=== PATIENT | female | born 1945 | race Caucasian/White ===

== ENCOUNTER 2017-01-04 11:50 | Emergency (ER) | payer MEDICARE, BC ==
[~2017-01-04 11:50] MED LIST: AMLO2.5T PO; ASPI-482 PO; ATOR20TA58 PO; BISA-42 PO; CARV12.5 PO; CARV12.52 PO; CARV6.252 PO; CEFT1FRO2 IV; CHOL2000 PO; CIPR500T PO; CLON1TAB23 PO; ESCI20TA PO; ESOM40CA PO; FERR-26 PO; FLUT16SP NS; GABA-586 PO; GLIM1TAB2 PO; GLIM4TAB2 PO; INSU100V8 SQ; ISOS30TA17 PO; ISOS30TA4 PO; LACTOBACILLUS ACIDOPHILUS PO; LEVO150T5 PO; LORA10TA68 PO; LOSA1TAB17 PO; LOSA1TAB18 PO; LUBI8CAP3 PO; MAGN400T22 PO; METO10TA PO; METO50TA4 PO; MIRT15TA3 PO; MULT1TAB52 PO; MUPI22OI2 TP; NITR0.4T6 SL; OMEG1CAP6 PO; OMEP20CA9 PO; ONDA4TAB12 PO; OXYC-323 PO; POLY17PO5 PO; POTA10TA5 PO; RANO10002 PO; SUCR1TAB PO; TOPI25TA32 PO; TRAM50TA PO; TRAZ100T12 PO; VANC1.5P12 IV; domperidone PO
[2017-01-04] MEDS ORDERED: IPRATRPIUM/ALBUTEROL 0.5/2.5MG 3 ML NEBU. ONE (12:06)
[2017-01-04] MEDS ORDERED: IV NORMAL SALINE 1,000ML 1,000 ML IV SCH (12:15)
[2017-01-04 12:19] LABS: BACTERIA,URINE 0 /HPF (0-FEW); BILIRUBIN,URINE NEG (NEG); CLARITY,URINE CLEAR; COLOR,URINE YELLOW; GLUCOSE,URINE NEG (NEG); NITRITE,URINE NEG (NEG); RBC,URINE 0 /HPF (0-2); UROBILINOGEN,URINE 0.2 mg/dL (0.2 mg/dL); WBC,URINE RARE /HPF (0-4)
--- NOTE | 2017-01-04 12:30 | PHYS DOC ---
General Chief Complaint: ABDOMINAL PAIN Stated Complaint: ABDOMEN AND LOWER BACK PAIN,DIFFICULTY BREATHING Time Seen by MD: 11:51 Source: patient, old records Exam Limitations: no limitations Problems: History of Present Illness Initial Comments Pt is 70/F to ED c/o low abd/back pain and dyspnea. Pt states sx began , states on saw her PCP for these symptoms and was advised she was constipated. She took miralax at home, now having had multiple large BMs she's experiencing abdominal cramping. No emesis, no bad food exposure, no blood in stools. She's complaining of whole body aching chills and sweats. She denies focal abdominal pain complaints. Pt history changes, initially she advised she'd had no n/v. Later, with staff present pt states she had n/v and myalgias last night and fell at home no injury. Timing/Duration: other (2 days) Severity: moderate Modifying Factors: worse with eating, improves with medication Associated Symptoms: malaise, nausea/vomiting, other Allergies: Coded Allergies: Sulfa (Sulfonamide Antibiotics) (Verified Allergy, Intermediate, RASH, ) aripiprazole (Verified Allergy, Intermediate, RASH, 09/23/16) doxycycline (Verified Allergy, Intermediate, N/V RASH, 09/23/16) pseudoephedrine (Verified Allergy, Intermediate, hyperactive, 12/31/14) triprolidine (Verified Allergy, Intermediate, hyperactive, 12/31/14) Past Medical History Medical History: diabetes, GERD, heart disease, high cholesterol, hypertension , other (hiatal hernia, osteoarthritis, Grave's disease, gastroparesis, anemia, constipation, CAD, depression, diverticulosis, GERD, HTN, migraines, HLP) Surgical History: cholecystectomy, tonsillectomy (orbits, catheterization, L ankle) Social History Smoker: non-smoker Alcohol: none Drugs: none Review of Systems Constitutional: chills diaphoresis fever malaise Respiratory: denies cough, denies shortness of breath Cardiovascular: denies chest pain, denies palpitations Gastrointestinal: see HPI Genitourinary: denies dysuria, denies frequency, denies hematuria Musculoskeletal: back paindenies joint pain, denies joint swelling, muscle paindenies neck pain Psychiatric/Neurological: denies headache, denies numbness, denies paresthesia , denies seizure, denies weakness Hematologic/Lymphatic: denies blood clots, denies easy bleeding, denies easy bruising Physical Exam General Appearance: no apparent distress Eyes: bilateral eye EOMI, bilateral eye PERRL, bilateral eye normal inspection Ear, Nose, Throat: hearing grossly normal, normal ENT inspection, normal pharynx Neck: non-tender, supple Respiratory: normal breath sounds, no respiratory distress Cardiovascular: normal peripheral pulses, regular rate, rhythm Gastrointestinal: soft (ND, BS nl, mild generalized low abd TTP no r/g/mass, RLQ TTP noted) Rectal: deferred Back: no CVA tenderness, no vertebral tenderness Extremities: non-tender, normal inspection 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 Automated exposure control 2. Adjustment of the mA and/or kV according to patient size 3. Use of iterative reconstruction technique DICTATED AND SIGNED BY: BELTRAN GLASS MD DATE: 01/05/17 1408 CC: DORINA BUSH MD; JANUARY ZIMMERMAN DO ~ CT of the abdomen and pelvis without contrast, 01/04/2017: History: Abdominal pain and vomiting Multidetector CT imaging was performed following oral ingestion of contrast. No IV contrast was administered for this exam. The gallbladder is surgically absent. The unopacified liver shows no abnormality. No pancreatic abnormality is seen. The spleen is of normal size. There is mild bilateral renal cortical scarring. The unopacified kidneys show no evidence of obstruction or mass. There is mild aortic calcific plaquing without evidence of aneurysm. No abdominal or pelvic adenopathy is seen. There are calcified uterine fibroids. There appear to be surgical sutures related to the rectosigmoid colon. Scattered colonic diverticula are present. No paracolonic inflammatory process is seen. The appendix is visualized and shows no abnormality. The bowel loops are not dilated. No free fluid or free air is evident in the abdomen or pelvis. Moderate scattered degenerative changes are present in the spine IMPRESSION: 1. Colonic diverticulosis. 2. Calcified uterine fibroids. 3. No acute abdominal or pelvic abnormality is detected. DICTATED AND SIGNED BY: BELTRAN GLASS MD DATE: 01/04/17 5161 CC: DORINA BUSH MD; JANUARY ZIMMERMAN DO ~ K+ noted, oral replacement given in ED. Reassurring w/u in ED, no n/v/d. Pt comfortable, ready for d/c, expresses agreement/understanding with treatment plan. Departure Time of Disposition: 14:37 Disposition: 01 HOME, SELF-CARE Diagnosis: hypokalemia, abdominal pain NOS, Condition: STABLE Patient Instructions: Abdominal Pain, Hypokalemia-Brief Additional Instructions: As discussed, your symptoms may be due to a viral process or miralax. Rest, no strenuous activity. Aggressive hydration with gatorade, water. Eat one banana twice daily until doctor follow up. Continue current medications. OTC probiotics or cultured yogurt (lorrie barraza) daily. Follow up with Dr Bush in 2-3 days for recheck. Return to ED with new or changing symptoms. JANUARY ZIMMERMAN DO Jan 04, 2017 12:30
[2017-01-04 12:36] LABS: AMPHETAMINE/METHAMPHETAMINE NEG (NEG); BARBITURATES NEG (NEG); BENZODIAZEPINES NEG (NEG); CANNABINOIDS NEG (NEG); COCAINE NEG (NEG); METHADONE NEG (NEG); OPIATES POS (NEG); PHENCYCLIDINE NEG (NEG)
[2017-01-04] MEDS ORDERED: KETOROLAC 30 MG/ML VIAL. IV ONE (12:45)
[2017-01-04] MEDS ORDERED: ONDANSETRON PF 4 MG/2 ML VIAL. IV ONE (12:45)
[2017-01-04] MEDS ORDERED: ASPIRIN 81 MG TAB.CHEW PO ONE (12:45)
[2017-01-04] MEDS ORDERED: IOHEXOL 240 MG/ML 50ML VIAL. PO ONE (12:45)
[2017-01-04 12:52] LABS: BASO # 0.1 x10^3/uL (0.0-0.2); BASO % 1 % (0-3); EOS # 0.1 x10^3/uL (0.0-0.7); EOS % 2 % (0-3); HEMOGLOBIN 10.4 g/dL (12.0-15.5); LYMPH # 1.5 x10^3/uL (1.0-4.8); LYMPH % 25 % (24-48); MEAN CORPUSCULAR HEMOGLOBIN 28 pg (25-35); MEAN CORPUSCULAR HGB CONC 34 g/dL (31-37); MEAN CORPUSCULAR VOLUME 84 fL (79-100); MONO % 16 % (0-9); NEUT # 3.5 x10^3uL (1.8-7.7); NEUT % 56 % (31-73); PLATELET COUNT 309 x10^3/uL (140-400); RED BLOOD COUNT 3.68 x10^6/uL (3.50-5.40); RED CELL DISTRIBUTION WIDTH 17.3 % (11.5-14.5); WHITE BLOOD COUNT 6.2 x10^3/uL (4.0-11.0)
[2017-01-04] MEDS: FENTANYL PF 100 MCG/2 ML VIAL. IV PRN ×2 (13:03→14:17)
[2017-01-04 13:13] LABS: ALBUMIN 3.5 g/dL (3.4-5.0); ALBUMIN/GLOBULIN RATIO 1.1 (1.0-1.7); CALCIUM 8.8 mg/dL (8.5-10.1); CREATININE 1.2 mg/dL (0.6-1.0); GFR 44.5; POTASSIUM 3.3 mmol/L (3.5-5.1); TOTAL BILIRUBIN 0.4 mg/dL (0.2-1.0); TOTAL PROTEIN 6.6 g/dL (6.4-8.2)
--- NOTE | 2017-01-04 13:22 | RAD ---
Acute abdomen series with chest, 3 views, 01/04/2017: History: Right-sided abdominal pain and chest pain Gas is present in large and small bowel without significant bowel distention. A couple of small nonspecific air-fluid levels are noted on the right. No free air is seen in the abdomen. Surgical clips are present in the right upper quadrant. There is no evidence of organomegaly. Calcifications projected over the pelvis near the midline are compatible with a uterine fibroid. There are surgical sutures in the mid pelvis. Moderate degenerative changes are evident in the spine. The heart is within normal limits in size. There is calcific plaquing of the thoracic aorta. There is minimal parenchymal scarring. No pulmonary consolidation is seen. There is no evidence of pleural fluid. IMPRESSION: No acute abdominal abnormality is detected.
[2017-01-04 14:00] VITALS: BP 104/66
--- NOTE | 2017-01-04 14:15 | RAD ---
CT of the abdomen and pelvis without contrast, 01/04/2017: History: Abdominal pain and vomiting Multidetector CT imaging was performed following oral ingestion of contrast. No IV contrast was administered for this exam. The gallbladder is surgically absent. The unopacified liver shows no abnormality. No pancreatic abnormality is seen. The spleen is of normal size. There is mild bilateral renal cortical scarring. The unopacified kidneys show no evidence of obstruction or mass. There is mild aortic calcific plaquing without evidence of aneurysm. No abdominal or pelvic adenopathy is seen. There are calcified uterine fibroids. There appear to be surgical sutures related to the rectosigmoid colon. Scattered colonic diverticula are present. No paracolonic inflammatory process is seen. The appendix is visualized and shows no abnormality. The bowel loops are not dilated. No free fluid or free air is evident in the abdomen or pelvis. Moderate scattered degenerative changes are present in the spine IMPRESSION: 1. Colonic diverticulosis. 2. Calcified uterine fibroids. 3. No acute abdominal or pelvic abnormality is detected.
--- NOTE | 2017-01-04 14:23 | EKG ---
[address] [address] Test Date: 2017-01-04 Test Time: 12:25:43 Pat Name: NESS CHAVES Department: Room: Gender: F Contact Representative: NORA : 1945 Requested By: JANUARY ZIMMERMAN Order Number: [id number] Reading MD: Measurements Intervals [place] Rate: 76 P: IN: QRS: -26 QRSD: 98 T: 2 QT: 442 QTc: 497 Interpretive Statements IRREGULAR RHYTHM, NO P-WAVE FOUND LEFTWARD AXIS QRS(T) CONTOUR ABNORMALITY CONSISTENT WITH ANTEROSEPTAL INFARCT AGE UNDETERMINED ABNORMAL ECG RI6.01 Unconfirmed report No previous ECG available for comparison
[2017-01-04] MEDS ORDERED: POTASSIUM CHLORIDE 20 MEQ TABLET.ER. PO ONE (14:30)
== END 2017-01-04 14:48 | disposition home or self-care (01) ==
LOC: ER 11:50
DX: R10.31 Right lower quadrant pain (principal); M54.5 Low back pain; R06.00 Dyspnea, unspecified; E87.6 Hypokalemia; E11.9 Type 2 diabetes mellitus without complications; K21.9 Gastro-esophageal reflux disease without esophagitis; F32.9 Major depressive disorder, single episode, unspecified; I25.10 Atherosclerotic heart disease of native coronary artery without angina pectoris; I11.9 Hypertensive heart disease without heart failure; M19.90 Unspecified osteoarthritis, unspecified site; G43.909 Migraine, unspecified, not intractable, without status migrainosus; E05.00 Thyrotoxicosis with diffuse goiter without thyrotoxic crisis or storm; K31.84 Gastroparesis; E78.00 Pure hypercholesterolemia, unspecified; Z88.2 Allergy status to sulfonamides; Z88.1 Allergy status to other antibiotic agents; Z88.8 Allergy status to other drugs, medicaments and biological substances
CPT/HCPCS: 36415; 74022; 74176; 80053; 80305; 80320; 81001; 82550; 83690; 83880; 84484; 85027; 85610; 85730; 93005; 96361; 96374; 96375; 96376; 99285; J2405; J3010; G0480; G0481; J7030

== ENCOUNTER 2017-06-07 23:16 | Emergency (ER) | payer MEDICARE, BC ==
[~2017-06-07] VITALS: Ht 160 cm; Wt 105.0 kg
[~2017-06-07 23:16] MED LIST changes: -ESCI20TA PO; +ESCITALOPRAM OX20 MG PO; -FLUT16SP NS; +FLUT16SP21 NS; -ISOS30TA17 PO; +ISOS30TA19 PO; -LUBI8CAP3 PO; +LUBI8CAP4 PO; +NITR0.4T22 SL; -NITR0.4T6 SL; -TOPI25TA32 PO; +TOPI25TA52 PO; +TRAZ-90 PO; -TRAZ100T12 PO
[2017-06-08] MEDS ORDERED: IV NORMAL SALINE 1,000ML 1,000 ML IV SCH (00:45)
[2017-06-08 01:46] LABS: BACTERIA,URINE FEW /HPF (0-FEW); BILIRUBIN,URINE NEG (NEG); CLARITY,URINE CLEAR; COLOR,URINE YELLOW; GLUCOSE,URINE NEG (NEG); NITRITE,URINE NEG (NEG); RBC,URINE 0 /HPF (0-2); SQUAMOUS EPITHELIAL CELL,UR FEW /LPF; UROBILINOGEN,URINE 0.2 mg/dL (0.2 mg/dL); WBC,URINE OCC /HPF (0-4)
--- NOTE | 2017-06-08 02:01 | PHYS DOC ---
Past History Past Medical History: Anxiety, Depression, Diabetes, Heart Disease, Hypertension, Hyperthyroid, Hypothyroid, Immunosuppression Past Surgical History: Cholecystectomy Smoking: Non-smoker Alcohol Use: None Drug Use: None Adult General Chief Complaint Chief Complaint: DIZZY/LIGHT HEADED HPI HPI Patient is a 71 year old female who presents with complaint of dizziness and lightheadedness. Patient states that her symptoms have been present throughout the day. Patient states that she has been getting very lightheaded and feeling like she is about to pass out, especially when standing. Patient states that she tried taking a nap earlier today, however upon awakening she still found herself to be lightheaded. Patient states that she has been drinking normal amounts of fluid and has not had over exposure to heat. Patient denies any associated shortness of breath, chest pain, unilateral weakness, nausea, vomiting, or abdominal pain. Due to generalized fatigue and persistent symptoms the patient came to the emergency department for further evaluation. Review of Systems Review of Systems Constitutional: Dizziness, lightheadedness, denies fever or chills [] Eyes: Denies change in visual acuity, redness, or eye pain [] HENT: Denies nasal congestion or sore throat [] Respiratory: Denies cough or shortness of breath [] Cardiovascular: Denies chest pain or edema [] GI: Denies abdominal pain, nausea, vomiting, bloody stools or diarrhea [] : Denies dysuria or hematuria [] Musculoskeletal: Denies back pain or joint pain [] Integument: Denies rash or skin lesions [] Neurologic: Denies headache, focal weakness or sensory changes [] Current Medications Current Medications Current Medications Medications (Trade) Dose Ordered Sig/Maggie Start Time Stop Time Status Last Admin Dose Admin Sodium Chloride 1,000 ml @ 1,000 mls/hr Q1H 06/08/17 00:45 06/08/17 01:44 DC 06/08/17 00:45 1,000 MLS/HR Allergies Allergies Allergies Coded Allergies Type Severity Reaction Last Updated Verified Sulfa (Sulfonamide Antibiotics) Allergy Intermediate RASH 09/23/16 Yes aripiprazole Allergy Intermediate RASH 09/23/16 Yes doxycycline Allergy Intermediate N/V RASH 09/23/16 Yes pseudoephedrine Allergy Intermediate hyperactive 12/31/14 Yes triprolidine Allergy Intermediate hyperactive 12/31/14 Yes Physical Exam Physical Exam Constitutional: Alert, obese, afebrile, no acute distress. [] HENT: Normocephalic, atraumatic, bilateral external ears normal, oropharynx moist, no oral exudates, nose normal. [] Eyes: PERRLA, EOMI, conjunctiva normal, no discharge. [] Neck: Normal range of motion, no tenderness, supple, no stridor. [] Cardiovascular:Heart rate regular rhythm, no murmur [] Lungs & Thorax: Bilateral breath sounds clear to auscultation [] Abdomen: Bowel sounds normal, soft, no tenderness, no masses, no pulsatile masses. [] Skin: Warm, dry, no erythema, no rash. [] Back: No tenderness, no CVA tenderness. [] Extremities: No tenderness, no cyanosis, no clubbing, ROM intact, no edema. [] Neurologic: Alert and oriented X 3, normal motor function, normal sensory function, no focal deficits noted. [] Current Patient Data Vital Signs Vital Signs Date Time Temp Pulse Resp B/P (MAP) Pulse Ox O2 Delivery O2 Flow Rate FiO2 06/07/17 23:33 98.0 68 20 97 Room Air Lab Results Laboratory Tests Test 06/07/17 23:59 06/08/17 00:38 Glucose (Fingerstick) 158 mg/dL (70-99) H Urine Collection Type Unknown Urine Color Yellow Urine Clarity Clear Urine pH 5.0 Urine Specific [place] 1.010 Urine Protein Neg (NEG-TRACE) Urine Glucose (UA) Neg mg/dL (NEG) Urine Ketones (Stick) Neg mg/dL (NEG) Urine Blood Neg (NEG) Urine Nitrite Neg (NEG) Urine Bilirubin Neg (NEG) Urine Urobilinogen Dipstick 0.2 mg/dL (0.2 mg/dL) Urine Leukocyte Esterase Small (NEG) Urine RBC 0 /HPF (0-2) Urine WBC Occ /HPF (0-4) Urine Squamous Epithelial Cells Few /LPF Urine Bacteria Few /HPF (0-FEW) EKG EKG Interpreted by me: Heart rate 68, sinus rhythm, leftward axis, normal intervals , no acute ST/T-wave abnormalities present [] Radiology/Procedures Radiology/Procedures Not performed [] Course & Med Decision Making Course & Med Decision Making Pertinent Labs and Imaging studies reviewed. (See chart for details) Patient was given IV fluids in the emergency department. The patient's metabolic panel shows evidence consistent with dehydration. On reevaluation, patient states her symptoms have improved at this time. Recommended continued oral hydration. Patient states that she has a follow-up appointment later today with Dr. Godfrey. Advised to keep this appointment as scheduled. Recommended return to the emergency department for any worsening symptoms. Patient voiced understanding and in agreement with treatment plan. Dragon Disclaimer Dragon Disclaimer This chart was dictated in whole or in part using Voice Recognition software in a busy, high-work load, and often noisy Emergency Department environment. It may contain unintended and wholly unrecognized errors or omissions. Departure Departure: Impression: Primary Impression: Dehydration Disposition: 01 HOME, SELF-CARE Condition: IMPROVED Referrals: DORINA GODFREY MD (PCP) Patient Instructions: Dehydration, Adult Additional Instructions: Follow-up with Dr. Godfrey today as scheduled for reevaluation. Return to the emergency department for any worsening symptoms. ARMINDA POSEY MD Jun 08, 2017 02:01
[2017-06-08 02:02] LABS: BASO # 0.1 x10^3/uL (0.0-0.2); BASO % 0 % (0-3); EOS # 0.2 x10^3/uL (0.0-0.7); EOS % 1 % (0-3); HEMOGLOBIN 11.6 g/dL (12.0-15.5); LYMPH # 4.1 x10^3/uL (1.0-4.8); LYMPH % 27 % (24-48); MEAN CORPUSCULAR HEMOGLOBIN 26 pg (25-35); MEAN CORPUSCULAR HGB CONC 32 g/dL (31-37); MEAN CORPUSCULAR VOLUME 81 fL (79-100); MONO # 1.2 x10^3/uL (0.0-1.1); MONO % 8 % (0-9); NEUT # 9.8 x10^3uL (1.8-7.7); NEUT % 64 % (31-73); PLATELET COUNT 399 x10^3/uL (140-400); RED BLOOD COUNT 4.47 x10^6/uL (3.50-5.40); RED CELL DISTRIBUTION WIDTH 16.4 % (11.5-14.5); WHITE BLOOD COUNT 15.4 x10^3/uL (4.0-11.0)
[2017-06-08 02:17] LABS: % BANDS 1 % (0-9); % EOS 2 % (0-5); % LYMPHS 28 % (24-48); % MONOS 11 % (0-10); % SEGS 58 % (35-66); ALBUMIN 3.5 g/dL (3.4-5.0); CALCIUM 8.8 mg/dL (8.5-10.1); CREATININE 1.6 mg/dL (0.6-1.0); MAGNESIUM 1.8 mg/dL (1.8-2.4); POTASSIUM 3.4 mmol/L (3.5-5.1); TOTAL BILIRUBIN 0.3 mg/dL (0.2-1.0); TOTAL PROTEIN 6.9 g/dL (6.4-8.2)
[2017-06-08 02:18] LABS: PLT ESTIMATE ADEQUATE (ADEQUATE)
[2017-06-08 03:30] VITALS: BP 123/64
--- NOTE | 2017-06-08 05:32 | EKG ---
[address] [address] Test Date: 2017-06-08 Test Time: 01:35:42 Pat Name: NESS CHAVES Department: Room: Gender: F Media Manager: : 1945 Requested By: ARMINDA POSEY Order Number: [id number] Reading MD: Ashwin Patel Measurements Intervals [place] Rate: 68 P: 13 VT: 168 QRS: -28 QRSD: 100 T: 4 QT: 444 QTc: 472 Interpretive Statements SINUS RHYTHM LEFTWARD AXIS INCOMPLETE RIGHT BUNDLE BRANCH BLOCK CONSISTENT WITH SEPTAL INFARCT Electronically Signed On 06-08-2017 8:13:02 CDT by Ashwin Patel
== END 2017-06-08 03:30 | disposition home or self-care (01) ==
LOC: ER 23:16
DX: E86.0 Dehydration (principal); E03.9 Hypothyroidism, unspecified; E05.90 Thyrotoxicosis, unspecified without thyrotoxic crisis or storm; E11.9 Type 2 diabetes mellitus without complications; I11.9 Hypertensive heart disease without heart failure; Z88.2 Allergy status to sulfonamides; Z88.8 Allergy status to other drugs, medicaments and biological substances; Z88.1 Allergy status to other antibiotic agents
CPT/HCPCS: 36415; 80053; 81001; 82947; 83735; 85007; 85027; 87086; 93005; 96360; 96361; 99285-25; J7030

== ENCOUNTER 2017-06-22 08:49 | Inpatient (IN) | payer MEDICARE, BC ==
[~2017-06-22] VITALS: Ht 160 cm; Wt 106.3 kg
--- NOTE | 2017-06-22 09:17 | EKG ---
[address] [address] Test Date: 2017-06-22 Test Time: 08:55:40 Pat Name: NESS CHAVES Department: Room: Gender: F Sampler First: : 1945 Requested By: JANUARY ZIMMERMAN Order Number: [id number] Reading MD: Ashwin Patel Measurements Intervals [place] Rate: 75 P: 22 GA: 136 QRS: -28 QRSD: 98 T: -2 QT: 412 QTc: 463 Interpretive Statements SINUS RHYTHM LAD RBBB Electronically Signed On 07-06-2017 10:48:04 CDT by Ashwin Patel
[2017-06-22] MEDS: NITROGLYCERIN SUBLINGUAL 0.4 MG BOTTLE OF 25. SL PRN ×2 (09:20→10:04)
--- NOTE | 2017-06-22 09:34 | PHYS DOC ---
General Chief Complaint: CHEST WALL PAIN Stated Complaint: CHEST DISCOMFORT/COUGH Time Seen by MD: 08:55 Source: patient, old records Exam Limitations: no limitations Problems: History of Present Illness Initial Comments Patient is a 71-year-old female brought to the ED by EMS with cough and chest wall discomfort. Patient states that for the past 3 days she's had a worsening cough initially nonproductive today with whitish sputum. She's had worsening body aches and myalgias past three days, no fevers diaphoresis emesis arm or neck discomfort. Her primary complaint today is chest pain with coughing and certain postural movements. She has extensive cardiac history, current symptoms not consistent with prior IN. ED VS: 98.8, 78, 27, 162/98, 96% RA Follows with [facility] Timing/Duration: getting worse (3 days), changing over time Severity: severe Modifying Factors: improves with other Associated Symptoms: chest pain, cough, malaise Allergies: Coded Allergies: Sulfa (Sulfonamide Antibiotics) (Verified Allergy, Intermediate, RASH, ) aripiprazole (Verified Allergy, Intermediate, RASH, 09/23/16) doxycycline (Verified Allergy, Intermediate, N/V RASH, 09/23/16) pseudoephedrine (Verified Allergy, Intermediate, hyperactive, 12/31/14) triprolidine (Verified Allergy, Intermediate, hyperactive, 12/31/14) Past Medical History Medical History: diabetes, GERD, heart disease, high cholesterol, hypertension , other (osteoarthritis, Graves' disease, gastroparesis, migraine headaches, anemia, diverticulosis, anxiety, depression, immunosuppression) Surgical History: cholecystectomy, tonsillectomy Social History Smoker: non-smoker Alcohol: none Drugs: none Review of Systems Constitutional: denies chills, denies diaphoresis, denies fever, malaise Respiratory: see HPI, cough, denies orthopnea, denies shortness of breath, denies stridor, denies wheezing Cardiovascular: see HPI, chest pain, edema, denies palpitations, denies syncope Gastrointestinal: denies constipation, denies diarrhea, nausea, denies vomiting Genitourinary: denies dysuria, denies frequency, denies hematuria Musculoskeletal: see HPI Psychiatric/Neurological: denies headache, denies numbness, denies paresthesia , denies weakness Physical Exam General Appearance: no apparent distress, obese Ear, Nose, Throat: hearing grossly normal, normal ENT inspection, normal pharynx Neck: non-tender, supple Respiratory: normal breath sounds, no respiratory distress (tachypneic), other (exquisite anterior chest wall TTP reproduces chief complaint) Cardiovascular: normal peripheral pulses, regular rate, rhythm Gastrointestinal: non tender, soft, no pulsatile mass Back: no CVA tenderness, no vertebral tenderness Extremities: non-tender (2+ pitting LE edema involving lower legs, no erythema or assymetry) Neurologic/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 Interpreted by me. PATIENT: NESS CHAVES ACCOUNT: [id number] : 1945 LOCATION: ER AGE: 71 SEX: F EXAM STATUS: REG ER ORD. PHYSICIAN: JANUARY ZIMMERMAN DO REASON: cough PROCEDURE: CHEST PA & LATERAL Chest radiograph 06/22/2017 at 0935 hours Indication: Cough, shortness of air. Dizziness. Comparison: Chest radiograph 01/04/2017 Technique: PA and lateral views of the chest are provided. Findings: Cardiomediastinal silhouette is within normal limits. Thoracic aorta is tortuous with minor calcified atherosclerotic plaque. No pleural effusions, pulmonary vascular congestion or pneumothorax. The lungs are clear. Osseous structures are normal. Impression: No acute cardiopulmonary process. DICTATED AND SIGNED BY: MAGDALENE RICKS MD DATE: 06/22/17938 CC: DORINA GODFREY MD; JANUARY ZIMMERMAN DO ~ 1019: Pt rechecked, she has had NTG SL x 2 with slight improvement in her CP symptoms (10 initially currently 8). Her VS remain stable, due to chemistry machine service labs had to be sent to [facility]. I discussed her coags/d-dimer/ cbc results with her as well as CXR report. No new or progressive symptoms, she has persistent exquisite anterior chest wall tenderness to palpation and with movement. 1116: Chemistry machine analyzer is being serviced so i-STAT studies available were ordered. Initial labs unremarkable patient complains of persistent chest discomfort. Lactic acid was however elevated although no definitive focus of infection. 1209: I discussed the patient with genetic oral surgeon with whom patient follows for cardiology. She requests that the patient be admitted to [facility] for further evaluation, will see for consultation tomorrow. No new orders requested. I discussed the patient with Dr. Brennan. Will admit for chest pain evaluation and presumed atypical pneumonia requests continued hydration and initiation of Levaquin. Departure Disposition: ADMITTED INPATIENT Diagnosis: chest pain Condition: STABLE Additional Instructions: Inpatient telemetry admission for serial cardiac enzymes, IV hydration and antibiotics. Dr. Brennan is accepting. JANUARY ZIMMERMAN DO Jun 22, 2017 09:34
[2017-06-22 09:40] LABS: HEMATOCRIT 35.3 % (36.0-47.0); HEMOGLOBIN 11.4 g/dL (12.0-15.5); MEAN CORPUSCULAR HEMOGLOBIN 26 pg (25-35); MEAN CORPUSCULAR VOLUME 81 fL (79-100); RED BLOOD COUNT 4.37 x10^6/uL (3.50-5.40); WHITE BLOOD COUNT 7.2 x10^3/uL (4.0-11.0)
[2017-06-22] MEDS ORDERED: ASPIRIN 81 MG TAB.CHEW PO ONE (09:40)
[2017-06-22 09:41] LABS: MEAN CORPUSCULAR HGB CONC 32 g/dL (31-37); PLATELET COUNT 381 x10^3/uL (140-400); RED CELL DISTRIBUTION WIDTH 16.9 % (11.5-14.5)
--- NOTE | 2017-06-22 09:43 | RAD ---
Chest radiograph 06/22/2017 at 0935 hours Indication: Cough, shortness of air. Dizziness. Comparison: Chest radiograph 01/04/2017 Technique: PA and lateral views of the chest are provided. Findings: Cardiomediastinal silhouette is within normal limits. Thoracic aorta is tortuous with minor calcified atherosclerotic plaque. No pleural effusions, pulmonary vascular congestion or pneumothorax. The lungs are clear. Osseous structures are normal. Impression: No acute cardiopulmonary process.
[2017-06-22 09:58] LABS: % EOS 1 % (0-5); % LYMPHS 34 % (24-48); % MONOS 5 % (0-10); % SEGS 60 % (35-66); PLT ESTIMATE ADEQUATE (ADEQUATE)
[2017-06-22 10:21] LABS: BACTERIA,URINE FEW /HPF (0-FEW); BILIRUBIN,URINE NEG (NEG); CLARITY,URINE HAZY; COLOR,URINE YELLOW; GLUCOSE,URINE NEG (NEG); HYALINE CASTS, URINE OCC /HPF; NITRITE,URINE NEG (NEG); RBC,URINE 0 /HPF (0-2); SQUAMOUS EPITHELIAL CELL,UR FEW /LPF; UROBILINOGEN,URINE 0.2 mg/dL (0.2 mg/dL)
[2017-06-22 10:24] LABS: HEMOGLOBIN ISTAT 6.8 gm/dL; POTASSIUM ISTAT 3.8 mmol/L (3.5-5.0)
[2017-06-22] MEDS ORDERED: MORPHINE SULFATE 4 MG/ML DISP.SYRIN. IV/SQ PRN (10:45)
[2017-06-22 11:26] LABS: ALBUMIN 3.9 g/dL (3.4-5.0); ALK PHOS 81 U/L (46-116); ALT (SGPT) 24 U/L (14-59); AST (SGOT) 31 U/L (15-37); TOTAL BILIRUBIN 0.7 mg/dL (0.2-1.0); TOTAL PROTEIN 6.7 g/dL (6.4-8.2)
[2017-06-22 11:27] LABS: CREATINE KINASE 33 U/L (26-192); DIRECT BILIRUBIN < 0.1 mg/dL (0.0-0.2)
[2017-06-22 11:30] LABS: MAGNESIUM 1.6 mg/dL (1.8-2.4)
[2017-06-22] MEDS ORDERED: ACETAMINOPHEN 325 MG TABLET PO PRN (12:30)
[2017-06-22] MEDS ORDERED: ONDANSETRON PF 4 MG/2 ML VIAL. IV PRN (12:30)
[2017-06-22 14:13] VITALS: BP 108/65
[2017-06-22] MEDS ORDERED: DEXTROSE 50% 25 GM / 50ML DISP.SYRIN. IV PRN (14:15)
[2017-06-22] MEDS: IV NORMAL SALINE 1,000ML 1,000 ML IV SCH (14:55)
[2017-06-22] MEDS ORDERED: IMMU50VI3 IV (16:06)
[2017-06-22] MEDS ORDERED: POLY17PO5 PO (16:06)
[2017-06-22] MEDS: INSULIN ASPART 300 UNITS/3 ML INSULN.PEN SQ SCH (16:30)
[2017-06-22] MEDS: DOMPERIDONE 10 MG PO SCH ×2 (17:24→20:55)
[2017-06-22] MEDS: GLIMEPIRIDE 1 MG TABLET PO SCH (17:25)
[2017-06-22] MEDS: CARVEDILOL 12.5 MG TABLET PO SCH (17:25)
--- NOTE | 2017-06-22 20:20 | HP ---
ADMIT DATE: 06/22/2017 HISTORY OF PRESENT ILLNESS: This is a 71-year-old female patient who came to the Emergency Room complaining of chest pain that started yesterday. She also stated that she has worsening cough, initially dry and now with whitish sputum. She has some worsening body aches and myalgias for the last 3 days. No fever or diaphoresis and she did complain of nausea and vomiting yesterday and she continued to come to have nausea. She denied any arm or neck discomfort. Her primary complaint was chest pain with coughing in certain postural movement. She apparently had extensive cardiac history; however, she apparently had a recent stress test and echocardiogram. She follows with Dr. Coy Mcgill, Cardiology. She has had extensive investigation in the Emergency Room, which showed that she has lactic acidosis with lactic acid when she came this morning was 2.8. Her troponin was less than 0.00 and her EKG was unremarkable. Chest x-ray also showed that the cardiomediastinal silhouette is within normal limits and the impression is that the patient has no acute cardiopulmonary process. Her white cell count was normal. The patient was basically admitted with possible atypical pneumonia given the cough and shortness of breath, normal chest x-ray and was basically started on IV antibiotic in the form of levofloxacin and to continue with all other medications. PAST MEDICAL HISTORY: Significant for coronary artery disease, hypertension, hyperlipidemia, migraine, chronic constipation, diverticulosis, gastroesophageal reflux disease, hiatal hernia, gastroparesis, anemia, depression, status post ECT for which she sees a psychiatrist. She has also osteoarthritis and uses a cane and orthotic for walking. She has chronic sinusitis, Graves disease and Graves ophthalmopathy. PAST SURGICAL HISTORY: Significant for cholecystectomy, tonsillectomy, bilateral orbital decompression for Graves ophthalmopathy. She has blepharoplasty in the right, heart catheterization in 2008. She also has left ankle fracture, status post open reduction and internal fixation, incontinence surgery, and multiple GI endoscopies. FAMILY HISTORY: Positive for cancer in her mother. SOCIAL HISTORY: She lives with her daughter and granddaughter. She does not smoke, drink alcohol or use recreational drugs. REVIEW OF SYSTEMS: As per history of present illness. ALLERGIES: She is allergic to SULFA, ARIPIPRAZOLE, DOXYCYCLINE, PSEUDOEPHEDRINE and TRIPROLIDINE. MEDICATIONS: She is currently on the following medications: She is on aspirin 81 mg once a day, atorvastatin calcium 20 mg at bedtime, carvedilol 12.5 mg twice a day, cholecalciferol for vitamin D 5000 international units once a day, clonazepam 0.5 mg at bedtime, escitalopram oxalate 20 mg daily. She is on Flonase 1 spray to each nostril twice a day, gabapentin 300 mg p.o. b.i.d., glimepiride 4 mg at noon, glimepiride 1 mg daily with supper and breakfast. She is on 50 mL IV q. 4 weeks. She is on Lantus insulin 29 units subcutaneously at bedtime, losartan/hydrochlorothiazide 100/25 half a tablet p.o. daily. She is on mirtazapine 45 mg at bedtime, multivitamin 1 tablet once a day, omeprazole 20 mg once a day, polyethylene glycol 17 grams daily as needed for constipation, potassium chloride for Klor-Con 10 mEq once a day, topiramate for Topamax 25 mg at bedtime and domperidone 10 mg q.i.d. before meals and bedtime, Lactobacillus acidophilus 1 tablet daily. PHYSICAL EXAMINATION: GENERAL: On examining her, she looked well and was clearly in no apparent respiratory distress. She was slightly pale, but not jaundiced, cyanosis, or thyromegaly. No jugular venous distention. No limb edema. VITAL SIGNS: Her heart rate was 78, blood pressure 162/98, temperature was 98.8, respiratory rate 27 and oxygen saturation was 96% on room air. HEAD, EYES, EARS, NOSE AND THROAT: Showed normocephalic, atraumatic. NECK: Supple. HEART: Showed normal first and second heart sounds with no gallop, rub or murmur. CHEST: Clear to auscultation. No crepitation or rhonchi. ABDOMEN: Distended, soft, nontender. NEUROLOGIC: She is awake, alert, responding appropriately. All cranial nerves are intact. EXTREMITIES: She moves extremities without difficulty. She ambulates with a cane. LABORATORY DATA: On arrival showed a white cell count 7200, hemoglobin 11.4, hematocrit 35, MCV 81 and platelet count 381,000. Her chemistry showed a serum sodium 133, potassium 3.8, chloride 98, bicarbonate 24, anion gap of 17, BUN 14, creatinine 0.9, glucose was 193. Her lactic acid was 2.8, magnesium was 1.6. Total bilirubin 0.7. AST, ALT, and alkaline phosphatase were normal. Her CK was 33 and total beta natriuretic peptide was 73. Total protein was 6.7, albumin was 3.9. Her first set of cardiac enzymes was normal. Her prothrombin time was 9.8, INR of 1, aPTT was 27 and D-dimer was 0.37 mg/dL. Her urinalysis showed the urine was yellow, hazy, with a pH of 7, specific gravity of 1.015. The urine was negative for protein, glucose, ketones, blood, nitrite and leukocyte esterase. There were 0 RBCs, 1-4 WBCs, very few bacteria. IMAGING: She did have a chest x-ray, which was basically normal, which cardiomediastinal silhouette is within normal limits. Thoracic aorta is tortuous with minor calcified atherosclerotic plaque, no pleural effusion, pulmonary vascular congestion or pneumothorax. The lungs are clear. Osseous structures are normal. ASSESSMENT AND PLAN: The patient was admitted with questionable atypical pneumonia and lactic acidosis. We will do 2 more sets of cardiac enzyme, consult the Cardiology team, although she apparently has had recent Cardiology workup, which was normal. We will treat her for now with possible atypical pneumonia with IV antibiotic, IV rehydration and repeat all her lab work tomorrow and decide on further management accordingly. YOLANDA MILLER MD DR: LIGIA/jcarlos JOB#: [id number] / [id number]
[2017-06-22 20:35] VITALS: BP 118/58
[2017-06-22] MEDS: GABAPENTIN 300 MG CAPSULE. PO SCH (20:51)
[2017-06-22] MEDS: clonazePAM 0.5 MG TABLET PO SCH (20:51)
[2017-06-22] MEDS: TOPIRAMATE 25 MG TABLET. PO SCH (20:51)
[2017-06-22] MEDS: ASPIRIN ENTERIC COATED 81 MG TABLET.DR. PO SCH (20:51)
[2017-06-22] MEDS: ATORVASTATIN CALCIUM 20 MG TABLET PO SCH (20:51)
[2017-06-22] MEDS: MIRTAZAPINE 15 MG TABLET PO SCH (20:51)
[2017-06-22] MEDS ORDERED: INSULIN DETEMIR 300 UNITS/3 ML INSULN.PEN. SQ SCH (21:00)
[2017-06-22] MEDS: POLYETHYLENE GLYCOL 3350 17 GM PACKET. PO SCH (21:50)
[2017-06-22 23:20] VITALS: BP 103/68
[2017-06-23] MEDS: IV NORMAL SALINE 1,000ML 1,000 ML IV SCH ×2 (03:35→08:44)
--- NOTE | 2017-06-23 03:50 | ACF ---
Admission Criteria Forms PNEUMONIA, COMMUNITY ACQUIRED Clinical Indications for Admission to Inpatient Care (Place 'X' for any and all applicable criteria): Admission to inpatient status for two midnights or more is indicated for ANY ONE of the following (1)(2)(3): [ ]I. Hypoxia [ ]II. Hemodynamic instability [ ]III. Altered mental status that is severe or persistent [ ]IV. Dehydration that is severe or persistent. [ ]V. Bacteremia [ ]. Moderate-risk or high-risk category patients (Pneumonia Severity Index ( PSI) class IV or V, or CURB-65 score of 3 or greater). [ ]VII. Intermediate-risk category patients (e.g., PSI class III or CURB-65 score 2) who do not improve with outpatient and observation care treatment [ ]VIII. Outpatient treatment failure as indicated by 1 or more of the following(9): [ ]a) Failure to respond to antibiotic (eg, resistant organism) [ ]b) Clinically significant adverse effects from medication (eg, vomiting) [ ]c) Complications of pneumonia (eg, empyema, bacteremia) [ ]d) Significant worsening of comorbid cond necessitating inpatient care (eg, chronic heart failure) [ ]IX. Appropriate diagnostic testing and treatment unavailable in outpatient or recovery facility (eg, testing or infection control measures unavailable) [X]X. Respiratory finding (eg. tachypnea) that do not respond to outpatient observation care treatment [ ]XI. Complicated pleural effusions (eg, emphysema, exudative, loculated) [ ]XII. Immunocompromised patients (e.g., AIDS, chronic steroid use) at moderate or high risk based on clinical evaluation. Extended stay beyond goal length of stay may be needed for (20) [ ]a) Unclear diagnosis [ ]b) Pleural disease [ ]c) Severe pneumonia or treatment failure [ ]d) Respiratory failure [ ]e) New onset hyponatremia (serum Na concentration less than 135 mEq/L(mmol/ L) [ ]f) Clinically significant comorbid illness (eg, heart failure, atrial fibrillation with rapid heart rate, alcohol withdrawal, renal insufficiency)(34)(35) [ ]g) Comorbid acute exacerbation of COPD(36) [ ]h) Concomitant diagnosis of malignancy [ ]i) Concomitant altered mental status [ ]j) Culture-identified Gram-negative or antibiotic-resistant organism (eg, Pseudomonas, methicillin-resistant Staphylococcus aureus MRSA)(30) [ ]k) Healthcare-associated pneumonia (36) The original [facility] content created by [facility] has been revised. The portions of the content which have been revised are identified through the use of italic text, and [facility] has neither reviewed nor approved the modified material. All other unmodified content is copyright [facility]. Please see references footnoted in the original [facility] edition 2015 Admission Criteria Met?: Yes CARLTON PARRISH Jun 23, 2017 03:50
[2017-06-23 05:35] VITALS: BP 145/81
[2017-06-23 06:56] LABS: BASO # 0.1 x10^3/uL (0.0-0.2); BASO % 1 % (0-3); EOS # 0.3 x10^3/uL (0.0-0.7); EOS % 3 % (0-3); HEMOGLOBIN 10.6 g/dL (12.0-15.5); LYMPH # 2.7 x10^3/uL (1.0-4.8); LYMPH % 30 % (24-48); MEAN CORPUSCULAR HEMOGLOBIN 27 pg (25-35); MEAN CORPUSCULAR HGB CONC 33 g/dL (31-37); MEAN CORPUSCULAR VOLUME 81 fL (79-100); MONO # 0.6 x10^3/uL (0.0-1.1); MONO % 7 % (0-9); NEUT # 5.3 x10^3uL (1.8-7.7); NEUT % 59 % (31-73); PLATELET COUNT 316 x10^3/uL (140-400); RED BLOOD COUNT 3.95 x10^6/uL (3.50-5.40); RED CELL DISTRIBUTION WIDTH 16.8 % (11.5-14.5); WHITE BLOOD COUNT 8.9 x10^3/uL (4.0-11.0)
[2017-06-23 07:01] LABS: ALBUMIN/GLOBULIN RATIO 0.9 (1.0-1.7); CALCIUM 8.6 mg/dL (8.5-10.1); CREATININE 1.1 mg/dL (0.6-1.0); GFR 49.2; TOTAL BILIRUBIN 0.3 mg/dL (0.2-1.0); TOTAL PROTEIN 6.2 g/dL (6.4-8.2)
[2017-06-23] MEDS: INSULIN ASPART 300 UNITS/3 ML INSULN.PEN SQ SCH ×3 (07:30→16:30)
[2017-06-23] MEDS: CHOLECALCIFEROL (VITAMIN D3) 1,000 UNIT TABLET PO SCH (08:39)
[2017-06-23] MEDS: MULTIVITAMIN with MINERAL TABLET. PO SCH (08:40)
[2017-06-23] MEDS: LACTOBACILLUS ACIDOPH & BULGAR 1 TABLET. PO SCH (08:40)
[2017-06-23] MEDS: LOSARTAN 50 MG TABLET. PO SCH (08:41)
[2017-06-23] MEDS: PANTOPRAZOLE 40 MG TABLET. PO SCH (08:41)
[2017-06-23] MEDS: CITALOPRAM 20 MG TABLET. PO SCH (08:41)
[2017-06-23] MEDS: GABAPENTIN 300 MG CAPSULE. PO SCH ×2 (08:41→20:17)
[2017-06-23] MEDS: DOMPERIDONE 10 MG PO SCH ×4 (08:42→20:16)
[2017-06-23] MEDS: POTASSIUM CHLORIDE 10 MEQ TABLET.ER. PO SCH (08:42)
[2017-06-23] MEDS: CARVEDILOL 12.5 MG TABLET PO SCH ×2 (08:42→16:39)
[2017-06-23] MEDS: hydroCHLOROthiazide 12.5 MG CAPSULE PO SCH (08:43)
[2017-06-23] MEDS ORDERED: POLYETHYLENE GLYCOL 3350 17 GM PACKET. PO SCH (09:00)
--- NOTE | 2017-06-23 09:23 | PDOC2 ---
KOKI MADERA [employer] 06/23/17 0923: CONSULT Date of Admission DATE: 06/23/17 TIME: 09:20 Reason for Consult: Chest pain History of Present Illness HISTORY OF PRESENT ILLNESS: This is a 71-year-old white female, well-known to our service, admitted with chest pain. She has a history of coronary artery disease with stenting to the right coronary artery in 2008, hypertension, diabetes mellitus type 2, mild carotid disease, graves disease, hyperlipidemia, and major depression. about 3 days ago she developed a cough and body aches. At 1st cough was nonproductive then yesterday she started bringing up white sputum. The chest pain began about 2 days ago and has been consistent since that time. It seems worse in the mornings it slightly better in the afternoons and worse again in the evenings. It is not ever completely gone away for 72 hours now. It increases with deep breathing and it increases with cough. It is very tender to the touch. It is not associated with any shortness of breath , nausea, vomiting or diaphoresis. She has not had any fever, chills or diarrhea. She has noticed that she has had an increase in lower extremity edema of her right leg and has had a hard time getting her braces on the last few weeks. This morning there is no swelling in her legs. She denies any palpitations but has had some shortness of breath when she has been active around her home the last several days. REVIEW OF SYSTEMS: Review of 10 organ systems is negative except as above. PAST MEDICAL HISTORY: She does have a history of coronary artery disease, having undergone stents (she reports 4 stents) to the right coronary artery in 2008. She has a history of diabetes for around 20 years with diabetic gastroparesis, mild carotid stenosis, hyperlipidemia, depression, hypertension, and morbid obesity. She also has a chronic sinusitis, foot drop, for which she uses braces. She has history of sleep apnea, but did not tolerate CPAP. SOCIAL HISTORY: She does not smoke or take alcohol. She ambulates with a cane and a brace. She lives at home with her daughter and granddaughter FAMILY HISTORY: There is no family history of premature coronary artery disease. PHYSICAL EXAMINATION: Patient is a 71-year-old female. GENERAL: This is a well developed, well nourished female. No apparent distress. SKIN: Warm and dry with normal skin turgor. Negative for pallor. No lesions or rashes noted. EYES: Conjunctiva are clear. Extraocular movements are intact. No xanthelasma. HEAD AND NECK: Oral mucosa is moist. There is no cyanosis. Neck is supple. Jugular venous pressure is flat. Carotid pulses are 2/2 bilaterally. No carotid bruits. There is no obvious thyromegaly. HEART: Regular rate and rhythm. Normal S1 and S2. No S3. No S4. No significant murmur. No rub. PMI is not displaced. LUNGS: Effort is good. There is symmetric expansion bilaterally. Clear to auscultation bilaterally. No wheezes. No crackles. No rhonchi. ABDOMEN: Normal active bowel sounds. Soft. Nontender. EXTREMITIES: No clubbing. No cyanosis. Trace edema of lower extremities. Palpable pedal pulses. MUSCULOSKELETAL: No kyphosis. No scoliosis. No localized tenderness or stiffness. Gait appears normal. NEUROLOGIC: Alert and oriented times three. Cranial nerves III-XII are grossly intact. Good motor tone and strength in the upper and lower extremities bilaterally. PSYCHOLOGIC: This is a pleasant patient with a normal affect ECHOCARDIOGRAM IMPRESSION (12/29/2016):. There is mild concentric left ventricular hypertrophy. The left ventricular systolic function is normal with a visually estimated ejection fraction of 55-60 %. There is evidence of impaired left ventricular relaxation suggestive of stage I diastolic dysfunction. The left atrium appears mildly dilated. The proximal ascending aorta appears mildly dilated at 3.5 cm. There is mild tricuspid regurgitation. The estimated pulmonary artery systolic pressure is 37 mmHg, consistent with mild pulmonary hypertension. Compared to the report (images were not available for review) of the study dated 05/10/2014, the dilataion of the left atrium and ascending aorta and the pulmonary hypertension are new findings. LEXISCAN NUCLEAR STRESS TEST IMPRESSION (02/13/2016): Hemodynamic response: There was a normal heart rate and a normal blood pressure response to stress. Clinical response: There was chest pressure during stress, which resolved during recovery. This is considered a nonspecific finding with Lexiscan infusion. Arrhythmias: Premature ventricular complexes. Stress ECG: There were no significant stress induced ECG changes. Myocardial perfusion: Normal perfusion without evidence of infarction or ischemia. Wall motion: Normal. Ejection fraction: 73%. Compared to the report (images were not available for review) from the previous study performed on 05/04/2014, there was no significant change. HOLTER MONITOR IMPRESSION (02/28/15):. 1. Normal Holter recording without any arrhythmias. 2. The patient had 2 episodes of chest pain, which did not correlate with any arrhythmias. Ischemia cannot be excluded based on the study. ECHOCARDIOGRAM IMPRESSION (05/10/2014):. Normal EF of 55-60%, Borderline LVH Mild diastolic dysfunction with impaired relaxation Functionally normal valves Compared to previous ECHO, no significant change LEXISCAN NUCLEAR STRESS TEST IMPRESSION (05/04/2014):. Hemodynamic response: There was a normal heart rate and a normal blood pressure response to stress. Clinical response: There was chest pressure during stress, which resolved during recovery. This is considered a nonspecific finding with Lexiscan infusion. Arrhythmias: None. Stress ECG: There were no significant stress induced ECG changes. Myocardial perfusion: Normal perfusion without evidence of infarction or ischemia. Wall motion: Normal. Ejection fraction: 78%.Compared to the previous study performed on09/24/2011, there was no significant change. IMPRESSION/Plan: Chest pain -TX has been ruled out. This is very consistent with costochondritis. We will give her a dose of IV Toradol and started on a Lidoderm patch. Her EKG does not show any acute changes. Planned follow up in 1-2 weeks and if she continues to have problems will repeat her stress test that time. Coronary artery disease s/p PCI/Stent to RCA in 2008. The patient is doing well without any angina. We will continue optimal medical therapy. Essential Hypertension, controlled. Continue present anti-hypertensive medication. Hypercholesterolemia. Her goal LDL is < 70 mg/dL . Continue statin therapy Chronic kidney disease, Stage 2 - stable Abnormal EKG - Sinus rhythm with left anterior fascicular block - unchanged from previous Diabetes Mellitus, type II. Continue treatment per PCP. Obesity- good job with weight loss . Obstructive sleep apnea. She is wearing her Bipap 7nights a week. Current Medications Current Medications Aspirin (Children'S Aspirin) 324 mg 1X ONCE PO Last administered on 06/22/17 09:20; Start 06/22/17 at 09:40; Stop 06/22/17 at 09:41; Status DC Nitroglycerin (Nitrostat) 0.4 mg PRN Q5MIN PRN SL CP RATING > 1/10 Last administered on 06/22/17 10:04; Start 06/22/17 at 09:40; Stop 06/23/17 at 09:39 Morphine Sulfate (Morphine 4mg Syringe) 4 mg PRN Q15MIN PRN IV/SQ PAIN GREATER THAN 3/10 Last administered on 06/22/17 10:56; Start 06/22/17 at 10:45; Stop at 10:44 Ondansetron HCl (Zofran) 4 mg PRN Q4HRS PRN IV NAUSEA/VOMITING Last administered on 06/22/17 17:26; Start 06/22/17 at 12:30; Stop 06/23/17 at 12:29 Acetaminophen (Tylenol) 650 mg PRN Q4HRS PRN PO FEVER Last administered on 06/23 05:49; Start 06/22/17 at 12:30; Stop 06/23/17 at 12:29 Sodium Chloride 1,000 ml @ 75 mls/hr [id number] IV Last administered on 08:44; Start 06/22/17 at 14:20; Stop 06/23/17 at 09:20; Status DC Levofloxacin/ Dextrose 100 ml @ 100 mls/hr Q24H IV Last administered on 14:54; Start 06/22/17 at 14:30 Insulin Aspart (NovoLOG) 0-7 UNITS TIDAC SQ ; Start 06/22/17 at 16:30 Dextrose 12.5 gm PRN Q15MIN PRN IV SEE COMMENTS; Start 06/22/17 at 14:15 Non-Formulary Medication 1 ea QIDACHS PO Last administered on 06/23/17 08:42; Start 06/22/17 at 16:30 Aspirin (Aspirin Enteric Coated) 81 mg QHS PO Last administered on 06/22/17 20 :51; Start 06/22/17 at 21:00 Atorvastatin Calcium (Lipitor) 20 mg QHS PO Last administered on 06/22/17 20: 51; Start 06/22/17 at 21:00 Carvedilol (Coreg) 12.5 mg BIDWMEALS PO Last administered on 06/23/17 08:42; Start 06/22/17 at 17:00 Gabapentin (Neurontin) 300 mg BID PO Last administered on 06/23/17 08:41; Start 06/22/17 at 21:00 Glimepiride (Amaryl) 1 mg DAILYBFRSUP PO Last administered on 06/22/17 17:25; Start 06/22/17 at 17:00 Glimepiride (Amaryl) 4 mg NOON PO ; Start 06/23/17 at 12:00 Mirtazapine (Remeron) 15 mg QHS PO Last administered on 06/22/17 20:51; Start 06/22/17 at 21:00 Polyethylene Glycol (miraLAX) 17 gm DAILY PO ; Start 06/23/17 at 09:00; Stop at 09:00; Status DC Topiramate (Topamax) 25 mg HS PO Last administered on 06/22/17 20:51; Start at 21:00 Vitamin D (Vitamin D3) 5,000 unit DAILY PO Last administered on 06/23/17 08:39 ; Start 06/23/17 at 09:00 Clonazepam (KlonoPIN) 0.5 mg QHS PO Last administered on 06/22/17 20:51; Start 06/22/17 at 21:00 Citalopram Hydrobromide (CeleXA) 40 mg DAILY PO Last administered on 06/23/17 08:41; Start 06/23/17 at 09:00 Insulin Detemir (Levemir) 29 units QHS SQ Last administered on 06/22/17 20:55 ; Start 06/22/17 at 21:00 Losartan Potassium (Cozaar) 50 mg DAILY PO Last administered on 06/23/17 08:41 ; Start 06/23/17 at 09:00 Multivitamins/ Calcium (Thera-M Plus) 1 tab DAILY PO Last administered on 08:40; Start 06/23/17 at 09:00 Pantoprazole Sodium (Protonix) 40 mg DAILYAC PO Last administered on 06/23/17 08:41; Start 06/23/17 at 07:30 Potassium Chloride (Klor-Con) 10 meq DAILYWBKFT PO Last administered on 08:42; Start 06/23/17 at 08:00 Non-Formulary Medication 10 mg QIDACHS PO ; Start 06/22/17 at 16:30; Status UNV Lactobacillus Acidophilus (Bacid, Kaia-Bid) 1 tab DAILY PO Last administered on 06/23/17 08:40; Start 06/23/17 at 09:00 Hydrochlorothiazide (Microzide) 12.5 mg DAILY PO Last administered on 08:43; Start 06/23/17 at 09:00 Polyethylene Glycol (miraLAX) 17 gm QHS PO Last administered on 06/22/17 21:50 ; Start 06/22/17 at 21:50 Ketorolac Tromethamine (Toradol) 30 mg 1X ONCE IV ; Start 06/23/17 at 09:15; Stop 06/23/17 at 09:16; Status UNV Lidocaine (Lidoderm) 1 patch DAILY TD ; Start 06/24/17 at 09:00; Status UNV Active Scripts Active Reported Privigen (Immune Globulin,Gamma(Igg)) 50 Ml Vial 50 Ml IV Q4WK Miralax (Polyethylene Glycol 3350) 17 Gm Powd.pack 1 Packet PO DAILY Gabapentin 300 Mg Capsule 300 Mg PO BID LAST DOSE GIVEN: DATE: TODAY TIME: AM NEXT DOSE DUE: DATE: TODAY TIME: PM Multivitamins (Multivitamin) 1 Each Tablet 1 Tab PO DAILY LAST DOSE GIVEN: DATE: TODAY TIME: AM NEXT DOSE DUE: DATE: TOMORROW TIME: AM Glimepiride 1 Mg Tablet 1 Tab PO DAILYBFRSUP LAST DOSE GIVEN: DATE: TODAY TIME: WITH DINNER NEXT DOSE DUE: DATE: TOMORROW TIME: WITH DINNER Topamax (Topiramate) 25 Mg Tablet 1 Tab PO HS LAST DOSE GIVEN: DATE: YESTERDAY TIME: AT BEDTIME NEXT DOSE DUE: DATE: TODAY TIME: AT BEDTIME [Lactobacillus/Acidof] 1 Tab PO DAILY LAST DOSE GIVEN: DATE: TODAY TIME: AM NEXT DOSE DUE: DATE: TOMORROW TIME: AM Carvedilol 12.5 Mg Tablet 1 Tab PO BID LAST DOSE GIVEN: DATE: TODAY TIME: WITH DINNER NEXT DOSE DUE: DATE: TOMORROW TIME: WITH BREAKFAST Omeprazole 20 Mg Capsule.dr 1 Cap PO DAILY LAST DOSE GIVEN: DATE: TODAY TIME: BEFORE BREAKFAST NEXT DOSE DUE: DATE: TOMORROW TIME: BEFORE BREAKFAST [domperidone] 10 Mg PO QIDACHS LAST DOSE GIVEN: DATE: TODAY TIME: BEFORE DINNER NEXT DOSE DUE: DATE: TOMORROW TIME: BEFORE BREAKFAST Fluticasone Propionate Nasal [place] (Fluticasone Propionate) 16 Gm [place].susp 16 Gm NS BID for allergies LAST DOSE GIVEN: DATE: TIME: AM NEXT DOSE DUE: DATE: TIME: PM Vitamin D (Cholecalciferol (Vitamin D3)) 2,000 Unit Capsule 5,000 Unit PO DAILY supplement LAST DOSE GIVEN: DATE: TIME: AM NEXT DOSE DUE: DATE: TIME: AM Escitalopram Oxalate 20 Mg Tablet 20 Mg PO DAILY for anxiety/depression LAST DOSE GIVEN: DATE: TODAY TIME: AM NEXT DOSE DUE: DATE: ORR TIME: AM Losartan-Hctz 100-25 Mg Tab (Losartan/Hydrochlorothiazide) 1 Each Tablet 0.5 Tab PO DAILY took separately here LAST DOSE GIVEN: DATE: TIME: AM NEXT DOSE DUE: DATE: TIME: AM Aspir 81 (Aspirin) 81 Mg Tablet.dr 81 Mg PO QHS LAST DOSE GIVEN: DATE: TIME: AT BEDTIME NEXT DOSE DUE: DATE: TIME: AT BEDTIME DATE: TODAY TIME: AT BEDTIME Lantus (Insulin Glargine,Hum.rec.anlog) 100 Unit/1 Ml Vial 29 Unit SQ QHS for diabetes LAST DOSE GIVEN: DATE: TIME: AT BEDTIME NEXT DOSE DUE: DATE: TIME: AT BEDTIME Klor-Con 10 (Potassium Chloride) 10 Meq Tablet.er 10 Meq PO DAILY supplement LAST DOSE GIVEN: DATE: TIME: AM NEXT DOSE DUE: DATE: TIME: AM Clonazepam Odt (Clonazepam) 1 Mg Tab.rapdis 0.5 Mg PO QHS LAST DOSE GIVEN: DATE: YESTER TIME:AT BEDTIME NEXT DOSE DUE: DATE: TODAY TIME: AT BEDTIME Atorvastatin Calcium 20 Mg Tablet 20 Mg PO QHS LAST DOSE GIVEN: DATE: TIME: AT BEDTIME NEXT DOSE DUE: DATE: TIME: AT BEDTIME DATE: TODAY TIME: AT BEDTIME Glimepiride 4 Mg Tablet 4 Mg PO NOON for diabetes LAST DOSE GIVEN: DATE: TIME: AT 12 NOON NEXT DOSE DUE: DATE: TIME: AT 12 NOON Mirtazapine 15 Mg Tablet 45 Mg PO HS LAST DOSE GIVEN: DATE: YESTER TIME: AT BEDTIME NEXT DOSE DUE: DATE: TODAY TIME: AT BEDTIME Allergies: Coded Allergies: Sulfa (Sulfonamide Antibiotics) (Verified Allergy, Intermediate, RASH, ) aripiprazole (Verified Allergy, Intermediate, RASH, 09/23/16) doxycycline (Verified Allergy, Intermediate, N/V RASH, 09/23/16) pseudoephedrine (Verified Allergy, Intermediate, hyperactive, 12/31/14) triprolidine (Verified Allergy, Intermediate, hyperactive, 12/31/14) VITALS Vital Signs Date Time Temp Pulse Resp B/P (MAP) Pulse Ox O2 Delivery O2 Flow Rate FiO2 06/23/17 09:01 Nasal Cannula 2.0 06/23/17 08:42 71 145/81 06/23/17 05:35 97.8 16 95 Labs Laboratory Tests Test 06/22/17 09:11 06/22/17 09:35 06/22/17 09:50 06/22/17 09:56 White Blood Count 7.2 x10^3/uL (4.0-11.0) Red Blood Count 4.37 x10^6/uL (3.50-5.40) Hemoglobin 11.4 g/dL (12.0-15.5) Hematocrit 35.3 % (36.0-47.0) Mean Corpuscular Volume 81 fL (79-100) Mean Corpuscular Hemoglobin 26 pg (25-35) Mean Corpuscular Hemoglobin Concent 32 g/dL (31-37) Red Cell Distribution Width 16.9 % (11.5-14.5) Platelet Count 381 x10^3/uL (140-400) Segmented Neutrophils % 60 % (35-66) Lymphocytes % 34 % (24-48) Monocytes % 5 % (0-10) Eosinophils % 1 % (0-5) Platelet Estimate Adequate (ADEQUATE) Prothrombin Time 9.8 SEC (9.4-11.4) Prothromb Time International Ratio 1.0 (0.9-1.1) Activated Partial Thromboplast Time 27 SEC (23-33) D-Dimer (Gris) 0.37 mg/L (0.00-0.50) Lactic Acid Level 2.8 mmol/L (0.4-2.0) Magnesium Level 1.6 mg/dL (1.8-2.4) Total Bilirubin 0.7 mg/dL (0.2-1.0) Direct Bilirubin < 0.1 mg/dL (0.0-0.2) Aspartate Amino Transf (AST/SGOT) 31 U/L (15-37) Alanine Aminotransferase (ALT/SGPT) 24 U/L (14-59) Alkaline Phosphatase 81 U/L (46-116) Creatine Kinase 33 U/L (26-192) CH-Rlv-A-Type Natriuretic Peptide 73 pg/mL (0-124) Total Protein 6.7 g/dL (6.4-8.2) Albumin 3.9 g/dL (3.4-5.0) Lipase 153 U/L (73-393) Urine Collection Type Unknown Urine Color Yellow Urine Clarity Hazy Urine pH 7.0 Urine Specific [place] 1.015 Urine Protein Neg (NEG-TRACE) Urine Glucose (UA) Neg mg/dL (NEG) Urine Ketones (Stick) Neg mg/dL (NEG) Urine Blood Neg (NEG) Urine Nitrite Neg (NEG) Urine Bilirubin Neg (NEG) Urine Urobilinogen Dipstick 0.2 mg/dL (0.2 mg/dL) Urine Leukocyte Esterase Small (NEG) Urine RBC 0 /HPF (0-2) Urine WBC 1-4 /HPF (0-4) Urine Squamous Epithelial Cells Few /LPF Urine Transitional Epithelial Cells Occ /LPF Urine Bacteria Few /HPF (0-FEW) Urine Hyaline Casts Occ /HPF Urine Mucus Slight /LPF Bedside Hemoglobin 6.8 gm/dL Bedside Hematocrit 20 % Bedside Sodium 133 mmol/L (135-145) Bedside Potassium 3.8 mmol/L (3.5-5.0) Bedside Chloride 98 mmol/L (98-110) Bedside Total CO2 24 mmol/L (23-32) Anion Gap 17 mmol/L (6-14) Bedside Blood Urea Nitrogen 14 mg/dL (8-26) Bedside Creatinine 0.9 mg/dL (0.5-1.4) Glucose Level 193 mg/dL (60-99) Bedside Ionized Calcium (Melquiades) 1.22 mmol/L (1.13-1.32) Bedside Troponin I 0.00 ng/ml (<0.08) Test 06/22/17 11:00 06/22/17 14:38 06/22/17 16:14 06/22/17 18:15 Hemoglobin 11.3 g/dL (12.0-15.5) Lactic Acid Level 1.2 mmol/L (0.4-2.0) Glucose (Fingerstick) 189 mg/dL (70-99) Troponin I Quantitative < 0.017 ng/mL (0-0.055) Test 06/22/17 20:50 06/22/17 23:20 06/23/17 06:30 06/23/17 07:16 Glucose (Fingerstick) 163 mg/dL (70-99) 99 mg/dL (70-99) Troponin I Quantitative < 0.017 ng/mL (0-0.055) White Blood Count 8.9 x10^3/uL (4.0-11.0) Red Blood Count 3.95 x10^6/uL (3.50-5.40) Hemoglobin 10.6 g/dL (12.0-15.5) Hematocrit 32.0 % (36.0-47.0) Mean Corpuscular Volume 81 fL (79-100) Mean Corpuscular Hemoglobin 27 pg (25-35) Mean Corpuscular Hemoglobin Concent 33 g/dL (31-37) Red Cell Distribution Width 16.8 % (11.5-14.5) Platelet Count 316 x10^3/uL (140-400) Neutrophils (%) (Auto) 59 % (31-73) Lymphocytes (%) (Auto) 30 % (24-48) Monocytes (%) (Auto) 7 % (0-9) Eosinophils (%) (Auto) 3 % (0-3) Basophils (%) (Auto) 1 % (0-3) Neutrophils # (Auto) 5.3 x10^3uL (1.8-7.7) Lymphocytes # (Auto) 2.7 x10^3/uL (1.0-4.8) Monocytes # (Auto) 0.6 x10^3/uL (0.0-1.1) Eosinophils # (Auto) 0.3 x10^3/uL (0.0-0.7) Basophils # (Auto) 0.1 x10^3/uL (0.0-0.2) Sodium Level 139 mmol/L (136-145) Potassium Level 4.0 mmol/L (3.5-5.1) Chloride Level 104 mmol/L (98-107) Carbon Dioxide Level 27 mmol/L (21-32) Anion Gap 8 (6-14) Blood Urea Nitrogen 13 mg/dL (7-20) Creatinine 1.1 mg/dL (0.6-1.0) Estimated GFR (Cockcroft-Gault) 49.2 BUN/Creatinine Ratio 12 (6-20) Glucose Level 98 mg/dL (70-99) Lactic Acid Level 1.3 mmol/L (0.4-2.0) Calcium Level 8.6 mg/dL (8.5-10.1) Total Bilirubin 0.3 mg/dL (0.2-1.0) Aspartate Amino Transf (AST/SGOT) 16 U/L (15-37) Alanine Aminotransferase (ALT/SGPT) 13 U/L (14-59) Alkaline Phosphatase 71 U/L (46-116) Lactate Dehydrogenase 140 U/L (81-234) Total Protein 6.2 g/dL (6.4-8.2) Albumin 3.0 g/dL (3.4-5.0) Albumin/Globulin Ratio 0.9 (1.0-1.7) SHELLY CUMMINS Jr, MD 06/24/17 0614: CONSULT Allergies: Coded Allergies: Sulfa (Sulfonamide Antibiotics) (Verified Allergy, Intermediate, RASH, ) aripiprazole (Verified Allergy, Intermediate, RASH, 09/23/16) doxycycline (Verified Allergy, Intermediate, N/V RASH, 09/23/16) pseudoephedrine (Verified Allergy, Intermediate, hyperactive, 12/31/14) triprolidine (Verified Allergy, Intermediate, hyperactive, 12/31/14) Assessment/Plan The patient was seen by Koki Madera APRN and I have reviewed her findings and plan and agree with above. Due to staffing constraints, we did not have an attending available on this day to see the patient. Problems: KOKI MADERA APRN Jun 23, 2017 09:23 SHELLY CUMMINS Jr, MD Jun 24, 2017 06:14
[2017-06-23] MEDS ORDERED: KETOROLAC 30 MG/ML VIAL. IV ONE (09:40)
[2017-06-23] MEDS: LIDOCAINE (700MG/PATCH) PATCH. TD SCH (10:31)
[2017-06-23 10:58] VITALS: BP 138/71
[2017-06-23] MEDS: GLIMEPIRIDE 4 MG TABLET PO SCH (12:06)
[2017-06-23] MEDS ORDERED: INSULIN DETEMIR 300 UNITS/3 ML INSULN.PEN. SQ SCH (14:20)
[2017-06-23 14:46] VITALS: BP 106/63
[2017-06-23 15:59] LABS: THYROID STIM HORMONE (TSH) 1.307 uIU/mL (0.358-3.740)
[2017-06-23] MEDS: GLIMEPIRIDE 1 MG TABLET PO SCH (16:38)
[2017-06-23 18:37] VITALS: BP 116/67
[2017-06-23] MEDS: MIRTAZAPINE 15 MG TABLET PO SCH (20:17)
[2017-06-23] MEDS: TOPIRAMATE 25 MG TABLET. PO SCH (20:17)
[2017-06-23] MEDS: POLYETHYLENE GLYCOL 3350 17 GM PACKET. PO SCH (20:17)
[2017-06-23] MEDS: ASPIRIN ENTERIC COATED 81 MG TABLET.DR. PO SCH (20:17)
[2017-06-23] MEDS: ATORVASTATIN CALCIUM 20 MG TABLET PO SCH (20:17)
[2017-06-23] MEDS: clonazePAM 0.5 MG TABLET PO SCH (20:17)
[2017-06-23 22:43] VITALS: BP 128/82
--- NOTE | 2017-06-24 04:59 | PN ---
DATE: 06/23/2017 SUBJECTIVE: The patient is resting slightly propped up in bed, in no apparent distress. She is awake, alert, continues to complain of generalized weakness and aches and pains. The cough is much better. She did complain of tingling and numbness in her left thumb, index and middle finger consistent with carpal tunnel syndrome. She has had carpal tunnel before and had surgery on the same hand. She was evaluated by the Cardiology team and basically myocardial infarction has been ruled out and her presentation is very consistent with costochondritis for which she received a dose of IV Toradol as well as Lidoderm patch. Her EKG did not show any new acute changes and a plan to follow her up in 1-2 weeks and if she continues to have problems, we will repeat her stress test at that time. However, the patient continued to have aches and pains and did not feel that she is ready to go home today. We will consult Physical and Occupational Therapy to work with her and hopefully discharge her tomorrow. PHYSICAL EXAMINATION: GENERAL: When I saw her this afternoon she was slightly pale, but no jaundice, cyanosis, or thyromegaly. No jugular venous distention. No limb edema. VITAL SIGNS: Her heart rate was 73, blood pressure 138/71, temperature was 98.3, respiratory rate 20, and oxygen saturation was 96% on 2 liters of oxygen by nasal cannula. HEAD, EYES, EARS, NOSE, AND THROAT: Shows normocephalic, atraumatic. NECK: Supple. HEART: Showed normal first and second heart sounds with no gallop, rub, or murmur. CHEST: Clear to auscultation. No crepitation or rhonchi. ABDOMEN: Distended, soft, nontender. NEUROLOGIC: She was awake, alert, responding appropriately. Cranial nerves intact. She moves extremities without difficulty. Her intake over the last 24 hours was 1650, no output recorded. LABORATORY DATA: Her white cell count this morning was 8900, hemoglobin 10.6, hematocrit 32, MCV 81, and platelet count 316,000. Chemistry showed a serum sodium 139, potassium 4, chloride 104, bicarbonate 27, anion gap of 8, BUN 13, creatinine 1.1, estimated GFR was 49 mL per minute. Her glucose 98, lactic acid is down to 1.3, calcium was 8.6, magnesium was 1.6. Total bilirubin, AST, ALT, alkaline phosphatase were normal. Lactate dehydrogenase was 140, total protein 6.2, albumin was 3. ASSESSMENT AND PLAN: 1. Chest pain, myocardial infarction was ruled out. Her presentation is consistent with costochondritis, for which she received a dose of Lidoderm, Toradol, and she is now on Lidoderm patch. 2. Generalized aches and pains. 3. Coronary artery disease, status post percutaneous coronary intervention with stent deployment to the right coronary artery. The patient has no angina. 4. Essential hypertension, well controlled. 5. Hypercholesterolemia. Continue with statin. 6. Chronic kidney disease stage 2, stable. 7. Type 2 diabetes mellitus, reasonably controlled. My plan is to consult Physical and Occupational Therapy and will discharge her tomorrow. YOLANDA MILLER MD DR: [email or web address] JOB#: [id number] / [id number]
[2017-06-24 05:09] LABS: HEMOGLOBIN A1C 7.1 % (4.8-5.6)
[2017-06-24 05:40] VITALS: BP 137/84
[2017-06-24 06:41] LABS: BASO % 1 % (0-3); EOS # 0.3 x10^3/uL (0.0-0.7); EOS % 5 % (0-3); HEMATOCRIT 30.3 % (36.0-47.0); LYMPH # 2.8 x10^3/uL (1.0-4.8); LYMPH % 37 % (24-48); MEAN CORPUSCULAR HEMOGLOBIN 27 pg (25-35); MEAN CORPUSCULAR HGB CONC 33 g/dL (31-37); MEAN CORPUSCULAR VOLUME 81 fL (79-100); MONO # 0.6 x10^3/uL (0.0-1.1); MONO % 8 % (0-9); NEUT # 3.7 x10^3uL (1.8-7.7); NEUT % 50 % (31-73); PLATELET COUNT 296 x10^3/uL (140-400); RED BLOOD COUNT 3.74 x10^6/uL (3.50-5.40); RED CELL DISTRIBUTION WIDTH 16.9 % (11.5-14.5); WHITE BLOOD COUNT 7.4 x10^3/uL (4.0-11.0)
[2017-06-24 06:45] LABS: CALCIUM 8.5 mg/dL (8.5-10.1); CREATININE 1.1 mg/dL (0.6-1.0); GFR 49.2
[2017-06-24] MEDS ORDERED: LEVO112T4 PO (07:46)
[2017-06-24] MEDS: POTASSIUM CHLORIDE 10 MEQ TABLET.ER. PO SCH (07:49)
[2017-06-24] MEDS: DOMPERIDONE 10 MG PO SCH ×2 (07:49→11:27)
[2017-06-24] MEDS: CARVEDILOL 12.5 MG TABLET PO SCH (07:49)
[2017-06-24] MEDS: PANTOPRAZOLE 40 MG TABLET. PO SCH (07:49)
[2017-06-24] MEDS: hydroCHLOROthiazide 12.5 MG CAPSULE PO SCH (08:37)
[2017-06-24] MEDS: CITALOPRAM 20 MG TABLET. PO SCH (08:37)
[2017-06-24] MEDS: GABAPENTIN 300 MG CAPSULE. PO SCH (08:37)
[2017-06-24] MEDS: CHOLECALCIFEROL (VITAMIN D3) 1,000 UNIT TABLET PO SCH (08:37)
[2017-06-24] MEDS: MULTIVITAMIN with MINERAL TABLET. PO SCH (08:37)
[2017-06-24] MEDS: LACTOBACILLUS ACIDOPH & BULGAR 1 TABLET. PO SCH (08:38)
[2017-06-24] MEDS: LOSARTAN 50 MG TABLET. PO SCH (08:38)
[2017-06-24] MEDS: LIDOCAINE (700MG/PATCH) PATCH. TD SCH (08:39)
[2017-06-24] MEDS ORDERED: LEVOTHYROXINE 112 MCG TABLET PO SCH (09:00)
[2017-06-24 10:32] VITALS: BP 134/73
[2017-06-24] MEDS: GLIMEPIRIDE 4 MG TABLET PO SCH (11:27)
[2017-06-24] MEDS ORDERED: levoFLOXacin 500 MG TABLET PO SCH (12:00)
--- NOTE | 2017-06-24 12:11 | PDOC ---
SUBJECTIVE Subjective: Her chest pains have improved. She is feeling much better. She denies any shortness of breath Exam Constitutional: Denies fever or chills Eyes: Denies change in visual acuity HENT: Denies nasal congestion or sore throat Respiratory: Denies cough or shortness of breath Cardiovascular: Denies chest pain or edema GI: Denies abdominal pain, nausea, vomiting, bloody stools or diarrhea : Denies dysuria Musculoskeletal: Denies back pain or joint pain. She does use a splint. Integument: Denies rash Neurologic: Denies headache, focal weakness or sensory changes Endocrine: Denies polyuria or polydipsia Lymphatic: Denies swollen glands Psychiatric: Denies depression or anxiety OBJECTIVE Vital Signs Vital Signs Date Time Temp Pulse Resp B/P (MAP) Pulse Ox O2 Delivery O2 Flow Rate FiO2 06/24/17 10:32 98.5 72 20 134/73 (93) 96 Room Air 06/24/17 05:40 2.0 Physical Exam Constitutional: Well developed, well nourished, no acute distress, non-toxic appearance. HENT: Normocephalic, atraumatic, bilateral external ears normal, oropharynx moist, no oral exudates, nose normal. Eyes: GUIDO, EOMI, conjunctiva normal, no discharge. Neck: Normal range of motion, no tenderness, supple, no stridor. Cardiovascular: JVP not elevated. No carotid bruit. Nor precordial pulsations or heaves. S1 N,S2N. 2/6 ejection systolic murmurs. No rubs or clicks. Thorax and Lungs: NOrmal respiration. Normal chest expansion. Normal to percuss. Equal breath sounds. No crackles. No wheeze. Abdomen: Bowel sounds normal, soft, no tenderness, no masses, no pulsatile masses. Skin: Warm, dry, no erythema, no rash. Back: No tenderness, no CVA tenderness. Extremities: Intact distal pulses, no tenderness, no cyanosis, no clubbing, ROM intact, no edema. Neurologic: Alert and oriented X 3, normal motor function, normal sensory function, no focal deficits noted. Psychologic: Affect normal, judgement normal, mood normal. Lab Laboratory Tests Test 06/23/17 16:26 06/23/17 19:35 06/24/17 06:15 06/24/17 07:29 Glucose (Fingerstick) 135 mg/dL (70-99) H 119 mg/dL (70-99) H 97 mg/dL (70-99) White Blood Count 7.4 x10^3/uL (4.0-11.0) Red Blood Count 3.74 x10^6/uL (3.50-5.40) Hemoglobin 10.0 g/dL (12.0-15.5) L Hematocrit 30.3 % (36.0-47.0) L Mean Corpuscular Volume 81 fL (79-100) Mean Corpuscular Hemoglobin 27 pg (25-35) Mean Corpuscular Hemoglobin Concent 33 g/dL (31-37) Red Cell Distribution Width 16.9 % (11.5-14.5) H Platelet Count 296 x10^3/uL (140-400) Neutrophils (%) (Auto) 50 % (31-73) Lymphocytes (%) (Auto) 37 % (24-48) Monocytes (%) (Auto) 8 % (0-9) Eosinophils (%) (Auto) 5 % (0-3) H Basophils (%) (Auto) 1 % (0-3) Neutrophils # (Auto) 3.7 x10^3uL (1.8-7.7) Lymphocytes # (Auto) 2.8 x10^3/uL (1.0-4.8) Monocytes # (Auto) 0.6 x10^3/uL (0.0-1.1) Eosinophils # (Auto) 0.3 x10^3/uL (0.0-0.7) Basophils # (Auto) 0.0 x10^3/uL (0.0-0.2) Sodium Level 136 mmol/L (136-145) Potassium Level 4.0 mmol/L (3.5-5.1) Chloride Level 101 mmol/L (98-107) Carbon Dioxide Level 29 mmol/L (21-32) Anion Gap 6 (6-14) Blood Urea Nitrogen 14 mg/dL (7-20) Creatinine 1.1 mg/dL (0.6-1.0) H Estimated GFR (Cockcroft-Gault) 49.2 Glucose Level 104 mg/dL (70-99) H Calcium Level 8.5 mg/dL (8.5-10.1) Magnesium Level 1.5 mg/dL (1.8-2.4) L Test 06/24/17 11:17 Glucose (Fingerstick) 204 mg/dL (70-99) H MEDICATIONS Medications Current Medications Medications (Trade) Dose Ordered Sig/Maggie Start Time Stop Time Status Last Admin Dose Admin Acetaminophen (Tylenol) 650 mg PRN Q4HRS PRN 06/22/17 12:30 06/23/17 12:29 DC 06/23/17 05:49 650 MG Aspirin (Aspirin Enteric Coated) 81 mg QHS 06/22/17 21:00 06/23/17 20:17 81 MG Aspirin (Children'S Aspirin) 324 mg 1X ONCE 06/22/17 09:40 06/22/17 09:41 DC 06/22/17 09:20 324 MG Atorvastatin Calcium (Lipitor) 20 mg QHS 06/22/17 21:00 06/23/17 20:17 20 MG Carvedilol (Coreg) 12.5 mg BIDWMEALS 06/22/17 17:00 06/24/17 07:49 12.5 MG Citalopram Hydrobromide (CeleXA) 40 mg DAILY 06/23/17 09:00 06/24/17 08:37 40 MG Clonazepam (KlonoPIN) 0.5 mg QHS 06/22/17 21:00 06/23/17 20:17 0.5 MG Dextrose 12.5 gm PRN Q15MIN PRN 06/22/17 14:15 Gabapentin (Neurontin) 300 mg BID 06/22/17 21:00 06/24/17 08:37 300 MG Glimepiride (Amaryl) 4 mg NOON 06/23/17 12:00 06/24/17 11:27 4 MG Hydrochlorothiazide (Microzide) 12.5 mg DAILY 06/23/17 09:00 06/24/17 08:37 12.5 MG Insulin Aspart (NovoLOG) 0-7 UNITS TIDAC 06/22/17 16:30 06/23/17 16:41 DC Insulin Detemir (Levemir) 29 units QHS 06/23/17 14:20 06/23/17 20:13 29 UNITS Ketorolac Tromethamine (Toradol) 30 mg 1X ONCE 06/23/17 09:40 06/23/17 09:41 DC 06/23/17 10:31 30 MG Lactobacillus Acidophilus (Bacid, Kaia-Bid) 1 tab DAILY 06/23/17 09:00 06/24/17 08:38 1 TAB Levofloxacin (Levaquin) 500 mg NOON 06/24/17 12:00 06/24/17 11:27 500 MG Levofloxacin/ Dextrose 100 ml @ 100 mls/hr Q24H 06/22/17 14:30 06/24/17 09:03 DC 06/23/17 14:30 100 MLS/HR Levothyroxine Sodium (Synthroid) 112 mcg DAILY06 06/24/17 09:00 06/24/17 08:38 112 MCG Lidocaine (Lidoderm) 1 patch DAILY 06/23/17 10:00 06/24/17 08:39 1 PATCH Losartan Potassium (Cozaar) 50 mg DAILY 06/23/17 09:00 06/24/17 08:38 50 MG Mirtazapine (Remeron) 15 mg QHS 06/22/17 21:00 06/23/17 20:17 15 MG Morphine Sulfate (Morphine 4mg Syringe) 4 mg PRN Q15MIN PRN 06/22/17 10:45 06/23/17 10:44 DC 06/22/17 10:56 4 MG Multivitamins/ Calcium (Thera-M Plus) 1 tab DAILY 06/23/17 09:00 06/24/17 08:37 1 TAB Nitroglycerin (Nitrostat) 0.4 mg PRN Q5MIN PRN 06/22/17 09:40 06/23/17 09:39 DC 06/22/17 10:04 0.4 MG Non-Formulary Medication 10 mg QIDACHS 06/22/17 16:30 UNV Ondansetron HCl (Zofran) 4 mg PRN Q4HRS PRN 06/22/17 12:30 06/23/17 12:29 DC 06/22/17 17:26 4 MG Pantoprazole Sodium (Protonix) 40 mg DAILYAC 06/23/17 07:30 06/24/17 07:49 40 MG Polyethylene Glycol (miraLAX) 17 gm QHS 06/22/17 21:50 06/23/17 20:17 17 GM Potassium Chloride (Klor-Con) 10 meq [id number] 06/23/17 08:00 06/24/17 07:49 10 MEQ Sodium Chloride 1,000 ml @ 75 mls/hr [id number] 06/22/17 14:20 06/23/17 09:20 DC 06/23/17 08:44 75 MLS/HR Topiramate (Topamax) 25 mg HS 06/22/17 21:00 06/23/17 20:17 25 MG Vitamin D (Vitamin D3) 5,000 unit DAILY 06/23/17 09:00 06/24/17 08:37 5,000 UNIT PLAN Plan Chest pain: The pain is atypical. It started on Thursday, got worse on Thursday, and has improved since yesterday. The pain is continuous while it lasted it is associated with tenderness. THis is suggestive of musculoskeletal pain. Her EKG did not show any acute changes. Troponins were negative. I have reassured her. Coronary disease: She is status post stent to the right coronary artery in 2008. She denies any exertional chest pain. HEr last stress myocardial perfusion scan from 2015 was negative for ischemia. Essential hypertension: HEr initial blood pressures were high but is much better now. Hypercholesterolemia: SHe is on atorvastatin 20 mg which will continue. Anemia: THis appears to be chronic. She has had problems with GERD. Gastroparesis and esophageal stricture: SHe is status post esophageal dilatation in the past. THis could explain her anemia. Type 2 diabetes: Per primary care. Obesity: I have encouraged her to lose weight. She is stable from a cardiovascular perspective and can be discharged. JIA RIVERA MD Jun 24, 2017 12:11
[2017-06-24 14:24] VITALS: BP 129/65
[2017-06-24] MEDS ORDERED: LEVO500T59 PO (14:56)
--- NOTE | 2017-06-25 01:19 | DS ---
DATE OF DISCHARGE: 06/24/2017 HISTORY OF PRESENT ILLNESS: The patient is a 71-year-old female patient who was admitted with chest pain. She has a history of coronary artery disease stenting to the right coronary artery in 2008, hypertension, diabetes mellitus type 2, mild carotid disease, Graves disease, hyperlipidemia, and major depression. About 3 days ago before admission, she has developed cough with body aches. Initially, cough was nonproductive and on admission she started having white sputum. Chest pain began about 2 days ago and has been consistent since that time. It is not ever completely gone away for 72 hours. It increases with deep breathing and increases with cough. It is very tender to touch. It is not associated with any shortness of breath, nausea, or vomiting. No chills, rigors, or fever. The patient was evaluated in the Emergency Room. Her troponin was negative. Her EKG was unremarkable with no evidence of ST segment elevation or depression. The patient was admitted to do two more sets of cardiac enzyme and consult the nuclear instructor. We did start her empirically on antibiotic for possible atypical infection versus acute bronchitis and did well since then. She has been up and about. On questioning her today, she said that the chest pain has completely resolved. She has been up and about walking with her cane and would like to go home. PHYSICAL EXAMINATION: GENERAL: When I examined her, she looked pale, but no jaundice, cyanosis, or thyromegaly. No jugular venous distention. No limb edema. VITAL SIGNS: Her heart rate was 73, blood pressure 129/65, temperature was 98.7, respiratory rate 20, and oxygen saturation was 95%. HEAD, EYES, EARS, NOSE AND THROAT: Showed normocephalic and atraumatic. NECK: Supple. HEART: Showed normal first and second heart sounds with no gallop, rub, or murmur. CHEST: Clear to auscultation. No crepitation or rhonchi. ABDOMEN: Distended, soft, and nontender. No guarding or rigidity. No organomegaly. Hernial orifices are intact. Bowel sounds normal. NEUROLOGIC: She was awake, alert, and responding appropriately. Cranial nerves are intact. EXTREMITIES: She moves extremities without difficulty. She ambulates with a cane without difficulty. LABORATORY DATA: Her lab work this morning showed that her serum sodium was 136, potassium 4, chloride 101, bicarbonate 29, anion gap of 6, BUN 14, creatinine 1.1, and estimated GFR was 49 mL per minute. Her glucose 104, calcium was 8.5, and magnesium was 1.5. Her white cell count was 7400, hemoglobin 10, hematocrit 30, MCV 81, and platelet count 296,000. Her fasting lipid profile showed that her serum triglycerides were 189, total cholesterol 129, LDL was 46, VLDL was 37, and HDL was 46, the ratio was 2. Her TSH was 1.307. DISCHARGE MEDICATIONS: The patient will be discharged home to continue on her home medications including aspirin 81 mg once a day, atorvastatin calcium 20 mg at bedtime, carvedilol 12.5 mg twice a day, ergocalciferol vitamin D 5000 units p.o. daily, clonazepam 0.5 mg at bedtime, escitalopram oxalate 20 mg daily, fluticasone propionate for Flonase one spray to each nostril twice a day, gabapentin 300 mg p.o. b.i.d., glimepiride 4 mg p.o. at noon, glimepiride 1 mg p.o. daily with breakfast and supper, immunoglobulin gamma ____ mL every 4 weeks, she is on Lantus 20 units at bedtime, levothyroxine 112 mcg tablet once a day, losartan/hydrochlorothiazide 100/25 half a tablet daily, mirtazapine 45 mg p.o. at bedtime, multivitamin 1 tablet once a day, omeprazole 20 mg once a day, polyethylene glycol for MiraLax once a day, potassium chloride 10 mEq daily, topiramate for Topamax 25 mg at bedtime, ____ mg before meals and bedtime, and Lactobacillus acidophilus 1 tablet once a day. FINAL DISCHARGE DIAGNOSES: 1. Chest pain, myocardial infarction has been ruled out. Her presentation is consistent with costochondritis and coronary artery disease status post PCI with stent deployment to the right coronary artery in 2008. The patient has no complaints of angina. 2. Hypertension, well controlled. 3. Hypercholesterolemia, well controlled. 4. Chronic kidney disease, stable. 5. Type 2 diabetes mellitus reasonably controlled. Abnormal EKG. The patient is known to have sinus rhythm with left anterior fascicular block unchanged from previous admissions. 6. Obesity doing very good job with weight loss and obstructive sleep apnea for which she is on BiPAP machine. She should follow with her primary care physician and her nuclear instructor as an outpatient. YOLANDA MILLER MD DR: LIGIA/jcarlos JOB#: [id number] / [id number]
== END 2017-06-24 15:28 | disposition home or self-care (01) | DRG 206 ==
LOC: ER 08:49 → 1 SOUTH 12:32
PROVIDERS: ADMIT Internal Medicine; ATTEND Internal Medicine
DX: M94.0 Chondrocostal junction syndrome [Tietze] (principal); E87.2 Acidosis; E11.22 Type 2 diabetes mellitus with diabetic chronic kidney disease; K31.84 Gastroparesis; Z68.41 Body mass index [BMI] 40.0-44.9, adult; E11.43 Type 2 diabetes mellitus with diabetic autonomic (poly)neuropathy; E66.01 Morbid (severe) obesity due to excess calories; I25.10 Atherosclerotic heart disease of native coronary artery without angina pectoris; D64.9 Anemia, unspecified; E78.00 Pure hypercholesterolemia, unspecified; E78.5 Hyperlipidemia, unspecified; G47.33 Obstructive sleep apnea (adult) (pediatric); I12.9 Hypertensive chronic kidney disease with stage 1 through stage 4 chronic kidney disease, or unspecified chronic kidney disease; J32.9 Chronic sinusitis, unspecified; K21.9 Gastro-esophageal reflux disease without esophagitis; N18.2 Chronic kidney disease, stage 2 (mild); F41.9 Anxiety disorder, unspecified; G43.909 Migraine, unspecified, not intractable, without status migrainosus; F32.9 Major depressive disorder, single episode, unspecified; K57.90 Diverticulosis of intestine, part unspecified, without perforation or abscess without bleeding; M19.90 Unspecified osteoarthritis, unspecified site; Z80.9 Family history of malignant neoplasm, unspecified; Z95.5 Presence of coronary angioplasty implant and graft; Z90.49 Acquired absence of other specified parts of digestive tract; Z90.89 Acquired absence of other organs; Z88.2 Allergy status to sulfonamides; Z88.8 Allergy status to other drugs, medicaments and biological substances
CPT/HCPCS: 36415; 71020; 80047; 80048; 80053; 80061; 80076; 81001; 82550; 82947; 83036; 83605; 83615; 83690; 83735; 83880; 84443; 84484; 85007; 85018; 85025; 85379; 85610; 85730; 87040; 87086; 93005; 96374; J1815; J1885; J1956; J2270; J2405; 97530; 99285-25; J7030

== ENCOUNTER 2017-07-26 09:48 | Emergency (ER) | payer MEDICARE, BC ==
[~2017-07-26] VITALS: Ht 160 cm; Wt 105.0 kg
[~2017-07-26 09:48] MED LIST changes: +IMMU50VI3 IV; +LEVO112T4 PO; +LEVO500T59 PO
[2017-07-26 10:00] VITALS: BP 137/87
[2017-07-26 11:07] LABS: BASO # 0.1 x10^3/uL (0.0-0.2); BASO % 1 % (0-3); EOS # 0.2 x10^3/uL (0.0-0.7); EOS % 2 % (0-3); HEMATOCRIT 33.5 % (36.0-47.0); HEMOGLOBIN 11.3 g/dL (12.0-15.5); LYMPH # 1.9 x10^3/uL (1.0-4.8); LYMPH % 20 % (24-48); MEAN CORPUSCULAR HEMOGLOBIN 27 pg (25-35); MEAN CORPUSCULAR HGB CONC 34 g/dL (31-37); MEAN CORPUSCULAR VOLUME 81 fL (79-100); MONO # 0.5 x10^3/uL (0.0-1.1); MONO % 5 % (0-9); NEUT # 6.9 x10^3uL (1.8-7.7); NEUT % 72 % (31-73); PLATELET COUNT 409 x10^3/uL (140-400); RED BLOOD COUNT 4.12 x10^6/uL (3.50-5.40); RED CELL DISTRIBUTION WIDTH 17.1 % (11.5-14.5); WHITE BLOOD COUNT 9.5 x10^3/uL (4.0-11.0)
[2017-07-26] MEDS ORDERED: PROMETHAZINE 25 MG TABLET. PO ONE (11:10)
[2017-07-26] MEDS ORDERED: HYDROcodone/APAP 10/325 1 TAB TABLET PO ONE (11:10)
[2017-07-26 11:24] LABS: ALBUMIN 3.5 g/dL (3.4-5.0); ALBUMIN/GLOBULIN RATIO 0.9 (1.0-1.7); CALCIUM 9.4 mg/dL (8.5-10.1); CREATININE 1.4 mg/dL (0.6-1.0); GFR 37.3; MAGNESIUM 1.8 mg/dL (1.8-2.4); POTASSIUM 4.1 mmol/L (3.5-5.1); TOTAL BILIRUBIN 0.2 mg/dL (0.2-1.0); TOTAL PROTEIN 7.2 g/dL (6.4-8.2)
[2017-07-26] MEDS ORDERED: IV NORMAL SALINE 1,000ML 1,000 ML IV SCH (11:44)
[2017-07-26 13:42] LABS: BACTERIA,URINE 0 /HPF (0-FEW); BILIRUBIN,URINE NEG (NEG); CLARITY,URINE CLEAR; COLOR,URINE YELLOW; GLUCOSE,URINE NEG (NEG); HYALINE CASTS, URINE OCC /HPF; NITRITE,URINE NEG (NEG); RBC,URINE 0 /HPF (0-2); SQUAMOUS EPITHELIAL CELL,UR OCC /LPF; UROBILINOGEN,URINE 0.2 mg/dL (0.2 mg/dL); WBC,URINE 0 /HPF (0-4)
[2017-07-26] MEDS ORDERED: HYDR-971 PO (14:10)
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
== END 2017-07-26 14:34 | disposition home or self-care (01) ==
LOC: ER 09:48
DX: M79.1 Myalgia (principal); E86.1 Hypovolemia; E11.9 Type 2 diabetes mellitus without complications; K21.9 Gastro-esophageal reflux disease without esophagitis; I11.9 Hypertensive heart disease without heart failure; E66.9 Obesity, unspecified; E78.00 Pure hypercholesterolemia, unspecified; Z88.2 Allergy status to sulfonamides; Z88.1 Allergy status to other antibiotic agents; Z88.8 Allergy status to other drugs, medicaments and biological substances; Z68.41 Body mass index [BMI] 40.0-44.9, adult
CPT/HCPCS: 36415; 80053; 81001; 82550; 83735; 84484; 85025; 96360; 99284; Q0169; J7030

== ENCOUNTER 2017-08-16 20:53 | Emergency (ER) | payer MEDICARE, BC ==
[~2017-08-16 20:53] MED LIST changes: +HYDR-971 PO; -LOSA1TAB17 PO; -LOSA1TAB18 PO; +LOSA1TAB22 PO; +LOSA1TAB25 PO
[2017-08-16] MEDS ORDERED: ONDANSETRON PF 4 MG/2 ML VIAL. IV ONE (21:30)
[2017-08-16] MEDS ORDERED: FAMOTIDINE 20 MG/2 ML VIAL IVP ONE (21:30)
[2017-08-16] MEDS ORDERED: IV NORMAL SALINE 1,000ML 1,000 ML IV SCH (21:30)
[2017-08-16 22:25] LABS: BASO # 0.1 x10^3/uL (0.0-0.2); BASO % 1 % (0-3); EOS # 0.3 x10^3/uL (0.0-0.7); EOS % 2 % (0-3); HEMATOCRIT 31.3 % (36.0-47.0); HEMOGLOBIN 10.5 g/dL (12.0-15.5); LYMPH # 1.9 x10^3/uL (1.0-4.8); LYMPH % 17 % (24-48); MEAN CORPUSCULAR HEMOGLOBIN 28 pg (25-35); MEAN CORPUSCULAR HGB CONC 34 g/dL (31-37); MEAN CORPUSCULAR VOLUME 82 fL (79-100); MONO # 0.9 x10^3/uL (0.0-1.1); MONO % 8 % (0-9); NEUT # 7.9 x10^3uL (1.8-7.7); NEUT % 72 % (31-73); PLATELET COUNT 324 x10^3/uL (140-400); RED CELL DISTRIBUTION WIDTH 17.1 % (11.5-14.5)
[2017-08-16 22:33] LABS: BGAS PH 7.25 (7.35-7.45)
[2017-08-16 22:49] LABS: ALBUMIN 3.3 g/dL (3.4-5.0); CREATININE 1.2 mg/dL (0.6-1.0); GFR 44.5; TOTAL BILIRUBIN 0.2 mg/dL (0.2-1.0); TOTAL PROTEIN 6.5 g/dL (6.4-8.2)
--- NOTE | 2017-08-16 22:56 | PHYS DOC ---
Past History Past Medical History: Anxiety, Depression, Diabetes, Heart Disease, Hypertension, Hyperthyroid, Hypothyroid, Immunosuppression Past Surgical History: Cholecystectomy Smoking: Non-smoker Alcohol Use: None Drug Use: None Adult General Chief Complaint Chief Complaint: MULTIPLE COMPLAINTS HPI HPI Patient is a 71 year old female who presents with complaint of generalized weakness and shortness of breath. Patient symptoms have been worsening over the past 2 days. The patient had shoulder surgery done at [facility]. The patient has been taking Tylenol 3 for her symptoms. The patient throughout the day has had worsening lethargy and weakness. Patient was brought to the emergency department by her daughter due to worsening symptoms. The patient denies any severe pain at this time. The patient appears lethargic but is answering questions appropriately. Patient has also had worsening swelling in her lower extremities per family and has had dyspnea on exertion. Denies fevers. Review of Systems Review of Systems Constitutional: Denies fever or chills [] Eyes: Denies change in visual acuity, redness, or eye pain [] HENT: Denies nasal congestion or sore throat [] Respiratory: Shortness of breath[] Cardiovascular: Edema, denies chest pain[] GI: Denies abdominal pain, nausea, vomiting, bloody stools or diarrhea [] : Denies dysuria or hematuria [] Musculoskeletal: Denies back pain or joint pain [] Integument: Denies rash or skin lesions [] Neurologic: Lethargy, denies headache, focal weakness or sensory changes [] Current Medications Current Medications Current Medications Medications (Trade) Dose Ordered Sig/Maggie Start Time Stop Time Status Last Admin Dose Admin Famotidine (Pepcid) 20 mg 1X ONCE 08/16/17 21:30 08/16/17 21:31 DC 08/16/17 22:25 20 MG Ondansetron HCl (Zofran) 4 mg 1X ONCE 08/16/17 21:30 08/16/17 21:31 DC 08/16/17 22:25 4 MG Sodium Chloride 1,000 ml @ 100 mls/hr Q10H 08/16/17 21:30 08/17/17 07:29 08/16/17 22:25 100 MLS/HR Allergies Allergies Allergies Coded Allergies Type Severity Reaction Last Updated Verified Sulfa (Sulfonamide Antibiotics) Allergy Intermediate RASH 09/23/16 Yes aripiprazole Allergy Intermediate RASH 09/23/16 Yes doxycycline Allergy Intermediate N/V RASH 09/23/16 Yes pseudoephedrine Allergy Intermediate hyperactive 12/31/14 Yes triprolidine Allergy Intermediate hyperactive 12/31/14 Yes Physical Exam Physical Exam Constitutional: Lethargic, obese, hypoxic, no acute distress. [] HENT: Normocephalic, atraumatic, bilateral external ears normal, oropharynx moist, no oral exudates, nose normal. [] Eyes: PERRLA, EOMI, conjunctiva normal, no discharge. [] Neck: Normal range of motion, no tenderness, supple, no stridor. [] Cardiovascular:Heart rate regular rhythm, no murmur [] Lungs & Thorax: Mildly her shoulder movement bilaterally, no wheezes, rales present[] Abdomen: Bowel sounds normal, soft, no tenderness, no masses, no pulsatile masses. [] Skin: Warm, dry, no erythema, no rash. [] Back: No tenderness, no CVA tenderness. [] Extremities: Left shoulder in static brace, capillary refill less than 2 seconds in bilateral upper extremities, 2+ pitting edema in the bilateral lower extremities. [] Neurologic: Lethargic, oriented 3, normal motor function, normal sensory function, no focal deficits noted. [] Current Patient Data Vital Signs Vital Signs Date Time Temp Pulse Resp B/P (MAP) Pulse Ox O2 Delivery O2 Flow Rate FiO2 08/16/17 21:05 93 20 125/74 (91) 90 Nasal Cannula 3.0 08/16/17 21:00 99.7 Lab Results Laboratory Tests Test 08/16/17 22:08 08/16/17 22:15 White Blood Count 11.0 x10^3/uL (4.0-11.0) Red Blood Count 3.80 x10^6/uL (3.50-5.40) Hemoglobin 10.5 g/dL (12.0-15.5) L Hematocrit 31.3 % (36.0-47.0) L Mean Corpuscular Volume 82 fL (79-100) Mean Corpuscular Hemoglobin 28 pg (25-35) Mean Corpuscular Hemoglobin Concent 34 g/dL (31-37) Red Cell Distribution Width 17.1 % (11.5-14.5) H Platelet Count 324 x10^3/uL (140-400) Neutrophils (%) (Auto) 72 % (31-73) Lymphocytes (%) (Auto) 17 % (24-48) L Monocytes (%) (Auto) 8 % (0-9) Eosinophils (%) (Auto) 2 % (0-3) Basophils (%) (Auto) 1 % (0-3) Neutrophils # (Auto) 7.9 x10^3uL (1.8-7.7) H Lymphocytes # (Auto) 1.9 x10^3/uL (1.0-4.8) Monocytes # (Auto) 0.9 x10^3/uL (0.0-1.1) Eosinophils # (Auto) 0.3 x10^3/uL (0.0-0.7) Basophils # (Auto) 0.1 x10^3/uL (0.0-0.2) Blood pH 7.25 (7.35-7.45) L Blood Gas PCO2 56 mmHg (35-45) H Blood Gas PO2 75 mmHg (80-100) L Blood Gas HCO3 25 mmol/L (22-26) Arterial Bld O2 Saturation (Calc) 91 % (92-99) L FiO2 32 % EKG EKG Interpreted by me: Heart rate 83, sinus rhythm, left axis deviation, no acute ST /T-wave abnormalities present[] Radiology/Procedures Radiology/Procedures 3 view acute abdominal series interpreted by me: Right pleural effusion, pulmonary vascular congestion, nonobstructive bowel gas pattern, no free air under the diaphragm[] Course & Med Decision Making Course & Med Decision Making Pertinent Labs and Imaging studies reviewed. (See chart for details) Patient's ABG shows evidence of hypoxic and hypercapnic respiratory failure. Patient also shows signs of myocardial ischemia based off of her elevated troponin levels. I'm concerned that the patient may be having symptoms in part due to dehydration and possible narcotic toxicity. The patient is a complex medical case and will likely need a pulmonology and cardiology consult. Patient may also need cardiac catheterization if her troponins continue to trend upward. For this reason, I feel that the patient would benefit best from admission to [facility]. I spoke with Dr. Godfrey, the patient' s primary doctor. After discussion, he agreed that the patient would benefit from being transferred to [facility] as opposed to admission at [facility]. Patient will be transferred by ground ambulance for further care. I spoke with Dr. Francis who accepted care patient for transfer. Family informed of plan of care and they were in agreement at time of disposition. Dragon Disclaimer Dragon Disclaimer This chart was dictated in whole or in part using Voice Recognition software in a busy, high-work load, and often noisy Emergency Department environment. It may contain unintended and wholly unrecognized errors or omissions. Departure Departure: Impression: Primary Impression: Acute respiratory failure with hypoxia and hypercapnia Additional Impressions: Myocardial ischemia Metabolic encephalopathy Dehydration Congestive heart failure Pleural effusion Disposition: XFER SHT-TRM HOSP Condition: GUARDED Referrals: DORINA GODFREY MD (PCP) Problem Qualifiers Additional Impressions: Congestive heart failure Congestive heart failure type: unspecified congestive heart failure type Congestive heart failure chronicity: acute on chronic Qualified Codes: I50.9 - Heart failure, unspecified ARMINDA POSEY MD Aug 16, 2017 22:56
--- NOTE | 2017-08-16 23:25 | EKG ---
[address] [address] Test Date: 2017-08-16 Test Time: 21:44:51 Pat Name: NESS CHAVES Department: Room: Gender: F [employer] Supervisor: JACQUELIN : 1945 Requested By: ARMINDA POSEY Order Number: [id number] Reading MD: Measurements Intervals [place] Rate: 83 P: 55 TN: 162 QRS: -34 QRSD: 102 T: 19 QT: 374 QTc: 445 Interpretive Statements SINUS RHYTHM ABNORMAL LEFT AXIS DEVIATION R-S TRANSITION ZONE IN V LEADS DISPLACED TO THE LEFT LEFT ANTERIOR FASCICULAR BLOCK QRS(T) CONTOUR ABNORMALITY CONSIDER ANTEROSEPTAL MYOCARDIAL DAMAGE ABNORMAL ECG RI6.01 No previous ECG available for comparison
[2017-08-17 00:15] VITALS: BP 157/62
--- NOTE | 2017-08-17 09:27 | RAD ---
Exam performed: Acute abdominal series. Clinical indication: Shortness of breath, weakness and vomiting Date of Service: 08/16/17. Comparison: None available Findings: One view chest radiograph reveal a normal cardiomediastinal contour. The lungs are clear. Small right pleural effusion. The bowel pattern is unremarkable. No pathologic calcification or organomegaly is seen. Cholecystectomy. Calcification the pelvis probably calcified fibroid Impression:: Small right pleural effusion.
== END 2017-08-17 00:30 | disposition short-term general hospital (02) ==
LOC: ER 20:53
DX: J96.01 Acute respiratory failure with hypoxia (principal); J96.02 Acute respiratory failure with hypercapnia; I11.0 Hypertensive heart disease with heart failure; I50.9 Heart failure, unspecified; I25.9 Chronic ischemic heart disease, unspecified; E86.0 Dehydration; J90 Pleural effusion, not elsewhere classified; E03.9 Hypothyroidism, unspecified; E05.90 Thyrotoxicosis, unspecified without thyrotoxic crisis or storm; E11.9 Type 2 diabetes mellitus without complications; F41.9 Anxiety disorder, unspecified; Z88.2 Allergy status to sulfonamides; Z88.1 Allergy status to other antibiotic agents; Z88.8 Allergy status to other drugs, medicaments and biological substances
CPT/HCPCS: 36415; 36600; 74022; 80053; 82553; 82803; 83880; 84484; 85025; 93005; 96361; 96374; 96375; 99285; J2405; S0028; J7030

== ENCOUNTER 2017-08-26 09:10 | Emergency (ER) | payer MEDICARE, BC ==
[2017-08-26] MEDS ORDERED: FLUT12AE IH (09:50)
--- NOTE | 2017-08-26 09:50 | PHYS DOC ---
Past History Past Medical History: Depression, Diabetes, GERD, High Cholesterol, Hypertension, Hypothyroid, TIA Past Surgical History: Cholecystectomy Smoking: Non-smoker Alcohol Use: None Drug Use: None Adult General Chief Complaint Chief Complaint: CHEST PAIN HPI HPI Patient is a 71 year old F who presents with cough and "chest irritation". Arleen was asked for clarification of her "chest pain". She denies chest pain and instead prefers to use the phrase irritation. She clarified her initial 10 out of 10 pain and stated that her irritation was 3-4 out of 10 and associated with her cough. She was recently diagnosed with pneumonia on August 16. Her last day of antibiotics is today. She denies fevers sweats or chills. She denies shortness of breath or difficulty breathing. She does not feel that her symptoms are associated with activity or improved with rest. She has no other associated signs or symptoms. Review of Systems Review of Systems Constitutional: Denies fever or chills [] Eyes: Denies change in visual acuity, redness, or eye pain [] HENT: Denies nasal congestion or sore throat [] Respiratory: Negative except history of present illness Cardiovascular: No additional information not addressed in HPI [] GI: Denies abdominal pain, nausea, vomiting, bloody stools or diarrhea [] : Denies dysuria or hematuria [] Musculoskeletal: Denies back pain or joint pain [] Integument: Denies rash or skin lesions [] Neurologic: Denies headache, focal weakness or sensory changes [] Endocrine: Denies polyuria or polydipsia [] Family History Family History Noncontributory Current Medications Current Medications Medications reviewed Allergies Allergies Allergies Coded Allergies Type Severity Reaction Last Updated Verified Sulfa (Sulfonamide Antibiotics) Allergy Intermediate RASH 09/23/16 Yes aripiprazole Allergy Intermediate RASH 09/23/16 Yes doxycycline Allergy Intermediate N/V RASH 09/23/16 Yes pseudoephedrine Allergy Intermediate hyperactive 12/31/14 Yes triprolidine Allergy Intermediate hyperactive 12/31/14 Yes Physical Exam Physical Exam Constitutional: Well developed, well nourished, no acute distress, non-toxic appearance. [] HENT: Normocephalic, atraumatic, bilateral external ears normal, oropharynx moist, no oral exudates, nose normal. [] Eyes: EOMI, conjunctiva normal, no discharge. [] Neck: Normal range of motion, no tenderness, supple, no stridor. [] Cardiovascular:Heart rate regular rhythm, Lungs & Thorax: Bilateral breath sounds clear to auscultation [] mild cough noted Abdomen: Bowel sounds normal, soft, no tenderness, no masses, no pulsatile masses. [] Skin: Warm, dry, no erythema, no rash. [] Back: No tenderness, no CVA tenderness. [] Extremities: No tenderness, no cyanosis, no clubbing, ROM intact, no edema. [] Neurologic: Alert and oriented X 3, normal motor function, normal sensory function, no focal deficits noted. [] Psychologic: Affect normal, judgement normal, mood normal. [] Current Patient Data Vital Signs Vital Signs Date Time Temp Pulse Resp B/P (MAP) Pulse Ox O2 Delivery O2 Flow Rate FiO2 08/26/17 10:27 67 20 112/60 (77) 95 Room Air 08/26/17 09:43 98.8 70 20 94 Room Air EKG EKG [] Radiology/Procedures Radiology/Procedures [] Course & Med Decision Making Course & Med Decision Making Pertinent Labs and Imaging studies reviewed. (See chart for details) Labs and imaging were declined Dragon Disclaimer Dragon Disclaimer This chart was dictated in whole or in part using Voice Recognition software in a busy, high-work load, and often noisy Emergency Department environment. It may contain unintended and wholly unrecognized errors or omissions. Departure Departure: Impression: Primary Impression: Bronchitis Disposition: 01 HOME, SELF-CARE Condition: STABLE Referrals: DORINA GODFREY MD (PCP) Patient Instructions: Acute Bronchitis Additional Instructions: Arleen was seen in the emergency department for cough and chest "irritation." No emergency medical condition was found on history or physical exam. Her symptoms are most consistent with a post-pneumonia bronchitis. She was started on a steroid inhaler. She is advised to return the emergency room if she develops new or worsening symptoms. She is advised follow-up with her primary care doctor in the next 3-5 days for further management. Scripts Fluticasone Propionate (FLOVENT 110MCG HFA) 12 Gm Aer.w.adap 2 PUFF IH BID for 7 Days, #1 INHALER 2 Refills Prov: TOBIAS MONTOYA MD 08/26/17 TOBIAS MONTOYA MD Aug 26, 2017 09:50
[2017-08-26 10:27] VITALS: BP 112/60
== END 2017-08-26 10:15 | disposition home or self-care (01) ==
LOC: ER 09:10
DX: J40 Bronchitis, not specified as acute or chronic (principal); E03.9 Hypothyroidism, unspecified; E11.9 Type 2 diabetes mellitus without complications; E78.00 Pure hypercholesterolemia, unspecified; F32.9 Major depressive disorder, single episode, unspecified; I10 Essential (primary) hypertension; K21.9 Gastro-esophageal reflux disease without esophagitis; Z86.73 Personal history of transient ischemic attack (TIA), and cerebral infarction without residual deficits; Z88.2 Allergy status to sulfonamides; Z88.1 Allergy status to other antibiotic agents; Z88.8 Allergy status to other drugs, medicaments and biological substances
CPT/HCPCS: 99283

== ENCOUNTER 2017-09-20 09:11 | Emergency (ER) | payer MEDICARE, BC ==
[~2017-09-20 09:11] MED LIST changes: +FLUT12AE IH
[2017-09-20] MEDS ORDERED: ONDANSETRON PF 4 MG/2 ML VIAL. ONE (09:31)
[2017-09-20] MEDS ORDERED: ONDANSETRON PF 4 MG/2 ML VIAL. IV ONE (10:00)
[2017-09-20] MEDS ORDERED: PROMETHAZINE 25 MG in IV NORMAL SALINE 50ML 50 ML IV PRN (10:00)
[2017-09-20] MEDS ORDERED: KETOROLAC 30 MG/ML VIAL. IV ONE (10:00)
[2017-09-20] MEDS ORDERED: PROMETHAZINE 25 MG/ML VIAL IV ONE (10:07)
[2017-09-20] MEDS ORDERED: IV NORMAL SALINE 50ML 50 ML ONE (10:07)
[2017-09-20] MEDS ORDERED: IV NORMAL SALINE 1,000ML 1,000 ML IV SCH (10:15)
--- NOTE | 2017-09-20 10:15 | EKG ---
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
[2017-09-20 10:17] LABS: BASO # 0.1 x10^3/uL (0.0-0.2); BASO % 1 % (0-3); CALCIUM 9.2 mg/dL (8.5-10.1); CREATININE 1.1 mg/dL (0.6-1.0); EOS # 0.1 x10^3/uL (0.0-0.7); EOS % 1 % (0-3); GFR 49.2; HEMATOCRIT 32.2 % (36.0-47.0); HEMOGLOBIN 10.8 g/dL (12.0-15.5); LYMPH # 1.7 x10^3/uL (1.0-4.8); LYMPH % 18 % (24-48); MEAN CORPUSCULAR HEMOGLOBIN 28 pg (25-35); MEAN CORPUSCULAR HGB CONC 34 g/dL (31-37); MEAN CORPUSCULAR VOLUME 83 fL (79-100); MONO # 0.4 x10^3/uL (0.0-1.1); MONO % 4 % (0-9); NEUT # 7.3 x10^3uL (1.8-7.7); NEUT % 76 % (31-73); PLATELET COUNT 381 x10^3/uL (140-400); RED BLOOD COUNT 3.87 x10^6/uL (3.50-5.40); WHITE BLOOD COUNT 9.6 x10^3/uL (4.0-11.0)
--- NOTE | 2017-09-20 10:20 | RAD ---
EXAM: Chest, single view. HISTORY: Weakness. COMPARISON: 08/16/2017. FINDINGS: A frontal view of the chest is obtained. There is no infiltrate, effusion or pneumothorax. The heart is normal in size for portable technique. IMPRESSION: No acute pulmonary finding.
--- NOTE | 2017-09-20 10:42 | PHYS DOC ---
General Chief Complaint: HEADACHE Stated Complaint: H/A Time Seen by MD: 09:14 Source: patient Exam Limitations: no limitations Problems: History of Present Illness Initial Comments Patient is a 71-year-old female brought to the ED with several days nausea vomiting diarrhea and headache. Patient states that for the past few days she's had lower abdominal discomfort, frequency and hesitancy of urine, nausea and vomiting with loose stools. No blood in stools or emesis past 2 days she's had a headache described as global and throbbing moderate in intensity worse with upright posture and activity. She denies focal neurologic deficit, no blood in stools or emesis, no fever or neck stiffness no rash. No travel or bad food exposure no close contacts with similar symptoms. Ddge-oqz-xhyynhc medications are not helping. She feels as if she is dehydrated her mouth is very dry and she fears trying to eat or drink as she states she'll vomit. Blood pressure 192/52 the patient is retching otherwise her vitals are stable. Timing/Duration: changing over time Severity: moderate Modifying Factors: worse with eating, worse with movement, improves with rest Associated Symptoms: headaches, nausea/vomiting, other Allergies: Coded Allergies: Sulfa (Sulfonamide Antibiotics) (Verified Allergy, Intermediate, RASH, ) aripiprazole (Verified Allergy, Intermediate, RASH, 09/23/16) doxycycline (Verified Allergy, Intermediate, N/V RASH, 09/23/16) pseudoephedrine (Verified Allergy, Intermediate, hyperactive, 12/31/14) triprolidine (Verified Allergy, Intermediate, hyperactive, 12/31/14) Past Medical History Medical History: diabetes, GERD, heart disease, high cholesterol, hypertension , other (gastroparesis, carotid stenosis, depression, obesity, chronic sinusitis , foot drop, obstructive sleep apnea, GERD) Surgical History: cholecystectomy, tonsillectomy Social History Smoker: non-smoker Alcohol: none Drugs: none Review of Systems Constitutional: denies chills, denies diaphoresis, denies fever, malaise, weakness EENTM: denies ear pain, denies nose pain, denies throat pain, denies mouth pain Respiratory: denies cough, denies shortness of breath, denies wheezing Cardiovascular: denies chest pain, denies palpitations, denies syncope Gastrointestinal: see HPI Genitourinary: see HPI Musculoskeletal: denies back pain, denies joint swelling, denies muscle stiffness, denies neck pain Psychiatric/Neurological: see HPI, headache, denies numbness, denies paresthesia, denies weakness Physical Exam General Appearance: mild distress, obese Eyes: bilateral eye normal inspection, bilateral eye PERRL, bilateral eye EOMI Ear, Nose, Throat: hearing grossly normal, normal ENT inspection (dry membranes ), normal pharynx Neck: non-tender, supple Respiratory: normal breath sounds, no respiratory distress Cardiovascular: normal peripheral pulses, regular rate, rhythm Gastrointestinal: normal bowel sounds, soft (nondistended, generalized muscle tenderness negative Biggs negative McBurney, suprapubic tenderness no rebound or guard no palpable mass) Rectal: deferred Back: no CVA tenderness, no vertebral tenderness Extremities: normal range of motion, non-tender Neurologic/Psychiatric: 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 PHYSICIAN: JANUARY ZIMMERMAN DO REASON: n/v/d PROCEDURE: PORTABLE CHEST 1V EXAM: Chest, single view. HISTORY: Weakness. COMPARISON: 08/16/2017. FINDINGS: A frontal view of the chest is obtained. There is no infiltrate, effusion or pneumothorax. The heart is normal in size for portable technique. IMPRESSION: No acute pulmonary finding. DICTATED AND SIGNED BY: LAUREN STEWART MD DATE: 09/20/17 1016 CC: DORINA GODFREY MD; JANUARY ZIMMERMAN DO ~ Hemoglobin 10.8 normocytic, BUNs 15, creatinine 1.1, glucose 184, urinalysis grossly positive for products of infection Patient received intravenous Zofran, fentanyl, Toradol, promethazine and Levaquin through her ED course. A 1 L normal saline IV bolus was also given, patient's nausea and pain symptoms were controlled. I discussed findings with the patient at length, no emergent cause for further evaluation or inpatient treatment is apparent. I discussed signs and symptoms to monitor as well as urgent indication to return to the department. I discussed prescription and over -the-counter medications as well as oral hydration. Discussed close follow-up with PCP patient's questions were answered to her satisfaction and she expressed agreement and understanding with the treatment plan. Departure Time of Disposition: 13:03 Disposition: 01 HOME, SELF-CARE Diagnosis: UTI, Dehydration, DM uncontrolled, nausea/vomittin Condition: GOOD Patient Instructions: Dehydration, Adult, Jyrv-pg-[id number], Urinary Tract Infection Additional Instructions: Rest, no strenuous activity. Aggressive hydration to prevent dehydration and restore fluid losses. Flzk-uxn-kvaseir ibuprofen for baseline discomfort. Monitor urine glucose closely. Prescription: Levaquin 250 mg, Zofran ODT 4 mg, Tylenol #3 quantity 15 Take medications with food to avoid nausea and vomiting. Follow-up with a doctor in 5-7 days for recheck and urine culture results. Return to the ED with new or changing symptoms. JANUARY ZIMMERMAN DO Sep 20, 2017 10:42
[2017-09-20] MEDS ORDERED: PROMETH/CODEINE 6.25/10MG 5 ML SYRUP. PO ONE (11:15)
[2017-09-20 12:35] LABS: BACTERIA,URINE MANY /HPF (0-FEW); BILIRUBIN,URINE NEG (NEG); CLARITY,URINE CLOUDY; COLOR,URINE YELLOW; GLUCOSE,URINE NEG (NEG); NITRITE,URINE POS (NEG); SQUAMOUS EPITHELIAL CELL,UR FEW /LPF; UROBILINOGEN,URINE 0.2 mg/dL (0.2 mg/dL); WBC,URINE 20-40 /HPF (0-4)
[2017-09-20] MEDS ORDERED: ONDANSETRON ODT 4 MG TAB.RAPDIS PO ONE (13:00)
[2017-09-20] MEDS ORDERED: levoFLOXacin 500 MG TABLET PO ONE (13:00)
[2017-09-20] MEDS ORDERED: ACET-704 PO (13:02)
[2017-09-20] MEDS ORDERED: LEVO250T7 PO (13:02)
[2017-09-20] MEDS ORDERED: ONDA4TAB10 PO (13:02)
[2017-09-20] MEDS ORDERED: levoFLOXacin 250 MG TABLET ONE (13:18)
[2017-09-20 13:25] VITALS: BP 179/80
[2017-09-20] MEDS ORDERED: levoFLOXacin 250 MG TABLET PO ONE (13:30)
== END 2017-09-20 13:35 | disposition home or self-care (01) ==
LOC: ER 09:11
DX: N39.0 Urinary tract infection, site not specified (principal); E86.0 Dehydration; E11.9 Type 2 diabetes mellitus without complications; E78.00 Pure hypercholesterolemia, unspecified; I10 Essential (primary) hypertension; K21.9 Gastro-esophageal reflux disease without esophagitis; I11.9 Hypertensive heart disease without heart failure; E66.9 Obesity, unspecified; G47.33 Obstructive sleep apnea (adult) (pediatric); Z88.2 Allergy status to sulfonamides; Z88.1 Allergy status to other antibiotic agents; Z88.8 Allergy status to other drugs, medicaments and biological substances; Z90.49 Acquired absence of other specified parts of digestive tract
CPT/HCPCS: 36415; 71010; 80048; 81001; 83690; 84484; 85025; 87086; 87186; 93005; 96365; 96366; 96375; 99285; J1885; J2405; J2550; J3010; Q0162; J7030

== ENCOUNTER → 2017-10-12 | Outpatient (CLI) | payer MEDICARE, BC ==
[2017-09-20 13:25] VITALS: BP 179/80
[~2017-10-12] MED LIST changes: +ACET-704 PO; +LEVO250T7 PO; +ONDA4TAB10 PO
--- NOTE | 2017-10-12 12:49 | RAD ---
Examination: CT maxillary facial bones History: History of acute sinusitis Comparison: 09/13/2016 Technique: Axial CT images of the maxillary facial bones were performed without contrast. Coronal and sagittal reformats are performed PQRS Compliance Statement: One or more of the following individualized dose reduction techniques were utilized for this examination: 1. Automated exposure control 2. Adjustment of the mA and/or kV according to patient size 3. Use of iterative reconstruction technique Findings: The bilateral orbital globes appear intact. The bilateral retro-orbital fat is maintained. The mastoid air cells are clear Mild mucosal thickening identified in the sphenoid sinuses. Prior changes of ethmoidectomies with minimal thickening of the remaining ethmoid sinuses are similar to prior exam. Mild mucosal thickening identified in the bilateral maxillary sinuses right greater than left. Impression: 1. Prior surgical changes of sinus surgery. 2. Mild mucosal thickening right and left maxillary sinuses, right greater than left.
== END | disposition home or self-care (01) ==
LOC: CT 11:40
PROVIDERS: ATTEND Family Medicine
DX: J01.91 Acute recurrent sinusitis, unspecified (principal)
CPT/HCPCS: 70486

== ENCOUNTER 2017-11-30 10:37 | Emergency (ER) | payer MEDICARE, BC ==
[~2017-11-30] VITALS: Ht 160 cm; Wt 99.3 kg
[2017-11-30 11:28] LABS: BASO # 0.1 x10^3/uL (0.0-0.2); BASO % 1 % (0-3); EOS # 0.2 x10^3/uL (0.0-0.7); EOS % 2 % (0-3); HEMATOCRIT 33.7 % (36.0-47.0); HEMOGLOBIN 11.1 g/dL (12.0-15.5); LYMPH # 2.3 x10^3/uL (1.0-4.8); LYMPH % 24 % (24-48); MEAN CORPUSCULAR HEMOGLOBIN 27 pg (25-35); MEAN CORPUSCULAR HGB CONC 33 g/dL (31-37); MEAN CORPUSCULAR VOLUME 81 fL (79-100); MONO # 0.6 x10^3/uL (0.0-1.1); MONO % 7 % (0-9); NEUT # 6.3 x10^3uL (1.8-7.7); NEUT % 66 % (31-73); PLATELET COUNT 294 x10^3/uL (140-400); RED BLOOD COUNT 4.18 x10^6/uL (3.50-5.40); RED CELL DISTRIBUTION WIDTH 16.2 % (11.5-14.5); WHITE BLOOD COUNT 9.5 x10^3/uL (4.0-11.0)
[2017-11-30 11:44] LABS: ALBUMIN 3.3 g/dL (3.4-5.0); CALCIUM 9.4 mg/dL (8.5-10.1); CREATININE 1.1 mg/dL (0.6-1.0); DIRECT BILIRUBIN 0.1 mg/dL (0.0-0.2); GFR 49.2; POTASSIUM 3.9 mmol/L (3.5-5.1); TOTAL BILIRUBIN 0.4 mg/dL (0.2-1.0); TOTAL PROTEIN 6.4 g/dL (6.4-8.2)
--- NOTE | 2017-11-30 11:52 | RAD ---
CT of the head without contrast, 11/30/2017: History: Fall, injuries Comparison is made to a study from 12/11/2016. The patient's head is rotated. The ventricles are within normal limits in size. There is no shift of the midline structures. There is no evidence of acute intracranial hemorrhage or mass effect. There is evidence of previous paranasal sinus surgery. IMPRESSION: No acute intracranial abnormality is detected. CT of the cervical spine without contrast, 11/30/2017: Noncontrast scans were obtained with multiplanar reconstructions produced. There is moderate disc space narrowing and marginal spurring at multiple levels in the lower cervical spine. There are moderate hypertrophic degenerative changes involving multiple facet joints bilaterally. A slight anterolisthesis at C2-3 appears to be due to facet joint arthropathy. The combination of findings is causing mild central spinal stenosis at several levels, as well as considerable foraminal stenosis at C4-5 and C5-6. No acute fracture or dislocation is identified. IMPRESSION: 1. Moderately severe multilevel degenerative change. 2. No acute bony abnormality is detected. PQRS Compliance Statement: One or more of the following individualized dose reduction techniques were utilized for this examination: 1. Automated exposure control 2. Adjustment of the mA and/or kV according to patient size 3. Use of iterative reconstruction technique
--- NOTE | 2017-11-30 12:00 | RAD ---
CT of the chest without contrast, 11/30/2017: History: Fell downstairs, injuries Noncontrast scans were obtained as requested. There is moderate calcific plaquing of the thoracic aorta without evidence of aneurysm. There is an aberrant origin of the right subclavian artery from the distal aortic arch which is a normal variant. A right PICC extends into the superior vena cava. Coronary artery calcifications are present. The heart is at the upper limits of normal in size. No mediastinal hemorrhage or adenopathy is seen. Evaluation of the lung parenchyma is partially compromised by patient respiratory motion artifact. There is mild streaky atelectasis and/or infiltrate in both lungs. No pleural fluid or pneumothorax is evident. There are mild scattered degenerative changes in the spine. IMPRESSION: 1. Calcific plaquing of the aorta and coronary arteries. 2. Mild streaky bilateral pulmonary opacities, probably largely representing atelectasis PQRS Compliance Statement: One or more of the following individualized dose reduction techniques were utilized for this examination: 1. Automated exposure control 2. Adjustment of the mA and/or kV according to patient size 3. Use of iterative reconstruction technique
[2017-11-30] MEDS ORDERED: IV NORMAL SALINE 500ML 500 ML IV ONE (12:15)
[2017-11-30 12:28] LABS: BILIRUBIN,URINE NEG (NEG); CLARITY,URINE HAZY; COLOR,URINE YELLOW; GLUCOSE,URINE NEG (NEG)
[2017-11-30 12:29] LABS: BACTERIA,URINE MOD /HPF (0-FEW); GRANULAR CASTS,URINE OCC /HPF; NITRITE,URINE NEG (NEG); SQUAMOUS EPITHELIAL CELL,UR MOD /LPF; UROBILINOGEN,URINE 0.2 mg/dL (0.2 mg/dL)
[2017-11-30] MEDS ORDERED: CIPR250T30 PO (12:48)
[2017-11-30] MEDS ORDERED: NYST15OI TP (12:48)
[2017-11-30] MEDS ORDERED: ONDA4TAB10 SL (12:48)
--- NOTE | 2017-11-30 12:49 | PHYS DOC ---
Past History Past Medical History: Diabetes, GERD, High Cholesterol, Hypertension, Hypothyroid, TIA Past Surgical History: Cholecystectomy, Tonsillectomy, Other Smoking: Non-smoker Alcohol Use: None Drug Use: None Adult General Chief Complaint Chief Complaint: MECHANICAL FALL HPI HPI 71-year-old female patient with history of diabetes mellitus, dyslipidemia, chronic sinusitis on second course of IV vancomycin through PICC line and tetracycline complaining of 4 episodes of nonbloody vomiting and 6 episodes of diarrhea since this morning patient states she felt dizzy and then she was going down stairs she felt dizziness and had a fall from 5 stairs without loss of consciousness. Patient complaining of pain in her left shoulder and sternal area and head and rated her pain 6/10. Patient denies chest pain, focal neuro deficit, fever and chills, sick contact. Review of Systems Review of Systems Constitutional: Denies fever or chills [] Eyes: Denies change in visual acuity, redness, or eye pain [] HENT: Denies nasal congestion or sore throat [] Respiratory: Denies cough or shortness of breath [] Cardiovascular: No additional information not addressed in HPI [] GI: Denies abdominal pain, nausea, vomiting, bloody stools or diarrhea [] : Denies dysuria or hematuria [] Musculoskeletal: Denies back pain, reports chest wall pain and shoulder joint pain [] Integument: Denies rash or skin lesions [] Neurologic: Denies focal weakness or sensory changes [, reports headache and dizziness] Endocrine: Denies polyuria or polydipsia [] All other systems were reviewed and found to be within normal limits, except as documented in this note. Current Medications Current Medications Current Medications Medications (Trade) Dose Ordered Sig/Maggie Start Time Stop Time Status Last Admin Dose Admin Sodium Chloride 500 ml @ 0 mls/hr 1X ONCE 11/30/17 12:15 11/30/17 12:16 DC 11/30/17 12:19 500 MLS/HR Allergies Allergies Allergies Coded Allergies Type Severity Reaction Last Updated Verified Sulfa (Sulfonamide Antibiotics) Allergy Intermediate RASH 09/23/16 Yes aripiprazole Allergy Intermediate RASH 09/23/16 Yes doxycycline Allergy Intermediate N/V RASH 09/23/16 Yes pseudoephedrine Allergy Intermediate hyperactive 12/31/14 Yes triprolidine Allergy Intermediate hyperactive 12/31/14 Yes Physical Exam Physical Exam Constitutional: Well developed, well nourished, mild distress, non-toxic appearance. [] HENT: Normocephalic, atraumatic, bilateral external ears normal, oropharynx moist, no oral exudates, nose normal. [] Eyes: PERRLA, EOMI, conjunctiva normal, no discharge. [] Neck: Immobilized by c-collar Cardiovascular:Heart rate regular rhythm, no murmur [] Lungs & Thorax: Bilateral breath sounds clear to auscultation , left wrist contusion, anterior chest wall tenderness, no subcutaneous emphysema or crepitation Abdomen: Bowel sounds normal, soft, no tenderness, no masses, no pulsatile masses. [] Skin: Warm, dry, mild erythema in genital area[] Back: No tenderness, no CVA tenderness. [] Extremities: No tenderness, no cyanosis, no clubbing, ROM intact, no edema. [] Neurologic: Alert and oriented X 3, normal motor function, normal sensory function, no focal deficits noted. [] Psychologic: Affect normal, judgement normal, mood normal. [] Current Patient Data Vital Signs Vital Signs Date Time Temp Pulse Resp B/P (MAP) Pulse Ox O2 Delivery O2 Flow Rate FiO2 11/30/17 12:10 73 16 148/73 (98) 96 Room Air 11/30/17 10:45 98.6 Lab Results Laboratory Tests Test 11/30/17 11:09 11/30/17 12:00 White Blood Count 9.5 x10^3/uL (4.0-11.0) Red Blood Count 4.18 x10^6/uL (3.50-5.40) Hemoglobin 11.1 g/dL (12.0-15.5) L Hematocrit 33.7 % (36.0-47.0) L Mean Corpuscular Volume 81 fL (79-100) Mean Corpuscular Hemoglobin 27 pg (25-35) Mean Corpuscular Hemoglobin Concent 33 g/dL (31-37) Red Cell Distribution Width 16.2 % (11.5-14.5) H Platelet Count 294 x10^3/uL (140-400) Neutrophils (%) (Auto) 66 % (31-73) Lymphocytes (%) (Auto) 24 % (24-48) Monocytes (%) (Auto) 7 % (0-9) Eosinophils (%) (Auto) 2 % (0-3) Basophils (%) (Auto) 1 % (0-3) Neutrophils # (Auto) 6.3 x10^3uL (1.8-7.7) Lymphocytes # (Auto) 2.3 x10^3/uL (1.0-4.8) Monocytes # (Auto) 0.6 x10^3/uL (0.0-1.1) Eosinophils # (Auto) 0.2 x10^3/uL (0.0-0.7) Basophils # (Auto) 0.1 x10^3/uL (0.0-0.2) Prothrombin Time 11.3 SEC (9.4-11.4) Prothrombin Time INR 1.1 (0.9-1.1) Sodium Level 140 mmol/L (136-145) Potassium Level 3.9 mmol/L (3.5-5.1) Chloride Level 108 mmol/L (98-107) H Carbon Dioxide Level 23 mmol/L (21-32) Anion Gap 9 (6-14) Blood Urea Nitrogen 25 mg/dL (7-20) H Creatinine 1.1 mg/dL (0.6-1.0) H Estimated GFR (Cockcroft-Gault) 49.2 Glucose Level 160 mg/dL (70-99) H Calcium Level 9.4 mg/dL (8.5-10.1) Total Bilirubin 0.4 mg/dL (0.2-1.0) Direct Bilirubin 0.1 mg/dL (0.0-0.2) Aspartate Amino Transferase (AST) 18 U/L (15-37) Alanine Aminotransferase (ALT) 20 U/L (14-59) Alkaline Phosphatase 85 U/L (46-116) Creatine Kinase 41 U/L (26-192) Creatine Kinase MB (Mass) 0.8 ng/mL (0.0-3.6) Creatine Kinase MB Relative Index 2.0 % (0-4) Troponin I Quantitative < 0.017 ng/mL (0-0.055) Total Protein 6.4 g/dL (6.4-8.2) Albumin 3.3 g/dL (3.4-5.0) L Lipase 171 U/L (73-393) Urine Collection Type Unknown Urine Color Yellow Urine Clarity Hazy Urine pH 7.0 Urine Specific Neely 1.015 Urine Protein Neg (NEG-TRACE) Urine Glucose (UA) Neg mg/dL (NEG) Urine Ketones (Stick) Neg mg/dL (NEG) Urine Blood Neg (NEG) Urine Nitrite Neg (NEG) Urine Bilirubin Neg (NEG) Urine Urobilinogen Dipstick 0.2 mg/dL (0.2 mg/dL) Urine Leukocyte Esterase Trace (NEG) Urine RBC 1-2 /HPF (0-2) Urine WBC 5-10 /HPF (0-4) Urine Squamous Epithelial Cells Mod /LPF Urine Bacteria Mod /HPF (0-FEW) Urine Granular Casts Occ /HPF Urine Mucus Slight /LPF EKG EKG [] Radiology/Procedures Radiology/Procedures [] Course & Med Decision Making Course & Med Decision Making Pertinent Labs and Imaging studies reviewed. (See chart for details) Evaluation of patient in ER showed 71-year-old female patient with a fall at home and pain in her head and chest wall. Patient also had nausea and vomiting and diarrhea since this morning and oriented to taking IV antibiotic at home. Patient had unremarkable physical exam except for chest wall contusion and genital erythema secondary to skin candidiasis. Patient had unremarkable CT head and C-spine and chest and didn't want to have pain medication while she was in ER. Patient did not have any vomiting or diarrhea while she was in ER. Patient treated with IV fluid and felt better. Patient ambulated without problem. Plan discharge patient home with diagnose of chest wall contusion and gastroenteritis and UTI and tender DOCs and instructed to follow with her primary care physician. Dragon Disclaimer Dragon Disclaimer This electronic medical record was generated, in whole or in part, using a voice recognition dictation system. Departure Departure: Impression: Primary Impression: Chest wall contusion Additional Impressions: Fall at home Urinary tract infection Acute gastroenteritis History of chronic sinusitis Disposition: HOME, SELF-CARE (At 1242) Condition: IMPROVED Referrals: DORINA GODFREY MD (PCP) Patient Instructions: Chest Contusion, Fall Prevention and Home Safety, Tinea Versicolor (Yeast Infection of the Skin), Urinary Tract Infection, Viral Gastroenteritis Additional Instructions: Continue current home medication Follow-up with your primary care physician in 3-5 days Take only liquid diet today Apply ice on the affected area Scripts Ondansetron (ZOFRAN ODT) 4 Mg Tab.rapdis 1 TAB SL Q8HRS, #15 TAB Prov: DEANDRE GARCIA MD 11/30/17 Nystatin (NYSTATIN) 15 Gm Oint...g. 1 LUL TP TID, #15 GM 1 Refill Prov: DEANDRE GARCIA MD 11/30/17 Ciprofloxacin Hcl (CIPRO) 250 Mg Tablet 1 TAB PO BID, #6 TAB Prov: DEANDRE GARCIA MD 11/30/17 Problem Qualifiers DEANDRE GARCIA MD Nov 30, 2017 12:49
[2017-11-30 13:15] VITALS: BP 143/73
== END 2017-11-30 13:15 | disposition home or self-care (01) ==
LOC: ER 10:37
DX: S20.212A Contusion of left front wall of thorax, initial encounter (principal); M25.512 Pain in left shoulder; K52.89 Other specified noninfective gastroenteritis and colitis; R51 Headache; N39.0 Urinary tract infection, site not specified; E11.9 Type 2 diabetes mellitus without complications; E78.00 Pure hypercholesterolemia, unspecified; K21.9 Gastro-esophageal reflux disease without esophagitis; E03.9 Hypothyroidism, unspecified; I10 Essential (primary) hypertension; Z86.73 Personal history of transient ischemic attack (TIA), and cerebral infarction without residual deficits; Z88.2 Allergy status to sulfonamides; Z88.1 Allergy status to other antibiotic agents; Z88.8 Allergy status to other drugs, medicaments and biological substances; W10.8XXA Fall (on) (from) other stairs and steps, initial encounter; Y93.89 Activity, other specified; Y99.8 Other external cause status; Y92.008 Other place in unspecified non-institutional (private) residence as the place of occurrence of the external cause
CPT/HCPCS: 36415; 70450; 71250; 72125; 80048; 80076; 81001; 82553; 83690; 84484; 85025; 85610; 87086; 87186; 99285; J7040

== ENCOUNTER → 2017-12-11 | Outpatient (CLI) | payer MEDICARE, BC ==
[2017-12-08 18:51] VITALS: BP 130/75
[~2017-12-11] MED LIST changes: +CIPR250T30 PO; -FERR-26 PO; +FERR325T14 PO; +NYST15OI TP; +ONDA4TAB10 SL
--- NOTE | 2017-12-11 15:34 | RAD ---
CT of the chest without contrast, 12/11/2017: History: Fall, continued pain Noncontrast scans were obtained and compared to a study from 11/30/2017. Mild patchy pulmonary opacity seen on the previous study have partially cleared. There are mild residual hazy opacities posteromedially in the lower lobes and anterolateral in the right upper lobe. There is a thicker linear opacity in the right upper lobe which is unchanged and is compatible with scarring or ongoing discoid atelectasis. No pleural fluid or pneumothorax is evident. There is calcific plaquing of the thoracic aorta and its branches. 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 Several coronary artery stents are present. No mediastinal adenopathy or hemorrhage is seen. The heart is of normal size. There are scattered degenerative changes in the spine. There are subtle deformities of the anterior aspects of the right sixth and seventh ribs near the costochondral articulations as best seen on sagittal images 96 and 102 of series #4. A subtle right anterior fifth rib deformity is noted on image 55 of series #2. The appearance suggests small nondisplaced rib fractures of indeterminate age. Clinical correlation with the site of patient's current pain is suggested. No displaced rib fractures are identified. IMPRESSION: 1. Improving mild pulmonary opacities. Residual opacities may represent atelectasis or scarring. 2. No new intrathoracic abnormality is detected. 3. Subtle, nondisplaced fractures of the anterior ends of the right fifth through seventh ribs of indeterminate ages. Clinical correlation suggested. PQRS Compliance Statement: One or more of the following individualized dose reduction techniques were utilized for this examination: 1. Automated exposure control 2. Adjustment of the mA and/or kV according to patient size 3. Use of iterative reconstruction technique
== END | disposition home or self-care (01) ==
LOC: CT 14:52
PROVIDERS: ATTEND Family Medicine
DX: R07.1 Chest pain on breathing (principal); R91.8 Other nonspecific abnormal finding of lung field; Z95.5 Presence of coronary angioplasty implant and graft
CPT/HCPCS: 71250

== ENCOUNTER 2018-01-04 11:55 | Observation (INO) | payer MEDICARE, BC ==
[~2018-01-04] VITALS: Ht 160 cm; Wt 96.6 kg
[2018-01-04 13:09] LABS: BASO # 0.1 x10^3/uL (0.0-0.2); BASO % 1 % (0-3); EOS # 0.2 x10^3/uL (0.0-0.7); EOS % 2 % (0-3); HEMATOCRIT 34.9 % (36.0-47.0); HEMOGLOBIN 11.5 g/dL (12.0-15.5); LYMPH # 2.7 x10^3/uL (1.0-4.8); LYMPH % 25 % (24-48); MEAN CORPUSCULAR HEMOGLOBIN 27 pg (25-35); MEAN CORPUSCULAR HGB CONC 33 g/dL (31-37); MEAN CORPUSCULAR VOLUME 83 fL (79-100); MONO # 0.6 x10^3/uL (0.0-1.1); MONO % 6 % (0-9); NEUT % 67 % (31-73); PLATELET COUNT 343 x10^3/uL (140-400); RED BLOOD COUNT 4.22 x10^6/uL (3.50-5.40); RED CELL DISTRIBUTION WIDTH 18.2 % (11.5-14.5); WHITE BLOOD COUNT 10.5 x10^3/uL (4.0-11.0)
--- NOTE | 2018-01-04 13:15 | RAD ---
CT head without contrast History: Dizziness. Comparison: 11/30/2017. Procedure: Axial images are obtained of the head from the skull base through the vertex without IV contrast. Findings: The ventricles and sulci are normal for the patient's age. No mass-effect, intracranial mass, midline shift, hemorrhage or obvious acute infarction is identified. Basilar cisterns are patent. Bone windows demonstrate no significant calvarial abnormality. The visualized paranasal sinuses appear clear. Impression: 1. No acute intracranial process. PQRS Compliance Statement: One or more of the following individualized dose reduction techniques were utilized for this examination: 1. Automated exposure control 2. Adjustment of the mA and/or kV according to patient size 3. Use of iterative reconstruction technique
--- NOTE | 2018-01-04 13:17 | RAD ---
EXAM: CHEST 1 VIEW History: Chest pain COMPARISON: 11/08/2017 TECHNIQUE: Single portable radiograph of the chest FINDINGS: The cardiac silhouette is unremarkable. The lungs are clear bilaterally. The costophrenic sulci are clear and well demarcated. IMPRESSION: No radiographic evidence of an acute cardiopulmonary process.
--- NOTE | 2018-01-04 13:20 | PHYS DOC ---
Past History Past Medical History: Diabetes, GERD, High Cholesterol, Hypertension, Hypothyroid, TIA Past Surgical History: Cholecystectomy, Tonsillectomy, Other Smoking: Non-smoker Alcohol Use: None Drug Use: None Adult General Chief Complaint Chief Complaint: CHEST PAIN, facial numbness, headache [facility] HPI 72-year-old female patient with history of diabetes, hypertension, dyslipidemia , TIA and frequent emergency room visits brought in by EMS from her doctor office because of chest pain and facial numbness and headache. Patient states she woke up at 7 AM because of bilateral chest pain as a constant and sharp pain and rated her pain 10 over 10 patient said the pain radiated to her back and left shoulder and associated with palpitation, nausea, shortness of breath. Patient states the pain did not change since it woke her up at 7 AM. Patient complaining of right facial numbness that she woke up at 7 AM without weakness of face or other neuro deficit patient states the numbness did not change since she woke up. Patient complaining of frontal headache since 9 AM like her previous episodes of migraine headache as a constant throbbing pain and rated her pain 10 over 10. Patient drove to her primary care physician office and had EKG and 324 mg of aspirin and sent by EMS to ER. Patient denies history of CVA and CAD but states she had TIA. Patient states she had blurred vision yesterday at [employer] and her posture had to help her to walk around. Review of Systems Review of Systems Constitutional: Denies fever or chills [] Eyes: Denies change in visual acuity, redness, or eye pain [] HENT: Denies nasal congestion or sore throat [] Respiratory: Reports shortness of breath [] Cardiovascular: No additional information not addressed in HPI [] GI: Denies abdominal pain, nausea, vomiting, bloody stools or diarrhea [] : Denies dysuria or hematuria [] Musculoskeletal: Denies back pain or joint pain [] Integument: Denies rash or skin lesions [] Neurologic: Poor headache headache, sensory changes [, denies weakness] Endocrine: Denies polyuria or polydipsia [] All other systems were reviewed and found to be within normal limits, except as documented in this note. Allergies Allergies Allergies Coded Allergies Type Severity Reaction Last Updated Verified Sulfa (Sulfonamide Antibiotics) Allergy Intermediate RASH 09/23/16 Yes aripiprazole Allergy Intermediate RASH 09/23/16 Yes doxycycline Allergy Intermediate N/V RASH 09/23/16 Yes pseudoephedrine Allergy Intermediate hyperactive 12/31/14 Yes triprolidine Allergy Intermediate hyperactive 12/31/14 Yes Physical Exam Physical Exam Constitutional: Well nourished, no acute distress, non-toxic appearance. [] HENT: Normocephalic, atraumatic, bilateral external ears normal, oropharynx moist, no oral exudates, nose normal, right facial droop and subjective paresthesia [] Eyes: PERRLA, EOMI, conjunctiva normal, no discharge. [] Neck: Normal range of motion, no tenderness, supple, no stridor. [] Cardiovascular:Heart rate regular rhythm, no murmur [] Lungs & Thorax: Bilateral breath sounds clear to auscultation [] Abdomen: Bowel sounds normal, soft, no tenderness, no masses, no pulsatile masses. [] Skin: Warm, dry, no erythema, no rash. [] Back: No tenderness, no CVA tenderness. [] Extremities: No tenderness, no cyanosis, no clubbing, ROM intact, no edema. [] Neurologic: Alert and oriented X 3, normal motor function, normal sensory function, no focal deficits noted. [] Psychologic: Anxious NIH scale of 2 for right facial subjective paresthesia and mild facial droop Current Patient Data Lab Results Laboratory Tests Test 01/04/18 12:53 White Blood Count 10.5 x10^3/uL (4.0-11.0) Red Blood Count 4.22 x10^6/uL (3.50-5.40) Hemoglobin 11.5 g/dL (12.0-15.5) L Hematocrit 34.9 % (36.0-47.0) L Mean Corpuscular Volume 83 fL (79-100) Mean Corpuscular Hemoglobin 27 pg (25-35) Mean Corpuscular Hemoglobin Concent 33 g/dL (31-37) Red Cell Distribution Width 18.2 % (11.5-14.5) H Platelet Count 343 x10^3/uL (140-400) Neutrophils (%) (Auto) 67 % (31-73) Lymphocytes (%) (Auto) 25 % (24-48) Monocytes (%) (Auto) 6 % (0-9) Eosinophils (%) (Auto) 2 % (0-3) Basophils (%) (Auto) 1 % (0-3) Neutrophils # (Auto) 7.0 x10^3uL (1.8-7.7) Lymphocytes # (Auto) 2.7 x10^3/uL (1.0-4.8) Monocytes # (Auto) 0.6 x10^3/uL (0.0-1.1) Eosinophils # (Auto) 0.2 x10^3/uL (0.0-0.7) Basophils # (Auto) 0.1 x10^3/uL (0.0-0.2) EKG EKG EKG interpreted by me. EKG at 1159 showed normal sinus rhythm at rate of 65, abnormal left axis deviation, left anterior fascicular block, incomplete right bundle branch block, no acute ST and T wave abnormality[] Radiology/Procedures Radiology/Procedures [] [address] [address] IMAGING REPORT Signed PATIENT: NESS CHAVES ACCOUNT: [id number] : 1945 LOCATION: ER AGE: 72 SEX: F EXAM STATUS: REG ER ORD. PHYSICIAN: DEANDRE GARCIA MD REASON: chest pain PROCEDURE: PORTABLE CHEST 1V EXAM: CHEST 1 VIEW History: Chest pain COMPARISON: 11/08/2017 TECHNIQUE: Single portable radiograph of the chest FINDINGS: The cardiac silhouette is unremarkable. The lungs are clear bilaterally. The costophrenic sulci are clear and well demarcated. IMPRESSION: No radiographic evidence of an acute cardiopulmonary process. DICTATED AND SIGNED BY: MARTHA HATHAWAY MD DATE: 01/04/18 1313 CC: DORINA GODFREY MD; DEANDRE GARCIA MD ~ [address] [address] IMAGING REPORT Signed PATIENT: NESS CHAVES ACCOUNT: [id number] : 1945 LOCATION: ER AGE: 72 SEX: F EXAM STATUS: REG ER ORD. PHYSICIAN: DEANDRE GARCIA MD REASON: chest pain PROCEDURE: CT HEAD WO CONTRAST CT head without contrast History: Dizziness. Comparison: 11/30/2017. Procedure: Axial images are obtained of the head from the skull base through the vertex without IV contrast. Findings: The ventricles and sulci are normal for the patient's age. No mass-effect, intracranial mass, midline shift, hemorrhage or obvious acute infarction is identified. Basilar cisterns are patent. Bone windows demonstrate no significant calvarial abnormality. The visualized paranasal sinuses appear clear. Impression: 1. No acute intracranial process. PQRS Compliance Statement: One or more of the following individualized dose reduction techniques were utilized for this examination: 1. Automated exposure control 2. Adjustment of the mA and/or kV according to patient size 3. Use of iterative reconstruction technique DICTATED AND SIGNED BY: MARTHA HATHAWAY MD DATE: 01/04/18 1311 CC: DORINA GODFREY MD; DEANDRE GARCIA MD ~ Course & Med Decision Making Course & Med Decision Making Pertinent Labs and Imaging studies reviewed. (See chart for details) Evaluation of patient in ER showed 72-year-old female patient with facial numbness and chest pain that woke her up at 7 AM patient had NIH scale of 2 but was not a candidate for TPA because the symptom started when she woke up. Patient complaining of chest pain 10 over 10 but was not very comfortable without any distress. Patient had marked elevation of BUN/creatinine without abnormal cardiac enzymes. CT head was unremarkable. Dr. Brennan was informed at 1352 and agreed with plan of care. Plan to consult on-call neurology Dr. May during admission. Dragon Disclaimer Dragon Disclaimer This electronic medical record was generated, in whole or in part, using a voice recognition dictation system. Critical Care Time Critical care time was [70] minutes exclusive of procedures. Departure Departure: Impression: Primary Impression: Acute focal neurological deficit Additional Impressions: Acute chest pain Headache Renal insufficiency Disposition: 09 ADMITTED INPATIENT (at 1352) Admitting Physician: Savanna Brennan Condition: IMPROVED Referrals: DORINA GODFREY MD (PCP) Problem Qualifiers DEANDRE GARCIA MD Jan 04, 2018 13:20
[2018-01-04] MEDS ORDERED: ONDANSETRON PF 4 MG/2 ML VIAL. IV ONE (13:30)
[2018-01-04 13:34] LABS: ALBUMIN 3.6 g/dL (3.4-5.0); ALK PHOS 88 U/L (46-116); ALT (SGPT) 20 U/L (14-59); ANION GAP 11 (6-14); AST (SGOT) 21 U/L (15-37); BLOOD UREA NITROGEN 25 mg/dL (7-20); BUN/CREATININE RATIO 18 (6-20); CALCIUM 10.1 mg/dL (8.5-10.1); CARBON DIOXIDE 25 mmol/L (21-32); CHLORIDE 101 mmol/L (98-107); CREATININE 1.4 mg/dL (0.6-1.0); GFR 37.2; GLUCOSE 153 mg/dL (70-99); MAGNESIUM 1.9 mg/dL (1.8-2.4); POTASSIUM 3.5 mmol/L (3.5-5.1); SODIUM 137 mmol/L (136-145); TOTAL BILIRUBIN 0.3 mg/dL (0.2-1.0); TOTAL PROTEIN 7.2 g/dL (6.4-8.2)
--- NOTE | 2018-01-04 13:52 | EKG ---
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
[2018-01-04 15:58] VITALS: BP 120/72
[2018-01-04] MEDS ORDERED: ONDANSETRON PF 4 MG/2 ML VIAL. IV PRN (16:00)
[2018-01-04] MEDS ORDERED: ACETAMINOPHEN 325 MG TABLET PO PRN (16:00)
--- NOTE | 2018-01-04 16:17 | NUR ---
PT is able to verbalize understanding of orientation to unit and poc. Dr May and Dr ochoa consulted [facility] Rn
--- NOTE | 2018-01-04 16:18 | PDOC2 ---
CONSULT CARDIOLOGY CONSULT CONSULT REQUESTED BY Dr. Bush REASON FOR CONSULT: Chest pain and facial numbness HISTORY OF PRESENT ILLNESS: This is a 72-year-old female, followed in our office with a history of coronary artery disease, hypertension, who woke up this morning with numbness of the right side of her face. At the same time she also noticed she had a 9 on 10 chest pressure across her left precordium. Today she had some blood work to do and decided to go to Dr. Bush's office to get the lab work done. While at the doctor's office she mentioned to the director of maintenance, the facial numbness and chest pain. She had severe chest pain, she was admitted to the ER from whence she has been admitted to the ICU. She reports that her chest pain is better from previous 9/10 to a 6/10. She does however appear to be extremely comfortable. She says the right-sided numbness persists. She has not noticed any weakness of any extremities. She denies any radiation of the pain associated shortness of breath does have pedal edema REVIEW OF SYSTEM: Facial numbness, pedal edema, chest pain. Rest of the 12 organ review of system is negative SOCIAL HISTORY: Smoke or take alcohol. She ambulates with a cane. She says she is quite active although she does not do any formal exercises. FAMILY HISTORY: Father had arteriosclerosis. He as a complication of aortic aneurysm surgery at the age of 58. Mother at age of 71. The patient has one sister, about whom she has not sure PHYSICAL EXAM Gen. appearance: Well-nourished, obese, well developed, in no apparent distress HEENT: Pupils are equal and reactive. Extraocular movements are normal. The sclera is noninjected, anicteric. No obvious pallor. No evidence of arcus senilis. The right eye appears to be more prominent than the left, with the left eye having a mild divergent squint Oral mucosa is moist. Neck: Supple. There is no lymphadenopathy. There is no thyromegaly. The carotids have normal upstroke without bruits he did jugular venous pressure is not elevated. Hepatojugular reflux is absent. Kussmaul sign is absent. Cardiovascular system exam: The apex is and not palpable. There are no precordial pulsations or heaves. There are no thrills. First heart sound is normal. Second heart sounds normal.6 ejection systolic murmurs rubs or gallops. Respiratory exam: Chest expansion is normal. Chest expansion is symmetrical. Breath sounds are equal bilaterally. There are no crackles. There are no wheezes. There are no rubs. Abdomen: Obese. No palpable masses or pulsations. There are no bruits. Bowel sounds are normal. Extremities: There is no cyanosis. There is no clubbing. There is a edema. There is no tenderness or swelling. No tremors. Skin: There are no obvious skin rashes. Skin is warm and dry. Neuro: There is mild facial asymmetry. Speech is normal. There are no motor deficits. There are no sensory deficits. Gait is normal. EKG: Incomplete right bundle branch block, sinus rhythm with left anterior fascicular block. There is no ST and T-wave abnormalities Chest x-ray: No acute abnormalities. CT of the head: No evidence of stroke Impression Chest pain: The pain is atypical, and in spite of severe 9/10 pain in her not show any acute changes. Her initial troponin is negative. We will run a couple more troponins. She had a recent stress myocardial perfusion scan which I reviewed on 10/21/17 which was normal with a normal ejection fraction. Right facial numbness: She has a facial asymmetry however she has had prior orbital decompression for Graves' disease. I could not detect any facial weakness. She gives a prior history of TIA, although her symptoms today are restricted to her face. My benefit from a neurology consult. Coronary disease and she's had prior interventions and stents to the right coronary artery in 2008 at [facility]. Her symptoms currently and not consistent with angina. She had a recent negative stress Mackle perfusion scan. Essential hypertension: Her blood pressure is under good control. She was on carvedilol hydrochlorothiazide losartan. Pulmonary hypertension: Mild to moderate with a PA systolic pressure of echocardiogram on 08/17/17 at [place]. This is likely secondary to obesity and obstructive sleep apnea. Morbid obesity: She is not very active. I have recommended that she do formal exercises while cutting back on her diet, perhaps counting the steps with a smart phone. Hypercholesterolemia: She is on a statin and had lab work done recently. Diabetes: She is on medications. Gastroparesis: This could be playing a role in her chest pain syndrome History of Graves' disease: She is currently on medications for hypothyroidism This was dictated using a moist recognition software and despite best attempts there may be director of physician practices errors Problems: JIA RIVERA MD Jan 04, 2018 16:18
[2018-01-04] MEDS ORDERED: INSU100V13 SQ (16:20)
[2018-01-04] MEDS ORDERED: GABA-585 PO (16:23)
[2018-01-04] MEDS ORDERED: GLIMEPIRIDE 2 MG TABLET PO SCH (17:00)
[2018-01-04 18:24] VITALS: BP 91/66
[2018-01-04 21:00] VITALS: BP 102/70
[2018-01-04] MEDS ORDERED: NON FORMULARY ITEM (Fluticasone Propionate (Flovent 110MCG Hfa) 2 PUFF) IH SCH (21:00)
[2018-01-04] MEDS ORDERED: ASPIRIN 325 MG TABLET PO SCH (21:00)
[2018-01-04] MEDS ORDERED: GABAPENTIN 100 MG CAPSULE. PO SCH (21:00)
[2018-01-04] MEDS ORDERED: INSULIN DETEMIR 300 UNITS/3 ML INSULN.PEN. SQ SCH (21:00)
[2018-01-04] MEDS ORDERED: MIRTAZAPINE 15 MG TABLET PO SCH (21:00)
[2018-01-04] MEDS ORDERED: ASPIRIN ENTERIC COATED 81 MG TABLET.DR. PO SCH (21:00)
[2018-01-04] MEDS ORDERED: ATORVASTATIN CALCIUM 20 MG TABLET PO SCH (21:00)
[2018-01-04] MEDS ORDERED: clonazePAM 0.5 MG TABLET PO SCH (21:00)
[2018-01-04] MEDS: TOPIRAMATE 25 MG TABLET. PO SCH (21:08)
[2018-01-04] MEDS: FLUTICASONE 50MCG/NASAL SPRAY 16GM BOTTLE. NS SCH (21:12)
[2018-01-05 04:00] VITALS: BP 156/70
[2018-01-05] MEDS ORDERED: LEVOTHYROXINE 112 MCG TABLET PO SCH (06:00)
[2018-01-05 06:42] LABS: BASO # 0.1 x10^3/uL (0.0-0.2); BASO % 1 % (0-3); EOS # 0.3 x10^3/uL (0.0-0.7); EOS % 4 % (0-3); HEMATOCRIT 34.3 % (36.0-47.0); HEMOGLOBIN 11.3 g/dL (12.0-15.5); LYMPH % 42 % (24-48); MEAN CORPUSCULAR HEMOGLOBIN 27 pg (25-35); MEAN CORPUSCULAR HGB CONC 33 g/dL (31-37); MEAN CORPUSCULAR VOLUME 82 fL (79-100); MONO # 0.7 x10^3/uL (0.0-1.1); MONO % 9 % (0-9); NEUT # 3.1 x10^3uL (1.8-7.7); NEUT % 43 % (31-73); PLATELET COUNT 311 x10^3/uL (140-400); RED CELL DISTRIBUTION WIDTH 17.9 % (11.5-14.5); WHITE BLOOD COUNT 7.1 x10^3/uL (4.0-11.0)
[2018-01-05 06:49] LABS: ALBUMIN 3.2 g/dL (3.4-5.0); ALBUMIN/GLOBULIN RATIO 0.9 (1.0-1.7); CALCIUM 9.2 mg/dL (8.5-10.1); CREATININE 1.1 mg/dL (0.6-1.0); GFR 49.1; MAGNESIUM 1.9 mg/dL (1.8-2.4); POTASSIUM 3.2 mmol/L (3.5-5.1); TOTAL BILIRUBIN 0.2 mg/dL (0.2-1.0); TOTAL PROTEIN 6.8 g/dL (6.4-8.2)
[2018-01-05] MEDS ORDERED: PANTOPRAZOLE 40 MG TABLET. PO SCH (07:30)
[2018-01-05] MEDS ORDERED: POTASSIUM CHLORIDE 20 MEQ TABLET.ER. PO ONE (07:45)
--- NOTE | 2018-01-05 07:45 | NUR ---
PT resting this am. PT is able to verbalize understanding of poc. Pt was up alot last night. PT having some pain this am. Radha JUAN
[2018-01-05] MEDS ORDERED: POTASSIUM CHLORIDE 10 MEQ TABLET.ER. PO SCH (08:00)
[2018-01-05] MEDS: TOPIRAMATE 25 MG TABLET. PO SCH (08:09)
[2018-01-05] MEDS: FLUTICASONE 50MCG/NASAL SPRAY 16GM BOTTLE. NS SCH (08:11)
[2018-01-05] MEDS: HYDROcodone/APAP 5/325MG 1 TAB TABLET PO PRN ×2 (08:11→13:28)
[2018-01-05 08:22] VITALS: BP 146/85
[2018-01-05] MEDS ORDERED: POLYETHYLENE GLYCOL 3350 17 GM PACKET. PO SCH (09:00)
[2018-01-05] MEDS ORDERED: CARVEDILOL 12.5 MG TABLET PO SCH (09:00)
[2018-01-05] MEDS ORDERED: MULTIVITAMIN with MINERAL TABLET. PO SCH (09:00)
[2018-01-05] MEDS ORDERED: CHOLECALCIFEROL (VITAMIN D3) 1,000 UNIT TABLET PO SCH (09:00)
[2018-01-05] MEDS ORDERED: CITALOPRAM 20 MG TABLET. PO SCH (09:00)
[2018-01-05] MEDS ORDERED: LOSARTAN 50 MG TABLET. PO SCH (09:00)
[2018-01-05] MEDS ORDERED: hydroCHLOROthiazide 12.5 MG CAPSULE PO SCH (09:00)
--- NOTE | 2018-01-05 09:56 | PDOC ---
KOKI MADERA S[employer] BLASTING 01/05/18 0956: PROGRESS NOTES Diagnosis Problem Problems Medical Problems: (1) Acute chest pain Status: Acute (2) Acute focal neurological deficit Status: Acute (3) Headache Status: Acute (4) Renal insufficiency Status: Acute Assessment We are seeing the patient for chest pain Chest pain - Atypical. WA ruled out. No ischemic changes on EKG. Nuclear stress test 10/2017 shows normal perfusion. Cardiac archer stable for discharge. Coronary artery disease s/p PCI/Stent to RCA in 2008. We will continue optimal medical therapy. Essential Hypertension, controlled. Continue present anti-hypertensive medication. Hypercholesterolemia. Her goal LDL is < 70 mg/dL.Continue statin therapy Chronic kidney disease, Stage 2 - Avoid dehydration - drink plenty of water. Avoid Motrin, ibuprofen, Advil, Naprosyn or aleve and take Tylenol for pain. Aggressive blood pressure control with goal of less than 130/85 mmHg. 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 Continue treatment per PCP. Obstructive sleep apnea. She is wearing her Bipap 7 nights a week. Problems: Subjective Her shoulder is better but she continues to have right facial numbness. She denies any palpitations or shortness of breath. Objective Vital Signs Date Time Temp Pulse Resp B/P (MAP) Pulse Ox O2 Delivery O2 Flow Rate FiO2 01/05/18 09:11 Room Air 01/05/18 08:22 98.5 70 20 146/85 (105) 98 Intake and Output 01/05/18 07:00 Intake Total 650 ml Output Total 1 ml Balance 649 ml Intake Oral 650 ml Output Stool Total 1 ml # Voids 5 # Bowel Movements 2 Abdomen: Normal bowel sounds, Soft, No tenderness Heart: Regular rate, Normal S1, Normal S2, No murmurs, Gallops Extremities: No edema, Normal pulses General: Alert, Oriented X3, Cooperative HEENT: EOMI, Mucous membr. moist/pink Lungs: Clear to auscultation Psych/Mental Status: Mental status NL, Mood NL Review of Relevant I have reviewed the following items karin (where applicable) has been applied. Labs Laboratory Tests Test 01/04/18 12:53 01/04/18 15:37 01/04/18 15:40 01/04/18 15:45 White Blood Count 10.5 x10^3/uL (4.0-11.0) Red Blood Count 4.22 x10^6/uL (3.50-5.40) Hemoglobin 11.5 g/dL (12.0-15.5) Hematocrit 34.9 % (36.0-47.0) Mean Corpuscular Volume 83 fL (79-100) Mean Corpuscular Hemoglobin 27 pg (25-35) Mean Corpuscular Hemoglobin Concent 33 g/dL (31-37) Red Cell Distribution Width 18.2 % (11.5-14.5) Platelet Count 343 x10^3/uL (140-400) Neutrophils (%) (Auto) 67 % (31-73) Lymphocytes (%) (Auto) 25 % (24-48) Monocytes (%) (Auto) 6 % (0-9) Eosinophils (%) (Auto) 2 % (0-3) Basophils (%) (Auto) 1 % (0-3) Neutrophils # (Auto) 7.0 x10^3uL (1.8-7.7) Lymphocytes # (Auto) 2.7 x10^3/uL (1.0-4.8) Monocytes # (Auto) 0.6 x10^3/uL (0.0-1.1) Eosinophils # (Auto) 0.2 x10^3/uL (0.0-0.7) Basophils # (Auto) 0.1 x10^3/uL (0.0-0.2) Prothrombin Time 10.2 SEC (9.4-11.4) Prothromb Time International Ratio 1.0 (0.9-1.1) Sodium Level 137 mmol/L (136-145) Potassium Level 3.5 mmol/L (3.5-5.1) Chloride Level 101 mmol/L (98-107) Carbon Dioxide Level 25 mmol/L (21-32) Anion Gap 11 (6-14) Blood Urea Nitrogen 25 mg/dL (7-20) Creatinine 1.4 mg/dL (0.6-1.0) Estimated GFR (Cockcroft-Gault) 37.2 BUN/Creatinine Ratio 18 (6-20) Glucose Level 153 mg/dL (70-99) Calcium Level 10.1 mg/dL (8.5-10.1) Magnesium Level 1.9 mg/dL (1.8-2.4) Total Bilirubin 0.3 mg/dL (0.2-1.0) Aspartate Amino Transf (AST/SGOT) 21 U/L (15-37) Alanine Aminotransferase (ALT/SGPT) 20 U/L (14-59) Alkaline Phosphatase 88 U/L (46-116) Creatine Kinase 45 U/L (26-192) Creatine Kinase MB (Mass) < 0.5 ng/mL (0.0-3.6) Creatine Kinase MB Relative Index 1.1 % (0-4) Troponin I Quantitative < 0.017 ng/mL (0-0.055) < 0.017 ng/mL (0-0.055) MA-Yrn-O-Type Natriuretic Peptide 59 pg/mL (0-124) Total Protein 7.2 g/dL (6.4-8.2) Albumin 3.6 g/dL (3.4-5.0) Albumin/Globulin Ratio 1.0 (1.0-1.7) Glucose (Fingerstick) 83 mg/dL (70-99) Nasal Screen MRSA (PCR) Negative (Negative) Test 01/04/18 20:20 01/04/18 21:11 01/05/18 05:59 Troponin I Quantitative < 0.017 ng/mL (0-0.055) Glucose (Fingerstick) 162 mg/dL (70-99) White Blood Count 7.1 x10^3/uL (4.0-11.0) Red Blood Count 4.20 x10^6/uL (3.50-5.40) Hemoglobin 11.3 g/dL (12.0-15.5) Hematocrit 34.3 % (36.0-47.0) Mean Corpuscular Volume 82 fL (79-100) Mean Corpuscular Hemoglobin 27 pg (25-35) Mean Corpuscular Hemoglobin Concent 33 g/dL (31-37) Red Cell Distribution Width 17.9 % (11.5-14.5) Platelet Count 311 x10^3/uL (140-400) Neutrophils (%) (Auto) 43 % (31-73) Lymphocytes (%) (Auto) 42 % (24-48) Monocytes (%) (Auto) 9 % (0-9) Eosinophils (%) (Auto) 4 % (0-3) Basophils (%) (Auto) 1 % (0-3) Neutrophils # (Auto) 3.1 x10^3uL (1.8-7.7) Lymphocytes # (Auto) 3.0 x10^3/uL (1.0-4.8) Monocytes # (Auto) 0.7 x10^3/uL (0.0-1.1) Eosinophils # (Auto) 0.3 x10^3/uL (0.0-0.7) Basophils # (Auto) 0.1 x10^3/uL (0.0-0.2) Sodium Level 140 mmol/L (136-145) Potassium Level 3.2 mmol/L (3.5-5.1) Chloride Level 104 mmol/L (98-107) Carbon Dioxide Level 27 mmol/L (21-32) Anion Gap 9 (6-14) Blood Urea Nitrogen 22 mg/dL (7-20) Creatinine 1.1 mg/dL (0.6-1.0) Estimated GFR (Cockcroft-Gault) 49.1 BUN/Creatinine Ratio 20 (6-20) Glucose Level 72 mg/dL (70-99) Calcium Level 9.2 mg/dL (8.5-10.1) Magnesium Level 1.9 mg/dL (1.8-2.4) Total Bilirubin 0.2 mg/dL (0.2-1.0) Aspartate Amino Transf (AST/SGOT) 20 U/L (15-37) Alanine Aminotransferase (ALT/SGPT) 18 U/L (14-59) Alkaline Phosphatase 77 U/L (46-116) Total Protein 6.8 g/dL (6.4-8.2) Albumin 3.2 g/dL (3.4-5.0) Albumin/Globulin Ratio 0.9 (1.0-1.7) Medications Current Medications Fentanyl Citrate (Fentanyl 2ml Vial) 50 mcg 1X ONCE IM ; Start 01/04/18 at 13: 30; Stop 01/04/18 at 13:31; Status DC Ondansetron HCl (Zofran) 4 mg 1X ONCE IV Last administered on 01/04/18at 13:30 ; Start 01/04/18 at 13:30; Stop 01/04/18 at 13:31; Status DC Fentanyl Citrate (Fentanyl 2ml Vial) 50 mcg 1X ONCE IV Last administered on 15:15; Start 01/04/18 at 15:15; Stop 01/04/18 at 15:16; Status DC Acetaminophen (Tylenol) 650 mg PRN Q6HRS PRN PO Headaches, Temp > 101.5F; Start 01/04/18 at 16:00 Ondansetron HCl (Zofran) 4 mg PRN Q8HRS PRN IV NAUSEA/VOMITING; Start 01/04/18 at 16:00 Aspirin (Aspirin Enteric Coated) 81 mg QHS PO ; Start 01/04/18 at 21:00; Stop at 21:00; Status DC Atorvastatin Calcium (Lipitor) 20 mg QHS PO Last administered on 01/04/18at 21: 07; Start 01/04/18 at 21:00 Carvedilol (Coreg) 12.5 mg DAILY PO Last administered on 01/05/18 08:09; Start 01/05/18 at 09:00 Fluticasone Propionate (Flonase) 1 spray BID NS Last administered on 01/05/18at 08:11; Start 01/04/18 at 21:00 Gabapentin (Neurontin) 400 mg HS PO Last administered on 01/04/18 21:07; Start 01/04/18 at 21:00 Levothyroxine Sodium (Synthroid) 112 mcg DAILY06 PO Last administered on 06:08; Start 01/05/18 at 06:00 Mirtazapine (Remeron) 45 mg HS PO Last administered on 01/04/18at 21:08; Start 01/04/18 at 21:00 Polyethylene Glycol (miraLAX) 17 gm DAILY PO Last administered on 01/05/18at 08: 11; Start 01/05/18 at 09:00 Topiramate (Topamax) 75 mg BID PO Last administered on 01/05/18at 08:09; Start 01/04/18 at 21:00 Vitamin D (Vitamin D3) 5,000 unit DAILY PO Last administered on 01/05/18at 08:10 ; Start 01/05/18 at 09:00 Clonazepam (KlonoPIN) 0.5 mg QHS PO Last administered on 01/04/18at 21:08; Start 01/04/18 at 21:00 Citalopram Hydrobromide (CeleXA) 40 mg DAILY PO Last administered on 01/05/18at 08:10; Start 01/05/18 at 09:00 Non-Formulary Medication 2 puff BID IH ; Start 01/04/18 at 21:00; Stop 01/04/18 at 21:00; Status DC Glimepiride (Amaryl) 1 mg DAILYBFRSUP PO ; Start 01/04/18 at 17:00 Glimepiride (Amaryl) 4 mg NOON PO ; Start 01/05/18 at 12:00 Insulin Detemir (Levemir) 14 units QHS SQ Last administered on 01/04/18at 21:13 ; Start 01/04/18 at 21:00 Losartan Potassium (Cozaar) 50 mg DAILY PO Last administered on 01/05/18at 08:10 ; Start 01/05/18 at 09:00 Multivitamins/ Calcium (Thera-M Plus) 1 tab DAILY PO Last administered on at 08:10; Start 01/05/18 at 09:00 Pantoprazole Sodium (Protonix) 40 mg DAILYAC PO Last administered on 01/05/18at 08:10; Start 01/05/18 at 07:30 Potassium Chloride (Klor-Con) 10 meq DAILYWBKFT PO Last administered on at 08:09; Start 01/05/18 at 08:00 Hydrochlorothiazide (Microzide) 12.5 mg DAILY PO Last administered on at 08:08; Start 01/05/18 at 09:00 Aspirin (Rafia Aspirin) 325 mg QHS PO Last administered on 01/04/18at 21:08; Start 01/04/18 at 21:00 Potassium Chloride (Klor-Con) 40 meq 1X ONCE PO Last administered on at 08:10; Start 01/05/18 at 07:45; Stop 01/05/18 at 07:46; Status DC Acetaminophen/ Hydrocodone Bitart (Lortab 5/325) 1 tab PRN Q6HRS PRN PO PAIN Last administered on 01/05/18at 08:11; Start 01/05/18 at 08:00 Active Scripts Active Nystatin 15 Gm Oint...g. 1 Kwame TP TID Tylenol With Codeine #3 Tablet (Acetaminophen With Codeine) 1 Each Tablet 1 Tab PO Q6HRS Levofloxacin 250 Mg Tablet 250 Mg PO DAILY 10 Days Flovent 110MCG Hfa (Fluticasone Propionate) 12 Gm Aer.w.adap 2 Puff IH BID 7 Days Reported Gabapentin 100 Mg Capsule 400 Mg PO HS Levemir (Insulin Detemir) 100 Unit/1 Ml Vial 14 Unit SQ HS Levothyroxine Sodium 112 Mcg Tablet 1 Tab PO DAILY06 LAST DOSE GIVEN: DATE: TODAY TIME: AM NEXT DOSE DUE: DATE: TOMORROW TIME: AM Privigen (Immune Globulin,Gamma(Igg)) 50 Ml Vial 50 Ml IV Q4WK NOT GIVEN THIS ADMISSION. CONTINUE PER HOME SCHEDULE. Miralax (Polyethylene Glycol 3350) 17 Gm Powd.pack 1 Packet PO DAILY LAST DOSE GIVEN: NOT GIVEN THIS ADMISSION NEXT DOSE DUE: DATE: TIME: AM Multivitamins (Multivitamin) 1 Each Tablet 1 Tab PO DAILY LAST DOSE GIVEN: DATE: TODAY TIME: AM NEXT DOSE DUE: DATE: TIME: AM Glimepiride 1 Mg Tablet 1 Tab PO DAILYBFRSUP LAST DOSE GIVEN: DATE: YESTER TIME: WITH DINNER NEXT DOSE DUE: DATE: TODAY TIME: WITH DINNER Topamax (Topiramate) 25 Mg Tablet 75 Mg PO BID LAST DOSE GIVEN: DATE: YESTER TIME: AT BEDTIME NEXT DOSE DUE: DATE: TODAY TIME: AT BEDTIME Carvedilol 12.5 Mg Tablet 1 Tab PO DAILY LAST DOSE GIVEN: DATE: TIME: WITH BREAKFAST NEXT DOSE DUE: DATE: TODAY TIME: WITH DINNER Omeprazole 20 Mg Capsule.dr 1 Cap PO DAILY LAST DOSE GIVEN: DATE: TODAY TIME: BEFORE BREAKFAST NEXT DOSE DUE: DATE: TOMORROW TIME: BEFORE BREAKFAST Fluticasone Propionate Nasal [place] (Fluticasone Propionate) 16 Gm [place].susp 16 Gm NS BID LAST DOSE GIVEN: DATE: TODAY TIME: AM NEXT DOSE DUE: DATE: TODAY TIME: PM DATE: TODAY TIME: PM Vitamin D (Cholecalciferol (Vitamin D3)) 2,000 Unit Capsule 5,000 Unit PO DAILY LAST DOSE GIVEN: DATE: TODAY TIME: AM NEXT DOSE DUE: DATE: TOMORROW TIME: AM DATE: TOMORROW TIME: AM Escitalopram Oxalate 20 Mg Tablet 20 Mg PO DAILY LAST DOSE GIVEN: DATE: TODAY TIME: AM NEXT DOSE DUE: DATE: TOMORROW TIME: AM DATE: TOMORROW TIME: AM Losartan-Hctz 100-25 Mg Tab (Losartan/Hydrochlorothiazide) 1 Each Tablet 0.5 Tab PO DAILY took separately here LAST DOSE GIVEN: DATE: TIME: AM NEXT DOSE DUE: DATE: TOMORR TIME: AM Aspir 81 (Aspirin) 81 Mg Tablet.dr 81 Mg PO QHS LAST DOSE GIVEN: DATE: YESTER TIME: AT BEDTIME NEXT DOSE DUE: DATE: TODAY TIME: AT BEDTIME DATE: TODAY TIME: AT BEDTIME Klor-Con 10 (Potassium Chloride) 10 Meq Tablet.er 10 Meq PO DAILY LAST DOSE GIVEN: DATE: TODAY TIME: AM NEXT DOSE DUE: DATE: ORR TIME: AM DATE: ORR TIME: AM Clonazepam Odt (Clonazepam) 1 Mg Tab.rapdis 0.5 Mg PO QHS LAST DOSE GIVEN: DATE: YES TIME:AT BEDTIME NEXT DOSE DUE: DATE: TIME: AT BEDTIME Atorvastatin Calcium 20 Mg Tablet 20 Mg PO QHS LAST DOSE GIVEN: DATE: YES TIME: AT BEDTIME NEXT DOSE DUE: DATE: TODAY TIME: AT BEDTIME DATE: TODAY TIME: AT BEDTIME Glimepiride 4 Mg Tablet 4 Mg PO NOON LAST DOSE GIVEN: DATE: TIME: AT 12 NOON NEXT DOSE DUE: DATE: ORR TIME: AT 12 NOON DATE: ORROW TIME: AT 12 NOON Mirtazapine 15 Mg Tablet 45 Mg PO HS LAST DOSE GIVEN: DATE: YESTER TIME: AT BEDTIME NEXT DOSE DUE: DATE: TODAY TIME: AT BEDTIME Vitals/I & O Vital Sign - Last 24 Hours 01/04/18 01/04/18 01/04/18 01/04/18 11:55 12:30 13:00 13:30 Temp 98.0 Pulse 66 66 69 Resp 20 20 18 20 B/P (MAP) 128/77 (94) 110/69 (83) Pulse Ox 94 95 95 94 O2 Delivery Room Air Room Air Room Air 01/04/18 01/04/18 01/04/18 01/04/18 13:40 14:42 15:15 15:45 Pulse 68 66 Resp 18 20 20 B/P (MAP) 144/68 (93) 130/63 (85) Pulse Ox 95 95 94 O2 Delivery Room Air Room Air Room Air 01/04/18 01/04/18 01/04/18 01/04/18 15:58 18:24 20:00 21:00 Temp 98.0 Pulse 67 66 66 Resp B/P (MAP) 120/72 (88) 91/66 (74) 102/70 (81) Pulse Ox 95 97 O2 Delivery Room Air Room Air BiPAP/CPAP 01/05/18 01/05/18 01/05/18 01/05/18 04:00 08:00 08:09 08:10 Pulse 62 88 88 Resp 20 B/P (MAP) 156/70 (98) Pulse Ox 98 O2 Delivery BiPAP/CPAP Room Air 01/05/18 01/05/18 01/05/18 08:11 08:22 09:11 Temp 98.5 Pulse 70 Resp 20 B/P (MAP) 146/85 (105) Pulse Ox 98 O2 Delivery Room Air Room Air Room Air Intake and Output 01/04/18 01/04/18 01/05/18 15:00 23:00 07:00 Intake Total 490 ml 160 ml Output Total 1 ml Balance 490 ml 159 ml SHELLY CUMMINS Jr, MD 01/06/18 0614: PROGRESS NOTES Assessment The patient was seen by Koki Madera APRN and I have reviewed her findings and plan and agree with above. Due to staffing constraints, we did not have an attending available on this day to see the patient. Problems: KOKI MADERA APRN Jan 05, 2018 09:56 SHELLY CUMMINS Jr, MD Jan 06, 2018 06:14
[2018-01-05 10:46] VITALS: BP 111/62
[2018-01-05] MEDS ORDERED: GLIMEPIRIDE 2 MG TABLET PO SCH (12:00)
[2018-01-05] MEDS ORDERED: ASPI325T8 PO (15:27)
--- NOTE | 2018-01-05 16:22 | NUR ---
PT dc to home. PT is able to verbalize discharge instructions and medications. Radha JUAN
--- NOTE | 2018-01-05 18:47 | HP ---
ADMIT DATE: 01/04/2018 HISTORY OF PRESENT ILLNESS: The patient is a 72-year-old female patient who came to the Emergency Room complaining of facial numbness, headache and also chest pain. She apparently is known to have TIAs before. She apparently woke up on the morning of admission bilateral chest pain, was constant, sharp, rated her pain about 10/10 in severity. The pain radiated to her back and left shoulder associated with palpitation, nausea, shortness of breath. She has also had right-sided facial numbness. She was extensively investigated in the Emergency Room and has had a CT scan of the head as well as chest x-ray, EKG and first set of cardiac enzymes. She was admitted to the ICU to rule out myocardial infarction and consult Cardiology and Neurology team. PAST MEDICAL HISTORY: Significant for coronary artery disease, hypertension, hyperlipidemia, migraine headache, chronic constipation, diverticulosis, gastroesophageal reflux disease, hiatal hernia, diabetic gastroparesis, anemia, depression, status post ECT for which she sees a psychiatrist. She also has osteoarthritis and uses a cane and orthotic for walking, has chronic sinusitis, Graves' disease and Graves' ophthalmopathy. PAST SURGICAL HISTORY: Significant for cholecystectomy, tonsillectomy, bilateral orbital decompression for Graves' ophthalmopathy. She has blepharoplasty in the right, heart catheterization in 2008. She also has left ankle fracture, status post open reduction and internal fixation, incontinence surgery and multiple GI endoscopies. FAMILY HISTORY: ____ for cancer in her mother. SOCIAL HISTORY: She lives with her daughter and granddaughter. She does not smoke, drink alcohol or use any recreational drugs. REVIEW OF SYSTEMS: As per history of present illness. ALLERGIES: She is allergic to SULFA, ARIPIPRAZOLE, DOXYCYCLINE, PSEUDOEPHEDRINE AND TRIPROLIDINE. MEDICATIONS: She is currently on the following medications: She is on Tylenol No. 3 one tablet every 6 hours, aspirin 81 mg once a day, atorvastatin 20 mg at bedtime, carvedilol 12.5 mg twice a day, cholecalciferol vitamin D 5000 units daily, clonazepam 0.5 mg at bedtime, citalopram 20 mg daily, Flonase 1 spray to each nostril twice a day, gabapentin 400 mg at bedtime, glimepiride 4 mg at noon, glimepiride 1 mg daily, detemir insulin 14 units at bedtime, levothyroxine sodium 112 mcg daily, losartan/hydrochlorothiazide 1 tablet once a day, mirtazapine 45 mg at bedtime, multivitamin 1 tablet once a day, nystatin 15 grams ointment topically 3 times a day, omeprazole 20 mg once a day, polyethylene glycol 17 grams daily, potassium chloride 10 mEq daily, topiramate 75 mg twice a day. PHYSICAL EXAMINATION: GENERAL: On arrival to the Emergency Room, she looked well and was clearly in no apparent respiratory distress, slightly pale, but no jaundice, cyanosis, or thyromegaly. No jugular venous distension. No limb edema. VITAL SIGNS: Her heart rate was 66, blood pressure was 128/77, temperature was 98, respiratory rate 20, and oxygen saturation was 94%. HEAD, EYES, EARS, NOSE AND THROAT: Showed normocephalic, atraumatic. NECK: Supple. HEART: Showed normal first and second heart sounds with no gallop, rub or murmur. CHEST: Clear to auscultation. No crepitation or rhonchi. ABDOMEN: Distended, soft, nontender. NEUROLOGIC: She is awake, alert, responding appropriately. All her cranial nerves are intact. She has obviously surgery before for Graves' ophthalmopathy, and has some facial asymmetry, but she moves all her extremities without difficulty. She ambulates without assistance or assistive devices. LABORATORY DATA: On admission showed a white cell count of 10,500, hemoglobin 11.5, hematocrit 35, MCV 83 and platelet count of 343,000. Her serum sodium was 137, potassium 3.5, chloride 101, bicarbonate 25, anion gap of 11, BUN 25, creatinine 1.4, estimated GFR was 37, glucose 153, calcium was 10.1, magnesium was 1.9. Total bilirubin, AST, ALT, alkaline phosphatase were normal. Total protein was 7.2, albumin was 3.6. Her first troponin was less than 0.017. Her prothrombin time was 10.2, INR of 1. Her nasal screen for MRSA by PCR was negative. IMAGING DATA: She did have a CT scan of the head that showed that the ventricles and sulci are normal for the patient's age. No mass effect, intracranial mass, midline shift, hemorrhage or obvious acute infarction identified. Basilar cisterns are patent. Bone windows demonstrate no significant calvarial abnormality, visualized paranasal sinuses appear clear. Her chest x-ray showed the cardiac silhouette is unremarkable. The lungs are clear bilaterally. The costophrenic angles are clear and well demarcated. ASSESSMENT AND PLAN: The patient was admitted to the ICU to do 2 more sets of cardiac enzymes, to consult Cardiology team as well as the neurologist to rule out myocardial infarction and also possible transient ischemic attack versus stroke, although the CT scan did not show any abnormality. She apparently had an MRI done in August of last year. She has also bilateral carotid Doppler done at [facility] that were unremarkable according to the Cardiology team. YOLANDA MILLER MD DR: LIGIA/jcarlos JOB#: [id number] / [id number]
--- NOTE | 2018-01-06 01:17 | DS ---
DATE OF DISCHARGE: 01/05/2018 HOSPITAL COURSE: The patient was admitted with right-sided facial numbness, also chest pain. She has 3 sets of cardiac enzymes, showed troponin to be less than 0.017. She was seen by the Cardiology team and apparently myocardial infarction was ruled out. She was seen by Dr. May, who increased her aspirin to 325 mg and both recommended that she can be safely discharged to follow as an outpatient. PHYSICAL EXAMINATION: GENERAL: When I saw her this afternoon, she was resting slightly propped up in bed, in no apparent respiratory distress, slightly pale, but no jaundice, cyanosis, or thyromegaly. No jugular venous distension. No limb edema. VITAL SIGNS: Her heart rate was 68, blood pressure 111/62, temperature was 98.4, respiratory rate was 18 and oxygen saturation was 99%. HEAD, EYES, EARS, NOSE AND THROAT: Showed normocephalic, atraumatic. NECK: Supple. HEART: Showed normal first and second heart sounds. No gallop, rub or murmur. CHEST: Clear to auscultation. No crepitation or rhonchi. ABDOMEN: Distended, soft, nontender. NEUROLOGIC: She is awake, alert, responding appropriately. Cranial nerves are intact. She moves extremities without difficulty. She ambulates without assistance or assistive devices. LABORATORY DATA: As of this morning showed that her white cell count is down to 7100, hemoglobin 11, hematocrit 34, MCV 82 and platelet count 111,000. Her serum sodium was 140, potassium 3.2; however, she received an extra 40 mEq this morning. Her chloride was 104, bicarbonate 27, anion gap of 9. Her BUN of 22, creatinine 1.1, estimated GFR was 49 mL per minute. Her glucose was 72, calcium 9.2, magnesium 1.9. Total bilirubin, AST, ALT, alkaline phosphatase were normal. Total protein was 6.8, albumin 3.2. FINAL DISCHARGE DIAGNOSES: Chest pain, myocardial infarction ruled out. Right-sided facial numbness, no evidence of upper motor or lower motor neuron facial palsy. Coronary artery disease status post PCI and stent deployment to the right coronary artery in 2008. Hypertension, well controlled. Hypercholesterolemia, on statins. Chronic kidney disease stage 2, stable. Type 2 diabetes mellitus. Obstructive sleep apnea, for which she is on BiPAP machine at nighttime. YOLANDA MILLER MD DR: Freddy JOB#: [id number] / [id number]
--- NOTE | 2018-01-06 03:42 | PN ---
DATE: REFERRING PHYSICIAN: Dr. Brennan. SUBJECTIVE: The patient denies any new medical neurological complaints as she stated her numbness of the right face has significantly improved. She denies chest pain, shortness of breath or palpitation, dysarthria, dysphagia or weakness. OBJECTIVE: GENERAL: Well-developed, well-nourished white female, not in acute distress. VITAL SIGNS: Stable, blood pressure 146/85, respiratory 20, pulse is 70, temperature 98.5, oxygen saturation 98% on room air. HEENT: Normocephalic, atraumatic, otherwise unremarkable. NECK: Supple. Negative for carotid bruit, lymphadenopathy, JVD or thyromegaly. LUNGS: Clear to A and P. CARDIOVASCULAR: Regular rate and rhythm, normal S1, S2. There is no S3, S4 or murmur. ABDOMEN: Soft. Bowel sounds positive. EXTREMITIES: Negative for cyanosis, clubbing. Mild pitting edema. NEUROLOGICAL: Normal mental status and intact cranial nerves. There is no focal motor or sensory deficit. Deep tendon reflexes were symmetric and hypoactive with absent Achilles responses. Gait and coordination are normal. Brain MRI performed in late 2016 revealed no acute intracranial process, but the small vessel ischemic changes. LABORATORY DATA: CBC reveals white blood cells of 7.1, hemoglobin 11.3, hematocrit 34.3, platelet count 311,000. Chemistry revealed sodium of 140, potassium 3.2, chloride 104, CO2 27, BUN 22, creatinine 1.1, glucose is 72. Liver enzymes are normal. Troponin level is less than 0.017. IMPRESSION: 1. Questionable transient ischemic attack, presented with right facial numbness and paresthesia -- improved. 2. Multiple medical problems include coronary artery disease, hypertension, hyperlipidemia, obstructive sleep apnea, gastroesophageal reflux disease. RECOMMENDATIONS: 1. Continue with current management initiated by Dr. Brennan. 2. Continue with aspirin 325 mg daily. 3. Follow up with Dr. Siddiqi after 2 weeks from discharge. M Joe SIDDIQI MD DR: HAYDER/jcarlos JOB#: [id number] / [id number]
--- NOTE | 2018-01-07 12:27 | CONS ---
DATE OF CONSULTATION: 01/04/2018 NEURO CONSULT REFERRING PHYSICIAN: Dr. Savanna Brennan. REASON FOR CONSULTATION: Rule out TIA versus stroke. HISTORY OF PRESENT ILLNESS: This is a 72-year-old right-handed female who was admitted through Emergency Room after she presented with chief complaints of right facial numbness and a constant chest pain. According to the patient, right facial numbness began late last night and has been constant since. She denies any weakness, numbness or paresthesia of the extremities, visual disturbances, but she complains of intermittent headaches, described as throbbing headaches. The patient stated her chest pain has been constant, substernal, radiating to the shoulders, more prominent on the left side and associated with nausea and shortness of breath. She denies diaphoresis. The patient was given 324 mg of aspirin and sent to ER for evaluation. The patient stated she has been taking Topamax for migraine headaches for several years. Currently, her headache is mild and in frontal regions. She denies vertigo, dysarthria or dysphagia. Initial nonenhanced head CT scan revealed no evidence of acute intracranial process otherwise unremarkable. PAST MEDICAL HISTORY: Significant for coronary artery disease status post stent placement in 2008, the patient had extensive cardiac workup including a stress test and echocardiograms, which revealed no significant abnormalities, obstructive sleep apnea, TIAs, fibromyalgia, hypothyroidism, hyperlipidemia, hypertension, GERD, diverticulosis, obesity, history of old left ankle fracture required surgery, anxiety and depression, history of suicidal attempt in the past. PAST SURGICAL HISTORY: Significant for left ankle, knee surgery, orbital constructions surgery for Graves' disease. SOCIAL HISTORY: The patient lives with her daughter at home, but she is independent. She denies smoking, alcohol drinking, or illicit drug use. FAMILY HISTORY: Father had an aortic aneurysm surgery and he at age of 58. Mother at the age of 71 of unknown cause. REVIEW OF SYSTEMS: A 10-point review of system was performed as mentioned above in history of present illness; otherwise, unremarkable. CURRENT HOME MEDICATIONS: Tylenol, aspirin 81 mg p.o. daily, carvedilol 12.5 mg daily, vitamin D3 5 units p.o. daily, clonazepam 0.5 mg at bedtime, citalopram 20 mg p.o. daily, gabapentin 400 mg at bedtime, glimepiride 1 mg daily and 4 mg at noon, insulin Levemir 100 units daily, levofloxacin 250 mg daily, levothyroxine 112 mcg daily, mirtazapine 50 mg daily, multivitamins, nystatin 50 mg ointment, omeprazole 20 mg p.o. daily, potassium and topiramate 75 mg b.i.d. ALLERGIES: SULFA DRUGS, ARIPIPRAZOLE, DOXYCYCLINE, PSEUDOEPHEDRINE, AND ____ . PHYSICAL EXAMINATION: GENERAL: Well-developed, obese white female, not in acute distress. She weighs 213 pounds. VITAL SIGNS: Blood pressure 120/72, respiratory rate 17, pulse is 67 and regular, temperature 98, oxygen saturation 95% on room air. HEENT: Normocephalic, atraumatic, otherwise unremarkable. NECK: Supple. Negative for carotid bruit, lymphadenopathy or thyromegaly. LUNGS: Clear to A and P. CARDIOVASCULAR: Regular rate and rhythm, normal S1, S2. There is no S3, S4. There is 1-2/6 systolic murmur. ABDOMEN: Soft. Bowel sounds positive. EXTREMITIES: Negative for cyanosis, clubbing or pitting edema. NEUROLOGIC: Mental Status: The patient is alert and oriented x 3. Speech is fluent. There is no language dysfunction. Memory, judgment, and abstract thinking are normal. The patient denies hallucination or delusion. CRANIAL NERVES: Visual briggs are full. The pupils are reactive to light and accommodation. The extraocular movements are intact. There is no nystagmus. There is no facial motor or sensory deficit. Hearing is intact bilaterally. The palate is elevated symmetrically. Sternocleidomastoid muscles are powerful bilaterally. The patient shrugs her shoulders symmetrically and protrudes her tongue in the midline without fasciculation or atrophy. MOTOR: No focal muscle bulk was seen. The tone is normal. The strength is 4/5 throughout. Sensory examination revealed diminished pinprick and light touch senses in patchy distributions in distal lower extremities. Deep tendon reflexes were symmetric with absent Achilles responses bilaterally. Gait: The patient uses a cane for ambulation. She is steady on her feet. LABORATORY DATA: CBC revealed white blood cells of 10.5 thousand, hemoglobin 11.5, hematocrit 34.9, platelet count 343,000. Chemistry revealed sodium of 137, potassium 3.5, chloride 101, CO2 of 25, BUN 25, creatinine 1.4, glucose is 153 ____ . Cardiac enzymes normal. Troponin level is less than 0.017. Coagulation, PT 10.2 and INR 1. DIAGNOSTIC DATA: Head CT scan as mentioned above in history of present illness and chest x-ray revealed no acute cardiopulmonary process. IMPRESSION: 1. Persistent right facial numbness and paresthesia with no focal neurological examination, etiology uncertain, rule out transient ischemic attack versus left hemispheric ischemic events. 2. Multiple medical problems includes hypertension, hyperlipidemia, diabetes mellitus, coronary artery disease status post coronary stent placement, hypothyroidism, obstructive sleep apnea and peripheral neuropathy in the lower extremities. RECOMMENDATIONS: 1. Continue with aspirin and home medications. 2. If facial numbness or paresthesia continues, we will obtain brain MRI. 3. To check if the patient had a recent carotid Doppler study, if it is not done we will request a new one. 4. We will continue with Cardiology recommendation. 5. PT, OT evaluation. M Joe SIDDIQI MD DR: HAYDER/jcarlos JOB#: [id number] / [id number]
== END 2018-01-05 16:22 | disposition home or self-care (01) ==
LOC: ER 11:55 → ICU 13:55
PROVIDERS: ADMIT Internal Medicine; ATTEND Internal Medicine
DX: R07.9 Chest pain, unspecified (principal); I12.9 Hypertensive chronic kidney disease with stage 1 through stage 4 chronic kidney disease, or unspecified chronic kidney disease; N18.2 Chronic kidney disease, stage 2 (mild); I25.10 Atherosclerotic heart disease of native coronary artery without angina pectoris; E78.5 Hyperlipidemia, unspecified; G43.909 Migraine, unspecified, not intractable, without status migrainosus; K21.9 Gastro-esophageal reflux disease without esophagitis; F32.9 Major depressive disorder, single episode, unspecified; D64.9 Anemia, unspecified; E11.22 Type 2 diabetes mellitus with diabetic chronic kidney disease; E11.42 Type 2 diabetes mellitus with diabetic polyneuropathy; E11.43 Type 2 diabetes mellitus with diabetic autonomic (poly)neuropathy; M19.90 Unspecified osteoarthritis, unspecified site; G47.33 Obstructive sleep apnea (adult) (pediatric); K31.84 Gastroparesis; Z80.9 Family history of malignant neoplasm, unspecified; Z95.5 Presence of coronary angioplasty implant and graft
CPT/HCPCS: 36415; 70450; 71045; 80053; 82553; 82947; 83735; 83880; 84484; 85025; 85610; 87641; 93005; 96372; 97161; 97166; 99285; G0378; G8978; G8979; G8987; G8988; G8989; J1815; J2405; J3010; G0379

== ENCOUNTER 2018-01-23 13:15 | Emergency (ER) | payer MEDICARE, BC ==
[~2018-01-23] VITALS: Ht 160 cm; Wt 107.4 kg
[~2018-01-23 13:15] MED LIST changes: +ASPI325T8 PO; +GABA-585 PO; +INSU100V13 SQ
--- NOTE | 2018-01-23 13:20 | PHYS DOC ---
Past History Past Medical History: Diabetes, GERD, High Cholesterol, Hypertension, Hypothyroid, TIA Past Surgical History: Cholecystectomy, Tonsillectomy, Other Smoking: Non-smoker Alcohol Use: None Drug Use: None Adult General Chief Complaint Chief Complaint: headache HPI HPI Patient is a 72 year old female who presents with a sharp stabbing headache, blurry vision, nausea, loose stools. She woke up this morning at 10: 30 which is not normal for her to sleep and so late. She states she has a headache that goes from the back of her neck up into the front of her head. She states is throbbing sensation. She states this is different than her normal migraine headache. She also complains of numbness on the right side of her face which is slightly worse than her chronic numbness that she's had since she's had her TIA. She also complains of some blurry vision. She denies any weakness in her arms or legs, fevers chills nausea vomiting. She also does have muscle spasm in the posterior aspect of her neck. She denies any nuchal rigidity. Review of Systems Review of Systems Constitutional: Denies fever or chills [] Eyes: Denies change in visual acuity, redness, or eye pain [] HENT: Denies nasal congestion or sore throat [] Respiratory: Denies cough or shortness of breath [] Cardiovascular: No additional information not addressed in HPI [] GI: Denies abdominal pain, nausea, vomiting, bloody stools or diarrhea [] : Denies dysuria or hematuria [] Musculoskeletal: Denies back pain or joint pain [] Integument: Denies rash or skin lesions [] Neurologic: Positive for headache, and sensory changes in her face, Denies focal weakness Endocrine: Denies polyuria or polydipsia [] All other systems were reviewed and found to be within normal limits, except as documented in this note. Allergies Allergies Allergies Coded Allergies Type Severity Reaction Last Updated Verified Sulfa (Sulfonamide Antibiotics) Allergy Intermediate RASH 09/23/16 Yes aripiprazole Allergy Intermediate RASH 09/23/16 Yes doxycycline Allergy Intermediate N/V RASH 09/23/16 Yes pseudoephedrine Allergy Intermediate hyperactive 12/31/14 Yes triprolidine Allergy Intermediate hyperactive 12/31/14 Yes Physical Exam Physical Exam Constitutional: Well developed, well nourished, no acute distress, non-toxic appearance. [] HENT: Normocephalic, atraumatic, bilateral external ears normal, oropharynx moist, no oral exudates, nose normal. [] Eyes: PERRLA, EOMI, conjunctiva normal, no discharge. [] Neck: Normal range of motion, no tenderness, supple, no stridor. [] Cardiovascular:Heart rate regular rhythm, no murmur [] Lungs & Thorax: Bilateral breath sounds clear to auscultation [] Abdomen: Bowel sounds normal, soft, no tenderness, no masses, no pulsatile masses. [] Skin: Warm, dry, no erythema, no rash. [] Back: Tender palpation with muscle spasm right paraspinal neck: No midline tenderness, no CVA tenderness. [] Extremities: No tenderness, no cyanosis, no clubbing, ROM intact, no edema. [] Neurologic: Alert and oriented X 3, normal motor function, normal sensory function, no focal deficits noted. Cranial nerves 12 intact, strength 5 out of 5 bilateral upper and lower extremities, extraocular muscles intact, vision intact to confrontation Psychologic: Affect normal, judgement normal, mood normal. [] EKG EKG [] Radiology/Procedures Radiology/Procedures [address] [id number] IMAGING REPORT Signed PATIENT: NESS CHAVES ACCOUNT: [id number] : 1945 LOCATION: ER AGE: 72 SEX: F EXAM STATUS: REG ER ORD. PHYSICIAN: LILLY SHAH MD REASON: headache PROCEDURE: CT HEAD WO CONTRAST Indication: Severe headache with facial numbness and nausea. Technique: CT head without IV contrast Comparison: Previous study from 01/04/2018 Findings: No pathologic extra-axial or intra-axial fluid collection. The ventricles and basal cisterns are within normal limits. No acute intracranial bleed. No focal loss of fisher-white differentiation. Visualized orbits are within normal limits. No calvarial lesions. Visualized paranasal sinuses and mastoid air cells are clear. Impression: No acute intracranial process on this noncontrast CT. PQRS Compliance Statement: One or more of the following individualized dose reduction techniques were utilized for this examination: 1. Automated exposure control 2. Adjustment of the mA and/or kV according to patient size 3. Use of iterative reconstruction technique DICTATED AND SIGNED BY: JAZMYNYEN DO DATE: 01/23/18 [id number] CC: DORINA GODFREY MD; LILLY SHAH MD ~ Impressions: Headache Hypoglycemia Course & Med Decision Making Course & Med Decision Making Pertinent Labs and Imaging studies reviewed. (See chart for details) Headache improved with Phenergan, Tylenol and fentanyl IM. Her visual briggs are intact. Her facial numbness is consistent with her previous numbness she's had in her face on other visits. She's being discharged at this time. Return precautions given. Dragon Disclaimer Dragon Disclaimer This electronic medical record was generated, in whole or in part, using a voice recognition dictation system. Departure Departure: Impression: Primary Impression: Migraine headache Referrals: DORINA GODFREY MD (PCP) Patient Instructions: General Headache Without Cause, [id number] Additional Instructions: You were seen today for your headache he received Phenergan which is for antinausea, Tylenol and fentanyl for pain. Your sugars are slightly elevated at 200. Please continue taking her medicines for diabetes and watching her diet. Your being discharged home. If you develop high fevers, uncontrolled nausea vomiting, severe neck pain, confusion or other concerns please return back to ER. You should follow-up with your primary care physician within the next few days. Please continue taking your medicines as previously directed by your other doctors. Problem Qualifiers Primary Impression: Migraine headache Migraine type: unspecified Status migrainosus presence: without status migrainosus Intractability: not intractable Qualified Codes: G43.909 - Migraine, unspecified, not intractable, without status migrainosus LILLY SHAH MD Jan 23, 2018 13:20
[2018-01-23 13:26] VITALS: BP 134/64
[2018-01-23] MEDS ORDERED: PROMETHAZINE IM 25 MG/ML VIAL IM ONE (13:45)
--- NOTE | 2018-01-23 13:58 | RAD ---
Indication: Severe headache with facial numbness and nausea. Technique: CT head without IV contrast Comparison: Previous study from 01/04/2018 Findings: No pathologic extra-axial or intra-axial fluid collection. The ventricles and basal cisterns are within normal limits. No acute intracranial bleed. No focal loss of fisher-white differentiation. Visualized orbits are within normal limits. No calvarial lesions. Visualized paranasal sinuses and mastoid air cells are clear. Impression: No acute intracranial process on this noncontrast CT. PQRS Compliance Statement: One or more of the following individualized dose reduction techniques were utilized for this examination: 1. Automated exposure control 2. Adjustment of the mA and/or kV according to patient size 3. Use of iterative reconstruction technique
[2018-01-23] MEDS ORDERED: ACETAMINOPHEN 500 MG TABLET PO ONE (14:00)
[2018-01-23] MEDS ORDERED: diphenhydrAMINE HCL 25 MG CAPSULE PO ONE (14:15)
== END 2018-01-23 15:41 | disposition home or self-care (01) ==
LOC: ER 13:15
DX: G43.909 Migraine, unspecified, not intractable, without status migrainosus (principal); E11.649 Type 2 diabetes mellitus with hypoglycemia without coma; K21.9 Gastro-esophageal reflux disease without esophagitis; I10 Essential (primary) hypertension; E03.9 Hypothyroidism, unspecified; E78.00 Pure hypercholesterolemia, unspecified; Z86.73 Personal history of transient ischemic attack (TIA), and cerebral infarction without residual deficits; Z88.2 Allergy status to sulfonamides; Z88.1 Allergy status to other antibiotic agents; Z88.8 Allergy status to other drugs, medicaments and biological substances
CPT/HCPCS: 70450; 82947; 96372; 99285; J2550; J3010

== ENCOUNTER → 2018-02-02 | Outpatient (CLI) | payer MEDICARE, BC ==
[2018-01-23 13:26] VITALS: BP 134/64
--- NOTE | 2018-02-02 14:24 | RAD ---
Indication: Chronic sinusitis Technique: CT maxillofacial bones without IV contrast with multiplanar reformats. Comparison: Previous study from 10/12/2017. Findings: Bilateral inferomedial orbital wall deformity likely from prior sinus surgery. There is bilateral mucoperiosteal thickening in the maxillary sinus. Postsurgical changes seen in the nasal cavity. The frontal sinuses, sphenoid sinuses and bilateral mastoid and cells are clear. The lenses, globes, extraocular muscles and intraorbital fat are within normal limits. The noncontrast appearance of the nasopharynx and oropharynx is within normal limits. Bilateral temporal mandibular joints are within normal limits. Visualized cervical spine within normal limits. No nasal septal deviation. No acute fractures. Streak artifact from the dental amalgam limits evaluation of the oral cavity. Impression: 1. Stable extensive postsurgical changes in the ethmoid, sphenoid, maxillary sinuses and nasal cavity. 2. Bilateral mucoperiosteal thickening in the maxillary sinuses suggesting chronic sinus disease. PQRS Compliance Statement: One or more of the following individualized dose reduction techniques were utilized for this examination: 1. Automated exposure control 2. Adjustment of the mA and/or kV according to patient size 3. Use of iterative reconstruction technique
== END | disposition home or self-care (01) ==
LOC: CT 12:56
PROVIDERS: ATTEND Psychiatry & Neurology Neurology
DX: J32.9 Chronic sinusitis, unspecified (principal); Z98.890 Other specified postprocedural states
CPT/HCPCS: 70486

== ENCOUNTER 2018-02-21 10:02 | Inpatient (IN) | payer MEDICARE, BC ==
[~2018-02-21] VITALS: Ht 160 cm; Wt 96.6 kg
[2018-02-21 10:54] LABS: BASO # 0.1 x10^3/uL (0.0-0.2); BASO % 1 % (0-3); EOS # 0.6 x10^3/uL (0.0-0.7); EOS % 6 % (0-3); HEMATOCRIT 36.2 % (36.0-47.0); HEMOGLOBIN 12.2 g/dL (12.0-15.5); LYMPH # 1.9 x10^3/uL (1.0-4.8); LYMPH % 19 % (24-48); MEAN CORPUSCULAR HEMOGLOBIN 28 pg (25-35); MEAN CORPUSCULAR HGB CONC 34 g/dL (31-37); MEAN CORPUSCULAR VOLUME 82 fL (79-100); MONO # 0.6 x10^3/uL (0.0-1.1); MONO % 6 % (0-9); NEUT # 6.9 x10^3uL (1.8-7.7); NEUT % 68 % (31-73); PLATELET COUNT 337 x10^3/uL (140-400); RED BLOOD COUNT 4.43 x10^6/uL (3.50-5.40); RED CELL DISTRIBUTION WIDTH 15.5 % (11.5-14.5); WHITE BLOOD COUNT 10.1 x10^3/uL (4.0-11.0)
[2018-02-21] MEDS ORDERED: METOCLOPRAMIDE HCL 10 MG/2 ML VIAL. IV ONE (11:00)
[2018-02-21] MEDS ORDERED: diphenhydrAMINE 50 MG/ML VIAL IVP ONE (11:00)
[2018-02-21 11:12] LABS: ALBUMIN 3.6 g/dL (3.4-5.0); ALBUMIN/GLOBULIN RATIO 1.1 (1.0-1.7); CALCIUM 9.4 mg/dL (8.5-10.1); CREATININE 1.1 mg/dL (0.6-1.0); GFR 49.1; POTASSIUM 3.5 mmol/L (3.5-5.1); TOTAL BILIRUBIN 0.5 mg/dL (0.2-1.0); TOTAL PROTEIN 6.8 g/dL (6.4-8.2)
[2018-02-21] MEDS ORDERED: IV NORMAL SALINE 500ML 500 ML IV ONE (11:30)
--- NOTE | 2018-02-21 11:36 | RAD ---
EXAM: CT head without contrast. HISTORY: Headache, facial numbness, dizziness. TECHNIQUE: Computed tomography of the head was performed without intravenous contrast. COMPARISON: 02/02/2018. FINDINGS: There is no intracranial hemorrhage. Malik-white differentiation is preserved. The ventricles are normal in size and position. Bilateral proptosis is at least moderate. There is no orbital mass. There are changes of bilateral orbital decompression and resection of the turbinates. The temporal bones are unremarkable. The calvarium reveals no suspicious lesions. IMPRESSION: 1. No acute intracranial findings. 2. At least moderate bilateral proptosis status post bilateral orbital decompression. Correlate for thyroid ophthalmopathy. *One or more of the following individualized dose reduction techniques were utilized for this examination: 1. Automated exposure control. 2. Adjustment of the mA and/or kV according to patient size. 3. Use of iterative reconstruction technique.
[2018-02-21 11:41] LABS: BACTERIA,URINE 0 /HPF (0-FEW); BILIRUBIN,URINE NEG (NEG); CLARITY,URINE HAZY; COLOR,URINE YELLOW; GLUCOSE,URINE NEG (NEG); HYALINE CASTS, URINE FEW /HPF; NITRITE,URINE NEG (NEG); RBC,URINE RARE /HPF (0-2); SQUAMOUS EPITHELIAL CELL,UR FEW /LPF; UROBILINOGEN,URINE 0.2 mg/dL (0.2 mg/dL)
--- NOTE | 2018-02-21 11:52 | PHYS DOC ---
Past History Past Medical History: Diabetes, GERD, High Cholesterol, Hypertension, Hypothyroid, TIA Past Surgical History: Cholecystectomy, Tonsillectomy, Other Smoking: Non-smoker Alcohol Use: None Drug Use: None Adult General Chief Complaint Chief Complaint: HEADACHE HPI HPI 72-year-old female patient with history of migraine headache complaining of right hemiglobal headache for the last 3 days as a constant and sharp pain with photophobia and intermittent episodes of right facial numbness that is different from her usual global migraine headache. Patient stated the pain was 4 /10 when it was started and rated her pain 9/10 right now. Patient states she took at 8 and quadrant without improvement of her pain. Patient denies extremity weakness or numbness, vomiting, chest pain, shortness of breath. Patient states she had history of facial numbness intermittently in December with possible diagnosis of TIA that was not confirmed. Review of Systems Review of Systems Constitutional: Denies fever or chills [] Eyes: Denies change in visual acuity, redness, or eye pain, reports blurred vision and photophobia [] HENT: Denies nasal congestion or sore throat [] Respiratory: Denies cough or shortness of breath [] Cardiovascular: No additional information not addressed in HPI [] GI: Denies abdominal pain, nausea, vomiting, bloody stools or diarrhea [] : Denies dysuria or hematuria [] Musculoskeletal: Denies back pain or joint pain [] Integument: Denies rash or skin lesions [] Neurologic: Reports headache and sensory changes in face, denies focal weakness Endocrine: Denies polyuria or polydipsia [] All other systems were reviewed and found to be within normal limits, except as documented in this note. Current Medications Current Medications Current Medications Medications (Trade) Dose Ordered Sig/Maggie Start Time Stop Time Status Last Admin Dose Admin Diphenhydramine HCl (Benadryl) 25 mg 1X ONCE 02/21/18 11:00 02/21/18 11:01 DC 02/21/18 11:09 25 MG Fentanyl Citrate (Fentanyl 2ml Vial) 50 mcg 1X ONCE 02/21/18 11:00 02/21/18 11:01 DC 02/21/18 11:09 50 MCG Metoclopramide HCl (Reglan Vial) 10 mg 1X ONCE 02/21/18 11:00 02/21/18 11:01 DC 02/21/18 11:09 10 MG Sodium Chloride 500 ml @ 0 mls/hr 1X ONCE 02/21/18 11:30 02/21/18 11:32 DC Allergies Allergies Allergies Coded Allergies Type Severity Reaction Last Updated Verified Sulfa (Sulfonamide Antibiotics) Allergy Intermediate RASH 09/23/16 Yes aripiprazole Allergy Intermediate RASH 09/23/16 Yes doxycycline Allergy Intermediate N/V RASH 09/23/16 Yes pseudoephedrine Allergy Intermediate hyperactive 12/31/14 Yes triprolidine Allergy Intermediate hyperactive 12/31/14 Yes Physical Exam Physical Exam Constitutional: Well developed, well nourished, mild distress, non-toxic appearance. [] HENT: Normocephalic, atraumatic, bilateral external ears normal, oropharynx moist, no oral exudates, nose normal. [] Eyes: PERRLA, EOMI, conjunctiva normal, no discharge. [] Neck: Normal range of motion, no tenderness, supple, no stridor. [] Cardiovascular:Heart rate regular rhythm, no murmur [] Lungs & Thorax: Bilateral breath sounds clear to auscultation [] Abdomen: Bowel sounds normal, soft, no tenderness, no masses, no pulsatile masses. [] Skin: Warm, dry, no erythema, no rash. [] Back: No tenderness, no CVA tenderness. [] Extremities: No tenderness, no cyanosis, no clubbing, ROM intact, no edema. [] Neurologic: Alert and oriented X 3, normal motor function, no focal deficits noted, very mild right facial drooping with subjective decrease of sensation in right side of face. [] Psychologic: Affect normal, judgement normal, mood normal. [] Current Patient Data Vital Signs Vital Signs Date Time Temp Pulse Resp B/P (MAP) Pulse Ox O2 Delivery O2 Flow Rate FiO2 02/21/18 11:22 62 18 130/88 (102) 98 Room Air 02/21/18 10:22 98.1 Lab Results Laboratory Tests Test 02/21/18 10:42 White Blood Count 10.1 x10^3/uL (4.0-11.0) Red Blood Count 4.43 x10^6/uL (3.50-5.40) Hemoglobin 12.2 g/dL (12.0-15.5) Hematocrit 36.2 % (36.0-47.0) Mean Corpuscular Volume 82 fL (79-100) Mean Corpuscular Hemoglobin 28 pg (25-35) Mean Corpuscular Hemoglobin Concent 34 g/dL (31-37) Red Cell Distribution Width 15.5 % (11.5-14.5) H Platelet Count 337 x10^3/uL (140-400) Neutrophils (%) (Auto) 68 % (31-73) Lymphocytes (%) (Auto) 19 % (24-48) L Monocytes (%) (Auto) 6 % (0-9) Eosinophils (%) (Auto) 6 % (0-3) H Basophils (%) (Auto) 1 % (0-3) Neutrophils # (Auto) 6.9 x10^3uL (1.8-7.7) Lymphocytes # (Auto) 1.9 x10^3/uL (1.0-4.8) Monocytes # (Auto) 0.6 x10^3/uL (0.0-1.1) Eosinophils # (Auto) 0.6 x10^3/uL (0.0-0.7) Basophils # (Auto) 0.1 x10^3/uL (0.0-0.2) Prothrombin Time 11.2 SEC (9.4-11.4) Prothrombin Time INR 1.1 (0.9-1.1) Sodium Level 126 mmol/L (136-145) L Potassium Level 3.5 mmol/L (3.5-5.1) Chloride Level 91 mmol/L (98-107) L Carbon Dioxide Level 29 mmol/L (21-32) Anion Gap 6 (6-14) Blood Urea Nitrogen 15 mg/dL (7-20) Creatinine 1.1 mg/dL (0.6-1.0) H Estimated GFR (Cockcroft-Gault) 49.1 BUN/Creatinine Ratio 14 (6-20) Glucose Level 192 mg/dL (70-99) H Calcium Level 9.4 mg/dL (8.5-10.1) Total Bilirubin 0.5 mg/dL (0.2-1.0) Aspartate Amino Transferase (AST) 24 U/L (15-37) Alanine Aminotransferase (ALT) 24 U/L (14-59) Alkaline Phosphatase 93 U/L (46-116) Total Protein 6.8 g/dL (6.4-8.2) Albumin 3.6 g/dL (3.4-5.0) Albumin/Globulin Ratio 1.1 (1.0-1.7) EKG EKG [] Radiology/Procedures Radiology/Procedures [] [address] [id number] IMAGING REPORT Signed PATIENT: NESS CHAVES ACCOUNT: [id number] : 1945 LOCATION: ER AGE: 72 SEX: F EXAM STATUS: REG ER ORD. PHYSICIAN: DEANDRE GARCIA MD REASON: headache and facial numbness for 3 days PROCEDURE: CT HEAD WO CONTRAST EXAM: CT head without contrast. HISTORY: Headache, facial numbness, dizziness. TECHNIQUE: Computed tomography of the head was performed without intravenous contrast. COMPARISON: 02/02/2018. FINDINGS: There is no intracranial hemorrhage. Malik-white differentiation is preserved. The ventricles are normal in size and position. Bilateral proptosis is at least moderate. There is no orbital mass. There are changes of bilateral orbital decompression and resection of the turbinates. The temporal bones are unremarkable. The calvarium reveals no suspicious lesions. IMPRESSION: 1. No acute intracranial findings. 2. At least moderate bilateral proptosis status post bilateral orbital decompression. Correlate for thyroid ophthalmopathy. *One or more of the following individualized dose reduction techniques were utilized for this examination: 1. Automated exposure control. 2. Adjustment of the mA and/or kV according to patient size. 3. Use of iterative reconstruction technique. Course & Med Decision Making Course & Med Decision Making Pertinent Labs and Imaging studies reviewed. (See chart for details) Evaluation of patient in ER showed 9-year-old female patient with complaining of headache different from her usual migraine headache for the last 3 days and intermittent episodes of facial numbness. CT of head was unremarkable. Labs show sodium of 126. Patient felt better with treatment in ER for her headache and rated her pain 4. Plan to admit patient with diagnosis of hyponatremia. Dr. Brennan accepted admission at 1150. Dragon Disclaimer Dragon Disclaimer This electronic medical record was generated, in whole or in part, using a voice recognition dictation system. Departure Departure: Impression: Primary Impression: Hyponatremia Additional Impressions: Migraine headache Right facial numbness Uncontrolled diabetes mellitus Disposition: 09 ADMITTED INPATIENT (At 1150) Admitting Physician: Savanna Brennan Condition: IMPROVED Referrals: DORINA GODFREY MD (PCP) Problem Qualifiers DEANDRE GARCIA MD Feb 21, 2018 11:51
[2018-02-21 13:42] VITALS: BP 156/76
[2018-02-21] MEDS ORDERED: L.AC1CAP6 PO (13:52)
[2018-02-21] MEDS ORDERED: CARV3.122 PO (13:52)
[2018-02-21] MEDS ORDERED: ASPI-630 PO (13:52)
[2018-02-21] MEDS ORDERED: HYDR-2758 PO (14:00)
[2018-02-21] MEDS ORDERED: HYDROcodone/APAP 5/325MG 1 TAB TABLET PO PRN (14:45)
[2018-02-21] MEDS: IV NORMAL SALINE 1,000ML 1,000 ML IV SCH (16:52)
[2018-02-21] MEDS: GLIMEPIRIDE 2 MG TABLET PO SCH (16:54)
--- NOTE | 2018-02-21 18:36 | HP ---
ADMIT DATE: 02/21/2018 HISTORY OF PRESENT ILLNESS: The patient is a 72-year-old female patient who came with a complaint of right-sided hemicranial headache that has been going on for the last 3 days, constant, sharp with photophobia and intermittent episodes of right facial numbness. Denied any nausea or vomiting. Denied any tingling or numbness except around her right eye. Denied any aggravating or alleviating factor. She has similar complaint of facial numbness intermittently since December, diagnosis of possible TIA. While in the Emergency Room, she was also found to have hyponatremia with a serum sodium of 126 mEq per liter and was admitted for further evaluation and treatment. Her CT scan of the head was unremarkable, did not show any intracranial pathology. PAST MEDICAL HISTORY: Significant for coronary artery disease, hypertension, hyperlipidemia, migraine headache, chronic constipation, diverticulosis, gastroesophageal reflux disease, hiatal hernia, diabetic gastroparesis, anemia, depression, status post ECT for which she sees a psychiatrist. She also has osteoarthritis and uses a cane and orthotic for walking. She has chronic sinusitis, Graves disease and Graves ophthalmopathy. PAST SURGICAL HISTORY: Significant for cholecystectomy, tonsillectomy, bilateral orbital decompression for Graves ophthalmopathy. She has blepharoplasty in the right, heart catheterization in 2008. She also has left ankle fracture, status post open reduction and internal fixation incontinence surgery and multiple GI endoscopies. FAMILY HISTORY: Positive for cancer in her mother. SOCIAL HISTORY: She lives alone. She has a daughter and granddaughter who lives nearby. She does not smoke, drink alcohol or use any recreational drugs. REVIEW OF SYSTEMS: As per history of present illness. ALLERGIES: SHE IS ALLERGIC TO SULFA, ARIPIPRAZOLE, DOXYCYCLINE, PSEUDOEPHEDRINE AND TRIPROLIDINE. MEDICATIONS: She is currently on following medications: She is on atorvastatin calcium 20 mg at bedtime, carvedilol 3.125 mg twice a day, losartan/hydrochlorothiazide 100/25, she takes half a tablet twice a day, aspirin 81 mg once a day, hydrocodone/APAP 5/325 one tablet every 6 hours, clonazepam 0.5 mg at bedtime, gabapentin 300 mg at bedtime, escitalopram oxalate 20 mg daily, mirtazapine 45 mg at bedtime, potassium chloride 10 mEq daily. She is on Flonase 2 sprays to each nostril twice a day, polyethylene glycol 17 grams daily p.r.n. for constipation, omeprazole 20 mg once a day, lactobacillus acidophilus 1 twice a day. She is on Levemir insulin 14 units at bedtime, glimepiride 4 mg at noon, glimepiride 1 mg before breakfast, before supper, levothyroxine sodium 112 mcg once a day, cholecalciferol 2000 international units once a day, multivitamin 1 tablet once a day. REVIEW OF SYSTEMS: As per history of present illness. PHYSICAL EXAMINATION GENERAL: When I examined her, she was resting slightly propped up in bed, in no apparent respiratory distress. She was pale. No jaundice, cyanosis, or thyromegaly. No jugular venous distension. No limb edema. VITAL SIGNS: Her heart rate was 58, blood pressure 156/76, temperature was 97.9, respiratory rate was 20, and oxygen saturation was 95% on room air. HEAD, EYES, EARS, NOSE AND THROAT: Showed normocephalic, atraumatic. NECK: Supple. HEART: Showed normal first and second heart sounds. No gallop, rub or murmur. CHEST: Clear to auscultation. No crepitation or rhonchi. ABDOMEN: Distended, soft, nontender. No guarding or rigidity. No organomegaly. All hernial orifices intact. Bowel sounds normal. NEUROLOGIC: She is awake, alert, responding appropriately. All cranial nerves intact. EXTREMITIES: She moves extremities without difficulty. She ambulates with a cane without any difficulty. LABORATORY DATA: While in the Emergency Room, she had lab work done, which showed a white cell count of 10,000, hemoglobin 12, hematocrit 36, MCV 82 and platelet count 337,000 with normal manual differential. Her serum sodium was 126, potassium 3.5, chloride 91, bicarbonate 29, anion gap of 6, BUN 15, creatinine 1.1, estimated GFR was 49 mL per minute. Her glucose was 192. Prothrombin time was 11.2, INR 1.1. Urinalysis was unremarkable and essentially negative. Did have CT scan of the head, which showed that there is no intracranial hemorrhage. Malik-white differentiation is preserved. The ventricles are normal in size and position. Bilateral proptosis, at least moderate. There is no orbital mass. There are changes of bilateral orbital decompression and resection of the turbinates. The temporal lobes are unremarkable. Calvarium reveals no suspicious lesions. ASSESSMENT AND PLAN: In summary, this is a 72-year-old female patient, who came in with right hemicranial headache that has been going on for the last 3 days. She has also tingling and numbness around her right eye that comes and goes since December of this year. The patient has hyponatremia with a serum sodium of 126 with multiple possible culprits including hydrochlorothiazide, escitalopram, as well as mirtazapine. PLAN: My plan is to continue with all her medication except I will discontinue the hydrochlorothiazide, mirtazapine, and citalopram. I will consult Dr. May. Check also her morning cortisol and also TSH and decide on further management accordingly. YOLANDA MILLER MD DR: LIGIA/jcarlos JOB#: [id number] / [id number]
[2018-02-21 19:40] VITALS: BP 100/58
[2018-02-21] MEDS ORDERED: KETOROLAC 30 MG/ML VIAL. IV ONE (21:00)
[2018-02-21] MEDS ORDERED: MIRTAZAPINE 15 MG TABLET PO SCH (21:00)
[2018-02-21] MEDS: FLUTICASONE 50MCG/NASAL SPRAY 16GM BOTTLE. NS SCH (21:01)
[2018-02-21] MEDS: GABAPENTIN 100 MG CAPSULE. PO SCH (21:01)
[2018-02-21] MEDS: ATORVASTATIN CALCIUM 20 MG TABLET PO SCH (21:01)
[2018-02-21] MEDS: LACTOBACILLUS RHAMNOSUS GG 1 CAPSULE. PO SCH (21:01)
[2018-02-21] MEDS: clonazePAM 0.5 MG TABLET PO SCH (21:02)
[2018-02-21] MEDS: CARVEDILOL 3.125 MG TABLET PO SCH (21:02)
[2018-02-21] MEDS ORDERED: KETOROLAC 30 MG/ML VIAL. IV PRN (21:15)
[2018-02-21] MEDS: INSULIN GLARGINE 300 UNITS/3 ML INSULN.PEN. SQ SCH (21:16)
[2018-02-21] MEDS: POLYETHYLENE GLYCOL 3350 17 GM PACKET. PO SCH (21:25)
[2018-02-21] MEDS ORDERED: ACETAMINOPHEN 500 MG TABLET PO PRN (22:15)
[2018-02-22] VITALS (7 sets, daily range): BP systolic 92–158; BP diastolic 53–87
[2018-02-22] MEDS: IV NORMAL SALINE 1,000ML 1,000 ML IV SCH (05:50)
[2018-02-22] MEDS: LEVOTHYROXINE 112 MCG TABLET PO SCH (06:34)
[2018-02-22 06:41] LABS: HEMATOCRIT 33.6 % (36.0-47.0); HEMOGLOBIN 11.1 g/dL (12.0-15.5); RED BLOOD COUNT 4.04 x10^6/uL (3.50-5.40); RED CELL DISTRIBUTION WIDTH 15.3 % (11.5-14.5); WHITE BLOOD COUNT 7.4 x10^3/uL (4.0-11.0)
[2018-02-22 06:47] LABS: CREATININE 0.9 mg/dL (0.6-1.0); GFR 61.9; POTASSIUM 3.5 mmol/L (3.5-5.1)
[2018-02-22] MEDS: PANTOPRAZOLE 40 MG TABLET. PO SCH (08:23)
[2018-02-22] MEDS ORDERED: CITALOPRAM 20 MG TABLET. PO SCH (09:00)
[2018-02-22] MEDS: POTASSIUM CHLORIDE 10 MEQ TABLET.ER. PO SCH (09:19)
[2018-02-22] MEDS: CHOLECALCIFEROL (VITAMIN D3) 1,000 UNIT TABLET PO SCH (09:19)
[2018-02-22] MEDS: ASPIRIN 81 MG TAB.CHEW PO SCH (09:19)
[2018-02-22] MEDS: LACTOBACILLUS RHAMNOSUS GG 1 CAPSULE. PO SCH ×2 (09:19→21:14)
[2018-02-22] MEDS: CARVEDILOL 3.125 MG TABLET PO SCH ×2 (09:20→21:14)
[2018-02-22] MEDS: FLUTICASONE 50MCG/NASAL SPRAY 16GM BOTTLE. NS SCH ×2 (09:20→21:13)
[2018-02-22] MEDS: MULTIVITAMIN with MINERAL TABLET. PO SCH (09:20)
[2018-02-22] MEDS ORDERED: ONDANSETRON PF 4 MG/2 ML VIAL. IV PRN (09:30)
[2018-02-22] MEDS: GLIMEPIRIDE 2 MG TABLET PO SCH ×2 (12:03→17:11)
[2018-02-22] MEDS: KETOROLAC 30 MG/ML VIAL. IV PRN ×2 (12:05→21:18)
--- NOTE | 2018-02-22 18:17 | CONS ---
DATE OF CONSULTATION: 02/21/2018 NEUROLOGY CONSULTATION REFERRING PHYSICIAN: Dr. Brennan. REASON FOR CONSULTATION: Headaches and ____ facial numbness. HISTORY OF PRESENT ILLNESS: This is a 72-year-old right-handed white female, was admitted through Emergency Room with a chief complaint of 3-day history of severe right-sided headaches without nausea but associated with photophobia, phonophobia. The patient stated 3 days ago and prior to having headaches, she started arguing with her granddaughter. She was very upset and the headache started immediately. The headache has been steady for the last 3 days. In the Emergency Room, she was given a cocktail of fentanyl and Benadryl without significant relief of her symptoms. The patient tried to take Aleve and Tylenol, but the headache persisted. The patient has had a history of migraine headaches. She has been seen by Neurology at [facility] and placed on Topamax at 100 mg b.i.d., which she could not tolerate even 50 mg b.i.d. Therefore, she decided to stop taking Topamax. The patient told me she had a brain MRI done 2 weeks ago at [facility], but she was told by her neurologist that the study was unremarkable. She has had a constant numbness and paresthesia confined to the right face since December 2017 of unknown etiology. It was thought she might have a TIA, but no confirmation. Currently, the patient stated her headache has been improved and she rated it at a 4/10. She denies nausea or vomiting at this time, chest pain, shortness of breath or palpitation, dysarthria, dysphagia, weakness or paresthesia of the upper and lower extremities. Initial nonenhanced head CT scan revealed no evidence of acute intracranial process and moderate bilateral proptosis and status post bilateral orbital decompression. PAST MEDICAL HISTORY: Significant for coronary artery disease; depressions, for which she received numerous of ECT in the past; diabetes mellitus, diverticulosis, gastroesophageal reflux disease and diabetic gastroparesis, anemia, hiatal hernia and recently diagnosed with hyponatremia. PAST SURGICAL HISTORY: Status post bilateral orbital decompression for ____ ophthalmopathy, blepharoplasty on the right. She had coronary artery disease in 2008, and history of left ankle fracture, required ORIF. SOCIAL HISTORY: The patient lives with her granddaughter. She denies smoking, alcohol drinking, or illicit drug use. FAMILY HISTORY: Positive for colon cancer in her mother. ALLERGIES: Sulfonamide antibiotics, doxycycline, pseudoephedrine, triprolidine, and Abilify. MEDICATIONS: ____ or Amaryl 4 mg daily p.o., multivitamins, vitamin D 5000 units daily, aspirin 81 mg daily, KCl 10 mEq daily, Protonix 40 mg p.o. daily, levothyroxine 112 mcg p.o. daily, insulin Lantus 14 units at bedtime, clonazepam 0.5 mg at bedtime, gabapentin 300 mg at bedtime or nightly, carvedilol 3.125 mg b.i.d., Lipitor 20 mg at bedtime or a nightly, hydrocodone 5 mg q.6 hours p.r.n. and Tylenol p.r.n. REVIEW OF SYSTEMS: His 10-point review of system was performed and as mentioned above in the history of present illness. PHYSICAL EXAMINATION: GENERAL: Moderately obese white female, not in acute distress. She weighs 213 pounds. VITAL SIGNS: Blood pressure 156/76, respiratory rate 20, pulse is 58, temperature 97.9, and oxygen saturation is 95% on room air. HEENT: Normocephalic, atraumatic, otherwise unremarkable. NECK: Supple. Negative for carotid bruit, lymphadenopathy, JVD or thyromegaly. LUNGS: Clear to A and P. CARDIOVASCULAR: Regular rate and rhythm, normal S1, S2. There is no S3, S4, murmur. ABDOMEN: Soft. Bowel sounds positive. EXTREMITIES: Negative for cyanosis, clubbing or edema. NEUROLOGIC: Mental Status: The patient is alert and oriented x 3. Speech is fluent. There is no language dysfunction. Memory, judgment, abstract thinkings are normal. The patient denies hallucination or delusion. CRANIAL NERVES: Visual briggs are full. The pupils are reactive to light and accommodation. The extraocular movements are intact. There is no nystagmus. There is no nystagmus. There is right facial sensory deficit. The hearing is intact bilaterally. The palate is elevated symmetrically. Sternocleidomastoid muscles are powerful bilaterally. The patient shrugs her shoulders symmetrically and protrudes her tongue in the midline without fasciculation or atrophy. MOTOR examination: No focal muscle bulk was seen. The tone is normal. The strength is 5/5 throughout. SENSORY examination: Normal pinprick, light touch, vibratory and position senses. Deep tendon reflexes are symmetric and hypoactive with absent Achilles responses. Gait: The stance is steady. The patient uses a cane for ambulation. LABORATORY AND DIAGNOSTIC DATA: Initial nonenhanced CT scan revealed no evidence of acute intracranial process and as mentioned above in the history of present illness. CBC revealed white blood cells of 10,100, hemoglobin 12.2, hematocrit 36.2, and platelet count 337,000. Chemistry revealed a sodium of 126, potassium 3.5, chloride 91, CO2 of 29, BUN 15, creatinine 1.1, glucose 192, and calcium 9.4. Urinalysis is negative. PT is 11.2 and INR 1.1. IMPRESSION: 1. Right-sided headaches with photophobia, phonophobia that began 3 days ago after she had an argument with her granddaughter, may represent unilateral headaches, probably tension type and possible ____ migraine. 2. Hyponatremia, probably due to medication side effects. 3. Multiple medical problems include hypothyroidism, diabetes mellitus, hypertension, hyperlipidemia, anxiety and depression. RECOMMENDATIONS: 1. Continue with current management initiated by Dr. Brennan. 2. Continue with current home medication. 3. In case of intractable headaches, we will start the patient on Toradol. We will give the patient Toradol 30 mg IV. The patient is off Topamax because of side effects. M Joe SIDDIQI MD DR: HAYDER/jcarlos JOB#: [id number] / [id number]
[2018-02-22] MEDS: clonazePAM 0.5 MG TABLET PO SCH (21:00)
[2018-02-22] MEDS: ATORVASTATIN CALCIUM 20 MG TABLET PO SCH (21:15)
[2018-02-22] MEDS: POLYETHYLENE GLYCOL 3350 17 GM PACKET. PO SCH (21:16)
[2018-02-22] MEDS: GABAPENTIN 100 MG CAPSULE. PO SCH (21:16)
[2018-02-22] MEDS: INSULIN GLARGINE 300 UNITS/3 ML INSULN.PEN. SQ SCH (21:30)
--- NOTE | 2018-02-22 23:44 | PN ---
DATE: 02/22/2018 SUBJECTIVE: The patient continues to have constant right-sided headaches, described as a throbbing headache associated with nausea, but no vomiting and phonophobia. She denies photophobia. The patient stated her headache has improved after given Toradol 30 mg IV this morning. She rated the headache at 3/10. She denies any other medical or neurological complaints. She denies any new medical or neurological complaints. OBJECTIVE: GENERAL: Moderately obese white female, not in acute distress. VITAL SIGNS: Blood pressure 141/76, respiratory rate 20, pulse is 94 and regular, temperature 97.8, oxygen saturation 95%. HEENT: Normocephalic, atraumatic, otherwise, unremarkable. NECK: Supple. Negative for carotid bruit, lymphadenopathy or thyromegaly. LUNGS: Clear to A and P. CARDIOVASCULAR: Regular rate and rhythm, normal S1, S2. There is no S3, S4 or murmur. ABDOMEN: Soft. Bowel sounds positive. EXTREMITIES: Negative for cyanosis, clubbing or pitting edema. NEUROLOGIC: Normal mental status and intact cranial nerves. There is no evidence of motor or sensory deficit. Deep tendon reflexes were symmetric and hypoactive with absent Achilles responses. Stance is steady. The patient uses a cane for ambulation. IMPRESSION: 1. Right-sided headaches with history of migraine headaches. 2. Numbness and paresthesia of the left face since 12/2017. According to the patient, she had a recent normal brain MRI. 3. Multiple medical problems include diabetes mellitus, depressions, anxiety, coronary artery disease, hyperlipidemia, diabetic gastroparesis, osteoarthritis. RECOMMENDATIONS: 1. Continue with current management. 2. We will obtain a brain MRI result from [facility]. M Joe SIDDIQI MD DR: HAYDER/jcarlos JOB#: [id number] / [id number]
--- NOTE | 2018-02-23 00:58 | PN ---
DATE: 02/22/2018 SUBJECTIVE: The patient's is resting slightly propped up in bed, sleeping comfortably. On questioning her, she stated that she continued to have some headache, although much better than yesterday. We did held her mirtazapine, Lexapro, and hydrochlorothiazide and her sodium has dramatically risen from 126 up to 137 mEq per liter. PHYSICAL EXAMINATION: GENERAL: When I examined her today, she looked pale, but no jaundice, cyanosis, or thyromegaly. No jugular venous distension. No lower limb edema. VITAL SIGNS: Her heart rate was 94, blood pressure was 141/76, temperature was 97.8, respiratory rate was 20, and oxygen saturation was 95%. HEAD, EYES, EARS, NOSE AND THROAT: Normocephalic, atraumatic. NECK: Supple. HEART: Showed normal first and second heart sounds. No gallop, rub or murmur. CHEST: Clear to auscultation. No crepitation or rhonchi. ABDOMEN: Distended, soft, nontender. NEUROLOGIC: She is awake, alert, responding appropriately. Cranial nerves are intact. She moves extremities without difficulty. She ambulates without assistance or assistive devices. Her intake was 3040, output was 600. LABORATORY DATA: Her lab work showed serum sodium 137, potassium 3.5, chloride 101, bicarbonate 27, anion gap of 9, BUN 12, creatinine 0.9, estimated GFR was 62 mL per minute. Her glucose 85, calcium was 9. Her white cell count was 7400, hemoglobin 11, hematocrit 33, MCV 83, and platelet count ____. ASSESSMENT AND PLAN: 1. Severe intractable right hemicranial headache has been going on for the last 3 days, has much improved now. 2. Tingling and numbness around her right eye that comes and goes since 12/2017. 3. Hypernatremia with the serum sodium of 126, probably multifactorial including hydrochlorothiazide, citalopram as well as mirtazapine, improved. Her sodium this morning was 137. 4. Other medical problems include coronary artery disease, and hypertension, hyperlipidemia, chronic constipation, gastroesophageal reflux disease, diabetic gastroparesis, anemia, osteoarthritis. YOLANDA MILLER MD DR: LIGIA/jcarlos JOB#: [id number] / [id number]
[2018-02-23] MEDS: LEVOTHYROXINE 112 MCG TABLET PO SCH (05:55)
[2018-02-23] MEDS: KETOROLAC 30 MG/ML VIAL. IV PRN (05:57)
[2018-02-23 06:07] VITALS: BP 172/80
[2018-02-23 07:20] LABS: CREATININE 0.9 mg/dL (0.6-1.0); GFR 61.9; POTASSIUM 3.8 mmol/L (3.5-5.1)
[2018-02-23] MEDS: POTASSIUM CHLORIDE 10 MEQ TABLET.ER. PO SCH (08:15)
[2018-02-23] MEDS: ASPIRIN 81 MG TAB.CHEW PO SCH (08:15)
[2018-02-23] MEDS: CARVEDILOL 3.125 MG TABLET PO SCH ×2 (08:16→21:12)
[2018-02-23] MEDS: LACTOBACILLUS RHAMNOSUS GG 1 CAPSULE. PO SCH ×2 (08:16→21:12)
[2018-02-23] MEDS: FLUTICASONE 50MCG/NASAL SPRAY 16GM BOTTLE. NS SCH ×2 (08:17→21:11)
[2018-02-23] MEDS: PANTOPRAZOLE 40 MG TABLET. PO SCH (08:17)
[2018-02-23] MEDS: CHOLECALCIFEROL (VITAMIN D3) 1,000 UNIT TABLET PO SCH (08:17)
[2018-02-23] MEDS: MULTIVITAMIN with MINERAL TABLET. PO SCH (08:19)
[2018-02-23 11:20] VITALS: BP 176/81
[2018-02-23] MEDS: GLIMEPIRIDE 2 MG TABLET PO SCH ×2 (11:55→17:19)
[2018-02-23] MEDS: CITALOPRAM 20 MG TABLET. PO SCH (13:36)
[2018-02-23] MEDS: IV NORMAL SALINE 1,000ML 1,000 ML IV SCH (13:36)
[2018-02-23 15:59] VITALS: BP 153/79
[2018-02-23] MEDS: POLYETHYLENE GLYCOL 3350 17 GM PACKET. PO SCH (17:19)
[2018-02-23 19:15] VITALS: BP 161/72
[2018-02-23] MEDS ORDERED: MIRTAZAPINE 15 MG TABLET PO SCH ×2 (21:00)
[2018-02-23] MEDS: ATORVASTATIN CALCIUM 20 MG TABLET PO SCH (21:12)
[2018-02-23] MEDS: clonazePAM 0.5 MG TABLET PO SCH (21:13)
[2018-02-23] MEDS: GABAPENTIN 100 MG CAPSULE. PO SCH (21:13)
[2018-02-23] MEDS: INSULIN GLARGINE 300 UNITS/3 ML INSULN.PEN. SQ SCH (21:19)
--- NOTE | 2018-02-23 22:29 | PN ---
DATE: 02/23/2018 SUBJECTIVE: The patient is sitting slightly propped up in bed, complaining of recurrent bouts of nausea, vomiting as well as diarrhea, mild abdominal pain. No chills, rigors or fever. She apparently has finished antibiotic about 4 days ago for urinary tract infection. OBJECTIVE: GENERAL: On examining her today, she looked well and was clearly in no apparent respiratory distress, pale, but no jaundice, cyanosis or thyromegaly. No jugular venous distension. No lower limb edema. VITAL SIGNS: Her heart rate was 65, blood pressure was 176/81, temperature was 98.5, respiratory rate 20 and oxygen saturation was 91%. HEAD, EYES, EARS, NOSE AND THROAT: Normocephalic, atraumatic. NECK: Supple. HEART: Showed normal first and second heart sounds. No gallop, rub or murmur. CHEST: Clear to auscultation. No crepitation or rhonchi. ABDOMEN: Distended, soft, nontender. NEUROLOGIC: She is awake, alert, responding appropriately. Cranial nerves intact. She ambulates without assistance or assistive devices. Her intake over the last 24 hours was 3040, output was 600. LABORATORY DATA: As of this morning, her white cell count was 7400, hemoglobin 11, hematocrit 33, MCV 83 and platelet count of 315,000. Serum sodium was 134, potassium 3.8, chloride 101, bicarbonate 25, anion gap of 8, BUN 15, creatinine 0.9. Estimated GFR was 62 mL per minute. Her glucose was 88. Calcium was 9. ASSESSMENT: 1. Severe intractable right hemicranial headache, improving. 2. Tingling and numbness around her right eye that comes and goes since December of 2017. 3. Hyponatremia. Serum sodium 126, probably multifactorial. She is on hydrochlorothiazide, citalopram as well as mirtazapine, improved. As of this morning, her sodium is 134. 4. Recurrent episode of nausea, vomiting and diarrhea and the patient has just finished antibiotic recently raising the possibility of C. diff colitis for which we will start her on IV fluid and send stool for Clostridium difficile. 5. Other medical problems including coronary artery disease. 6. Hypertension. 7. Hyperlipidemia. 8. Chronic constipation. 9. Gastroesophageal reflux disease. 10. Diabetic gastroparesis. 11. Anemia and osteoarthritis. PLAN: To put her back on her losartan. Discontinue hydrochlorothiazide. Resume her citalopram and mirtazapine. She was started on IV fluid, send stool for C. diff. We will repeat her lab work tomorrow and decide on further management accordingly. YOLANDA MILLER MD DR: LIGIA/jcarlos JOB#: [id number] / [id number]
[2018-02-24 00:05] VITALS: BP 142/68
[2018-02-24] MEDS: IV NORMAL SALINE 1,000ML 1,000 ML IV SCH (03:02)
[2018-02-24 05:45] VITALS: BP 147/76
[2018-02-24] MEDS: LEVOTHYROXINE 112 MCG TABLET PO SCH (05:59)
[2018-02-24] MEDS: CARVEDILOL 3.125 MG TABLET PO SCH (08:31)
[2018-02-24] MEDS: POTASSIUM CHLORIDE 10 MEQ TABLET.ER. PO SCH (08:32)
[2018-02-24] MEDS: MULTIVITAMIN with MINERAL TABLET. PO SCH (08:32)
[2018-02-24] MEDS: PANTOPRAZOLE 40 MG TABLET. PO SCH (08:32)
[2018-02-24] MEDS: CITALOPRAM 20 MG TABLET. PO SCH (08:32)
[2018-02-24] MEDS: ASPIRIN 81 MG TAB.CHEW PO SCH (08:32)
[2018-02-24] MEDS: CHOLECALCIFEROL (VITAMIN D3) 1,000 UNIT TABLET PO SCH (08:34)
[2018-02-24] MEDS: LACTOBACILLUS RHAMNOSUS GG 1 CAPSULE. PO SCH (08:34)
[2018-02-24] MEDS: FLUTICASONE 50MCG/NASAL SPRAY 16GM BOTTLE. NS SCH (08:34)
[2018-02-24] MEDS ORDERED: CITALOPRAM 20 MG TABLET. PO SCH (09:00)
[2018-02-24] MEDS ORDERED: LOSARTAN 50 MG TABLET. PO SCH (09:00)
[2018-02-24 09:46] LABS: CALCIUM 9.3 mg/dL (8.5-10.1); CREATININE 0.9 mg/dL (0.6-1.0); GFR 61.9; MAGNESIUM 1.5 mg/dL (1.8-2.4); POTASSIUM 4.5 mmol/L (3.5-5.1)
[2018-02-24 11:00] VITALS: BP 151/79
[2018-02-24] MEDS: GLIMEPIRIDE 2 MG TABLET PO SCH (12:26)
[2018-02-24 15:35] VITALS: BP 116/73
[2018-02-24] MEDS ORDERED: LOSA100T6 PO (15:54)
--- NOTE | 2018-02-24 16:08 | DS ---
DATE OF DISCHARGE: 02/24/2018 HOSPITAL COURSE: The patient is a 72-year-old female patient, who came with a complaint of severe right-sided headache associated with tingling and numbness around her right eye that has been going on and off since December of this year. She was also found to have hyponatremia with serum sodium of 126. She has had a CT scan of the head that was unremarkable. She was seen in consultation by Dr. May and we did discontinue her hydrochlorothiazide as well as her Celexa and mirtazapine as all of these can cause syndrome of inappropriate antidiuretic hormone secretion and her sodium has improved from 126-135 mEq per liter. Her headache has subsided. Yesterday, she has had multiple episodes of nausea, vomiting as well as diarrhea that has completely subsided and the patient has been up and about, tolerating her food. Nursing staff did not voice any concern and therefore the patient was discharged home. We did discontinue her hydrochlorothiazide. When I examined her this afternoon, she looked well, pale, but no jaundice, cyanosis, or thyromegaly. No jugular venous distension. No lower limb edema. Her heart rate was 67, blood pressure 116/73, temperature was 98, respiratory rate 20, and oxygen saturation was 97% on room air. The rest of clinical examination is unremarkable. LABORATORY DATA: Today, this morning showed a serum sodium 135, potassium 4.5, chloride 103, bicarbonate 25, anion gap of 7, BUN 10, creatinine 0.9, estimated GFR was 62 mL per minute. Her glucose 177, calcium was 9.3, magnesium was 1.5. Her white cell count was 7400, hemoglobin 11, hematocrit 33, MCV 83, and platelet count . DISCHARGE MEDICATIONS: She was discharged home to continue on following medications: Aspirin 81 mg once a day, atorvastatin calcium 20 mg at bedtime, carvedilol 3.125 mg twice a day with food, cholecalciferol for vitamin D3 5000 international units once a day, clonazepam 0.5 mg at bedtime, escitalopram oxalate 20 mg once a day, Flonase 2 sprays twice a day, gabapentin 300 mg at bedtime, glimepiride 4 mg at noon, glimepiride 1 mg daily with supper, hydrocodone/APAP 5/325 one tablet every 6 hours, Levemir insulin 14 units at bedtime, lactobacillus acidophilus 1 capsule twice a day, levothyroxine sodium 112 mcg once a day, mirtazapine 45 mg at bedtime, multivitamin 1 tablet once a day, omeprazole 20 mg once a day, polyethylene glycol 17 grams daily, potassium chloride 10 mEq once a day. I did discontinue her hydrochlorothiazide. She will be discharged home on losartan 100 mg once a day. FINAL DISCHARGE DIAGNOSES: Right-sided migraine headache, resolved, hyponatremia resolved, recurrent bouts of nausea, vomiting and diarrhea has resolved. YOLANDA MILLER MD DR: LIGIA/jcarlos JOB#: [id number] / [id number]
--- NOTE | 2018-02-25 07:52 | PN ---
DATE: 02/24/2018 REFERRING PHYSICIAN: Dr. Savanna Brennan. SUBJECTIVE: The patient denies headache this morning. She continues to have mild abdominal pain and nausea along with intermittent numbness of the right face. OBJECTIVE: GENERAL: Well-developed, well-nourished white female, not in acute distress. VITAL SIGNS: Blood pressure 147/76, respiratory rate 20, pulse is 61 and regular, temperature is 98.2, oxygen saturation 95% on room air. HEENT: Normocephalic, atraumatic, otherwise unremarkable. NECK: Supple. Negative for carotid bruit, lymphadenopathy or thyromegaly. LUNGS: Clear to A and P. CARDIOVASCULAR: Regular rate and rhythm, normal S1, S2. There is no S3, S4 or murmur. ABDOMEN: Soft. Bowel sounds positive. EXTREMITIES: Negative for cyanosis, clubbing or pitting edema. NEUROLOGICAL EXAM: Mental Status: The patient is alert and oriented x 3. Speech is fluent. There is no language dysfunction, otherwise normal mental status. Cranial nerves are intact. There is no focal motor. Sensory examination revealed mild diminished pinprick and light touch senses over the right face compared to that on the left side. Deep tendon reflexes were symmetric and hypoactive with absent Achilles responses. Gait and coordination were normal. LABORATORY DATA: Chemistry revealed sodium 135, potassium of 4.5, chloride 103, CO2 of 25, BUN 10, creatinine 0.9 and glucose 177, calcium 9.3, magnesium 1.5. IMPRESSION: 1. Right-sided headaches -- resolved. 2. Intermittent numbness and paresthesia of the right face of unknown etiology. 3. Multiple medical problems that include coronary artery disease, hypertension, hyperlipidemia, diabetic gastroparesis, osteoarthritis, diabetes mellitus, anxiety and depression. RECOMMENDATIONS: Continue with current management and medications. M Joe SIDDIQI MD DR: HAYDER/jcarlos JOB#: [id number] / [id number]
--- NOTE | 2018-02-25 08:14 | PN ---
DATE: 02/23/2018 SUBJECTIVE: The patient continued to have mild right-sided headaches. She complains of recurrent bouts of nausea, vomiting, and diarrhea along with mild abdominal pain. She denies hematemesis or hematochezia. She also denies photophobia or phonophobia. OBJECTIVE: GENERAL: Well-developed, well-nourished white female, not in acute distress. VITAL SIGNS: Blood pressure 172/80, respiratory rate 18, pulse is 69, oxygen saturation 96% on room air. HEENT: Normocephalic, atraumatic, otherwise unremarkable. NECK: Supple, negative for carotid bruit, lymphadenopathy, or thyromegaly. LUNGS: Clear to A and P. CARDIOVASCULAR: Regular rate and rhythm, normal S1-S2. ABDOMEN: Soft. Bowel sounds positive. EXTREMITIES: Negative for cyanosis, clubbing, or pitting edema. NEUROLOGIC: Normal mental status and intact cranial nerves. There is no focal motor or sensory deficit. Deep tendon reflexes were symmetric and hypoactive with absent Achilles responses. Gait and coordination are normal. LABORATORY DATA: CBC revealed white blood cells of 7.4 thousand, hemoglobin 11, hematocrit 33, platelet count 315,000. Chemistry revealed sodium of 134, potassium of 3.8, chloride 101, CO2 25, BUN 15, creatinine 0.9, glucose 88, calcium is 9. IMPRESSION: 1. Right-sided headaches - improved. 2. Intermittent numbness and paresthesia confined to the right face, uncertain etiology, since December 2017. 3. Nausea, vomiting, diarrhea, and mild abdominal pain of unknown etiology. 4. Multiple medical problems including diabetes mellitus, depression, anxiety, coronary artery disease, hyperlipidemia, diabetic gastroparesis, and osteoarthritis. RECOMMENDATIONS: 1. Continue with current management for headaches. 2. Continue with current management initiated by Dr. Brennan. 3. Await for brain MRI results from [facility]. M Joe SIDDIQI MD DR: HAYDER/jcarlos JOB#: [id number] / [id number]
== END 2018-02-24 16:25 | disposition home or self-care (01) | DRG 103 ==
LOC: ER 10:02 → 1 SOUTH 12:25
PROVIDERS: ADMIT Internal Medicine; ATTEND Internal Medicine
DX: G43.909 Migraine, unspecified, not intractable, without status migrainosus (principal); E11.65 Type 2 diabetes mellitus with hyperglycemia; K31.84 Gastroparesis; E11.43 Type 2 diabetes mellitus with diabetic autonomic (poly)neuropathy; E87.1 Hypo-osmolality and hyponatremia; D64.9 Anemia, unspecified; R19.7 Diarrhea, unspecified; E03.9 Hypothyroidism, unspecified; E78.5 Hyperlipidemia, unspecified; F32.9 Major depressive disorder, single episode, unspecified; F41.9 Anxiety disorder, unspecified; I10 Essential (primary) hypertension; K57.90 Diverticulosis of intestine, part unspecified, without perforation or abscess without bleeding; I25.10 Atherosclerotic heart disease of native coronary artery without angina pectoris; H53.149 Visual discomfort, unspecified; J32.9 Chronic sinusitis, unspecified; K21.9 Gastro-esophageal reflux disease without esophagitis; K59.09 Other constipation; M19.90 Unspecified osteoarthritis, unspecified site; Z60.2 Problems related to living alone; Z80.0 Family history of malignant neoplasm of digestive organs; Z87.440 Personal history of urinary (tract) infections; Z90.49 Acquired absence of other specified parts of digestive tract; Z86.73 Personal history of transient ischemic attack (TIA), and cerebral infarction without residual deficits; Z79.4 Long term (current) use of insulin; Z88.2 Allergy status to sulfonamides; Z88.8 Allergy status to other drugs, medicaments and biological substances; Z98.61 Coronary angioplasty status; Z87.81 Personal history of (healed) traumatic fracture
CPT/HCPCS: 36415; 70450; 80048; 80053; 81001; 82533; 82947; 83735; 84443; 85025; 85027; 85610; 87086; 87324; 96361; 96374; 96375; J1200; J1815; J1885; J2405; J2765; J3010; J7040; 99285-25; J7030

== ENCOUNTER → 2018-03-01 | Outpatient (CLI) | payer MEDICARE, BC ==
[2018-02-24 15:35] VITALS: BP 116/73
[~2018-03-01] MED LIST changes: +ASPI-630 PO; +CARV3.122 PO; +HYDR-2758 PO; +L.AC1CAP6 PO; +LOSA100T6 PO; +[UNRECOGNIZED DRUG - OTHER] PO
--- NOTE | 2018-03-01 17:11 | RAD ---
EXAM: Left lower extremity venous Doppler sonogram. HISTORY: Pain. TECHNIQUE: Malik scale and color Doppler sonographic evaluation of the left lower extremity veins with spectral waveform analysis was performed. FINDINGS: There is normal color flow, normal compressibility and there are normal spectral waveforms in the common femoral, superficial femoral, popliteal, posterior tibial and greater saphenous veins. There is a 6.8 cm complex cyst within the left popliteal fossa. IMPRESSION: 1. No Doppler evidence of lower extremity deep venous thrombosis. 2. 6.8 cm left Cartwright's cyst. Electronically signed by: Tigist Umanzor MD (03/01/2018 5:07 PM) [facility]
== END | disposition home or self-care (01) ==
LOC: US 15:50
PROVIDERS: ATTEND Nurse Practitioner Family
DX: M71.22 Synovial cyst of popliteal space [Baker], left knee (principal)
CPT/HCPCS: 93971

== ENCOUNTER 2018-04-10 17:10 | Emergency (ER) | payer MEDICARE, BC ==
[~2018-04-10] VITALS: Ht 160 cm; Wt 99.3 kg
[~2018-04-10 17:10] MED LIST changes: -[UNRECOGNIZED DRUG - OTHER] PO
--- NOTE | 2018-04-10 18:10 | EKG ---
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
--- NOTE | 2018-04-10 18:13 | PHYS DOC ---
Past History Past Medical History: Diabetes, GERD, High Cholesterol, Hypertension, Hypothyroid, TIA Past Surgical History: Cholecystectomy, Tonsillectomy, Other Smoking: Non-smoker Alcohol Use: None Drug Use: None Adult General Chief Complaint Chief Complaint: GI PROBLEM HPI HPI 72-year-old female presents with epigastric abdominal pain and chest pain. The patient states that she woke up this morning with epigastric abdominal pain that radiates up into her chest and across her shoulders. She describes the pain as a sharp pain. It is worse with palpation of her abdomen and her chest. She recently had an EGD 5 days ago which showed some gastric erosions. She did not have significant pain after the until this morning. She is concerned that there is something wrong. She denies shortness of breath or diaphoresis. She denies fever or chills. Review of Systems Review of Systems Constitutional: Denies fever or chills [] Eyes: Denies change in visual acuity, redness, or eye pain [] HENT: Denies nasal congestion or sore throat [] Respiratory: Denies cough or shortness of breath [] Cardiovascular: No additional information not addressed in HPI [] GI: Upper abdominal pain [] : Denies dysuria or hematuria [] Musculoskeletal: Denies back pain or joint pain [] Integument: Denies rash or skin lesions [] Neurologic: Denies headache, focal weakness or sensory changes [] Endocrine: Denies polyuria or polydipsia [] All other systems were reviewed and found to be within normal limits, except as documented in this note. Current Medications Current Medications Current Medications Medications (Trade) Dose Ordered Sig/[facility] Start Time Stop Time Status Last Admin Dose Admin Info (Do NOT chart on this entry -- for MONITORING) 1 each PRN DAILY PRN 04/10/18 18:15 04/12/18 18:14 Iohexol (Omnipaque 300 Mg/ml) 75 ml 1X ONCE 04/10/18 18:30 04/10/18 18:31 Multi-Ingredient Mouthwash/Gargle (Gi Cocktail) 20 ml 1X ONCE 04/10/18 18:15 04/10/18 18:16 Allergies Allergies Allergies Coded Allergies Type Severity Reaction Last Updated Verified Sulfa (Sulfonamide Antibiotics) Allergy Intermediate RASH 09/23/16 Yes aripiprazole Allergy Intermediate RASH 09/23/16 Yes doxycycline Allergy Intermediate N/V RASH 09/23/16 Yes pseudoephedrine Allergy Intermediate hyperactive 12/31/14 Yes triprolidine Allergy Intermediate hyperactive 12/31/14 Yes Physical Exam Physical Exam Constitutional: Well developed, well nourished, no acute distress, non-toxic appearance. [] HENT: Normocephalic, atraumatic, bilateral external ears normal, oropharynx moist, no oral exudates, nose normal. [] Eyes: PERRLA, EOMI, conjunctiva normal, no discharge. [] Neck: Normal range of motion, no tenderness, supple, no stridor. [] Cardiovascular:Heart rate regular rhythm, no murmur [] Lungs & Thorax: Bilateral breath sounds clear to auscultation [] Abdomen: Epigastric tenderness, chest wall tenderness. [] Skin: Warm, dry, no erythema, no rash. [] Back: No tenderness, no CVA tenderness. [] Extremities: No tenderness, no cyanosis, no clubbing, ROM intact. [] Neurologic: Alert and oriented X 3, normal motor function, normal sensory function, no focal deficits noted. [] Psychologic: Affect normal, judgement normal, mood normal. [] Current Patient Data Vital Signs Vital Signs Date Time Temp Pulse Resp B/P (MAP) Pulse Ox O2 Delivery O2 Flow Rate FiO2 04/10/18 17:10 98.3 73 18 99 Room Air EKG EKG [] Radiology/Procedures Radiology/Procedures [] Impressions: PROCEDURE: CT ABD PELV W/ IV CONTRST ONLY CT study of the abdomen and pelvis with contrast Clinical indications: Upper abdominal pain. History of cholecystectomy. History of recent EGD. TECHNIQUE: After IV infusion of 60 cc of Omnipaque 300, helical CT scanning of the abdomen and pelvis was performed. GI contrast was not administered. This may decrease the sensitivity to detect GI tract pathology. PQRS compliance Statement One or more of the following individualized dose reduction techniques were utilized for this study: 1. Automated exposure control 2. Adjustment of the mA and/or kV according to patient size 3. Use of iterative reconstruction technique COMPARISON: 01/04/2017. FINDINGS: The liver and spleen and pancreas are unremarkable. The gallbladder is surgically absent. There is mild dilatation of the extrahepatic bile duct which is unchanged from the previous study and most likely secondary to the reservoir effect after cholecystectomy. No adrenal mass is evident. There is a small approximately 1 cm nodule of the lower pole of the left kidney. This cannot be seen previously but the previous study was a noncontrast exam. No hydronephrosis is seen on either side. No hydroureter is seen on either side. The urinary bladder wall is smooth. Calcified uterine fibroids are seen. No dominant ovarian cyst or mass is seen. No focal aneurysmal dilatation of the abdominal aorta is seen. No enlarged abdominal or pelvic lymphadenopathy is evident. Colonic diverticulosis is seen without diverticulitis. No bowel obstruction is evident. The appendix is normal. The terminal ileum is unremarkable. No free air or free fluid or mesenteric edema is seen. There is a small infiltrate within the inferior aspect of the inferior segment of the lingula. This was not seen previously and was not seen on December 29, [address] No osteolytic process is seen. IMPRESSION: Indeterminate 1 cm nodule of the lower pole of the left kidney. Recommend outpatient renal sonography for further evaluation. No acute abnormality of the abdomen or pelvis. New small infiltrate within the inferior segment of the lingula. Course & Med Decision Making Course & Med Decision Making Pertinent Labs and Imaging studies reviewed. (See chart for details) I will be signing out the patient to Dr. Yanes for final disposition. [ED course: Evaluation reveals a 72-year-old female is well-known to the emergency department who has issues with chronic pain. She had an EGD 5 days ago and has had some epigastric discomfort that radiates up into her throat. This is been ongoing for some time. Patient was given a GI cocktail which had minimal effect on her discomfort. Her EKG, laboratory studies and CT scan were unrevealing. Of note the patient continued to complain of 10 out of 10 pain while resting quietly in the bed with a normal blood pressure and heart rate of 60. The patient was also given Pepcid as I think that this is likely related to reflux. I flipped the patient noted it is very important that she follow-up with her primary care physician as an outpatient to help with her symptoms.] Dragon Disclaimer Dragon Disclaimer This electronic medical record was generated, in whole or in part, using a voice recognition dictation system. Departure Departure: Impression: Primary Impression: Atypical chest pain Additional Impression: Reflux esophagitis Disposition: HOME, SELF-CARE Condition: STABLE Referrals: DORINA BUSH MD (PCP) Patient Instructions: Chest Pain (Nonspecific) Additional Instructions: Follow-up with Dr. Bush this week for recheck. Return to emergency department with any new or concerning symptoms Problem Qualifiers JOSE LUIS BOOTH DO Apr 10, 2018 18:12 EBONI TAYLOR DO Apr 10, 2018 20:58
[2018-04-10] MEDS ORDERED: CONTRAST GIVEN MC PRN (18:15)
[2018-04-10] MEDS ORDERED: LIDO:MAALOX 1:1 20 ML SINGLE DOSE. PO ONE (18:15)
[2018-04-10] MEDS ORDERED: IOHEXOL 300 MG/ML 75 ML VIAL. IV ONE (18:30)
[2018-04-10 18:53] LABS: BASO # 0.1 x10^3/uL (0.0-0.2); BASO % 2 % (0-3); EOS # 0.2 x10^3/uL (0.0-0.7); EOS % 2 % (0-3); HEMATOCRIT 34.1 % (36.0-47.0); HEMOGLOBIN 11.5 g/dL (12.0-15.5); LYMPH # 3.2 x10^3/uL (1.0-4.8); LYMPH % 34 % (24-48); MEAN CORPUSCULAR HEMOGLOBIN 28 pg (25-35); MEAN CORPUSCULAR HGB CONC 34 g/dL (31-37); MEAN CORPUSCULAR VOLUME 82 fL (79-100); MONO # 0.7 x10^3/uL (0.0-1.1); MONO % 8 % (0-9); NEUT % 54 % (31-73); PLATELET COUNT 402 x10^3/uL (140-400); RED BLOOD COUNT 4.17 x10^6/uL (3.50-5.40); RED CELL DISTRIBUTION WIDTH 14.8 % (11.5-14.5); WHITE BLOOD COUNT 9.3 x10^3/uL (4.0-11.0)
[2018-04-10 19:00] LABS: ALBUMIN 3.9 g/dL (3.4-5.0); ALBUMIN/GLOBULIN RATIO 1.3 (1.0-1.7); CALCIUM 9.3 mg/dL (8.5-10.1); CREATININE 1.1 mg/dL (0.6-1.0); GFR 49.1; POTASSIUM 4.2 mmol/L (3.5-5.1); TOTAL BILIRUBIN 0.3 mg/dL (0.2-1.0); TOTAL PROTEIN 6.8 g/dL (6.4-8.2)
[2018-04-10 19:11] LABS: BILIRUBIN,URINE NEG (NEG); CLARITY,URINE CLEAR; COLOR,URINE STRAW; GLUCOSE,URINE NEG (NEG); NITRITE,URINE NEG (NEG); UROBILINOGEN,URINE 0.2 mg/dL (0.2 mg/dL)
[2018-04-10 19:12] LABS: BACTERIA,URINE 0 /HPF (0-FEW); RBC,URINE OCC /HPF (0-2); SQUAMOUS EPITHELIAL CELL,UR MANY /LPF
[2018-04-10] MEDS ORDERED: FAMOTIDINE 20 MG TABLET PO ONE (19:30)
--- NOTE | 2018-04-10 20:52 | RAD ---
CT study of the abdomen and pelvis with contrast Clinical indications: Upper abdominal pain. History of cholecystectomy. History of recent EGD. TECHNIQUE: After IV infusion of 60 cc of Omnipaque 300, helical CT scanning of the abdomen and pelvis was performed. GI contrast was not administered. This may decrease the sensitivity to detect GI tract pathology. PQRS compliance Statement One or more of the following individualized dose reduction techniques were utilized for this study: 1. Automated exposure control 2. Adjustment of the mA and/or kV according to patient size 3. Use of iterative reconstruction technique COMPARISON: 01/04/2017. FINDINGS: The liver and spleen and pancreas are unremarkable. The gallbladder is surgically absent. There is mild dilatation of the extrahepatic bile duct which is unchanged from the previous study and most likely secondary to the reservoir effect after cholecystectomy. No adrenal mass is evident. There is a small approximately 1 cm nodule of the lower pole of the left kidney. This cannot be seen previously but the previous study was a noncontrast exam. No hydronephrosis is seen on either side. No hydroureter is seen on either side. The urinary bladder wall is smooth. Calcified uterine fibroids are seen. No dominant ovarian cyst or mass is seen. No focal aneurysmal dilatation of the abdominal aorta is seen. No enlarged abdominal or pelvic lymphadenopathy is evident. Colonic diverticulosis is seen without diverticulitis. No bowel obstruction is evident. The appendix is normal. The terminal ileum is unremarkable. No free air or free fluid or mesenteric edema is seen. There is a small infiltrate within the inferior aspect of the inferior segment of the lingula. This was not seen previously and was not seen on December 29, [address] No osteolytic process is seen. IMPRESSION: Indeterminate 1 cm nodule of the lower pole of the left kidney. Recommend outpatient renal sonography for further evaluation. No acute abnormality of the abdomen or pelvis. New small infiltrate within the inferior segment of the lingula. Electronically signed by: Sharath Zuniga MD (04/10/2018 8:48 PM) [facility]
[2018-04-10 21:00] VITALS: BP 173/82
[2018-04-10] MEDS ORDERED: [UNRECOGNIZED DRUG - OTHER] PO (21:02)
== END 2018-04-10 21:00 | disposition home or self-care (01) ==
LOC: ER 17:10
DX: K21.0 Gastro-esophageal reflux disease with esophagitis (principal); R07.89 Other chest pain; E11.9 Type 2 diabetes mellitus without complications; E78.00 Pure hypercholesterolemia, unspecified; I10 Essential (primary) hypertension; E03.9 Hypothyroidism, unspecified; G89.29 Other chronic pain; Z86.73 Personal history of transient ischemic attack (TIA), and cerebral infarction without residual deficits; Z90.49 Acquired absence of other specified parts of digestive tract; Z88.2 Allergy status to sulfonamides; Z88.8 Allergy status to other drugs, medicaments and biological substances
CPT/HCPCS: 36415; 74177; 80053; 81001; 83690; 84484; 85025; 87086; 93005; 99285; Q9967

== ENCOUNTER 2018-05-29 11:33 | Inpatient (IN) | payer MEDICARE, BC ==
[~2018-05-29] VITALS: Ht 160 cm; Wt 99.3 kg
[~2018-05-29 11:33] MED LIST changes: +TRAZ-86 PO; -TRAZ-90 PO; +[UNRECOGNIZED DRUG - OTHER] PO
--- NOTE | 2018-05-29 11:53 | EKG ---
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
[2018-05-29] MEDS ORDERED: ONDANSETRON PF 4 MG/2 ML VIAL. ONE (11:59)
[2018-05-29] MEDS ORDERED: ONDANSETRON PF 4 MG/2 ML VIAL. IV ONE (12:00)
[2018-05-29] MEDS ORDERED: MORPHINE SULFATE 2 MG/ML DISP.SYRIN. IV ONE (12:00)
[2018-05-29] MEDS ORDERED: MORPHINE SULFATE 2 MG/ML DISP.SYRIN. ONE (12:00)
--- NOTE | 2018-05-29 12:12 | RAD ---
CT HEAD INDICATION: HYPERTENSION, HEADACHE COMPARISON: 02/21/2018 TECHNIQUE: 5 mm contiguous axial images were obtained from the skull base to the vertex in both bone and soft tissue algorithm. Exposure: One or more of the following individualized dose reduction techniques were utilized for this examination: 1. Automated exposure control 2. Adjustment of the mA and/or kV according to patient size 3. Use of iterative reconstruction technique FINDINGS: No abnormal attenuation within the brain parenchyma. No evidence of acute intracranial hemorrhage. No extra-axial fluid collections. No mass effect or midline shift. Ventricular size is appropriate. Basal cisterns are patent. No fractures identified.Malik-white differentiation is preserved.Globes and orbits are within normal limits. Paranasal sinuses and mastoid air cells are clear. IMPRESSION: No acute intracranial findings. Electronically signed by: Luis Wong MD (05/29/2018 12:08 PM) [facility]
--- NOTE | 2018-05-29 12:13 | RAD ---
EXAM: CHEST 1 VIEW History: Chest pain COMPARISON: None available. TECHNIQUE: Single portable radiograph of the chest FINDINGS: The cardiac silhouette is unremarkable. The lungs are clear bilaterally. The costophrenic sulci are clear and well demarcated. IMPRESSION: No radiographic evidence of an acute cardiopulmonary process. Electronically signed by: Luis Wong MD (05/29/2018 12:10 PM) [facility]
[2018-05-29 12:30] LABS: BASO # 0.1 x10^3/uL (0.0-0.2); BASO % 1 % (0-3); EOS % 0 % (0-3); HEMATOCRIT 38.4 % (36.0-47.0); HEMOGLOBIN 12.9 g/dL (12.0-15.5); LYMPH % 21 % (24-48); MEAN CORPUSCULAR HEMOGLOBIN 28 pg (25-35); MEAN CORPUSCULAR HGB CONC 34 g/dL (31-37); MEAN CORPUSCULAR VOLUME 84 fL (79-100); MONO # 0.6 x10^3/uL (0.0-1.1); MONO % 7 % (0-9); NEUT # 6.9 x10^3uL (1.8-7.7); NEUT % 72 % (31-73); PLATELET COUNT 407 x10^3/uL (140-400); RED CELL DISTRIBUTION WIDTH 17.7 % (11.5-14.5); WHITE BLOOD COUNT 9.6 x10^3/uL (4.0-11.0)
[2018-05-29] MEDS ORDERED: ASPIRIN 81 MG TAB.CHEW PO ONE (12:30)
[2018-05-29 13:21] LABS: ALBUMIN 3.7 g/dL (3.4-5.0); ALBUMIN/GLOBULIN RATIO 1.1 (1.0-1.7); ALK PHOS 93 U/L (46-116); ALT (SGPT) 23 U/L (14-59); ANION GAP 3 (6-14); AST (SGOT) 17 U/L (15-37); BLOOD UREA NITROGEN 22 mg/dL (7-20); BUN/CREATININE RATIO 24 (6-20); CALCIUM 9.5 mg/dL (8.5-10.1); CARBON DIOXIDE 30 mmol/L (21-32); CHLORIDE 98 mmol/L (98-107); CREATININE 0.9 mg/dL (0.6-1.0); GFR 61.9; GLUCOSE 112 mg/dL (70-99); LIPASE 233 U/L (73-393); MAGNESIUM 1.9 mg/dL (1.8-2.4); POTASSIUM 4.4 mmol/L (3.5-5.1); SODIUM 131 mmol/L (136-145); TOTAL BILIRUBIN 0.4 mg/dL (0.2-1.0)
[2018-05-29 13:27] LABS: BACTERIA,URINE 0 /HPF (0-FEW); BILIRUBIN,URINE NEG (NEG); CLARITY,URINE CLEAR; COLOR,URINE YELLOW; GLUCOSE,URINE NEG (NEG); NITRITE,URINE NEG (NEG); RBC,URINE OCC /HPF (0-2); SQUAMOUS EPITHELIAL CELL,UR FEW /LPF; UROBILINOGEN,URINE 0.2 mg/dL (0.2 mg/dL)
[2018-05-29] MEDS ORDERED: MORPHINE SULFATE 4 MG/ML DISP.SYRIN. IV ONE (13:45)
--- NOTE | 2018-05-29 13:46 | PHYS DOC ---
Past History Past Medical History: Anxiety, Depression, Diabetes, GERD, High Cholesterol, Hypertension, Hypothyroid, TIA Past Surgical History: Cholecystectomy, Tonsillectomy, Other Smoking: Non-smoker Alcohol Use: None Drug Use: None Adult General Chief Complaint Chief Complaint: headache and chest pain HPI HPI 72-year-old male patient with history of dyslipidemia, hypertension, diabetes mellitus states she woke up at her usual time at 8 AM today and felt discomfort feeling in the substernal area with palpitation. Patient states the pain was associated with nausea without radiation, shortness of breath, vomiting , fever and chills, cough, dizziness and lightheadedness. Patient takes she developed a frontal headache at 8:30 as a constant pain and rated her pain 8/10 without focal neuro deficit. Patient complaining of mild blurred vision and chills without fever. Patient states she had 4 episodes of diarrhea since this morning. Patient states she finished a course of antibiotic for acute sinusitis and currently taking prednisone. Patient did not take any medication but states her blood pressure was 163/103 and called her primary care physician recommended to come to emergency room. Review of Systems Review of Systems Constitutional: Denies fever, reports chills [] Eyes: Denies change in visual acuity, redness, or eye pain [] HENT: Denies nasal congestion or sore throat [] Respiratory: Denies cough or shortness of breath [] Cardiovascular: No additional information not addressed in HPI [] GI: Denies abdominal pain, vomiting, bloody stools, reports nausea and diarrhea [] : Denies dysuria or hematuria [] Musculoskeletal: Denies back pain or joint pain [] Integument: Denies rash or skin lesions [] Neurologic: Reports headache, reports focal weakness or sensory changes [] Endocrine: Denies polyuria or polydipsia [] All other systems were reviewed and found to be within normal limits, except as documented in this note. Current Medications Current Medications Current Medications Medications (Trade) Dose Ordered Sig/Maggie Start Time Stop Time Status Last Admin Dose Admin Aspirin (Children'S Aspirin) 324 mg 1X ONCE 05/29/18 12:30 05/29/18 12:31 DC 05/29/18 12:27 324 MG Morphine Sulfate (Morphine 2mg Syringe) 2 mg STK-MED ONCE 05/29/18 12:00 05/29/18 12:01 DC Morphine Sulfate (Morphine 4mg Syringe) 4 mg 1X ONCE 05/29/18 13:45 05/29/18 13:46 UNV Ondansetron HCl (Zofran) 4 mg STK-MED ONCE 05/29/18 11:59 05/29/18 12:00 DC Allergies Allergies Allergies Coded Allergies Type Severity Reaction Last Updated Verified Sulfa (Sulfonamide Antibiotics) Allergy Intermediate RASH 04/10/18 Yes aripiprazole Allergy Intermediate RASH 04/10/18 Yes doxycycline Allergy Intermediate N/V RASH 04/10/18 Yes pseudoephedrine Allergy Intermediate hyperactive 04/10/18 Yes triprolidine Allergy Intermediate hyperactive 04/10/18 Yes Physical Exam Physical Exam Constitutional: Well developed, well nourished, mild distress, non-toxic appearance. [] HENT: Normocephalic, atraumatic, oropharynx moist, no oral exudates, nose normal. [] Eyes: PERRLA, EOMI, conjunctiva normal, no discharge. [] Neck: Normal range of motion, no tenderness, supple, no stridor. [] Cardiovascular:Heart rate regular rhythm, no murmur [] Lungs & Thorax: Bilateral breath sounds clear to auscultation [] Abdomen: Bowel sounds normal, soft, no tenderness, no masses, no pulsatile masses. [] Skin: Warm, dry, no erythema, no rash. [] Back: No tenderness, no CVA tenderness. [] Extremities: No tenderness, no cyanosis, no clubbing, ROM intact, no edema. [] Neurologic: Alert and oriented X 3, normal motor function, normal sensory function, no focal deficits noted. [] Psychologic: Affect normal, judgement normal, mood normal. [] Current Patient Data Vital Signs Vital Signs Date Time Temp Pulse Resp B/P (MAP) Pulse Ox O2 Delivery O2 Flow Rate FiO2 05/29/18 11:33 20 Room Air 05/29/18 11:33 98.0 72 98 Lab Results Laboratory Tests Test 05/29/18 12:00 05/29/18 12:11 05/29/18 12:42 White Blood Count 9.6 x10^3/uL (4.0-11.0) Red Blood Count 4.60 x10^6/uL (3.50-5.40) Hemoglobin 12.9 g/dL (12.0-15.5) Hematocrit 38.4 % (36.0-47.0) Mean Corpuscular Volume 84 fL (79-100) Mean Corpuscular Hemoglobin 28 pg (25-35) Mean Corpuscular Hemoglobin Concent 34 g/dL (31-37) Red Cell Distribution Width 17.7 % (11.5-14.5) H Platelet Count 407 x10^3/uL (140-400) H Neutrophils (%) (Auto) 72 % (31-73) Lymphocytes (%) (Auto) 21 % (24-48) L Monocytes (%) (Auto) 7 % (0-9) Eosinophils (%) (Auto) 0 % (0-3) Basophils (%) (Auto) 1 % (0-3) Neutrophils # (Auto) 6.9 x10^3uL (1.8-7.7) Lymphocytes # (Auto) 2.0 x10^3/uL (1.0-4.8) Monocytes # (Auto) 0.6 x10^3/uL (0.0-1.1) Eosinophils # (Auto) 0.0 x10^3/uL (0.0-0.7) Basophils # (Auto) 0.1 x10^3/uL (0.0-0.2) Prothrombin Time 10.4 SEC (9.4-11.4) Prothrombin Time INR 1.0 (0.9-1.1) Urine Collection Type Unknown Urine Color Yellow Urine Clarity Clear Urine pH 7.0 Urine Specific Sellers 1.015 Urine Protein Neg (NEG-TRACE) Urine Glucose (UA) Neg mg/dL (NEG) Urine Ketones (Stick) Neg mg/dL (NEG) Urine Blood Neg (NEG) Urine Nitrite Neg (NEG) Urine Bilirubin Neg (NEG) Urine Urobilinogen Dipstick 0.2 mg/dL (0.2 mg/dL) Urine Leukocyte Esterase Trace (NEG) Urine RBC Occ /HPF (0-2) Urine WBC 1-4 /HPF (0-4) Urine Squamous Epithelial Cells Few /LPF Urine Bacteria 0 /HPF (0-FEW) Sodium Level 131 mmol/L (136-145) L Potassium Level 4.4 mmol/L (3.5-5.1) Chloride Level 98 mmol/L (98-107) Carbon Dioxide Level 30 mmol/L (21-32) Anion Gap 3 (6-14) L Blood Urea Nitrogen 22 mg/dL (7-20) H Creatinine 0.9 mg/dL (0.6-1.0) Estimated GFR (Cockcroft-Gault) 61.9 BUN/Creatinine Ratio 24 (6-20) H Glucose Level 112 mg/dL (70-99) H Calcium Level 9.5 mg/dL (8.5-10.1) Magnesium Level 1.9 mg/dL (1.8-2.4) Total Bilirubin 0.4 mg/dL (0.2-1.0) Aspartate Amino Transferase (AST) 17 U/L (15-37) Alanine Aminotransferase (ALT) 23 U/L (14-59) Alkaline Phosphatase 93 U/L (46-116) Creatine Kinase 36 U/L (26-192) Creatine Kinase MB (Mass) < 0.5 ng/mL (0.0-3.6) Creatine Kinase MB Relative Index 1.4 % (0-4) Troponin I Quantitative < 0.017 ng/mL (0-0.055) UM-Jjb-A-Type Natriuretic Peptide 53 pg/mL (0-124) Total Protein 7.0 g/dL (6.4-8.2) Albumin 3.7 g/dL (3.4-5.0) Albumin/Globulin Ratio 1.1 (1.0-1.7) Lipase 233 U/L (73-393) EKG EKG EKG interpreted by me. EKG at 1148 showed normal sinus rhythm at rate of 64, abnormal left axis deviation, left anterior fascicular block, left ventricular hypertrophy, poor R-wave progress in anterior leads[, no acute ST and T wave abnormality Radiology/Procedures Radiology/Procedures [][address] [address] IMAGING REPORT Signed PATIENT: NESS CHAVES ACCOUNT: [id number] : 1945 LOCATION: ER AGE: 72 SEX: F EXAM STATUS: PRE ER ORD. PHYSICIAN: DEANDRE GARCIA MD REASON: chest pain and headache PROCEDURE: PORTABLE CHEST 1V EXAM: CHEST 1 VIEW History: Chest pain COMPARISON: None available. TECHNIQUE: Single portable radiograph of the chest FINDINGS: The cardiac silhouette is unremarkable. The lungs are clear bilaterally. The costophrenic sulci are clear and well demarcated. IMPRESSION: No radiographic evidence of an acute cardiopulmonary process. Electronically signed by: Luis Wong MD (05/29/2018 12:10 PM) [facility] DICTATED AND SIGNED BY: LUIS WONG MD DATE: 05/29/18 1208 CC: DORINA GODFREY MD; DEANDRE GARCIA MD ~ [place] [address] IMAGING REPORT Signed PATIENT: NESS CHAVES ACCOUNT: [id number] : 1945 LOCATION: ER AGE: 72 SEX: F EXAM STATUS: PRE ER ORD. PHYSICIAN: DEANDRE GARCIA MD REASON: chest pain and headache PROCEDURE: CT HEAD WO CONTRAST CT HEAD INDICATION: HYPERTENSION, HEADACHE COMPARISON: 02/21/2018 TECHNIQUE: 5 mm contiguous axial images were obtained from the skull base to the vertex in both bone and soft tissue algorithm. Exposure: One or more of the following individualized dose reduction techniques were utilized for this examination: 1. Automated exposure control 2. Adjustment of the mA and/or kV according to patient size 3. Use of iterative reconstruction technique FINDINGS: No abnormal attenuation within the brain parenchyma. No evidence of acute intracranial hemorrhage. No extra-axial fluid collections. No mass effect or midline shift. Ventricular size is appropriate. Basal cisterns are patent. No fractures identified.Malik-white differentiation is preserved.Globes and orbits are within normal limits. Paranasal sinuses and mastoid air cells are clear. IMPRESSION: No acute intracranial findings. Electronically signed by: Luis Wong MD (05/29/2018 12:08 PM) [facility] DICTATED AND SIGNED BY: LUIS WONG MD DATE: 05/29/18 1206 CC: DORINA GODFREY MD; DEANDRE GARCIA MD ~ Course & Med Decision Making Course & Med Decision Making Pertinent Labs and Imaging studies reviewed. (See chart for details) Evaluation of patient in ER showed 72-year-old male patient with history of anxiety and depression with complaining of chest pain, headache, diarrhea and high blood pressure. Patient had blood pressure of 120/70 in ER without acute distress. EKG did not show acute finding and labs was unremarkable. Patient treated with 2 mg of morphine and states her pain did not change and treated with 4 mg of morphine and felt better. Because of multiple cardiac risk factor plan to admit patient for observation of actual chest pain. CT head was unremarkable. Dr. Brennan accepted admission at 1336. Dragon Disclaimer Dragon Disclaimer This electronic medical record was generated, in whole or in part, using a voice recognition dictation system. Departure Departure: Impression: Primary Impression: Acute chest pain Additional Impressions: Headache Diarrhea Diabetes Disposition: 09 ADMITTED INPATIENT (At 1337) Admitting Physician: Savanna Brennan (accepted admission at 1336) Condition: IMPROVED Referrals: DORINA GODFREY MD (PCP) Critical Care Time Critical care time was [70] minutes exclusive of procedures. Problem Qualifiers DEANDRE GARCIA MD May 29, 2018 13:46
[2018-05-29 14:15] VITALS: BP 118/76
[2018-05-29] MEDS ORDERED: IMMU10VI IV (15:45)
[2018-05-29] MEDS ORDERED: CARV12.52 PO (15:45)
[2018-05-29] MEDS ORDERED: ESCI10TA2 PO (15:45)
[2018-05-29] MEDS ORDERED: LOSA1TAB19 PO (17:03)
[2018-05-29] MEDS: CARVEDILOL 12.5 MG TABLET PO SCH (17:18)
[2018-05-29 20:23] VITALS: BP 94/61
[2018-05-29] MEDS ORDERED: clonazePAM 0.5 MG TABLET PO SCH (21:00)
[2018-05-29] MEDS ORDERED: ATORVASTATIN CALCIUM 20 MG TABLET PO SCH (21:00)
[2018-05-29] MEDS ORDERED: POLYETHYLENE GLYCOL 3350 17 GM PACKET. PO SCH (21:00)
[2018-05-29] MEDS ORDERED: GABAPENTIN 300 MG CAPSULE. PO SCH (21:00)
[2018-05-29] MEDS ORDERED: MIRTAZAPINE 15 MG TABLET PO SCH (21:00)
[2018-05-29] MEDS: LOSARTAN 50 MG TABLET. PO SCH (21:00)
[2018-05-29] MEDS: hydroCHLOROthiazide 12.5 MG CAPSULE PO SCH (21:00)
[2018-05-29] MEDS ORDERED: NON FORMULARY ITEM (Losartan/Hydrochlorothiazide (Losartan-Hctz 50-12.5 Mg Tab) 1 EACH) PO SCH (21:00)
[2018-05-29] MEDS ORDERED: INSULIN GLARGINE 300 UNITS/3 ML INSULN.PEN. SQ SCH (21:00)
[2018-05-29] MEDS: LACTOBACILLUS RHAMNOSUS GG 1 CAPSULE. PO SCH (21:17)
[2018-05-29] MEDS: FLUTICASONE 50MCG/NASAL SPRAY 16GM BOTTLE. NS SCH (21:17)
[2018-05-29 21:57] VITALS: BP 96/62
[2018-05-30] MEDS ORDERED: LEVOTHYROXINE 112 MCG TABLET PO SCH (06:00)
[2018-05-30 06:02] VITALS: BP 162/93
[2018-05-30] MEDS ORDERED: PANTOPRAZOLE 40 MG TABLET. PO SCH (07:30)
[2018-05-30] MEDS ORDERED: ASPIRIN 81 MG TAB.CHEW PO SCH (08:00)
[2018-05-30] MEDS ORDERED: POTASSIUM CHLORIDE 10 MEQ TABLET.ER. PO SCH (08:00)
[2018-05-30] MEDS: hydroCHLOROthiazide 12.5 MG CAPSULE PO SCH (08:27)
[2018-05-30] MEDS: LOSARTAN 50 MG TABLET. PO SCH (08:27)
[2018-05-30] MEDS: LACTOBACILLUS RHAMNOSUS GG 1 CAPSULE. PO SCH (08:28)
[2018-05-30] MEDS: FLUTICASONE 50MCG/NASAL SPRAY 16GM BOTTLE. NS SCH (08:30)
[2018-05-30] MEDS ORDERED: MULTIVITAMIN with MINERAL TABLET. PO SCH (09:00)
[2018-05-30] MEDS ORDERED: CITALOPRAM 20 MG TABLET. PO SCH (09:00)
[2018-05-30] MEDS ORDERED: CHOLECALCIFEROL (VITAMIN D3) 1,000 UNIT TABLET PO SCH (09:00)
[2018-05-30] MEDS ORDERED: CARV3.122 PO (09:13)
[2018-05-30] MEDS ORDERED: ACETAMINOPHEN 325 MG TABLET PO PRN (10:45)
[2018-05-30 11:11] VITALS: BP 162/93
[2018-05-30] MEDS: CARVEDILOL 12.5 MG TABLET PO SCH (11:11)
--- NOTE | 2018-05-30 11:26 | HP ---
ADMIT DATE: 05/29/2018 HISTORY OF PRESENT ILLNESS: The patient is a 72-year-old female patient who came yesterday to the Emergency Room complaining of headache and chest pain. She has multiple medical problems, multiple risk factors for coronary artery disease. She stated that she woke up at her usual time at around 8 a.m. in the morning and felt discomfort in the substernal area with palpitation. The pain was associated with nausea without radiation, shortness of breath, vomiting, fever, chills, cough, dizziness, lightheadedness. She did develop also frontal headache around 8:30, and it was a constant pain rated her pain as about 8/10, without focal or neurological deficit. She also complained of mild blurring of vision and chills without fever. She stated she has 4 episodes of diarrhea since this morning. She has just finished a course of antibiotic for acute sinusitis and last Thursday and currently taking a Medrol Dosepak. She was evaluated in the Emergency Room. Her first set of cardiac enzymes showed troponin to be less than 0.017. Her EKG showed normal sinus rhythm at a rate of 64, with abnormal left axis deviation, left anterior fascicular block, left ventricular hypertrophy, and poor R-wave progression in anterior leads, with no ST segment elevation or depression, and she was admitted to the hospital to do 2 more sets of cardiac enzyme and to consult the cardiology team. PAST MEDICAL HISTORY: Significant for coronary artery disease, hypertension, hyperlipidemia, migraine headache, chronic constipation, diverticulosis, gastroesophageal reflux disease, and has a hiatal hernia, diabetic gastroparesis, anemia, and depression. She is status post ACT for which she sees a psychiatrist. She also has osteoarthritis and uses a cane and also takes for walking. She has chronic sinusitis, Graves' disease, and Graves' ophthalmopathy. PAST SURGICAL HISTORY: Significant for cholecystectomy, tonsillectomy, and bilateral orbital decompression for Graves' ophthalmopathy. She has blepharoplasty on the right heart catheterization 12/2008, she also has left ankle fracture, status post open reduction and internal fixation, incontinence surgery, and multiple GI endoscopies. FAMILY HISTORY: Significant for cancer in her mother. SOCIAL HISTORY: She lives alone. She has a daughter and a granddaughter, who lives nearby. She does not smoke, drink alcohol or use any recreational drugs. REVIEW OF SYSTEMS: As per history of present illness. ALLERGIES: She is allergic to SULFA, ARIPIPRAZOLE, DOXYCYCLINE, PSEUDOEPHEDRINE and TRIPROLIDINE. MEDICATIONS: She is currently on the following medications: She is on atorvastatin 20 mg at bedtime, carvedilol 3.125 mg twice a day with meals, losartan/hydrochlorothiazide 50/12.5 mg twice a day, aspirin 81 mg once a day, clonazepam 0.5 mg at bedtime, gabapentin 300 mg at bedtime, escitalopram oxalate 30 mg daily, potassium chloride 10 mEq once a day, Flonase 2 sprays to each nostril twice a day, polyethylene glycol 17 g daily, omeprazole 20 mg daily, lactobacillus acidophilus 1 twice a day. He is on Levemir insulin 14 units at bedtime, glimepiride 4 mg tablet at noon. She is on levothyroxine 112 mcg once a day. She is on Gammagard liquid 10 mL IV every month, vitamin D3 5000 international unit p.o. daily, and she is on multivitamin 1 tablet once a day. REVIEW OF SYSTEMS: Did complain of blurring of vision, but denied any glaucoma or macular degeneration. Denied any earache, tinnitus or sensorineural deafness. Denied any nosebleeds, stuffy nose or postnasal drip. Denied any sore throat, sore tongue, toothache, hoarseness of voice or difficulty swallowing. Did complain of nausea, but no vomiting, diarrhea or constipation. She did have diarrhea on arrival. She denied any hematemesis, melena or hematochezia. Denied any dysuria, frequency or hematuria. He did complain of chest pressure, discomfort, and shortness of breath, but denied any cough, phlegm or hemoptysis. Denied any dizziness, lightheadedness, or vertigo. PHYSICAL EXAMINATION: GENERAL: On arrival, she looked well and was clearly in no apparent respiratory distress, slightly pale, but no jaundice or cyanosis. No lymphadenopathy, no thyromegaly. No jugular venous distension. No lower limb edema. VITAL SIGNS: Her heart rate was 72, blood pressure 118/76, temperature was 98, respiratory rate 20, and oxygen saturation was 98% on room air. HEAD, EYES, EARS, NOSE, AND THROAT: Showed normocephalic, atraumatic. NECK: Supple. HEART: Showed normal first and second sounds. No gallop, rub or murmur. CHEST: Shows central trachea. She does have tenderness on the sternum and also on the costochondral junction. She has equal bilateral expansion, air entry. No crepitation or rhonchi. ABDOMEN: Distended, soft, and nontender. No guarding or rigidity. No organomegaly. Hernial orifice intact. Bowel sounds normal. NEUROLOGIC: She is awake, alert, responding appropriately. Cranial nerves intact. EXTREMITIES: She moves extremities without difficulty. LABORATORY DATA: On arrival showed a white cell count of 9600, hemoglobin 13, hematocrit 38, MCV 84, and platelet count of 407,000, with normal manual differential. Her chemistry showed a serum sodium 131, potassium 4.4, chloride 98, bicarbonate 30, anion gap of 23, BUN 22, creatinine 0.9, estimated GFR was 62 mL per minute. Her glucose 112, calcium was 9.5. Total protein was 1.9. Total bilirubin, AST, ALT, alkaline phosphatase were normal. Her first set of cardiac enzymes showed troponin to be less than 0.017. Her total protein 7, albumin 3.7, and lipase was 233. Her prothrombin time was 10.4, INR of 1. Urinalysis was unremarkable. EKG showed that she was in sinus rhythm with a left anterior fascicular block. PLAN: My plan is to admit the patient to -[facility] and do 2 more sets of cardiac enzyme, consult the Cardiology team, and decide on further management accordingly. YOLANDA MILLER MD DR: LIGIA/jcarlos JOB#: [id number] / [id number]
[2018-05-30] MEDS ORDERED: clonazePAM 0.5 MG TABLET PO ONE (11:45)
[2018-05-30] MEDS ORDERED: GLIMEPIRIDE 2 MG TABLET PO SCH (12:00)
--- NOTE | 2018-05-30 12:41 | PN ---
DATE: 05/30/2018 SUBJECTIVE: The patient has continued to complain of discomfort in her chest that is by palpation of her sternum and the costochondral junction. She is also complaining of headache. She was admitted yesterday and had 3 sets of cardiac enzymes, so far all negative with a troponin of less than 0.017. We did consult the cardiology team to see her. Her EKG also showed that she was in sinus rhythm with no evidence of ST segment elevation. PHYSICAL EXAMINATION: GENERAL: When I examined her this morning, she was resting slightly propped up in bed, in no apparent respiratory distress, slightly pale, but no jaundice or cyanosis. No lymphadenopathy, no thyromegaly. No jugular venous distension. No limb edema. VITAL SIGNS: Her heart rate was 66, blood pressure was 162/93, temperature was 97.7, respiratory rate was 16, and oxygen saturation was 93%. HEAD, EYES, EARS, NOSE, AND THROAT: Showed normocephalic, atraumatic. NECK: Supple. HEART: Showed normal first and second heart sounds with no gallop, rub, or murmur. CHEST: Clear to auscultation. No crepitation or rhonchi. ABDOMEN: Distended, soft, nontender. No guarding or rigidity. No organomegaly. All hernial orifice intact. Bowel sounds normal. NEUROLOGIC: She was awake, alert, responding appropriately. All cranial nerves intact. She moves extremities without difficulty. She ambulates with a cane . She has left-sided footdrop. LABORATORY DATA: Her lab work showed that she has 2 more sets of cardiac enzymes that were less than 0.017. Blood sugar seems to be well controlled. PLAN: My plan is to await evaluation by the parachute officer to decide the further management accordingly. YOLANDA MILLER MD DR: LIGIA/jcarlos JOB#: [id number] / [id number]
[2018-05-30] MEDS ORDERED: CLON0.5T11 PO (15:44)
--- NOTE | 2018-05-30 16:47 | PDOC2 ---
CONSULT Date of Admission DATE: 05/30/18 TIME: 16:39 Reason for Consult: Chest pain Referring Physician: Dr. Brennan Chief Complaint Chest pain Source: Chart review, Patient Problem List Problems Medical Problems: (1) Acute chest pain Status: Acute (2) Diabetes Status: Acute (3) Diarrhea Status: Acute (4) Headache Status: Acute History of Present Illness 72-year-old female with history of coronary artery disease s/p PCI/stent to RCA in 2008, usually followed by [facility] cardiology presented complaining of retrosternal chest pain 6/10 severity not related to exertion or food intake. She denied any orthopnea/PND, palpitations or syncope. Past Medical History Coronary artery disease Hypertension Hyperlipidemia Migraine Diabetes mellitus type 2 with gastroparesis Gastric esophageal reflux disease Osteoarthritis Past Surgical History Cholecystectomy Tonsillectomy Bilateral orbital decompression surgery Ankle fracture repair Family History Negative for premature coronary artery disease Social History Patient denied any smoking, alcohol or drug use Current Medications Current Medications Morphine Sulfate (Morphine 2mg Syringe) 2 mg 1X ONCE IV Last administered on at 12:11; Start 05/29/18 at 12:00; Stop 05/29/18 at 12:01; Status DC Ondansetron HCl (Zofran) 4 mg 1X ONCE IV Last administered on 05/29/18at 12:11 ; Start 05/29/18 at 12:00; Stop 05/29/18 at 12:01; Status DC Ondansetron HCl (Zofran) 4 mg STK-MED ONCE .ROUTE ; Start 05/29/18 at 11:59; Stop 05/29/18 at 12:00; Status DC Morphine Sulfate (Morphine 2mg Syringe) 2 mg STK-MED ONCE .ROUTE ; Start at 12:00; Stop 05/29/18 at 12:01; Status DC Aspirin (Children'S Aspirin) 324 mg 1X ONCE PO Last administered on 05/29/18at 12:27; Start 05/29/18 at 12:30; Stop 05/29/18 at 12:31; Status DC Morphine Sulfate (Morphine 4mg Syringe) 4 mg 1X ONCE IV Last administered on at 13:50; Start 05/29/18 at 13:45; Stop 05/29/18 at 13:47; Status DC Atorvastatin Calcium (Lipitor) 20 mg QHS PO Last administered on 05/29/18 21: 52; Start 05/29/18 at 21:00 Gabapentin (Neurontin) 300 mg QHS PO Last administered on 05/29/18 21:17; Start 05/29/18 at 21:00 Levothyroxine Sodium (Synthroid) 112 mcg DAILY06 PO Last administered on 05:57; Start 05/30/18 at 06:00 Aspirin (Children'S Aspirin) 81 mg DAILYWBKFT PO Last administered on 08:28; Start 05/30/18 at 08:00 Carvedilol (Coreg) 12.5 mg BIDWMEALS PO Last administered on 05/30/18 11:11; Start 05/29/18 at 17:00 Vitamin D (Vitamin D3) 5,000 unit DAILY PO Last administered on 05/30/18 08:28 ; Start 05/30/18 at 09:00 Clonazepam (KlonoPIN) 0.5 mg QHS PO Last administered on 05/29/18 21:17; Start 05/29/18 at 21:00 Citalopram Hydrobromide (CeleXA) 60 mg DAILY PO Last administered on 05/30/18 08:27; Start 05/30/18 at 09:00 Fluticasone Propionate (Flonase) 2 spray BID NS Last administered on 05/30/18 08:30; Start 05/29/18 at 21:00 Glimepiride (Amaryl) 4 mg NOON PO Last administered on 05/30/18 11:11; Start 05/30/18 at 12:00 Non-Formulary Medication (Immune Globulin,Gamma(Igg) (Gammagard Liquid)) 10 ml QMONTH IV ; Start 06/28/18 at 09:00; Stop 06/28/18 at 09:00; Status DC Insulin Glargine (Lantus) 14 units QHS SQ Last administered on 05/29/18 21:00 ; Start 05/29/18 at 21:00 Lactobacillus Rhamnosus (Culturelle) 1 cap BID PO Last administered on 08:28; Start 05/29/18 at 21:00 Mirtazapine (Remeron) 45 mg QHS PO Last administered on 05/29/18 21:18; Start 05/29/18 at 21:00 Multivitamins/ Calcium (Thera-M Plus) 1 tab DAILY PO Last administered on 08:28; Start 05/30/18 at 09:00 Pantoprazole Sodium (Protonix) 40 mg DAILYAC PO Last administered on 05/30/18 08:28; Start 05/30/18 at 07:30 Polyethylene Glycol (miraLAX) 17 gm QHS PO Last administered on 05/29/18at 21:18 ; Start 05/29/18 at 21:00 Potassium Chloride (Klor-Con) 10 meq DAILYWBKFT PO Last administered on 08:28; Start 05/30/18 at 08:00 Non-Formulary Medication (Losartan/ Hydrochlorothiazide (Losartan-Hctz 50-12.5 Mg Tab)) 1 each BID PO ; Start 05/29/18 at 21:00; Stop 05/29/18 at 21:00; Status DC Losartan Potassium (Cozaar) 50 mg BID PO Last administered on 05/30/18 08:27; Start 05/29/18 at 21:00 Hydrochlorothiazide (Microzide) 12.5 mg BID PO Last administered on 05/30/18 08:27; Start 05/29/18 at 21:00 Acetaminophen (Tylenol) 650 mg PRN Q6HRS PRN PO PAIN / TEMP Last administered on 05/30/18 11:10; Start 05/30/18 at 10:45 Clonazepam (KlonoPIN) 0.5 mg 1X ONCE PO Last administered on 05/30/18at 13:06; Start 05/30/18 at 11:45; Stop 05/30/18 at 11:46; Status DC Active Scripts Active Reported Clonazepam 0.5 Mg Tablet 0.5 Mg PO PRN DAILY PRN Carvedilol 3.125 Mg Tablet 3.125 Mg PO BIDWMEALS Losartan-Hctz 50-12.5 Mg Tab (Losartan/Hydrochlorothiazide) 1 Each Tablet 1 Each PO BID Gammagard Liquid (Immune Globulin,Gamma(Igg)) 10 Ml Vial 10 Ml IV QMONTH Escitalopram Oxalate 10 Mg Tablet 30 Mg PO DAILY Probiotic (L.acidoph & Paracasei,B.lactis) 1 Each Capsule 1 Each PO BID LAST DOSE GIVEN: DATE: TIME: AM NEXT DOSE DUE: DATE: TODAY TIME: PM Aspirin 81 Mg Tab.chew 81 Mg PO DAILY LAST DOSE GIVEN: DATE: TIME: AM NEXT DOSE DUE: DATE: ORR TIME: AM Gabapentin 100 Mg Capsule 300 Mg PO HS LAST DOSE GIVEN: DATE: YESTER TIME: AT BEDTIME NEXT DOSE DUE: DATE: TIME: AT BEDTIME Levemir (Insulin Detemir) 100 Unit/1 Ml Vial 14 Unit SQ HS LAST DOSE GIVEN: DATE: YESTER TIME: AT BEDTIME NEXT DOSE DUE: DATE: TODAY TIME:AT BEDTIME Levothyroxine Sodium 112 Mcg Tablet 1 Tab PO DAILY06 LAST DOSE GIVEN: DATE: TODAY TIME: AM NEXT DOSE DUE: DATE: TIME: AM Miralax (Polyethylene Glycol 3350) 17 Gm Powd.pack 1 Packet PO QHS LAST DOSE GIVEN: NOT GIVEN THIS ADMISSION NEXT DOSE DUE: DATE: TIME: AM Multivitamins (Multivitamin) 1 Each Tablet 1 Tab PO DAILY LAST DOSE GIVEN: DATE: TIME: AM NEXT DOSE DUE: DATE: TIME: AM Omeprazole 20 Mg Capsule.dr 1 Cap PO DAILY LAST DOSE GIVEN: DATE: TIME: BEFORE BREAKFAST NEXT DOSE DUE: DATE: TIME: BEFORE BREAKFAST Fluticasone Propionate Nasal [place] (Fluticasone Propionate) 16 Gm [place].susp 2 Sprays NS BID LAST DOSE GIVEN: DATE: TIME: AM NEXT DOSE DUE: DATE: TIME: PM DATE: TODAY TIME: PM Vitamin D (Cholecalciferol (Vitamin D3)) 2,000 Unit Capsule 5,000 Unit PO DAILY LAST DOSE GIVEN: DATE: TIME: AM NEXT DOSE DUE: DATE: TIME: AM DATE: ORR TIME: AM Klor-Con 10 (Potassium Chloride) 10 Meq Tablet.er 10 Meq PO DAILY LAST DOSE GIVEN: DATE: TIME: AM NEXT DOSE DUE: DATE: TIME: AM DATE: ORR TIME: AM Clonazepam Odt (Clonazepam) 1 Mg Tab.rapdis 0.5 Mg PO QHS LAST DOSE GIVEN: DATE: YESTER TIME:AT BEDTIME NEXT DOSE DUE: DATE: TIME: AT BEDTIME Atorvastatin Calcium 20 Mg Tablet 20 Mg PO QHS LAST DOSE GIVEN: DATE: YESTER TIME: AT BEDTIME NEXT DOSE DUE: DATE: TODAY TIME: AT BEDTIME DATE: TODAY TIME: AT BEDTIME Glimepiride 4 Mg Tablet 4 Mg PO NOON LAST DOSE GIVEN: DATE: TODAY TIME: AT 12 NOON NEXT DOSE DUE: DATE: TOMORROW TIME: AT 12 NOON DATE: TOMORROW TIME: AT 12 NOON Mirtazapine 15 Mg Tablet 45 Mg PO HS LAST DOSE GIVEN: DATE: YESTERDAY TIME: AT BEDTIME NEXT DOSE DUE: DATE: TODAY TIME: AT BEDTIME Allergies: Coded Allergies: Sulfa (Sulfonamide Antibiotics) (Verified Allergy, Intermediate, RASH, 04/10) aripiprazole (Verified Allergy, Intermediate, RASH, 04/10/18) doxycycline (Verified Allergy, Intermediate, N/V RASH, 04/10/18) pseudoephedrine (Verified Allergy, Intermediate, hyperactive, 04/10/18) triprolidine (Verified Allergy, Intermediate, hyperactive, 04/10/18) PSYCHOLOGICAL ROS: No: Hallucinations Eyes: No: Loss of vision HEENT: No: Epistaxis Respiratory: No: Hemoptysis, Shortness of breath Cardiovascular: yes: Chest Pain Gastrointestinal: No: Vomiting, Diarrhea Neurological: No: Seizures Skin: No: Rash General: Alert, No acute distress HEENT: Atraumatic, PERRLA Lungs: Clear to auscultation Heart: Regular rate Abdomen: Soft Extremities: No edema Psych/Mental Status: Mood NL VITALS Vital Signs Date Time Temp Pulse Resp B/P (MAP) Pulse Ox O2 Delivery O2 Flow Rate FiO2 05/30/18 11:11 66 162/93 05/30/18 08:00 Room Air 05/30/18 06:02 97.7 16 93 Labs Laboratory Tests Test 05/29/18 12:00 05/29/18 12:11 05/29/18 12:42 05/29/18 16:38 White Blood Count 9.6 x10^3/uL (4.0-11.0) Red Blood Count 4.60 x10^6/uL (3.50-5.40) Hemoglobin 12.9 g/dL (12.0-15.5) Hematocrit 38.4 % (36.0-47.0) Mean Corpuscular Volume 84 fL (79-100) Mean Corpuscular Hemoglobin 28 pg (25-35) Mean Corpuscular Hemoglobin Concent 34 g/dL (31-37) Red Cell Distribution Width 17.7 % (11.5-14.5) Platelet Count 407 x10^3/uL (140-400) Neutrophils (%) (Auto) 72 % (31-73) Lymphocytes (%) (Auto) 21 % (24-48) Monocytes (%) (Auto) 7 % (0-9) Eosinophils (%) (Auto) 0 % (0-3) Basophils (%) (Auto) 1 % (0-3) Neutrophils # (Auto) 6.9 x10^3uL (1.8-7.7) Lymphocytes # (Auto) 2.0 x10^3/uL (1.0-4.8) Monocytes # (Auto) 0.6 x10^3/uL (0.0-1.1) Eosinophils # (Auto) 0.0 x10^3/uL (0.0-0.7) Basophils # (Auto) 0.1 x10^3/uL (0.0-0.2) Prothrombin Time 10.4 SEC (9.4-11.4) Prothromb Time International Ratio 1.0 (0.9-1.1) Urine Collection Type Unknown Urine Color Yellow Urine Clarity Clear Urine pH 7.0 Urine Specific [place] 1.015 Urine Protein Neg (NEG-TRACE) Urine Glucose (UA) Neg mg/dL (NEG) Urine Ketones (Stick) Neg mg/dL (NEG) Urine Blood Neg (NEG) Urine Nitrite Neg (NEG) Urine Bilirubin Neg (NEG) Urine Urobilinogen Dipstick 0.2 mg/dL (0.2 mg/dL) Urine Leukocyte Esterase Trace (NEG) Urine RBC Occ /HPF (0-2) Urine WBC 1-4 /HPF (0-4) Urine Squamous Epithelial Cells Few /LPF Urine Bacteria 0 /HPF (0-FEW) Sodium Level 131 mmol/L (136-145) Potassium Level 4.4 mmol/L (3.5-5.1) Chloride Level 98 mmol/L (98-107) Carbon Dioxide Level 30 mmol/L (21-32) Anion Gap 3 (6-14) Blood Urea Nitrogen 22 mg/dL (7-20) Creatinine 0.9 mg/dL (0.6-1.0) Estimated GFR (Cockcroft-Gault) 61.9 BUN/Creatinine Ratio 24 (6-20) Glucose Level 112 mg/dL (70-99) Calcium Level 9.5 mg/dL (8.5-10.1) Magnesium Level 1.9 mg/dL (1.8-2.4) Total Bilirubin 0.4 mg/dL (0.2-1.0) Aspartate Amino Transf (AST/SGOT) 17 U/L (15-37) Alanine Aminotransferase (ALT/SGPT) 23 U/L (14-59) Alkaline Phosphatase 93 U/L (46-116) Creatine Kinase 36 U/L (26-192) Creatine Kinase MB (Mass) < 0.5 ng/mL (0.0-3.6) Creatine Kinase MB Relative Index 1.4 % (0-4) Troponin I Quantitative < 0.017 ng/mL (0-0.055) < 0.017 ng/mL (0-0.055) CL-Ood-H-Type Natriuretic Peptide 53 pg/mL (0-124) Total Protein 7.0 g/dL (6.4-8.2) Albumin 3.7 g/dL (3.4-5.0) Albumin/Globulin Ratio 1.1 (1.0-1.7) Lipase 233 U/L (73-393) Test 05/29/18 20:51 05/29/18 21:13 05/30/18 07:56 05/30/18 11:12 Troponin I Quantitative < 0.017 ng/mL (0-0.055) Glucose (Fingerstick) 155 mg/dL (70-99) 124 mg/dL (70-99) 189 mg/dL (70-99) Assessment/Plan 1. Chest pain with atypical features in a patient with known history of coronary artery disease s/p PCI/stent placement in 2008. Myocardial infarction has been ruled out. Plan for ischemic evaluation with Lexiscan nuclear stress test, possibly as an outpatient. 2. Hypertension: Blood pressure slightly elevated. Agree with increasing Coreg dose. 3. Hyperlipidemia: Continue statins 4. Hypothyroidism: Continue levothyroxine 5. Diabetes mellitus with gastroparesis: Treat per IM Thank you for your consultation JEFF PERLA MD May 30, 2018 16:47
--- NOTE | 2018-06-01 09:45 | DS ---
DATE OF DISCHARGE: 05/30/2018 HOSPITAL COURSE: The patient is a 72-year-old female patient, who was admitted with a complaint of chest pressure and discomfort mostly in substernal area of palpitation. The pain was associated with nausea without radiation, shortness of breath, vomiting, fever, chills. She has had again 3 sets of cardiac enzymes that were all negative for myocardial infarction. She was seen in consultation by the Cardiology team and basically the patient came with atypical chest pain; however, the patient is known to have coronary artery disease, status post PCI with stent deployment in 2008, myocardial infarction was ruled out. The Cardiology team recommended that the patient needs ischemic evaluation with Lexiscan nuclear stress test probably as an outpatient and she was discharged to follow with her Cardiology team from [facility] on the day of discharge. PHYSICAL EXAMINATION: GENERAL: The patient looked well and was clearly in no apparent respiratory distress, slightly pale, but no jaundice, cyanosis, or thyromegaly. No jugular venous distension. No lower limb edema. VITAL SIGNS: Her heart rate was 66, blood pressure was 162/93, temperature was , respiratory rate was 16, and oxygen saturation was 93%. HEAD, EYES, EARS, NOSE AND THROAT: Showed normocephalic, atraumatic. NECK: Supple. HEART: Showed normal first and second heart sounds. No gallop, rub or murmur. CHEST: Clear to auscultation. No crepitation or rhonchi. ABDOMEN: Distended, soft, nontender. No guarding or rigidity. No organomegaly. All hernial orifice intact. Bowel sounds normal. NEUROLOGIC: She is awake, alert, responding appropriately. All cranial nerves intact. . She moves her extremities without difficulty. She ambulates with a cane. LABORATORY DATA: Showed that she had 3 sets of cardiac enzyme, all of them showed troponin to be less than 0.017. Her white cell count was 9600, hemoglobin 13, hematocrit 38, MCV 84 and platelet count of . Her chemistry showed a serum sodium 131, potassium 4.4, chloride 98, bicarbonate 30, anion gap of 3, BUN 22, creatinine 0.9, estimated GFR was 62 mL per minute. DISCHARGE MEDICATIONS: The patient was discharged home to continue with all her medication and was advised to contact her Cardiology team from [facility] for further ischemic workup with the nuclear stress test as an outpatient. FINAL DISCHARGE DIAGNOSES: Chest pain atypical, myocardial infarction ruled out. The patient is known to have coronary artery disease, status post PCI stent deployment to the right coronary artery in 2008. Other medical problems include hypertension, hyperlipidemia, migraine headache, type 2 diabetes, gastroesophageal reflux disease and osteoarthritis. YOLANDA MILLER MD DR: LIGIA/jcarlos JOB#: [id number] / [id number]
[2018-06-28] MEDS ORDERED: IMMUNE GLOBULIN GAMMA IV SCH (09:00)
[2018-06-28] MEDS ORDERED: [UNRECOGNIZED DRUG - OTHER] IV SCH (09:00)
== END 2018-05-30 15:55 | disposition home or self-care (01) | DRG 313 ==
LOC: ER 11:33 → 1 SOUTH 13:52
PROVIDERS: ADMIT Internal Medicine; ATTEND Internal Medicine
DX: R07.89 Other chest pain (principal); E03.9 Hypothyroidism, unspecified; E11.43 Type 2 diabetes mellitus with diabetic autonomic (poly)neuropathy; K31.84 Gastroparesis; E78.00 Pure hypercholesterolemia, unspecified; E78.5 Hyperlipidemia, unspecified; I11.9 Hypertensive heart disease without heart failure; I25.10 Atherosclerotic heart disease of native coronary artery without angina pectoris; J32.9 Chronic sinusitis, unspecified; K21.9 Gastro-esophageal reflux disease without esophagitis; F32.9 Major depressive disorder, single episode, unspecified; F41.9 Anxiety disorder, unspecified; E05.00 Thyrotoxicosis with diffuse goiter without thyrotoxic crisis or storm; G43.909 Migraine, unspecified, not intractable, without status migrainosus; M19.90 Unspecified osteoarthritis, unspecified site; Z88.1 Allergy status to other antibiotic agents; Z88.2 Allergy status to sulfonamides; Z80.9 Family history of malignant neoplasm, unspecified; Z86.73 Personal history of transient ischemic attack (TIA), and cerebral infarction without residual deficits; Z95.5 Presence of coronary angioplasty implant and graft; Z88.8 Allergy status to other drugs, medicaments and biological substances; Z90.49 Acquired absence of other specified parts of digestive tract
CPT/HCPCS: 36415; 70450; 71045; 80053; 81001; 82553; 82947; 83690; 83735; 83880; 84484; 85025; 85610; 87086; 93005; 96374; 96375; 96376; J1815; J2270; J2405; 99291-25

== ENCOUNTER 2018-08-15 10:18 | Inpatient (IN) | payer MEDICARE, BC ==
[~2018-08-15] VITALS: Ht 160 cm; Wt 107.4 kg
[~2018-08-15 10:18] MED LIST changes: -AMLO2.5T PO; +AMLO2.5T3 PO; +CLON0.5T11 PO; +ESCI10TA2 PO; +IMMU10VI IV; -LOSA100T6 PO; +LOSA100T7 PO; +LOSA1TAB19 PO
[2018-08-15 12:12] LABS: BASO % 0 % (0-3); EOS % 0 % (0-3); HEMATOCRIT 38.6 % (36.0-47.0); HEMOGLOBIN 13.2 g/dL (12.0-15.5); LYMPH # 1.5 x10^3/uL (1.0-4.8); LYMPH % 17 % (24-48); MEAN CORPUSCULAR HEMOGLOBIN 30 pg (25-35); MEAN CORPUSCULAR HGB CONC 34 g/dL (31-37); MEAN CORPUSCULAR VOLUME 87 fL (79-100); MONO # 0.7 x10^3/uL (0.0-1.1); MONO % 8 % (0-9); NEUT # 6.3 x10^3uL (1.8-7.7); NEUT % 75 % (31-73); PLATELET COUNT 328 x10^3/uL (140-400); RED BLOOD COUNT 4.45 x10^6/uL (3.50-5.40); RED CELL DISTRIBUTION WIDTH 14.8 % (11.5-14.5); WHITE BLOOD COUNT 8.4 x10^3/uL (4.0-11.0)
[2018-08-15 12:31] LABS: ALBUMIN 3.5 g/dL (3.4-5.0); CALCIUM 9.2 mg/dL (8.5-10.1); CREATININE 1.1 mg/dL (0.6-1.0); GFR 49.1; MAGNESIUM 1.8 mg/dL (1.8-2.4); POTASSIUM 4.3 mmol/L (3.5-5.1); TOTAL BILIRUBIN 0.3 mg/dL (0.2-1.0)
[2018-08-15 12:45] LABS: BILIRUBIN,URINE NEG (NEG); CLARITY,URINE CLEAR; COLOR,URINE YELLOW; GLUCOSE,URINE NEG (NEG)
[2018-08-15 12:46] LABS: BACTERIA,URINE FEW /HPF (0-FEW); HYALINE CASTS, URINE OCC /HPF; NITRITE,URINE NEG (NEG); RBC,URINE 0 /HPF (0-2); SQUAMOUS EPITHELIAL CELL,UR FEW /LPF; UROBILINOGEN,URINE 0.2 mg/dL (0.2 mg/dL); YEAST,URINE PRESENT /HPF
--- NOTE | 2018-08-15 13:13 | PHYS DOC ---
Past History Past Medical History: Anxiety, Depression, Diabetes, GERD, High Cholesterol, Hypertension, Hypothyroid, TIA Past Surgical History: Cholecystectomy, Tonsillectomy, Other Smoking: Non-smoker Alcohol Use: None Drug Use: None Adult General Chief Complaint Chief Complaint: DIZZY/LIGHT HEADED HPI HPI Patient is a 72 year old female who presents with complaining of generalized weakness and dizziness for the last few days. Patient states she had problem with sinus infection for 2 weeks and treated with antibiotic and Medrol Dosepak with t2 days remaining antibiotic but her dizziness and generalized weakness getting worse and doesn't feel better with sinus pain. Patient denies chest pain , headache, focal neuro deficit, fever and chills, vomiting and diarrhea. Review of Systems Review of Systems Constitutional: Denies fever or chills [] Eyes: Denies change in visual acuity, redness, or eye pain [] HENT: Denies nasal congestion or sore throat [] Respiratory: Denies cough or shortness of breath [] Cardiovascular: No additional information not addressed in HPI [] GI: Denies abdominal pain, nausea, vomiting, bloody stools or diarrhea [] : Denies dysuria or hematuria [] Musculoskeletal: Denies back pain or joint pain [] Integument: Denies rash or skin lesions [] Neurologic: Denies headache, focal weakness or sensory changes [] Endocrine: Denies polyuria or polydipsia [] All other systems were reviewed and found to be within normal limits, except as documented in this note. Current Medications Current Medications Current Medications Medications (Trade) Dose Ordered Sig/Maggie Start Time Stop Time Status Last Admin Dose Admin Sodium Chloride 1,000 ml @ 75 mls/hr [id number] 08/15/18 12:55 08/16/18 12:54 Allergies Allergies Allergies Coded Allergies Type Severity Reaction Last Updated Verified Sulfa (Sulfonamide Antibiotics) Allergy Intermediate RASH 04/10/18 Yes aripiprazole Allergy Intermediate RASH 04/10/18 Yes doxycycline Allergy Intermediate N/V RASH 04/10/18 Yes pseudoephedrine Allergy Intermediate hyperactive 04/10/18 Yes triprolidine Allergy Intermediate hyperactive 04/10/18 Yes Physical Exam Physical Exam Constitutional: Well developed, well nourished, mild distress, non-toxic appearance. [] HENT: Normocephalic, atraumatic, bilateral external ears normal, oropharynx moist, no oral exudates, nose normal. [] Eyes: PERRLA, EOMI, conjunctiva normal, no discharge. [] Neck: Normal range of motion, no tenderness, supple, no stridor. [] Cardiovascular:Heart rate regular rhythm, no murmur [] Lungs & Thorax: Bilateral breath sounds clear to auscultation [] Abdomen: Bowel sounds normal, soft, no tenderness, no masses, no pulsatile masses. [] Skin: Warm, dry, no erythema, no rash. [] Back: No tenderness, no CVA tenderness. [] Extremities: No tenderness, no cyanosis, no clubbing, ROM intact, no edema. [] Neurologic: Alert and oriented X 3, normal motor function, normal sensory function, no focal deficits noted. [] Psychologic: Affect normal, judgement normal, mood normal. [] Current Patient Data Vital Signs Vital Signs Date Time Temp Pulse Resp B/P (MAP) Pulse Ox O2 Delivery O2 Flow Rate FiO2 08/15/18 11:00 98.4 62 22 95 Room Air Lab Results Laboratory Tests Test 08/15/18 11:55 08/15/18 11:58 White Blood Count 8.4 x10^3/uL (4.0-11.0) Red Blood Count 4.45 x10^6/uL (3.50-5.40) Hemoglobin 13.2 g/dL (12.0-15.5) Hematocrit 38.6 % (36.0-47.0) Mean Corpuscular Volume 87 fL (79-100) Mean Corpuscular Hemoglobin 30 pg (25-35) Mean Corpuscular Hemoglobin Concent 34 g/dL (31-37) Red Cell Distribution Width 14.8 % (11.5-14.5) H Platelet Count 328 x10^3/uL (140-400) Neutrophils (%) (Auto) 75 % (31-73) H Lymphocytes (%) (Auto) 17 % (24-48) L Monocytes (%) (Auto) 8 % (0-9) Eosinophils (%) (Auto) 0 % (0-3) Basophils (%) (Auto) 0 % (0-3) Neutrophils # (Auto) 6.3 x10^3uL (1.8-7.7) Lymphocytes # (Auto) 1.5 x10^3/uL (1.0-4.8) Monocytes # (Auto) 0.7 x10^3/uL (0.0-1.1) Eosinophils # (Auto) 0.0 x10^3/uL (0.0-0.7) Basophils # (Auto) 0.0 x10^3/uL (0.0-0.2) Sodium Level 125 mmol/L (136-145) L Potassium Level 4.3 mmol/L (3.5-5.1) Chloride Level 92 mmol/L (98-107) L Carbon Dioxide Level 31 mmol/L (21-32) Anion Gap 2 (6-14) L Blood Urea Nitrogen 27 mg/dL (7-20) H Creatinine 1.1 mg/dL (0.6-1.0) H Estimated GFR (Cockcroft-Gault) 49.1 BUN/Creatinine Ratio 25 (6-20) H Glucose Level 124 mg/dL (70-99) H Calcium Level 9.2 mg/dL (8.5-10.1) Magnesium Level 1.8 mg/dL (1.8-2.4) Total Bilirubin 0.3 mg/dL (0.2-1.0) Aspartate Amino Transferase (AST) 17 U/L (15-37) Alanine Aminotransferase (ALT) 26 U/L (14-59) Alkaline Phosphatase 85 U/L (46-116) Creatine Kinase 28 U/L (26-192) Troponin I Quantitative < 0.017 ng/mL (0-0.055) YG-Kob-J-Type Natriuretic Peptide 89 pg/mL (0-124) Total Protein 7.0 g/dL (6.4-8.2) Albumin 3.5 g/dL (3.4-5.0) Albumin/Globulin Ratio 1.0 (1.0-1.7) Urine Collection Type Unknown Urine Color Yellow Urine Clarity Clear Urine pH 6.0 Urine Specific [place] 1.020 Urine Protein Neg (NEG-TRACE) Urine Glucose (UA) Neg mg/dL (NEG) Urine Ketones (Stick) Neg mg/dL (NEG) Urine Blood Neg (NEG) Urine Nitrite Neg (NEG) Urine Bilirubin Neg (NEG) Urine Urobilinogen Dipstick 0.2 mg/dL (0.2 mg/dL) Urine Leukocyte Esterase Trace (NEG) Urine RBC 0 /HPF (0-2) Urine WBC 1-4 /HPF (0-4) Urine Squamous Epithelial Cells Few /LPF Urine Bacteria Few /HPF (0-FEW) Urine Hyaline Casts Occ /HPF Urine Mucus Slight /LPF Urine Yeast Present /HPF EKG EKG EKG interpreted by me. EKG at 1135 showed normal sinus rhythm at rate of 61, axis deviation, left anterior fascicular block, LVH, poor R-wave progress in anterior leads, no acute ST and T-wave abnormalities Radiology/Procedures Radiology/Procedures [] Course & Med Decision Making Course & Med Decision Making Pertinent Labs reviewed. (See chart for details) Evaluation of patient in ER showed 72-year-old female patient with complaining of generalized weakness and dizziness after treatment for sinus infection. Patient had unremarkable physical exam. Labs showed sodium of 125 and elevation of BUN/creatinine. Dr. Brennan accepted admission at 1255 and plan to start normal saline at rate of 77 mL/hour. Dragon Disclaimer Dragon Disclaimer This electronic medical record was generated, in whole or in part, using a voice recognition dictation system. Departure Departure: Impression: Primary Impression: Hyponatremia Additional Impressions: Dehydration Generalized weakness Sinus infection Disposition: ADMITTED INPATIENT (at 1255) Admitting Physician: Savanna Brennan (accepted admission at 1254) Condition: IMPROVED Referrals: DORINA GODFREY MD (PCP) Problem Qualifiers DEANDRE GARCIA MD Aug 15, 2018 13:13
[2018-08-15] MEDS: IV NORMAL SALINE 1,000ML 1,000 ML IV SCH (13:16)
--- NOTE | 2018-08-15 14:28 | EKG ---
[address] [address] Test Date: 2018-08-15 Test Time: 11:35:16 Pat Name: NESS CHAVES Department: Room: 122 A Gender: F Nursing Support Worker: : [id number] Requested By: DEANDRE GARCIA Order Number: [id number] Reading MD: Ashwin Patel MD Measurements Intervals Hannah Rate: 61 P: -5 ME: 158 QRS: -33 QRSD: 100 T: 13 QT: 450 QTc: 459 Interpretive Statements SINUS RHYTHM ABNORMAL LEFT AXIS DEVIATION POOR R WAVE PROGRESSION Electronically Signed On 08-18-2018 12:14:38 CDT by Ashwin Patel MD
[2018-08-15 15:05] VITALS: BP 134/83
[2018-08-15] MEDS ORDERED: GABA400C7 PO (15:05)
[2018-08-15] MEDS ORDERED: LEVO88TA4 PO (15:05)
[2018-08-15] MEDS ORDERED: CARV6.252 PO (15:05)
[2018-08-15] MEDS ORDERED: OMEP40CA5 PO (15:05)
[2018-08-15] MEDS ORDERED: clonazePAM 0.5 MG TABLET PO PRN (15:15)
[2018-08-15] MEDS: CARVEDILOL 6.25 MG TABLET PO SCH (16:57)
--- NOTE | 2018-08-15 17:16 | HP ---
ADMIT DATE: 08/15/2018 HISTORY OF PRESENT ILLNESS: The patient is a 72-year-old female patient, who was seen today at the Emergency Room with a complaint of being dizzy, lightheaded, weak, extremely tired, has slept yesterday for almost 3 hours in the afternoon, only to go back to sleep and slept the whole night. Her appetite is poor. She was treated with a 10-day course of Augmentin and tapering course of steroids and on evaluation in the Emergency Room she was found to have hyponatremia with serum sodium of 125. She was slightly dehydrated also and looking into her lab work she is on losartan/hydrochlorothiazide, Lexapro and mirtazapine that most likely the cause of her hyponatremia and dehydration as well as inappropriate antidiuretic hormone release. I actually tried to convince her to at least hold them for few days; however, she agreed only to stop the hydrochlorothiazide. She was also started on normal saline to see if that will correct the sodium. Obviously, if the sodium level drops down further she probably will need fluid restriction. PAST MEDICAL HISTORY: Significant for coronary artery disease, hypertension, hyperlipidemia, migraine headache, chronic constipation, diverticulosis, gastroesophageal reflux disease. She has a hiatal hernia, diabetic gastroparesis, anemia and depression. She is status post ACT. She also has osteoarthritis and uses a cane that she used for walking. She has chronic sinusitis, Graves' disease and Graves' ophthalmopathy. PAST SURGICAL HISTORY: Significant for cholecystectomy, tonsillectomy, hiatal hernia, bilateral orbital decompression for Graves' ophthalmopathy. She has blepharoplasty on the right, heart catheterization on 12/2008. She also has left ankle fracture, status post open reduction and internal fixation incontinence surgery and multiple GI endoscopies. FAMILY HISTORY: Significant for cancer in her mother. SOCIAL HISTORY: She lives alone. She has a daughter and a granddaughter, who lives nearby. She does not smoke, drink alcohol or use any recreational drugs. REVIEW OF SYSTEMS: As per history of present illness. ALLERGIES: She is allergic to SULFA, ARIPIPRAZOLE, DOXYCYCLINE, PSEUDOEPHEDRINE, and TRIPROLIDINE. MEDICATIONS: She is currently on following medications: She is on amoxicillin 875 mg/125 one tablet tonight only. She is on atorvastatin calcium 20 mg at bedtime, gabapentin 400 mg at bedtime, levothyroxine 88 mcg once a day, clonazepam 0.5 mg daily p.r.n. for anxiety, aspirin 81 mg once a day, Carvedilol 1 tablet p.o. b.i.d., cholecalciferol 5000 units p.o. daily, clonazepam 0.5 mg at bedtime, Flonase 2 sprays to each nostril twice a day, glimepiride 4 mg at noon. She is on immunoglobulin 10 mL IV once a month, Levemir insulin 14 units at bedtime, lactobacillus acidophilus 1 twice a day, mirtazapine 45 mg at bedtime, multivitamin 1 tablet once a day, omeprazole 20 mg once a day, polyethylene glycol 1 packet p.o. at bedtime and potassium chloride for Klor-Con 10 mEq once a day. She is also on Lexapro 30 mg once a day, losartan/hydrochlorothiazide 50/12.5 one tablet once a day. PHYSICAL EXAMINATION: GENERAL: On examining her, she looked somewhat pale, but no jaundice or cyanosis. No lymphadenopathy, no thyromegaly. No jugular venous distension. No limb edema. VITAL SIGNS: Her heart rate was 57, blood pressure was 134/83, temperature was 98.2, respiratory rate 20, and oxygen saturation was 96%. HEAD, EYES, EARS, NOSE AND THROAT: Showed normocephalic, atraumatic. NECK: Supple. HEART: Showed normal first and second heart sounds with no gallop, rub or murmur. CHEST: Clear to auscultation. No crepitation or rhonchi. ABDOMEN: Distended, soft, nontender. No guarding or rigidity. No organomegaly. All hernial orifice intact. Bowel sounds normal. NEUROLOGIC: She is awake, alert, responding appropriately. All cranial nerves intact. She moves extremities without difficulty. She ambulates without assistance or assistive device. LABORATORY DATA: Showed a white cell count of 8400, hemoglobin 13, hematocrit 39, MCV 87, and platelet count 328,000 with normal manual differential. Her serum sodium is low at 125, potassium 4.3, chloride 92, bicarbonate 31, anion gap of 2, BUN 27, creatinine 1.1, estimated GFR was 49 mL per minute. Her glucose 124, calcium was 9.2, magnesium was 1.8. Total bilirubin, AST, ALT, alkaline phosphatase were normal. Her total protein was 7, albumin 3.5. Her urinalysis showed the urine was yellow, clear with a pH of 6, specific gravity of 1.020. The urine was negative for protein, glucose, ketones, blood, nitrite. There was trace of leukocyte esterase, 1-4 wbc's, very few bacteria. IMPRESSION AND PLAN: In summary, this is a 72-year-old female patient, who was admitted with complaint of dizziness, lightheadedness, generalized weakness, and anorexia. She was diagnosed with hyponatremia and dehydration. She is on losartan/hydrochlorothiazide, Lexapro and mirtazapine. The hydrochlorothiazide which can cause hyponatremia and dehydration, Lexapro and mirtazapine can cause syndrome of inappropriate antidiuretic hormone. I tried to convince the patient to stop the Lexapro and mirtazapine, but she adamantly refused to stop that, but she agreed to stop the hydrochlorothiazide. We will continue with IV normal saline at 75 mL per hour with repeat her lab works tomorrow. If the sodium improves obviously is well and good. If the sodium deteriorates further, then she needs to have fluid restriction and attempt to hold mirtazapine and Lexapro if possible. YOLANDA MILLER MD DR: [email or web address] JOB#: [id number] / [id number]
[2018-08-15 19:00] VITALS: BP_SYST 105; BP_SYST 68; BP_DIAS 68
[2018-08-15] MEDS ORDERED: MIRTAZAPINE 15 MG TABLET PO SCH (21:00)
[2018-08-15] MEDS ORDERED: AMOXICILLIN/K CLAV 875/125MG TABLET. PO SCH (21:00)
[2018-08-15] MEDS: FLUTICASONE 50MCG/NASAL SPRAY 16GM BOTTLE. NS SCH (21:23)
[2018-08-15] MEDS: LACTOBACILLUS RHAMNOSUS GG 1 CAPSULE. PO SCH (21:23)
[2018-08-15] MEDS: clonazePAM 0.5 MG TABLET PO SCH (21:23)
[2018-08-15] MEDS: ATORVASTATIN CALCIUM 20 MG TABLET PO SCH (21:23)
[2018-08-15] MEDS: MIRTAZAPINE 15 MG TABLET PO SCH (21:24)
[2018-08-15] MEDS: POLYETHYLENE GLYCOL 3350 17 GM PACKET. PO SCH (21:24)
[2018-08-15] MEDS: GABAPENTIN 400 MG CAPSULE. PO SCH (21:24)
[2018-08-15] MEDS: INSULIN GLARGINE 300 UNITS/3 ML INSULN.PEN. SQ SCH (21:33)
[2018-08-15 23:30] VITALS: BP 109/71
[2018-08-16] MEDS: IV NORMAL SALINE 1,000ML 1,000 ML IV SCH ×2 (04:04→21:29)
[2018-08-16 05:27] VITALS: BP 102/64
[2018-08-16] MEDS: LEVOTHYROXINE 88 MCG TABLET PO SCH (05:56)
[2018-08-16 07:57] LABS: HEMOGLOBIN 13.4 g/dL (12.0-15.5); RED BLOOD COUNT 4.45 x10^6/uL (3.50-5.40); RED CELL DISTRIBUTION WIDTH 14.7 % (11.5-14.5); WHITE BLOOD COUNT 8.2 x10^3/uL (4.0-11.0)
[2018-08-16 08:05] LABS: ALBUMIN 3.3 g/dL (3.4-5.0); CALCIUM 9.1 mg/dL (8.5-10.1); GFR 54.8; TOTAL BILIRUBIN 0.3 mg/dL (0.2-1.0); TOTAL PROTEIN 6.7 g/dL (6.4-8.2)
[2018-08-16] MEDS: LACTOBACILLUS RHAMNOSUS GG 1 CAPSULE. PO SCH ×2 (08:20→21:31)
[2018-08-16] MEDS: CHOLECALCIFEROL (VITAMIN D3) 1,000 UNIT TABLET PO SCH (08:20)
[2018-08-16] MEDS: CITALOPRAM 20 MG TABLET. PO SCH (08:20)
[2018-08-16] MEDS: MULTIVITAMIN with MINERAL TABLET. PO SCH (08:21)
[2018-08-16] MEDS: FLUTICASONE 50MCG/NASAL SPRAY 16GM BOTTLE. NS SCH ×2 (08:21→21:30)
[2018-08-16] MEDS: ASPIRIN 81 MG TAB.CHEW PO SCH (08:21)
[2018-08-16] MEDS: LOSARTAN 50 MG TABLET. PO SCH (08:21)
[2018-08-16] MEDS: CARVEDILOL 6.25 MG TABLET PO SCH ×2 (08:21→16:41)
[2018-08-16] MEDS: POTASSIUM CHLORIDE 10 MEQ TABLET.ER. PO SCH (08:21)
[2018-08-16] MEDS: PANTOPRAZOLE 40 MG TABLET. PO SCH (08:21)
[2018-08-16] MEDS ORDERED: ACETAMINOPHEN 500 MG TABLET PO PRN (10:15)
[2018-08-16] MEDS: ONDANSETRON ODT 4 MG TAB.RAPDIS PO PRN ×2 (10:20→16:41)
[2018-08-16] MEDS: GLIMEPIRIDE 2 MG TABLET PO SCH (11:43)
[2018-08-16 11:49] VITALS: BP 134/79
--- NOTE | 2018-08-16 12:23 | PDOC ---
Progress Note. Subjective: I find the patient lying in bed resting. She is awake and begins to complain of frontal and maxillary sinus pressure. States she is certain that's why her head is hurting, she goes on to discuss how she just finished a 10 day course of Augmentin and is on tapering steroids. Her sodium was 125 with evidence of dehydration on arrival, with replacement overnight sodium has improved to 131, BUN 23, creatinine 1.0, glucose 120, albumin 3.3. Patient states she's feeling somewhat better but hasn't ambulated much yet and doesn't feel comfortable going home today. Denies any new or worsening symptoms, denies headache fever chills chest pain or trouble breathing. Objective: Vital Signs: Vital Signs Date Time Temp Pulse Resp B/P (MAP) Pulse Ox O2 Delivery O2 Flow Rate FiO2 08/16/18 11:49 98.6 68 20 134/79 (97) 92 Room Air I & O: Intake and Output 08/16/18 07:00 Intake Total 1435.34 ml Output Total 1800 ml Balance -364.66 ml Intake Oral 600 ml IV Total 835.34 ml Output Urine Total 1800 ml Labs: Laboratory Tests Test 08/15/18 11:55 08/15/18 11:58 08/15/18 16:31 08/15/18 21:31 White Blood Count 8.4 x10^3/uL (4.0-11.0) Red Blood Count 4.45 x10^6/uL (3.50-5.40) Hemoglobin 13.2 g/dL (12.0-15.5) Hematocrit 38.6 % (36.0-47.0) Mean Corpuscular Volume 87 fL (79-100) Mean Corpuscular Hemoglobin 30 pg (25-35) Mean Corpuscular Hemoglobin Concent 34 g/dL (31-37) Red Cell Distribution Width 14.8 % (11.5-14.5) Platelet Count 328 x10^3/uL (140-400) Neutrophils (%) (Auto) 75 % (31-73) Lymphocytes (%) (Auto) 17 % (24-48) Monocytes (%) (Auto) 8 % (0-9) Eosinophils (%) (Auto) 0 % (0-3) Basophils (%) (Auto) 0 % (0-3) Neutrophils # (Auto) 6.3 x10^3uL (1.8-7.7) Lymphocytes # (Auto) 1.5 x10^3/uL (1.0-4.8) Monocytes # (Auto) 0.7 x10^3/uL (0.0-1.1) Eosinophils # (Auto) 0.0 x10^3/uL (0.0-0.7) Basophils # (Auto) 0.0 x10^3/uL (0.0-0.2) Sodium Level 125 mmol/L (136-145) Potassium Level 4.3 mmol/L (3.5-5.1) Chloride Level 92 mmol/L (98-107) Carbon Dioxide Level 31 mmol/L (21-32) Anion Gap 2 (6-14) Blood Urea Nitrogen 27 mg/dL (7-20) Creatinine 1.1 mg/dL (0.6-1.0) Estimated GFR (Cockcroft-Gault) 49.1 BUN/Creatinine Ratio 25 (6-20) Glucose Level 124 mg/dL (70-99) Calcium Level 9.2 mg/dL (8.5-10.1) Magnesium Level 1.8 mg/dL (1.8-2.4) Total Bilirubin 0.3 mg/dL (0.2-1.0) Aspartate Amino Transf (AST/SGOT) 17 U/L (15-37) Alanine Aminotransferase (ALT/SGPT) 26 U/L (14-59) Alkaline Phosphatase 85 U/L (46-116) Creatine Kinase 28 U/L (26-192) Troponin I Quantitative < 0.017 ng/mL (0-0.055) MI-Zjq-[id number]-Type Natriuretic Peptide 89 pg/mL (0-124) Total Protein 7.0 g/dL (6.4-8.2) Albumin 3.5 g/dL (3.4-5.0) Albumin/Globulin Ratio 1.0 (1.0-1.7) Urine Collection Type Unknown Urine Color Yellow Urine Clarity Clear Urine pH 6.0 Urine Specific [place] 1.020 Urine Protein Neg (NEG-TRACE) Urine Glucose (UA) Neg mg/dL (NEG) Urine Ketones (Stick) Neg mg/dL (NEG) Urine Blood Neg (NEG) Urine Nitrite Neg (NEG) Urine Bilirubin Neg (NEG) Urine Urobilinogen Dipstick 0.2 mg/dL (0.2 mg/dL) Urine Leukocyte Esterase Trace (NEG) Urine RBC 0 /HPF (0-2) Urine WBC 1-4 /HPF (0-4) Urine Squamous Epithelial Cells Few /LPF Urine Bacteria Few /HPF (0-FEW) Urine Hyaline Casts Occ /HPF Urine Mucus Slight /LPF Urine Yeast Present /HPF Glucose (Fingerstick) 146 mg/dL (70-99) 143 mg/dL (70-99) Test 08/16/18 07:45 08/16/18 11:33 White Blood Count 8.2 x10^3/uL (4.0-11.0) Red Blood Count 4.45 x10^6/uL (3.50-5.40) Hemoglobin 13.4 g/dL (12.0-15.5) Hematocrit 39.0 % (36.0-47.0) Mean Corpuscular Volume 88 fL (79-100) Mean Corpuscular Hemoglobin 30 pg (25-35) Mean Corpuscular Hemoglobin Concent 34 g/dL (31-37) Red Cell Distribution Width 14.7 % (11.5-14.5) Platelet Count 294 x10^3/uL (140-400) Sodium Level 131 mmol/L (136-145) Potassium Level 5.0 mmol/L (3.5-5.1) Chloride Level 97 mmol/L (98-107) Carbon Dioxide Level 30 mmol/L (21-32) Anion Gap 4 (6-14) Blood Urea Nitrogen 23 mg/dL (7-20) Creatinine 1.0 mg/dL (0.6-1.0) Estimated GFR (Cockcroft-Gault) 54.8 BUN/Creatinine Ratio 23 (6-20) Glucose Level 120 mg/dL (70-99) Calcium Level 9.1 mg/dL (8.5-10.1) Total Bilirubin 0.3 mg/dL (0.2-1.0) Aspartate Amino Transf (AST/SGOT) 16 U/L (15-37) Alanine Aminotransferase (ALT/SGPT) 26 U/L (14-59) Alkaline Phosphatase 81 U/L (46-116) Total Protein 6.7 g/dL (6.4-8.2) Albumin 3.3 g/dL (3.4-5.0) Albumin/Globulin Ratio 1.0 (1.0-1.7) Glucose (Fingerstick) 150 mg/dL (70-99) Physical Exam: Gen.: Alert, pleasant, no apparent distress HEENT: Normocephalic atraumatic, PERRLA EOMI, no scleral icterus, oral mucosa pink and moist, no sinus tenderness or nasal discharge/postnasal drip Neck: Supple, no lymphadenopathy, nontender Cardiovascular: Normal S1 and S2 no murmurs Pulmonary: Lungs are clear bilaterally with good air movement no respiratory distress Abdomen: Soft nontender non-distended, bowel sounds present no masses Extremities: No clubbing, cyanosis or edema Neuro: Alert and oriented 3, cranial nerves II through XII grossly intact, no lateralizing neuro deficits Skin: Warm, dry Assessment: Symptomatic hypovolemic hyponatremia: Potential causes include hydrochlorothiazide, mirtazapine, and Lexapro which are being held Plan: Continue IV fluids and recheck labs in YOAV Valdez DO Aug 16, 2018 12:22
[2018-08-16] MEDS: HYDROcodone/APAP 5/325MG 1 TAB TABLET PO PRN ×2 (13:50→21:31)
[2018-08-16 16:37] VITALS: BP 116/72
[2018-08-16 19:40] VITALS: BP 100/54
[2018-08-16] MEDS: POLYETHYLENE GLYCOL 3350 17 GM PACKET. PO SCH (21:30)
[2018-08-16] MEDS: clonazePAM 0.5 MG TABLET PO SCH (21:31)
[2018-08-16] MEDS: ATORVASTATIN CALCIUM 20 MG TABLET PO SCH (21:31)
[2018-08-16] MEDS: GABAPENTIN 400 MG CAPSULE. PO SCH (21:31)
[2018-08-16] MEDS: MIRTAZAPINE 15 MG TABLET PO SCH (21:32)
[2018-08-16] MEDS: INSULIN GLARGINE 300 UNITS/3 ML INSULN.PEN. SQ SCH (21:59)
[2018-08-16 22:51] VITALS: BP 110/71
[2018-08-17] MEDS: LEVOTHYROXINE 88 MCG TABLET PO SCH (05:24)
[2018-08-17 05:25] VITALS: BP 160/82
[2018-08-17 06:14] LABS: CALCIUM 9.2 mg/dL (8.5-10.1); CREATININE 0.8 mg/dL (0.6-1.0); GFR 70.9; POTASSIUM 4.3 mmol/L (3.5-5.1)
[2018-08-17] MEDS: ASPIRIN 81 MG TAB.CHEW PO SCH (07:58)
[2018-08-17] MEDS: POTASSIUM CHLORIDE 10 MEQ TABLET.ER. PO SCH (07:59)
[2018-08-17] MEDS: CARVEDILOL 6.25 MG TABLET PO SCH ×2 (08:04→17:00)
[2018-08-17 08:06] VITALS: BP 200/84
[2018-08-17] MEDS: IV NORMAL SALINE 1,000ML 1,000 ML IV SCH ×2 (08:20→20:51)
[2018-08-17] MEDS: HYDROcodone/APAP 5/325MG 1 TAB TABLET PO PRN ×3 (08:20→15:11)
[2018-08-17] MEDS: FLUTICASONE 50MCG/NASAL SPRAY 16GM BOTTLE. NS SCH ×2 (09:12→20:42)
[2018-08-17] MEDS: LACTOBACILLUS RHAMNOSUS GG 1 CAPSULE. PO SCH ×2 (09:12→20:45)
[2018-08-17] MEDS: MULTIVITAMIN with MINERAL TABLET. PO SCH (09:12)
[2018-08-17] MEDS: PANTOPRAZOLE 40 MG TABLET. PO SCH (09:13)
[2018-08-17] MEDS: CHOLECALCIFEROL (VITAMIN D3) 1,000 UNIT TABLET PO SCH (09:13)
[2018-08-17] MEDS: CITALOPRAM 20 MG TABLET. PO SCH (09:13)
[2018-08-17] MEDS: LOSARTAN 50 MG TABLET. PO SCH (09:17)
[2018-08-17] MEDS: GLIMEPIRIDE 2 MG TABLET PO SCH (12:32)
[2018-08-17 13:59] VITALS: BP 130/73
[2018-08-17] MEDS ORDERED: cloNIDine HCL 0.2 MG TABLET PO PRN (14:00)
[2018-08-17] MEDS ORDERED: KETOROLAC 30 MG/ML VIAL. IV PRN (16:30)
[2018-08-17 19:23] VITALS: BP 104/68
--- NOTE | 2018-08-17 20:16 | PDOC ---
Progress Note. Subjective: Nursing reports no major issues overnight, patient still not eating much. Her vitals are remained stable there are no new labs for evaluation today. Patient still not getting out of bed much. She expresses a great deal of anxiety about going home as she lives alone. Her headache is doing better today and she denies any new complaints. I discussed the need to stay out of bed most of the day today up in a chair or ambulating. Long discussion about hyponatremia and her home meds, she becomes very defensive and argumentative when discussion of changing her antidepressant medications. She is agreeable to increase her activity today in preparation going home tomorrow. Objective: Vital Signs: Vital Signs Date Time Temp Pulse Resp B/P (MAP) Pulse Ox O2 Delivery O2 Flow Rate FiO2 08/17/18 19:23 98.0 61 20 104/68 (80) 98 08/17/18 08:20 Room Air I & O: Intake and Output 08/17/18 07:00 Intake Total 2840 ml Output Total 1100 ml Balance 1740 ml Intake Oral 1840 ml IV Total 1000 ml Output Urine Total 1100 ml # Voids 4 Labs: Laboratory Tests Test 08/15/18 21:31 08/16/18 07:45 08/16/18 11:33 08/16/18 16:45 Glucose (Fingerstick) 143 mg/dL (70-99) 150 mg/dL (70-99) 90 mg/dL (70-99) White Blood Count 8.2 x10^3/uL (4.0-11.0) Red Blood Count 4.45 x10^6/uL (3.50-5.40) Hemoglobin 13.4 g/dL (12.0-15.5) Hematocrit 39.0 % (36.0-47.0) Mean Corpuscular Volume 88 fL (79-100) Mean Corpuscular Hemoglobin 30 pg (25-35) Mean Corpuscular Hemoglobin Concent 34 g/dL (31-37) Red Cell Distribution Width 14.7 % (11.5-14.5) Platelet Count 294 x10^3/uL (140-400) Sodium Level 131 mmol/L (136-145) Potassium Level 5.0 mmol/L (3.5-5.1) Chloride Level 97 mmol/L (98-107) Carbon Dioxide Level 30 mmol/L (21-32) Anion Gap 4 (6-14) Blood Urea Nitrogen 23 mg/dL (7-20) Creatinine 1.0 mg/dL (0.6-1.0) Estimated GFR (Cockcroft-Gault) 54.8 BUN/Creatinine Ratio 23 (6-20) Glucose Level 120 mg/dL (70-99) Calcium Level 9.1 mg/dL (8.5-10.1) Total Bilirubin 0.3 mg/dL (0.2-1.0) Aspartate Amino Transf (AST/SGOT) 16 U/L (15-37) Alanine Aminotransferase (ALT/SGPT) 26 U/L (14-59) Alkaline Phosphatase 81 U/L (46-116) Total Protein 6.7 g/dL (6.4-8.2) Albumin 3.3 g/dL (3.4-5.0) Albumin/Globulin Ratio 1.0 (1.0-1.7) Test 08/16/18 20:21 08/17/18 05:48 08/17/18 07:54 08/17/18 11:52 Glucose (Fingerstick) 152 mg/dL (70-99) 73 mg/dL (70-99) 102 mg/dL (70-99) Sodium Level 132 mmol/L (136-145) Potassium Level 4.3 mmol/L (3.5-5.1) Chloride Level 99 mmol/L (98-107) Carbon Dioxide Level 28 mmol/L (21-32) Anion Gap 5 (6-14) Blood Urea Nitrogen 16 mg/dL (7-20) Creatinine 0.8 mg/dL (0.6-1.0) Estimated GFR (Cockcroft-Gault) 70.9 Glucose Level 85 mg/dL (70-99) Calcium Level 9.2 mg/dL (8.5-10.1) Test 08/17/18 16:55 08/17/18 19:31 Glucose (Fingerstick) 64 mg/dL (70-99) 124 mg/dL (70-99) Physical Exam: Gen.: Alert, pleasant, no apparent distress HEENT: Normocephalic atraumatic, PERRLA EOMI, no scleral icterus, oral mucosa pink and moist Neck: Supple, no lymphadenopathy, nontender Cardiovascular: Normal S1 and S2 no murmurs Pulmonary: Lungs are clear bilaterally with good air movement no respiratory distress Abdomen: Soft nontender non-distended, bowel sounds present no masses Extremities: No clubbing, cyanosis or edema Neuro: Alert and oriented 3, cranial nerves II through XII grossly intact, no lateralizing neuro deficits Skin: Warm, dry Assessment: Symptomatic hyponatremia: Improved with fluids and holding medications Plan: Plan for increased activity today in preparation for DC home tomorrow. Recheck labs in YOAV Valdez DO Aug 17, 2018 20:16
[2018-08-17] MEDS: POLYETHYLENE GLYCOL 3350 17 GM PACKET. PO SCH (20:42)
[2018-08-17] MEDS: INSULIN GLARGINE 300 UNITS/3 ML INSULN.PEN. SQ SCH (20:43)
[2018-08-17] MEDS: clonazePAM 0.5 MG TABLET PO SCH (20:45)
[2018-08-17] MEDS: GABAPENTIN 400 MG CAPSULE. PO SCH (20:46)
[2018-08-17] MEDS: MIRTAZAPINE 15 MG TABLET PO SCH (20:46)
[2018-08-17] MEDS: ATORVASTATIN CALCIUM 20 MG TABLET PO SCH (20:46)
[2018-08-17 23:06] VITALS: BP 124/75
[2018-08-18] MEDS: LEVOTHYROXINE 88 MCG TABLET PO SCH (05:34)
[2018-08-18 05:46] VITALS: BP 151/80
[2018-08-18] MEDS: POTASSIUM CHLORIDE 10 MEQ TABLET.ER. PO SCH (08:23)
[2018-08-18] MEDS: CHOLECALCIFEROL (VITAMIN D3) 1,000 UNIT TABLET PO SCH (08:23)
[2018-08-18] MEDS: LACTOBACILLUS RHAMNOSUS GG 1 CAPSULE. PO SCH ×2 (08:23→20:54)
[2018-08-18] MEDS: ASPIRIN 81 MG TAB.CHEW PO SCH (08:24)
[2018-08-18] MEDS: LOSARTAN 50 MG TABLET. PO SCH (08:24)
[2018-08-18] MEDS: CITALOPRAM 20 MG TABLET. PO SCH (08:24)
[2018-08-18] MEDS: PANTOPRAZOLE 40 MG TABLET. PO SCH (08:27)
[2018-08-18] MEDS: MULTIVITAMIN with MINERAL TABLET. PO SCH (08:27)
[2018-08-18] MEDS: FLUTICASONE 50MCG/NASAL SPRAY 16GM BOTTLE. NS SCH ×2 (08:27→20:47)
[2018-08-18 10:45] VITALS: BP 149/78
[2018-08-18] MEDS: IV NORMAL SALINE 1,000ML 1,000 ML IV SCH ×2 (11:01→22:53)
[2018-08-18] MEDS: CARVEDILOL 6.25 MG TABLET PO SCH ×2 (11:01→17:14)
[2018-08-18] MEDS: GLIMEPIRIDE 2 MG TABLET PO SCH (11:54)
[2018-08-18 12:29] LABS: BASO % 0 % (0-3); EOS # 0.1 x10^3/uL (0.0-0.7); EOS % 1 % (0-3); HEMATOCRIT 39.9 % (36.0-47.0); HEMOGLOBIN 13.6 g/dL (12.0-15.5); LYMPH # 2.7 x10^3/uL (1.0-4.8); LYMPH % 25 % (24-48); MEAN CORPUSCULAR HEMOGLOBIN 30 pg (25-35); MEAN CORPUSCULAR HGB CONC 34 g/dL (31-37); MEAN CORPUSCULAR VOLUME 89 fL (79-100); MONO # 0.7 x10^3/uL (0.0-1.1); MONO % 6 % (0-9); NEUT # 7.6 x10^3uL (1.8-7.7); NEUT % 68 % (31-73); PLATELET COUNT 311 x10^3/uL (140-400); RED BLOOD COUNT 4.48 x10^6/uL (3.50-5.40); RED CELL DISTRIBUTION WIDTH 14.8 % (11.5-14.5); WHITE BLOOD COUNT 11.1 x10^3/uL (4.0-11.0)
[2018-08-18 12:46] LABS: ALBUMIN 3.4 g/dL (3.4-5.0); CALCIUM 8.9 mg/dL (8.5-10.1); GFR 54.8; POTASSIUM 4.7 mmol/L (3.5-5.1); TOTAL BILIRUBIN 0.3 mg/dL (0.2-1.0); TOTAL PROTEIN 6.7 g/dL (6.4-8.2)
[2018-08-18 13:24] LABS: % BANDS 1 % (0-9); % BASOS 1 % (0-3); % LYMPHS 26 % (24-48); % MONOS 2 % (0-10); % SEGS 69 % (35-66)
[2018-08-18 13:29] LABS: PLT ESTIMATE ADEQUATE (ADEQUATE)
[2018-08-18 13:35] LABS: TOXIC VACUOLATION PRESENT
[2018-08-18] MEDS ORDERED: IV NORMAL SALINE 1,000ML 1,000 ML IV SCH (14:00)
[2018-08-18] MEDS: HYDROcodone/APAP 5/325MG 1 TAB TABLET PO PRN (14:40)
--- NOTE | 2018-08-18 15:51 | PDOC ---
Progress Note. Subjective: Patient reports that she had been feeling well through most of the day yesterday and overnight and claims to have been ambulating and out of bed. She says she was feeling well until this morning she says her dizziness returned much more mild. Denies any new headache chest pain trouble breathing vision change focal neurologic deficit nausea or vomiting. Vitals have remained stable , her sodium did drop from 132 to 130 over the past 48 hours. She says she feels unsteady and not ready to go home today. Objective: Vital Signs: Vital Signs Date Time Temp Pulse Resp B/P (MAP) Pulse Ox O2 Delivery O2 Flow Rate FiO2 08/18/18 14:40 Room Air 08/18/18 11:01 62 08/18/18 10:45 98.3 20 149/78 (101) 97 I & O: Intake and Output 08/18/18 07:00 Intake Total 2379.61 ml Balance 2379.61 ml Intake Oral 1080 ml IV Total 1299.61 ml # Voids 3 Labs: Laboratory Tests Test 08/16/18 16:45 08/16/18 20:21 08/17/18 05:48 08/17/18 07:54 Glucose (Fingerstick) 90 mg/dL (70-99) 152 mg/dL (70-99) 73 mg/dL (70-99) Sodium Level 132 mmol/L (136-145) Potassium Level 4.3 mmol/L (3.5-5.1) Chloride Level 99 mmol/L (98-107) Carbon Dioxide Level 28 mmol/L (21-32) Anion Gap 5 (6-14) Blood Urea Nitrogen 16 mg/dL (7-20) Creatinine 0.8 mg/dL (0.6-1.0) Estimated GFR (Cockcroft-Gault) 70.9 Glucose Level 85 mg/dL (70-99) Calcium Level 9.2 mg/dL (8.5-10.1) Test 08/17/18 11:52 08/17/18 16:55 08/17/18 19:31 08/18/18 07:30 Glucose (Fingerstick) 102 mg/dL (70-99) 64 mg/dL (70-99) 124 mg/dL (70-99) 79 mg/dL (70-99) Test 08/18/18 10:03 08/18/18 11:44 08/18/18 12:20 Glucose (Fingerstick) 189 mg/dL (70-99) 137 mg/dL (70-99) White Blood Count 11.1 x10^3/uL (4.0-11.0) Red Blood Count 4.48 x10^6/uL (3.50-5.40) Hemoglobin 13.6 g/dL (12.0-15.5) Hematocrit 39.9 % (36.0-47.0) Mean Corpuscular Volume 89 fL (79-100) Mean Corpuscular Hemoglobin 30 pg (25-35) Mean Corpuscular Hemoglobin Concent 34 g/dL (31-37) Red Cell Distribution Width 14.8 % (11.5-14.5) Platelet Count 311 x10^3/uL (140-400) Neutrophils (%) (Auto) 68 % (31-73) Lymphocytes (%) (Auto) 25 % (24-48) Monocytes (%) (Auto) 6 % (0-9) Eosinophils (%) (Auto) 1 % (0-3) Basophils (%) (Auto) 0 % (0-3) Neutrophils # (Auto) 7.6 x10^3uL (1.8-7.7) Lymphocytes # (Auto) 2.7 x10^3/uL (1.0-4.8) Monocytes # (Auto) 0.7 x10^3/uL (0.0-1.1) Eosinophils # (Auto) 0.1 x10^3/uL (0.0-0.7) Basophils # (Auto) 0.0 x10^3/uL (0.0-0.2) Segmented Neutrophils % 69 % (35-66) Band Neutrophils % 1 % (0-9) Lymphocytes % 26 % (24-48) Monocytes % 2 % (0-10) Basophils % 1 % (0-3) Toxic Vacuolation Present Platelet Estimate Adequate (ADEQUATE) Large Platelets Present Sodium Level 130 mmol/L (136-145) Potassium Level 4.7 mmol/L (3.5-5.1) Chloride Level 96 mmol/L (98-107) Carbon Dioxide Level 31 mmol/L (21-32) Anion Gap 3 (6-14) Blood Urea Nitrogen 18 mg/dL (7-20) Creatinine 1.0 mg/dL (0.6-1.0) Estimated GFR (Cockcroft-Gault) 54.8 BUN/Creatinine Ratio 18 (6-20) Glucose Level 89 mg/dL (70-99) Calcium Level 8.9 mg/dL (8.5-10.1) Total Bilirubin 0.3 mg/dL (0.2-1.0) Aspartate Amino Transf (AST/SGOT) 20 U/L (15-37) Alanine Aminotransferase (ALT/SGPT) 29 U/L (14-59) Alkaline Phosphatase 91 U/L (46-116) Total Protein 6.7 g/dL (6.4-8.2) Albumin 3.4 g/dL (3.4-5.0) Albumin/Globulin Ratio 1.0 (1.0-1.7) Physical Exam: Gen.: Alert, pleasant, no apparent distress HEENT: Normocephalic atraumatic, PERRLA EOMI, no scleral icterus, oral mucosa pink and moist Neck: Supple, no lymphadenopathy, nontender Cardiovascular: Normal S1 and S2 no murmurs Pulmonary: Lungs are clear bilaterally with good air movement no respiratory distress Abdomen: Soft nontender non-distended, bowel sounds present no masses Extremities: No clubbing, cyanosis or edema Neuro: Alert and oriented 3, cranial nerves II through XII grossly intact, no lateralizing neuro deficits Skin: Warm, dry Assessment: Hyponatremia Plan: I know the patient well from interactions in the emergency department. Whether in the emergency department or in the hospital it has been my experience that Ms. Cook never feels quite ready to go home. I agreed to replace her sodium overnight slowly, she agrees to increase her activity here in the hospital 2 more resemble her daily activities at home. If no further issues plan for DC home in a.. YOAV ZIMMERMAN DO Aug 18, 2018 15:51
[2018-08-18 16:09] VITALS: BP 129/80
[2018-08-18 19:18] VITALS: BP 126/72
[2018-08-18] MEDS: POLYETHYLENE GLYCOL 3350 17 GM PACKET. PO SCH (20:47)
[2018-08-18] MEDS: clonazePAM 0.5 MG TABLET PO SCH (20:54)
[2018-08-18] MEDS: ATORVASTATIN CALCIUM 20 MG TABLET PO SCH (20:54)
[2018-08-18] MEDS: MIRTAZAPINE 15 MG TABLET PO SCH (20:54)
[2018-08-18] MEDS: GABAPENTIN 400 MG CAPSULE. PO SCH (20:54)
[2018-08-18] MEDS: INSULIN GLARGINE 300 UNITS/3 ML INSULN.PEN. SQ SCH (20:55)
[2018-08-18 22:13] VITALS: BP 156/83
[2018-08-19] MEDS: LEVOTHYROXINE 88 MCG TABLET PO SCH (05:15)
[2018-08-19 06:18] VITALS: BP 158/82
[2018-08-19 06:27] LABS: CALCIUM 8.7 mg/dL (8.5-10.1); CREATININE 0.9 mg/dL (0.6-1.0); GFR 61.9; POTASSIUM 4.7 mmol/L (3.5-5.1)
[2018-08-19] MEDS: CARVEDILOL 6.25 MG TABLET PO SCH ×2 (08:00→09:04)
[2018-08-19] MEDS: CHOLECALCIFEROL (VITAMIN D3) 1,000 UNIT TABLET PO SCH (08:54)
[2018-08-19] MEDS: LACTOBACILLUS RHAMNOSUS GG 1 CAPSULE. PO SCH (08:54)
[2018-08-19] MEDS: POTASSIUM CHLORIDE 10 MEQ TABLET.ER. PO SCH (08:56)
[2018-08-19] MEDS: LOSARTAN 50 MG TABLET. PO SCH (08:56)
[2018-08-19] MEDS: ASPIRIN 81 MG TAB.CHEW PO SCH (08:56)
[2018-08-19] MEDS: PANTOPRAZOLE 40 MG TABLET. PO SCH (08:56)
[2018-08-19] MEDS: MULTIVITAMIN with MINERAL TABLET. PO SCH (08:56)
[2018-08-19] MEDS: CITALOPRAM 20 MG TABLET. PO SCH (08:56)
[2018-08-19] MEDS: FLUTICASONE 50MCG/NASAL SPRAY 16GM BOTTLE. NS SCH (08:57)
[2018-08-19 11:04] VITALS: BP 133/77
[2018-08-19] MEDS: GLIMEPIRIDE 2 MG TABLET PO SCH (12:27)
[2018-08-19] MEDS: IV NORMAL SALINE 1,000ML 1,000 ML IV SCH (13:40)
[2018-08-19] MEDS ORDERED: LOSA50TA2 PO (14:24)
--- NOTE | 2018-08-19 14:28 | PDOC3 ---
Discharge Summary Visit Information: Date of Admission: Aug 15, 2018 Date of Discharge: Aug 19, 2018 Admitting Diagnosis: symptomatic hypovolemic hyponatremia Final Diagnosis Problems Medical Problems: (1) Dehydration Status: Acute (2) Diabetes Status: Acute (3) Generalized weakness Status: Acute (4) Hyponatremia Status: Acute (5) Sinus infection Status: Acute Brief Hospital Course: Allergies: Allergies Coded Allergies Type Severity Reaction Last Updated Verified Sulfa (Sulfonamide Antibiotics) Allergy Intermediate RASH 04/10/18 Yes aripiprazole Allergy Intermediate RASH 04/10/18 Yes doxycycline Allergy Intermediate N/V RASH 04/10/18 Yes pseudoephedrine Allergy Intermediate hyperactive 04/10/18 Yes triprolidine Allergy Intermediate hyperactive 04/10/18 Yes Vital Signs: Vital Signs Date Time Temp Pulse Resp B/P (MAP) Pulse Ox O2 Delivery O2 Flow Rate FiO2 08/19/18 11:04 98.0 70 20 133/77 (95) 97 Room Air 08/19/18 05:19 2.0 Lab Results: Laboratory Tests Test 08/17/18 16:55 08/17/18 19:31 08/18/18 07:30 08/18/18 10:03 Glucose (Fingerstick) 64 mg/dL (70-99) 124 mg/dL (70-99) 79 mg/dL (70-99) 189 mg/dL (70-99) Test 08/18/18 11:44 08/18/18 12:20 08/18/18 16:51 08/18/18 19:34 Glucose (Fingerstick) 137 mg/dL (70-99) 79 mg/dL (70-99) 151 mg/dL (70-99) White Blood Count 11.1 x10^3/uL (4.0-11.0) Red Blood Count 4.48 x10^6/uL (3.50-5.40) Hemoglobin 13.6 g/dL (12.0-15.5) Hematocrit 39.9 % (36.0-47.0) Mean Corpuscular Volume 89 fL (79-100) Mean Corpuscular Hemoglobin 30 pg (25-35) Mean Corpuscular Hemoglobin Concent 34 g/dL (31-37) Red Cell Distribution Width 14.8 % (11.5-14.5) Platelet Count 311 x10^3/uL (140-400) Neutrophils (%) (Auto) 68 % (31-73) Lymphocytes (%) (Auto) 25 % (24-48) Monocytes (%) (Auto) 6 % (0-9) Eosinophils (%) (Auto) 1 % (0-3) Basophils (%) (Auto) 0 % (0-3) Neutrophils # (Auto) 7.6 x10^3uL (1.8-7.7) Lymphocytes # (Auto) 2.7 x10^3/uL (1.0-4.8) Monocytes # (Auto) 0.7 x10^3/uL (0.0-1.1) Eosinophils # (Auto) 0.1 x10^3/uL (0.0-0.7) Basophils # (Auto) 0.0 x10^3/uL (0.0-0.2) Segmented Neutrophils % 69 % (35-66) Band Neutrophils % 1 % (0-9) Lymphocytes % 26 % (24-48) Monocytes % 2 % (0-10) Basophils % 1 % (0-3) Toxic Vacuolation Present Platelet Estimate Adequate (ADEQUATE) Large Platelets Present Sodium Level 130 mmol/L (136-145) Potassium Level 4.7 mmol/L (3.5-5.1) Chloride Level 96 mmol/L (98-107) Carbon Dioxide Level 31 mmol/L (21-32) Anion Gap 3 (6-14) Blood Urea Nitrogen 18 mg/dL (7-20) Creatinine 1.0 mg/dL (0.6-1.0) Estimated GFR (Cockcroft-Gault) 54.8 BUN/Creatinine Ratio 18 (6-20) Glucose Level 89 mg/dL (70-99) Calcium Level 8.9 mg/dL (8.5-10.1) Total Bilirubin 0.3 mg/dL (0.2-1.0) Aspartate Amino Transf (AST/SGOT) 20 U/L (15-37) Alanine Aminotransferase (ALT/SGPT) 29 U/L (14-59) Alkaline Phosphatase 91 U/L (46-116) Total Protein 6.7 g/dL (6.4-8.2) Albumin 3.4 g/dL (3.4-5.0) Albumin/Globulin Ratio 1.0 (1.0-1.7) Test 08/19/18 06:00 08/19/18 07:41 08/19/18 08:52 08/19/18 11:35 Sodium Level 137 mmol/L (136-145) Potassium Level 4.7 mmol/L (3.5-5.1) Chloride Level 103 mmol/L (98-107) Carbon Dioxide Level 32 mmol/L (21-32) Anion Gap 2 (6-14) Blood Urea Nitrogen 14 mg/dL (7-20) Creatinine 0.9 mg/dL (0.6-1.0) Estimated GFR (Cockcroft-Gault) 61.9 Glucose Level 66 mg/dL (70-99) Calcium Level 8.7 mg/dL (8.5-10.1) Glucose (Fingerstick) 53 mg/dL (70-99) 132 mg/dL (70-99) 166 mg/dL (70-99) PE: Gen.: Alert, pleasant, no apparent distress HEENT: Normocephalic atraumatic, PERRLA EOMI, no scleral icterus, oral mucosa pink and moist Neck: Supple, no lymphadenopathy, nontender Cardiovascular: Normal S1 and S2 no murmurs Pulmonary: Lungs are clear bilaterally with good air movement no respiratory distress Abdomen: Soft nontender non-distended, bowel sounds present no masses Extremities: No clubbing, cyanosis or edema Neuro: Alert and oriented 3, cranial nerves II through XII grossly intact, no lateralizing neuro deficits Skin: Warm, dry Brief Hospital Course: Ms. Cook is a 72 old female who presented to the emergency department with some dizziness and lightheadedness. She had just finished a 10 day course of Augmentin as well as having taken steroids for a sinus infection. She was extensively evaluated and found to be mildly dehydrated with a low sodium of 125. Her low sodium is likely multifactorial as she takes hydrochlorothiazide, mirtazapine, and Lexapro daily. She also had some loose stools temporarily with the Augmentin and likely increased urination with steroid-induced hyperglycemia as an outpatient. Her electrolytes were corrected with IV fluids and her symptoms resolved. She agreed to discontinue hydrochlorothiazide until she follows up with her doctor but refused to stop or change her psychotropic medications. She will be discharged home and agrees to follow-up with her doctor within 3-5 days for recheck of her labs and symptoms as well as to discuss her medications and possible alternatives as she wants to have these discussions with her PCP. Discharge Information: Condition at Discharge: Improved Follow Up: Weeks Disposition/Orders: D/C to Home Home Meds: Active Scripts Losartan Potassium (COZAAR) 50 Mg Tablet, 50 MG PO DAILY for 30 Days, #30 TAB Prov:YOAV ZIMMERMAN DO 08/19/18 Reported Medications Carvedilol (CARVEDILOL) 6.25 Mg Tablet, 1 TAB PO BID, #180 TAB 1 Refill 08/15/18 Gabapentin (Gabapentin) 400 Mg Capsule, 400 MG PO, CAP 08/15/18 Levothyroxine Sodium (LEVOTHYROXINE SODIUM) 88 Mcg Tablet, 1 TAB PO DAILY, #30 TAB 5 Refills 08/15/18 Omeprazole (OMEPRAZOLE) 40 Mg Capsule.dr, 1 CAP PO DAILY, #30 CAP 3 Refills 08/15/18 Clonazepam (CLONAZEPAM) 0.5 Mg Tablet, 0.5 MG PO PRN DAILY PRN for ANXIETY / AGITATION, TAB 05/30/18 Immune Globulin,Gamma(Igg) (GAMMAGARD LIQUID) 10 Ml Vial, 10 ML IV QMONTH, EACH 05/29/18 Escitalopram Oxalate (Escitalopram Oxalate) 10 Mg Tablet, 30 MG PO DAILY for Depression , TAB 05/29/18 L.acidoph & Paracasei,B.lactis (Probiotic) 1 Each Capsule, 1 EACH PO BID for PROBIOTIC LAST DOSE GIVEN: DATE: TODAY TIME: AM NEXT DOSE DUE: DATE: TODAY TIME: PM 02/21/18 Aspirin (ASPIRIN) 81 Mg Tab.chew, 81 MG PO DAILY for PREVENT BLOOD CLOTS LAST DOSE GIVEN: DATE: TODAY TIME: AM NEXT DOSE DUE: DATE: TOMORROW TIME: AM 02/21/18 Insulin Detemir (LEVEMIR) 100 Unit/1 Ml Vial, 14 UNIT SQ HS for HIGH BLOOD SUGAR LAST DOSE GIVEN: DATE: YESTERDAY TIME: AT BEDTIME NEXT DOSE DUE: DATE: TODAY TIME:AT BEDTIME 01/04/18 Polyethylene Glycol 3350 (MIRALAX) 17 Gm Powd.pack, 1 PACKET PO QHS for CONSTIPATION LAST DOSE GIVEN: NOT GIVEN THIS ADMISSION NEXT DOSE DUE: DATE: TOMORROW TIME: AM 06/22/17 Multivitamin (MULTIVITAMINS) 1 Each Tablet, 1 TAB PO DAILY for SUPPLEMENT LAST DOSE GIVEN: DATE: TODAY TIME: AM NEXT DOSE DUE: DATE: TOMORROW TIME: AM 09/22/16 Fluticasone Propionate (FLUTICASONE PROPIONATE NASAL SPRAY) 16 Gm [place].susp, 2 SPRAYS NS BID for CONGESTION LAST DOSE GIVEN: DATE: TODAY TIME: AM NEXT DOSE DUE: DATE: TODAY TIME: PM DATE: TODAY TIME: PM 04/03/14 Cholecalciferol (Vitamin D3) (VITAMIN D) 2,000 Unit Capsule, 5000 UNIT PO DAILY for BONE HEALTH LAST DOSE GIVEN: DATE: TODAY TIME: AM NEXT DOSE DUE: DATE: TOMORR TIME: AM DATE: TOMORROW TIME: AM 04/03/14 Potassium Chloride (KLOR-CON 10) 10 Meq Tablet.er, 10 MEQ PO DAILY for SUPPLEMENT LAST DOSE GIVEN: DATE: TODAY TIME: AM NEXT DOSE DUE: DATE: ORR TIME: AM DATE: TOMORROW TIME: AM 03/31/14 Clonazepam (CLONAZEPAM ODT) 1 Mg Tab.rapdis, 0.5 MG PO QHS for SLEEP LAST DOSE GIVEN: DATE: YESTERDAY TIME:AT BEDTIME NEXT DOSE DUE: DATE: TODAY TIME: AT BEDTIME 03/31/14 Atorvastatin Calcium (ATORVASTATIN CALCIUM) 20 Mg Tablet, 20 MG PO QHS for HIGH CHOLESTEROL LAST DOSE GIVEN: DATE: YESTERDAY TIME: AT BEDTIME NEXT DOSE DUE: DATE: TODAY TIME: AT BEDTIME DATE: TODAY TIME: AT BEDTIME 03/31/14 Glimepiride (GLIMEPIRIDE) 4 Mg Tablet, 4 MG PO NOON for HIGH BLOOD SUGAR LAST DOSE GIVEN: DATE: TIME: AT 12 NOON NEXT DOSE DUE: DATE: TOMORROW TIME: AT 12 NOON DATE: TOMORROW TIME: AT 12 NOON 03/31/14 Mirtazapine (MIRTAZAPINE) 15 Mg Tablet, 45 MG PO HS for DEPRESSION LAST DOSE GIVEN: DATE: YESTERDAY TIME: AT BEDTIME NEXT DOSE DUE: DATE: TODAY TIME: AT BEDTIME 03/31/14 Discontinued Reported Medications Losartan/Hydrochlorothiazide (LOSARTAN-HCTZ 50-12.5 MG TAB) 1 Each Tablet, 1 EACH PO BID for HTN , TAB 05/29/18 YOAV ZIMMERMAN DO Aug 19, 2018 14:28
[2018-08-19] MEDS ORDERED: FLUCONAZOLE 100 MG TABLET. PO ONE (15:00)
[2018-09-14] MEDS ORDERED: IMMUNE GLOBULIN GAMMA IV SCH (09:00)
[2018-09-14] MEDS ORDERED: [UNRECOGNIZED DRUG - OTHER] IV SCH (09:00)
== END 2018-08-19 15:30 | disposition home or self-care (01) | DRG 640 ==
LOC: ER 10:18 → 1 SOUTH 13:11
PROVIDERS: ADMIT Internal Medicine; ATTEND Internal Medicine
DX: E87.1 Hypo-osmolality and hyponatremia (principal); N17.0 Acute kidney failure with tubular necrosis; Z68.41 Body mass index [BMI] 40.0-44.9, adult; I10 Essential (primary) hypertension; E86.0 Dehydration; E05.00 Thyrotoxicosis with diffuse goiter without thyrotoxic crisis or storm; G43.909 Migraine, unspecified, not intractable, without status migrainosus; K59.09 Other constipation; M19.90 Unspecified osteoarthritis, unspecified site; K57.90 Diverticulosis of intestine, part unspecified, without perforation or abscess without bleeding; E03.9 Hypothyroidism, unspecified; F41.9 Anxiety disorder, unspecified; R63.0 Anorexia; F32.9 Major depressive disorder, single episode, unspecified; I25.10 Atherosclerotic heart disease of native coronary artery without angina pectoris; E78.5 Hyperlipidemia, unspecified; E78.00 Pure hypercholesterolemia, unspecified; J32.9 Chronic sinusitis, unspecified; K21.9 Gastro-esophageal reflux disease without esophagitis; Z80.9 Family history of malignant neoplasm, unspecified; Z86.73 Personal history of transient ischemic attack (TIA), and cerebral infarction without residual deficits; Z90.49 Acquired absence of other specified parts of digestive tract; Z79.899 Other long term (current) drug therapy; Z88.1 Allergy status to other antibiotic agents; Z88.2 Allergy status to sulfonamides; Z88.8 Allergy status to other drugs, medicaments and biological substances
CPT/HCPCS: 36415; 80048; 80053; 81001; 82550; 82947; 83735; 83880; 84484; 85007; 85025; 85027; 87086; 93005; J1815; J1885; Q0162; 99285-25; J7030

== ENCOUNTER 2018-08-29 12:54 | Emergency (ER) | payer MEDICARE, BC ==
[~2018-08-29] VITALS: Ht 160 cm; Wt 96.6 kg
[~2018-08-29 12:54] MED LIST changes: +GABA400C7 PO; +LEVO88TA4 PO; +LOSA50TA2 PO; +OMEP40CA5 PO
[2018-08-29 14:04] LABS: BASO # 0.1 x10^3/uL (0.0-0.2); BASO % 1 % (0-3); EOS # 0.1 x10^3/uL (0.0-0.7); EOS % 2 % (0-3); HEMATOCRIT 36.3 % (36.0-47.0); HEMOGLOBIN 12.3 g/dL (12.0-15.5); LYMPH # 2.6 x10^3/uL (1.0-4.8); LYMPH % 35 % (24-48); MEAN CORPUSCULAR HEMOGLOBIN 30 pg (25-35); MEAN CORPUSCULAR HGB CONC 34 g/dL (31-37); MEAN CORPUSCULAR VOLUME 89 fL (79-100); MONO # 0.6 x10^3/uL (0.0-1.1); MONO % 8 % (0-9); NEUT # 4.1 x10^3uL (1.8-7.7); NEUT % 55 % (31-73); PLATELET COUNT 277 x10^3/uL (140-400); RED BLOOD COUNT 4.06 x10^6/uL (3.50-5.40); RED CELL DISTRIBUTION WIDTH 15.1 % (11.5-14.5); WHITE BLOOD COUNT 7.4 x10^3/uL (4.0-11.0)
[2018-08-29 14:18] LABS: ALBUMIN 3.4 g/dL (3.4-5.0); ALBUMIN/GLOBULIN RATIO 1.1 (1.0-1.7); CALCIUM 8.7 mg/dL (8.5-10.1); GFR 54.8; TOTAL BILIRUBIN 0.4 mg/dL (0.2-1.0); TOTAL PROTEIN 6.6 g/dL (6.4-8.2)
[2018-08-29 14:19] LABS: POTASSIUM 4.8 mmol/L (3.5-5.1)
--- NOTE | 2018-08-29 14:26 | PHYS DOC ---
Past History Past Medical History: Anxiety, Depression, Diabetes, GERD, High Cholesterol, Hypertension, Hypothyroid, TIA Past Surgical History: Cholecystectomy, Tonsillectomy, Other Smoking: Non-smoker Alcohol Use: None Drug Use: None Adult General Chief Complaint Chief Complaint: BACK PAIN - NO INJURY HPI HPI Patient is a 72 year old female who presents with complaining of back pain and headache and neck pain and not feeling good for 3 days. Patient had frequent emergency room visits with multiple complaining and had history of previous hyponatremia. Patient denies fall and injury, fever and chills, focal neuro deficit, chest pain and shortness of breath. Review of Systems Review of Systems Constitutional: Denies fever or chills [] Eyes: Denies change in visual acuity, redness, or eye pain [] HENT: Denies nasal congestion or sore throat [] Respiratory: Denies cough or shortness of breath [] Cardiovascular: No additional information not addressed in HPI [] GI: Denies abdominal pain, nausea, vomiting, bloody stools or diarrhea [] : Denies dysuria or hematuria [] Musculoskeletal: Reports back pain Integument: Denies rash or skin lesions [] Neurologic: Denies headache, focal weakness or sensory changes [] Endocrine: Denies polyuria or polydipsia [] All other systems were reviewed and found to be within normal limits, except as documented in this note. Current Medications Current Medications Current Medications Medications (Trade) Dose Ordered Sig/Maggie Start Time Stop Time Status Last Admin Dose Admin Fentanyl Citrate (Fentanyl 2ml Vial) 50 mcg 1X ONCE 08/29/18 14:00 08/29/18 14:01 DC Allergies Allergies Allergies Coded Allergies Type Severity Reaction Last Updated Verified Sulfa (Sulfonamide Antibiotics) Allergy Intermediate RASH 04/10/18 Yes aripiprazole Allergy Intermediate RASH 04/10/18 Yes doxycycline Allergy Intermediate N/V RASH 04/10/18 Yes pseudoephedrine Allergy Intermediate hyperactive 04/10/18 Yes triprolidine Allergy Intermediate hyperactive 04/10/18 Yes Physical Exam Physical Exam Constitutional: Well developed, well nourished, mild distress, non-toxic appearance. [] HENT: Normocephalic, atraumatic, bilateral external ears normal, oropharynx moist, no oral exudates, nose normal. [] Eyes: PERRLA, EOMI, conjunctiva normal, no discharge. [] Neck: Normal range of motion, no tenderness, supple, no stridor. [] Cardiovascular:Heart rate regular rhythm, no murmur [] Lungs & Thorax: Bilateral breath sounds clear to auscultation [] Abdomen: Bowel sounds normal, soft, no tenderness, no masses, no pulsatile masses. [] Skin: Warm, dry, no erythema, no rash. [] Back: No tenderness, no CVA tenderness. [] Extremities: No tenderness, no cyanosis, no clubbing, ROM intact, no edema. [] Neurologic: Alert and oriented X 3, normal motor function, normal sensory function, no focal deficits noted. [] Psychologic: Affect normal, judgement normal, mood normal. [] Current Patient Data Vital Signs Vital Signs Date Time Temp Pulse Resp B/P (MAP) Pulse Ox O2 Delivery O2 Flow Rate FiO2 08/29/18 12:54 98.3 69 20 97 Room Air Lab Results Laboratory Tests Test 08/29/18 13:44 White Blood Count 7.4 x10^3/uL (4.0-11.0) Red Blood Count 4.06 x10^6/uL (3.50-5.40) Hemoglobin 12.3 g/dL (12.0-15.5) Hematocrit 36.3 % (36.0-47.0) Mean Corpuscular Volume 89 fL (79-100) Mean Corpuscular Hemoglobin 30 pg (25-35) Mean Corpuscular Hemoglobin Concent 34 g/dL (31-37) Red Cell Distribution Width 15.1 % (11.5-14.5) H Platelet Count 277 x10^3/uL (140-400) Neutrophils (%) (Auto) 55 % (31-73) Lymphocytes (%) (Auto) 35 % (24-48) Monocytes (%) (Auto) 8 % (0-9) Eosinophils (%) (Auto) 2 % (0-3) Basophils (%) (Auto) 1 % (0-3) Neutrophils # (Auto) 4.1 x10^3uL (1.8-7.7) Lymphocytes # (Auto) 2.6 x10^3/uL (1.0-4.8) Monocytes # (Auto) 0.6 x10^3/uL (0.0-1.1) Eosinophils # (Auto) 0.1 x10^3/uL (0.0-0.7) Basophils # (Auto) 0.1 x10^3/uL (0.0-0.2) EKG EKG [] Radiology/Procedures Radiology/Procedures [] Course & Med Decision Making Course & Med Decision Making Pertinent Labs studies reviewed. (See chart for details) Evaluation of patient in ER showed 72-year-old female patient with history of frequent emergency room and complaining of low back pain. Patient had unremarkable physical exam and labs and felt better with IV fentanyl. Plan discharge patient home to diagnose of low back pain exacerbation. Dragon Disclaimer Dragon Disclaimer This electronic medical record was generated, in whole or in part, using a voice recognition dictation system. Departure Departure: Disposition: HOME, SELF-CARE (@1450) Condition: IMPROVED Referrals: DORINA GODFREY MD (PCP) Patient Instructions: Back Pain, Adult, Weakness Additional Instructions: Apply ice on the affected area Follow-up with your primary care physician in 3-5 days Return to ER if not getting better Scripts Tramadol Hcl (ULTRAM) 50 Mg Tablet 50 MG PO PRN Q6HRS PRN for PAIN, #14 TAB Prov: DEANDRE GARCIA MD 08/29/18 DEANDRE GARCIA MD Aug 29, 2018 14:26
[2018-08-29 14:30] LABS: BACTERIA,URINE 0 /HPF (0-FEW); BILIRUBIN,URINE NEG (NEG); CLARITY,URINE HAZY; COLOR,URINE YELLOW; GLUCOSE,URINE NEG (NEG); NITRITE,URINE NEG (NEG); RBC,URINE 0 /HPF (0-2); SQUAMOUS EPITHELIAL CELL,UR OCC /LPF; UROBILINOGEN,URINE 0.2 mg/dL (0.2 mg/dL)
[2018-08-29 14:35] VITALS: BP 136/84
[2018-08-29] MEDS ORDERED: TRAM-48 PO (14:53)
== END 2018-08-29 15:03 | disposition home or self-care (01) ==
LOC: ER 12:54
DX: M54.5 Low back pain (principal); M54.2 Cervicalgia; R51 Headache; E11.9 Type 2 diabetes mellitus without complications; K21.9 Gastro-esophageal reflux disease without esophagitis; E78.00 Pure hypercholesterolemia, unspecified; I10 Essential (primary) hypertension; E03.9 Hypothyroidism, unspecified; Z86.73 Personal history of transient ischemic attack (TIA), and cerebral infarction without residual deficits; Z88.2 Allergy status to sulfonamides; Z88.8 Allergy status to other drugs, medicaments and biological substances; Z88.1 Allergy status to other antibiotic agents
CPT/HCPCS: 36415; 80053; 81001; 83605; 85025; 87086; 96374; 99285; J3010

== ENCOUNTER 2018-11-07 12:17 | Emergency (ER) | payer MEDICARE, BC ==
[~2018-11-07] VITALS: Ht 160 cm; Wt 96.6 kg
[~2018-11-07 12:17] MED LIST changes: -CARV12.52 PO; +CARV12.547 PO; -CARV3.122 PO; +CARV3.1230 PO; -CARV6.252 PO; +CARV6.2541 PO; +HYDR-2155 PO; -HYDR-2758 PO; +HYDR-3165 PO; -HYDR-971 PO; +LOSA100T14 PO; -LOSA100T7 PO; -LOSA50TA2 PO; +LOSA50TA86 PO; -OXYC-323 PO; +OXYC1TAB15 PO; +TRAM-48 PO
[2018-11-07] MEDS ORDERED: IV NORMAL SALINE 1,000ML 1,000 ML IV ONE (12:30)
[2018-11-07] MEDS ORDERED: DEXAMETHASONE SOD PHOS 10 MG/ML VIAL IV ONE (12:30)
[2018-11-07] MEDS ORDERED: PROCHLORPERAZINE 10 MG/2 ML VIAL. IV ONE (12:30)
[2018-11-07] MEDS ORDERED: METOCLOPRAMIDE HCL 10 MG/2 ML VIAL. IV ONE (12:30)
--- NOTE | 2018-11-07 13:08 | ED.ADGEN ---
Past History Past Medical History: Anxiety, Depression, Diabetes, GERD, High Cholesterol, Hypertension, Hypothyroid, TIA Past Surgical History: Cholecystectomy, Tonsillectomy, Other Smoking: Non-smoker Alcohol Use: None Drug Use: None Adult General Chief Complaint Chief Complaint Migraine-like headache HPI HPI Patient is a 72-year-old female with history of diabetes, chronic migraine headaches, TIA presents with persistent migraine-like headache for the past 4 days. Headache is located over the left retrobulbar region described as throbbing associated with light sensitivity, sound sensitivity and nausea. Headache was gradual onset is not the worst the patient's life. Patient is compliant with Topamax and Excedrin Migraine but does report limited relief. Denies fever, neck pain, stiffness, focal extremity weakness or loss of sensation. No recent illnesses, change medications missed medications. No other acute symptoms or complaints. [] Review of Systems Review of Systems Review symptoms as per history of present illness. All other review symptoms are negative. [] All other systems were reviewed and found to be within normal limits, except as documented in this note. Current Medications Current Medications Current Medications Medications (Trade) Dose Ordered Sig/Maggie Start Time Stop Time Status Last Admin Dose Admin Dexamethasone Sodium Phosphate (Decadron) 10 mg 1X ONCE 11/07/18 12:30 11/07/18 12:36 DC 11/07/18 12:50 10 MG Metoclopramide HCl (Reglan Vial) 10 mg 1X ONCE 11/07/18 12:30 11/07/18 12:36 DC 11/07/18 12:50 10 MG Prochlorperazine Edisylate (Compazine) 10 mg 1X ONCE 11/07/18 12:30 11/07/18 12:36 DC 11/07/18 12:50 10 MG Sodium Chloride 1,000 ml @ 1,000 mls/hr 1X ONCE 11/07/18 12:30 11/07/18 13:29 11/07/18 12:50 1,000 MLS/HR Allergies Allergies Allergies Coded Allergies Type Severity Reaction Last Updated Verified Sulfa (Sulfonamide Antibiotics) Allergy Intermediate RASH 04/10/18 Yes aripiprazole Allergy Intermediate RASH 04/10/18 Yes doxycycline Allergy Intermediate N/V RASH 04/10/18 Yes pseudoephedrine Allergy Intermediate hyperactive 04/10/18 Yes triprolidine Allergy Intermediate hyperactive 6/2/18 Yes Physical Exam Physical Exam Constitutional: Well developed, well nourished, no acute distress, non-toxic appearance. [] HENT: Normocephalic, atraumatic, bilateral external ears normal, oropharynx moist,, nose normal. [] Eyes: PERRLA, EOMI, conjunctiva normal. [] Neck: Normal range of motion. [] Cardiovascular:Heart rate regular and rhythm. [] Lungs & Thorax: Bilateral breath sounds clear. [] Abdomen: Bowel sounds normal. [] Skin: Warm, dry. [] Back: No tenderness. [] Extremities: No tenderness. [] Neurologic: Alert and oriented X 3, normal motor function, normal sensory function, no focal deficits noted. [] Psychologic: Affect normal, judgement normal, mood normal. [] Current Patient Data Vital Signs Vital Signs Date Time Temp Pulse Resp B/P (MAP) Pulse Ox O2 Delivery O2 Flow Rate FiO2 11/07/18 12:17 67 18 97 Room Air EKG EKG [] Radiology/Procedures Radiology/Procedures [] Course & Med Decision Making Course & Med Decision Making Pertinent Labs and Imaging studies reviewed. (See chart for details) [Patient reports typical migraine-like symptoms. no focal neurologic deficits. Patient noted to be hypertensive likely secondary from pain. Blood pressure did improvement with migraine cocktail.patient resting comfortably.] Final Impression Final Impression [1. Migraine headache] Dragandrea Disclaimer Dragon Disclaimer This electronic medical record was generated, in whole or in part, using a voice recognition dictation system. JOSE LUIS TADEO DO Nov 07, 2018 13:08
[2018-11-07] MEDS ORDERED: HYDR-3165 PO (13:10)
[2018-11-07 13:22] VITALS: BP 144/79
[2018-11-07] MEDS ORDERED: ONDA8TAB9 PO (21:37)
== END 2018-11-07 13:50 | disposition home or self-care (01) ==
LOC: ER 12:17
DX: G43.909 Migraine, unspecified, not intractable, without status migrainosus (principal); F41.9 Anxiety disorder, unspecified; F32.9 Major depressive disorder, single episode, unspecified; E11.9 Type 2 diabetes mellitus without complications; K21.9 Gastro-esophageal reflux disease without esophagitis; E78.00 Pure hypercholesterolemia, unspecified; I10 Essential (primary) hypertension; E03.9 Hypothyroidism, unspecified; Z86.73 Personal history of transient ischemic attack (TIA), and cerebral infarction without residual deficits; Z88.2 Allergy status to sulfonamides; Z88.1 Allergy status to other antibiotic agents; Z88.8 Allergy status to other drugs, medicaments and biological substances
CPT/HCPCS: 96374; 96375; 99284; J0780; J1100; J2765; J3010; J7030

== ENCOUNTER 2018-11-07 18:49 | Emergency (ER) | payer MEDICARE, BC ==
[~2018-11-07] VITALS: Ht 160 cm; Wt 96.6 kg
--- NOTE | 2018-11-07 18:55 | ED.ADGEN ---
Past History Past Medical History: Anxiety, Depression, Diabetes, GERD, High Cholesterol, Hypertension, Hypothyroid, Migraines, TIA, Other Past Surgical History: Cholecystectomy, Tonsillectomy, Other Smoking: Non-smoker Alcohol Use: None Drug Use: None Adult General Chief Complaint Chief Complaint ".. I was here earlier... I still got the headache... I get migraines... and some times I have trouble getting rid .. of them ... I normally see Dr. Bush... and Dr. Neal.. for my migraines... I some times have headache for up three days... " HPI HPI Patient is a 72 year old female who presents with exacerbation of migraine headache. Pain seems to start at base of posterior scalp and radiates up over top head and scalp. Pt. denies any trauma, fever, chills, travel or specific ill contacts. Patient seen earlier today in emergency department but still complaining of headache, light sensitivity and nausea. Patient does have past history of TIAs, anxiety, diabetes, GERD, elevated cholesterol, hypothyroid, depression, and recurrent migraine headaches. Patient has taken home meds without complete relief headache. Discussed options of treatment with patient. Have elected to complete CT because of persistence of her headache. Patient denies any neurological deficits from previous visit or from her baseline. Patient does walk with a limp due to her previous comminuted left ankle fracture and does wear a brace. Review of Systems Review of Systems Constitutional: Denies fever or chills [] Eyes: Denies change in visual acuity, redness, or eye pain [] HENT: Denies nasal congestion or sore throat []Photophobia Respiratory: Denies cough or shortness of breath [] Cardiovascular: No additional information not addressed in HPI [] GI: Denies abdominal pain, vomiting, bloody stools or diarrhea [] Complaints of nausea. : Denies dysuria or hematuria [] Musculoskeletal: Denies back pain or joint pain [] Integument: Denies rash or skin lesions [] Neurologic: Complaints of headache, denies focal weakness or sensory changes [ ] Endocrine: Denies polyuria or polydipsia [] All other systems were reviewed and found to be within normal limits, except as documented in this note. Family History Family History Noncontributory Current Medications Current Medications Current Medications Medications (Trade) Dose Ordered Sig/Maggie Start Time Stop Time Status Last Admin Dose Admin Diphenhydramine HCl (Benadryl) 50 mg 1X ONCE 11/07/18 19:30 11/07/18 19:31 DC 11/07/18 19:38 50 MG Ketorolac Tromethamine (Toradol 30mg Vial) 30 mg 1X ONCE 11/07/18 21:15 11/07/18 21:16 DC 11/07/18 21:37 30 MG Lactated Ringer's 1,000 ml @ 1,000 mls/hr Q1H 11/07/18 18:59 11/07/18 19:58 DC 11/07/18 19:21 1,000 MLS/HR Lorazepam (Ativan) 1 mg 1X ONCE 11/07/18 21:30 11/07/18 21:43 DC 11/07/18 21:37 1 MG Ondansetron HCl (Zofran) 8 mg 1X ONCE 11/07/18 21:45 11/07/18 21:46 DC 11/07/18 21:46 8 MG Orphenadrine Citrate (Norflex) 60 mg 1X ONCE 11/07/18 21:15 11/07/18 21:16 DC 11/07/18 21:36 60 MG Oxycodone/ Acetaminophen (Percocet 5/325) 2 tab 1X ONCE 11/07/18 20:00 11/07/18 20:01 DC 11/07/18 20:30 2 TAB Prochlorperazine Edisylate (Compazine) 10 mg 1X ONCE 11/07/18 19:30 11/07/18 19:31 DC 11/07/18 19:38 10 MG Sodium Chloride 50 ml @ As Directed STK-MED ONCE 11/07/18 19:35 11/07/18 19:36 DC Valproic Acid (Depacon) 500 mg STK-MED ONCE 11/07/18 19:35 11/07/18 19:37 DC Valproic Acid 500 mg/Sodium Chloride 55 ml @ 55 mls/hr Q12HR 11/07/18 20:00 11/08/18 02:26 DC 11/07/18 19:39 55 MLS/HR Allergies Allergies Allergies Coded Allergies Type Severity Reaction Last Updated Verified Sulfa (Sulfonamide Antibiotics) Allergy Intermediate RASH 04/10/18 Yes aripiprazole Allergy Intermediate RASH 04/10/18 Yes doxycycline Allergy Intermediate N/V RASH 04/10/18 Yes pseudoephedrine Allergy Intermediate hyperactive 04/10/18 Yes triprolidine Allergy Intermediate hyperactive 04/10/18 Yes Physical Exam Physical Exam Constitutional: , no acute distress, non-toxic appearance. [] HENT: Normocephalic, atraumatic, bilateral external ears normal, oropharynx moist, no oral exudates, nose normal. [] Eyes: PERRLA, EOMI, conjunctiva normal, no discharge. [] Fundus benign- chronic changes. Neck: Normal range of motion, no tenderness, supple, no stridor. [] Cardiovascular:Heart rate regular rhythm, no murmur [] PMI to Lt. Lungs & Thorax: Bilateral breath sounds clear to auscultation [] Abdomen: Bowel sounds normal, soft, no tenderness, no masses, no pulsatile masses. [] Obese. Old surgery scars. Skin: Warm, dry, no erythema, no rash. [] Back: No tenderness, no CVA tenderness. [] Extremities: No tenderness, no cyanosis, no clubbing, ROM intact, no edema. [] Ankle brace Lt. ankle. The DTRs are +2 at patella and brachial. Mechanic'S Assistant equal. Neurologic: Alert and oriented X 3, normal motor function, normal sensory function, no focal deficits noted. [] Psychologic: Affect anxious, judgement normal, mood normal. [] Current Patient Data Vital Signs Vital Signs Date Time Temp Pulse Resp B/P (MAP) Pulse Ox O2 Delivery O2 Flow Rate FiO2 11/07/18 22:39 69 24 138/91 (107) 92 Nasal Cannula 3.0 11/07/18 19:11 98.6 Lab Results Laboratory Tests Test 11/07/18 19:15 11/07/18 19:18 White Blood Count 6.2 x10^3/uL (4.0-11.0) Red Blood Count 4.16 x10^6/uL (3.50-5.40) Hemoglobin 12.3 g/dL (12.0-15.5) Hematocrit 37.7 % (36.0-47.0) Mean Corpuscular Volume 91 fL (79-100) Mean Corpuscular Hemoglobin 30 pg (25-35) Mean Corpuscular Hemoglobin Concent 33 g/dL (31-37) Red Cell Distribution Width 13.6 % (11.5-14.5) Platelet Count 345 x10^3/uL (140-400) Neutrophils (%) (Auto) 88 % (31-73) H Lymphocytes (%) (Auto) 12 % (24-48) L Monocytes (%) (Auto) 1 % (0-9) Eosinophils (%) (Auto) 0 % (0-3) Basophils (%) (Auto) 0 % (0-3) Neutrophils # (Auto) 5.4 x10^3uL (1.8-7.7) Lymphocytes # (Auto) 0.7 x10^3/uL (1.0-4.8) L Monocytes # (Auto) 0.0 x10^3/uL (0.0-1.1) Eosinophils # (Auto) 0.0 x10^3/uL (0.0-0.7) Basophils # (Auto) 0.0 x10^3/uL (0.0-0.2) Erythrocyte Sedimentation Rate 23 (0-25) Prothrombin Time 10.3 SEC (9.4-11.4) Prothrombin Time INR 1.0 (0.9-1.1) PTT 29 SEC (23-33) Sodium Level 138 mmol/L (136-145) Potassium Level 4.6 mmol/L (3.5-5.1) Chloride Level 105 mmol/L (98-107) Carbon Dioxide Level 20 mmol/L (21-32) L Anion Gap 13 (6-14) Blood Urea Nitrogen 19 mg/dL (7-20) Creatinine 1.3 mg/dL (0.6-1.0) H Estimated GFR (Cockcroft-Gault) 40.5 Glucose Level 279 mg/dL (70-99) H Calcium Level 8.7 mg/dL (8.5-10.1) Magnesium Level 1.6 mg/dL (1.8-2.4) L Total Bilirubin 0.2 mg/dL (0.2-1.0) Direct Bilirubin < 0.1 mg/dL (0.0-0.2) Aspartate Amino Transferase (AST) 23 U/L (15-37) Alanine Aminotransferase (ALT) 18 U/L (14-59) Alkaline Phosphatase 107 U/L (46-116) Creatine Kinase 78 U/L (26-192) Troponin I Quantitative < 0.017 ng/mL (0-0.055) UM-Vpz-X-Type Natriuretic Peptide 151 pg/mL (0-124) H Total Protein 7.0 g/dL (6.4-8.2) Albumin 3.7 g/dL (3.4-5.0) Lipase 220 U/L (73-393) Urine Collection Type Unknown Urine Color Yellow Urine Clarity Clear Urine pH 6.0 Urine Specific [place] <=1.005 Urine Protein Neg (NEG-TRACE) Urine Glucose (UA) 500 mg/dL (NEG) Urine Ketones (Stick) Neg mg/dL (NEG) Urine Blood Neg (NEG) Urine Nitrite Neg (NEG) Urine Bilirubin Neg (NEG) Urine Urobilinogen Dipstick 0.2 mg/dL (0.2 mg/dL) Urine Leukocyte Esterase Neg (NEG) Urine RBC Occ /HPF (0-2) Urine WBC 1-4 /HPF (0-4) Urine Squamous Epithelial Cells Mod /LPF Urine Bacteria 0 /HPF (0-FEW) Urine Opiates Screen Pos (NEG) Urine Methadone Screen Neg (NEG) Urine Barbiturates Neg (NEG) Urine Phencyclidine Screen Neg (NEG) Urine Amphetamine/Methamphetamine Neg (NEG) Urine Benzodiazepines Screen Neg (NEG) Urine Cocaine Screen Neg (NEG) Urine Cannabinoids Screen Neg (NEG) Urine Ethyl Alcohol Neg (NEG) EKG EKG My interpretation EKG shows a sinus rhythm at 78 bpm. There is some left axis deviation. There is some mild thoracic block. Nonspecific anterior septal changes. No findings acute STEMI with contralateral changes. There is some baseline artifact from her movement.[] Radiology/Procedures Radiology/Procedures My interpretation of CT of head shows no shift, mass, edema, bleed, or fracture. See formal report when available.[] Course & Med Decision Making Course & Med Decision Making Pertinent Labs and Imaging studies reviewed. (See chart for details) Patient declines spinal tap this time. Patient exhibits UCAR capacity and aware of risks and benefits. Pt. also declines admission at this time. Patient resumed migraine meds as previous directed. Patient follow-up primary care. Patient follow-up with Dr. Neal. Patient return if any concerns. [] Final Impression Final Impression 1. Migraine Headache[] 2. Hypertension 3. DM - 279 4. Elevated Creat. 1.3 Dragon Disclaimer Dragon Disclaimer This electronic medical record was generated, in whole or in part, using a voice recognition dictation system. Discharge Summary Visit Information Final Diagnosis Problems Medical Problems: (1) Migraine Status: Acute Brief Hospital Course Allergies Allergies Coded Allergies Type Severity Reaction Last Updated Verified Sulfa (Sulfonamide Antibiotics) Allergy Intermediate RASH 04/10/18 Yes aripiprazole Allergy Intermediate RASH 04/10/18 Yes doxycycline Allergy Intermediate N/V RASH 04/10/18 Yes pseudoephedrine Allergy Intermediate hyperactive 04/10/18 Yes triprolidine Allergy Intermediate hyperactive 04/10/18 Yes Vital Signs Vital Signs Date Time Temp Pulse Resp B/P (MAP) Pulse Ox O2 Delivery O2 Flow Rate FiO2 11/07/18 22:39 69 24 138/91 (107) 92 Nasal Cannula 3.0 11/07/18 19:11 98.6 Lab Results Laboratory Tests Test 11/07/18 19:15 11/07/18 19:18 White Blood Count 6.2 x10^3/uL (4.0-11.0) Red Blood Count 4.16 x10^6/uL (3.50-5.40) Hemoglobin 12.3 g/dL (12.0-15.5) Hematocrit 37.7 % (36.0-47.0) Mean Corpuscular Volume 91 fL (79-100) Mean Corpuscular Hemoglobin 30 pg (25-35) Mean Corpuscular Hemoglobin Concent 33 g/dL (31-37) Red Cell Distribution Width 13.6 % (11.5-14.5) Platelet Count 345 x10^3/uL (140-400) Neutrophils (%) (Auto) 88 % (31-73) Lymphocytes (%) (Auto) 12 % (24-48) Monocytes (%) (Auto) 1 % (0-9) Eosinophils (%) (Auto) 0 % (0-3) Basophils (%) (Auto) 0 % (0-3) Neutrophils # (Auto) 5.4 x10^3uL (1.8-7.7) Lymphocytes # (Auto) 0.7 x10^3/uL (1.0-4.8) Monocytes # (Auto) 0.0 x10^3/uL (0.0-1.1) Eosinophils # (Auto) 0.0 x10^3/uL (0.0-0.7) Basophils # (Auto) 0.0 x10^3/uL (0.0-0.2) Erythrocyte Sedimentation Rate 23 (0-25) Prothrombin Time 10.3 SEC (9.4-11.4) Prothromb Time International Ratio 1.0 (0.9-1.1) Activated Partial Thromboplast Time 29 SEC (23-33) Sodium Level 138 mmol/L (136-145) Potassium Level 4.6 mmol/L (3.5-5.1) Chloride Level 105 mmol/L (98-107) Carbon Dioxide Level 20 mmol/L (21-32) Anion Gap 13 (6-14) Blood Urea Nitrogen 19 mg/dL (7-20) Creatinine 1.3 mg/dL (0.6-1.0) Estimated GFR (Cockcroft-Gault) 40.5 Glucose Level 279 mg/dL (70-99) Calcium Level 8.7 mg/dL (8.5-10.1) Magnesium Level 1.6 mg/dL (1.8-2.4) Total Bilirubin 0.2 mg/dL (0.2-1.0) Direct Bilirubin < 0.1 mg/dL (0.0-0.2) Aspartate Amino Transf (AST/SGOT) 23 U/L (15-37) Alanine Aminotransferase (ALT/SGPT) 18 U/L (14-59) Alkaline Phosphatase 107 U/L (46-116) Creatine Kinase 78 U/L (26-192) Troponin I Quantitative < 0.017 ng/mL (0-0.055) DN-Qhb-I-Type Natriuretic Peptide 151 pg/mL (0-124) Total Protein 7.0 g/dL (6.4-8.2) Albumin 3.7 g/dL (3.4-5.0) Lipase 220 U/L (73-393) Urine Collection Type Unknown Urine Color Yellow Urine Clarity Clear Urine pH 6.0 Urine Specific [place] <=1.005 Urine Protein Neg (NEG-TRACE) Urine Glucose (UA) 500 mg/dL (NEG) Urine Ketones (Stick) Neg mg/dL (NEG) Urine Blood Neg (NEG) Urine Nitrite Neg (NEG) Urine Bilirubin Neg (NEG) Urine Urobilinogen Dipstick 0.2 mg/dL (0.2 mg/dL) Urine Leukocyte Esterase Neg (NEG) Urine RBC Occ /HPF (0-2) Urine WBC 1-4 /HPF (0-4) Urine Squamous Epithelial Cells Mod /LPF Urine Bacteria 0 /HPF (0-FEW) Urine Opiates Screen Pos (NEG) Urine Methadone Screen Neg (NEG) Urine Barbiturates Neg (NEG) Urine Phencyclidine Screen Neg (NEG) Urine Amphetamine/Methamphetamine Neg (NEG) Urine Benzodiazepines Screen Neg (NEG) Urine Cocaine Screen Neg (NEG) Urine Cannabinoids Screen Neg (NEG) Urine Ethyl Alcohol Neg (NEG) Brief Hospital Course Ms. Cook is a 72 old female who presented with migraine headache. Discharge Information Condition at Discharge: Improved, Comment Disposition/Orders: D/C to Home Dischare Medications Current Medications Lactated Ringer's 1,000 ml @ 1,000 mls/hr Q1H IV Last administered on at 19:21; Admin Dose 1,000 MLS/HR; Start 11/07/18 at 18:59; Stop 11/07/18 at 19:58; Status DC Valproic Acid 500 mg/Sodium Chloride 55 ml @ 55 mls/hr Q12HR IV Last administered on 11/07/18at 19:39; Admin Dose 55 MLS/HR; Start 11/07/18 at 20:00 ; Stop 11/08/18 at 02:26; Status DC Prochlorperazine Edisylate (Compazine) 10 mg 1X ONCE IV Last administered on 11/07/18at 19:38; Admin Dose 10 MG; Start 11/07/18 at 19:30; Stop 11/07/18 at 19:31; Status DC Diphenhydramine HCl (Benadryl) 25 mg 1X ONCE IVP ; Start 11/07/18 at 19:30; Stop 11/07/18 at 19:31; Status DC Diphenhydramine HCl (Benadryl) 50 mg 1X ONCE IVP Last administered on at 19:38; Admin Dose 50 MG; Start 11/07/18 at 19:30; Stop 11/07/18 at 19:31 ; Status DC Sodium Chloride 50 ml @ As Directed STK-MED ONCE .ROUTE ; Start 11/07/18 at 19: 35; Stop 11/07/18 at 19:36; Status DC Valproic Acid (Depacon) 500 mg STK-MED ONCE IV ; Start 11/07/18 at 19:35; Stop 11/07/18 at 19:37; Status DC Oxycodone/ Acetaminophen (Percocet 5/325) 2 tab 1X ONCE PO Last administered on 11/07/18at 20:30; Admin Dose 2 TAB; Start 11/07/18 at 20:00; Stop 11/07/18 at 20:01; Status DC Ketorolac Tromethamine (Toradol 30mg Vial) 30 mg 1X ONCE IV Last administered on 11/07/18at 21:37; Admin Dose 30 MG; Start 11/07/18 at 21:15; Stop 11/07/18 at 21:16; Status DC Orphenadrine Citrate (Norflex) 60 mg 1X ONCE IV Last administered on at 21:36; Admin Dose 60 MG; Start 11/07/18 at 21:15; Stop 11/07/18 at 21:16 ; Status DC Lorazepam (Ativan) 1 mg 1X ONCE IV Last administered on 11/07/18at 21:37; Admin Dose 1 MG; Start 11/07/18 at 21:30; Stop 11/07/18 at 21:43; Status DC Ondansetron HCl (Zofran) 8 mg 1X ONCE IV Last administered on 11/07/18at 21:46 ; Admin Dose 8 MG; Start 11/07/18 at 21:45; Stop 11/07/18 at 21:46; Status DC Active Scripts Active Zofran (Ondansetron Hcl) 8 Mg Tablet 8 Mg PO QIDPRN [place] 5-325 Tablet (Hydrocodone Bit/Acetaminophen) 1 Each Tablet 1 Tab PO BID Ultram (Tramadol HCl) 50 Mg Tablet 50 Mg PO PRN Q6HRS PRN Cozaar (Losartan Potassium) 50 Mg Tablet 50 Mg PO DAILY 30 Days Reported Carvedilol (Carvedilol) 6.25 Mg Tablet 1 Tab PO BID Gabapentin 400 Mg Capsule 400 Mg PO Levothyroxine Sodium 88 Mcg Tablet 1 Tab PO DAILY Omeprazole 40 Mg Capsule.dr 1 Cap PO DAILY Clonazepam 0.5 Mg Tablet 0.5 Mg PO PRN DAILY PRN [place] Liquid (Immune Globulin,Gamma(Igg)) 10 Ml Vial 10 Ml IV QMONTH Escitalopram Oxalate 10 Mg Tablet 30 Mg PO DAILY Probiotic (L.acidoph & Paracasei,B.lactis) 1 Each Capsule 1 Each PO BID LAST DOSE GIVEN: DATE: TODAY TIME: AM NEXT DOSE DUE: DATE: TODAY TIME: PM Aspirin 81 Mg Tab.chew 81 Mg PO DAILY LAST DOSE GIVEN: DATE: TIME: AM NEXT DOSE DUE: DATE: ORR TIME: AM Levemir (Insulin Detemir) 100 Unit/1 Ml Vial 14 Unit SQ HS LAST DOSE GIVEN: DATE: YESTER TIME: AT BEDTIME NEXT DOSE DUE: DATE: TODAY TIME:AT BEDTIME Miralax (Polyethylene Glycol 3350) 17 Gm Powd.pack 1 Packet PO QHS LAST DOSE GIVEN: NOT GIVEN THIS ADMISSION NEXT DOSE DUE: DATE: TOMORR TIME: AM Multivitamins (Multivitamin) 1 Each Tablet 1 Tab PO DAILY LAST DOSE GIVEN: DATE: TIME: AM NEXT DOSE DUE: DATE: TIME: AM Fluticasone Propionate Nasal [place] (Fluticasone Propionate) 16 Gm [place].susp 2 Sprays NS BID LAST DOSE GIVEN: DATE: TIME: AM NEXT DOSE DUE: DATE: TODAY TIME: PM DATE: TODAY TIME: PM Vitamin D (Cholecalciferol (Vitamin D3)) 2,000 Unit Capsule 5,000 Unit PO DAILY LAST DOSE GIVEN: DATE: TIME: AM NEXT DOSE DUE: DATE: TIME: AM DATE: ORR TIME: AM Klor-Con 10 (Potassium Chloride) 10 Meq Tablet.er 10 Meq PO DAILY LAST DOSE GIVEN: DATE: TIME: AM NEXT DOSE DUE: DATE: TIME: AM DATE: ORR TIME: AM Clonazepam Odt (Clonazepam) 1 Mg Tab.rapdis 0.5 Mg PO QHS LAST DOSE GIVEN: DATE: YESTER TIME:AT BEDTIME NEXT DOSE DUE: DATE: TODAY TIME: AT BEDTIME Atorvastatin Calcium 20 Mg Tablet 20 Mg PO QHS LAST DOSE GIVEN: DATE: TIME: AT BEDTIME NEXT DOSE DUE: DATE: TODAY TIME: AT BEDTIME DATE: TODAY TIME: AT BEDTIME Glimepiride 4 Mg Tablet 4 Mg PO NOON LAST DOSE GIVEN: DATE: TIME: AT 12 NOON NEXT DOSE DUE: DATE: ORR TIME: AT 12 NOON DATE: TOMORROW TIME: AT 12 NOON Mirtazapine 15 Mg Tablet 45 Mg PO HS LAST DOSE GIVEN: DATE: YESTERDAY TIME: AT BEDTIME NEXT DOSE DUE: DATE: TODAY TIME: AT BEDTIME Shan Disclaimer This chart was dictated in whole or in part using Voice Recognition software in a busy, high-work load, and often noisy Emergency Department environment. It may contain unintended and wholly unrecognized errors or omissions. NELLY DYKES MD Nov 07, 2018 18:55
[2018-11-07] MEDS ORDERED: IV RINGERS SOLUTION,LACTATED 1,000 ML IV SCH (18:59)
[2018-11-07] MEDS ORDERED: PROCHLORPERAZINE 10 MG/2 ML VIAL. IV ONE (19:30)
[2018-11-07] MEDS ORDERED: diphenhydrAMINE 50 MG/ML VIAL IVP ONE ×2 (19:30)
[2018-11-07] MEDS ORDERED: IV NORMAL SALINE 50ML 50 ML ONE (19:35)
[2018-11-07] MEDS ORDERED: VALPROATE SODIUM 500 MG/5 ML VIAL IV ONE (19:35)
[2018-11-07 19:50] LABS: BASO % 0 % (0-3); EOS % 0 % (0-3); HEMATOCRIT 37.7 % (36.0-47.0); HEMOGLOBIN 12.3 g/dL (12.0-15.5); LYMPH # 0.7 x10^3/uL (1.0-4.8); LYMPH % 12 % (24-48); MEAN CORPUSCULAR HEMOGLOBIN 30 pg (25-35); MEAN CORPUSCULAR HGB CONC 33 g/dL (31-37); MEAN CORPUSCULAR VOLUME 91 fL (79-100); MONO % 1 % (0-9); NEUT # 5.4 x10^3uL (1.8-7.7); NEUT % 88 % (31-73); PLATELET COUNT 345 x10^3/uL (140-400); RED BLOOD COUNT 4.16 x10^6/uL (3.50-5.40); RED CELL DISTRIBUTION WIDTH 13.6 % (11.5-14.5); WHITE BLOOD COUNT 6.2 x10^3/uL (4.0-11.0)
[2018-11-07 19:59] LABS: BARBITURATES NEG (NEG); BENZODIAZEPINES NEG (NEG); CANNABINOIDS NEG (NEG); COCAINE NEG (NEG); METHADONE NEG (NEG); OPIATES POS (NEG); PHENCYCLIDINE NEG (NEG)
[2018-11-07 20:00] LABS: AMPHETAMINE/METHAMPHETAMINE NEG (NEG)
[2018-11-07] MEDS ORDERED: VALPROATE SODIUM 500 MG in IV NORMAL SALINE 50ML 50 ML IV SCH (20:00)
[2018-11-07] MEDS ORDERED: oxyCODONE/APAP 5/325 1 TAB TABLET PO ONE (20:00)
[2018-11-07 20:03] LABS: BILIRUBIN,URINE NEG (NEG); CLARITY,URINE CLEAR; COLOR,URINE YELLOW; GLUCOSE,URINE 500 mg/dL (NEG); NITRITE,URINE NEG (NEG); UROBILINOGEN,URINE 0.2 mg/dL (0.2 mg/dL)
[2018-11-07 20:04] LABS: ALBUMIN 3.7 g/dL (3.4-5.0); ALK PHOS 107 U/L (46-116); ALT (SGPT) 18 U/L (14-59); ANION GAP 13 (6-14); AST (SGOT) 23 U/L (15-37); BLOOD UREA NITROGEN 19 mg/dL (7-20); CALCIUM 8.7 mg/dL (8.5-10.1); CARBON DIOXIDE 20 mmol/L (21-32); CHLORIDE 105 mmol/L (98-107); CREATININE 1.3 mg/dL (0.6-1.0); GFR 40.5; GLUCOSE 279 mg/dL (70-99); LIPASE 220 U/L (73-393); MAGNESIUM 1.6 mg/dL (1.8-2.4); POTASSIUM 4.6 mmol/L (3.5-5.1); SODIUM 138 mmol/L (136-145); TOTAL BILIRUBIN 0.2 mg/dL (0.2-1.0)
[2018-11-07 20:05] LABS: DIRECT BILIRUBIN < 0.1 mg/dL (0.0-0.2)
[2018-11-07 20:06] LABS: BACTERIA,URINE 0 /HPF (0-FEW); RBC,URINE OCC /HPF (0-2); SQUAMOUS EPITHELIAL CELL,UR MOD /LPF
--- NOTE | 2018-11-07 20:21 | RAD ---
Examination: CT HEAD WO CONTRAST History: Headache in frontal region that radiates straight back to occipital region x 4 days, nausea, right sided weakness Comparison/Correlation: 05/29/2018 CT head without contrast Findings: Axial images of the head were obtained without contrast. Ventricles are normal size. No intracranial hemorrhage, midline shift, or mass effect. Deformity of ethmoid air cells noted. Correlate with surgical history. Impression: No acute process. Electronically signed by: José Miguel Loomis MD (11/07/2018 8:17 PM) [facility]
--- NOTE | 2018-11-07 20:45 | EKG ---
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
[2018-11-07 20:54] LABS: SEDIMENTATION RATE 23 (0-25)
[2018-11-07] MEDS ORDERED: KETOROLAC 30 MG/ML VIAL. IV ONE (21:15)
[2018-11-07] MEDS ORDERED: ORPHENADRINE CITRATE 60 MG/2 ML VIAL. IV ONE (21:15)
[2018-11-07] MEDS ORDERED: LORazepam 2 MG/ML VIAL IV ONE (21:30)
[2018-11-07] MEDS ORDERED: ONDA8TAB9 PO (21:37)
[2018-11-07] MEDS ORDERED: ONDANSETRON PF 4 MG/2 ML VIAL. IV ONE (21:45)
[2018-11-07 22:39] VITALS: BP 138/91
== END 2018-11-07 22:45 | disposition home or self-care (01) ==
LOC: ER 18:49
DX: G43.909 Migraine, unspecified, not intractable, without status migrainosus (principal); I10 Essential (primary) hypertension; E11.9 Type 2 diabetes mellitus without complications; R79.89 Other specified abnormal findings of blood chemistry; K21.9 Gastro-esophageal reflux disease without esophagitis; E78.00 Pure hypercholesterolemia, unspecified; E03.9 Hypothyroidism, unspecified; Z86.73 Personal history of transient ischemic attack (TIA), and cerebral infarction without residual deficits; Z88.2 Allergy status to sulfonamides; Z88.1 Allergy status to other antibiotic agents; Z88.8 Allergy status to other drugs, medicaments and biological substances
CPT/HCPCS: 36415; 70450; 80048; 80076; 80307; 81001; 82550; 83690; 83735; 83880; 84443; 84484; 85025; 85610; 85651; 85730; 93005; 96365; 96375; 99284; J0780; J1200; J1885; J2060; J2360; J2405; J3490; J7120

== ENCOUNTER 2018-11-14 10:44 | Inpatient (IN) | payer MEDICARE, BC ==
[~2018-11-14] VITALS: Ht 152.4 cm; Wt 96.7 kg
[~2018-11-14 10:44] MED LIST changes: +ONDA8TAB9 PO
[2018-11-14] MEDS ORDERED: ONDANSETRON PF 4 MG/2 ML VIAL. ONE (11:13)
[2018-11-14 11:59] LABS: BASO % 0 % (0-3); EOS % 0 % (0-3); HEMATOCRIT 39.6 % (36.0-47.0); LYMPH # 0.3 x10^3/uL (1.0-4.8); LYMPH % 3 % (24-48); MEAN CORPUSCULAR HEMOGLOBIN 30 pg (25-35); MEAN CORPUSCULAR HGB CONC 33 g/dL (31-37); MEAN CORPUSCULAR VOLUME 90 fL (79-100); MONO # 0.2 x10^3/uL (0.0-1.1); MONO % 2 % (0-9); NEUT # 9.4 x10^3uL (1.8-7.7); NEUT % 95 % (31-73); PLATELET COUNT 296 x10^3/uL (140-400); RED BLOOD COUNT 4.38 x10^6/uL (3.50-5.40); RED CELL DISTRIBUTION WIDTH 14.2 % (11.5-14.5); WHITE BLOOD COUNT 9.9 x10^3/uL (4.0-11.0)
[2018-11-14 12:07] LABS: ALBUMIN 3.9 g/dL (3.4-5.0); ALBUMIN/GLOBULIN RATIO 1.1 (1.0-1.7); CREATININE 1.2 mg/dL (0.6-1.0); GFR 44.4; TOTAL BILIRUBIN 0.4 mg/dL (0.2-1.0); TOTAL PROTEIN 7.6 g/dL (6.4-8.2)
--- NOTE | 2018-11-14 12:13 | EKG ---
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
--- NOTE | 2018-11-14 12:42 | PHYS DOC ---
Past History Past Medical History: Anxiety, Depression, Diabetes, GERD, High Cholesterol, Hypertension, Hypothyroid, Migraines, TIA, Other Past Surgical History: Cholecystectomy, Tonsillectomy, Other Smoking: Non-smoker Alcohol Use: None Drug Use: None Adult General Chief Complaint Chief Complaint: NAUSEA/VOMITING/DIARRHEA HPI HPI Patient is a 72 year old female with frequent emergency room visits and hospitalization brought in by EMS because of nausea and vomiting and diarrhea. Patient states since 6 PM last night she has had more than 30 episodes of diarrhea and 15-20 episodes of nonbloody vomiting promptly lower abdominal pain during episodes of diarrhea and upper abdominal pain during episodes of vomiting. Patient complaining of fever up to 99 and 100. Patient denies urinary symptoms, chest pain, shortness of breath, sick contact, recent antibiotic use or hospitalization. Patient ate a refrigerated food yesterday that was from 3 days ago. Review of Systems Review of Systems Constitutional: Reports fever reports fever Eyes: Denies change in visual acuity, redness, or eye pain [] HENT: Denies nasal congestion or sore throat [] Respiratory: Denies cough or shortness of breath [] Cardiovascular: No additional information not addressed in HPI [] GI: Reports abdominal pain, nausea, vomiting, diarrhea [] : Denies dysuria or hematuria [] Musculoskeletal: Denies back pain or joint pain [] Integument: Denies rash or skin lesions [] Neurologic: Denies headache, focal weakness or sensory changes [] Endocrine: Denies polyuria or polydipsia [] All other systems were reviewed and found to be within normal limits, except as documented in this note. Current Medications Current Medications Current Medications Medications (Trade) Dose Ordered Sig/Maggie Start Time Stop Time Status Last Admin Dose Admin Ondansetron HCl (Zofran) 4 mg STK-MED ONCE 11/14/18 11:13 11/14/18 11:15 DC Sodium Chloride 1,000 ml @ 1,000 mls/hr 1X ONCE 11/14/18 12:45 11/14/18 13:44 Allergies Allergies Allergies Coded Allergies Type Severity Reaction Last Updated Verified Sulfa (Sulfonamide Antibiotics) Allergy Intermediate RASH 04/10/18 Yes aripiprazole Allergy Intermediate RASH 04/10/18 Yes doxycycline Allergy Intermediate N/V RASH 04/10/18 Yes pseudoephedrine Allergy Intermediate hyperactive 04/10/18 Yes triprolidine Allergy Intermediate hyperactive 04/10/18 Yes Physical Exam Physical Exam Constitutional: Well developed, mild distress, non-toxic appearance temperature of 99.8. [] HENT: Normocephalic, atraumatic, oropharynx dry, no oral exudates, nose normal. [] Eyes: PERRLA, EOMI, conjunctiva normal, no discharge. [] Neck: Normal range of motion, no tenderness, supple, no stridor. [] Cardiovascular:Heart rate regular rhythm, no murmur [] Lungs & Thorax: Bilateral breath sounds clear to auscultation [] Abdomen: Bowel sounds hypoactive, soft, no tenderness, no masses, no pulsatile masses. [] Skin: Warm, dry, no erythema, no rash. [] Back: No tenderness, no CVA tenderness. [] Extremities: No tenderness, no cyanosis, no clubbing, ROM intact, bilateral lower extremity chronic edema] Neurologic: Alert and oriented X 3, normal motor function, normal sensory function, no focal deficits noted. [] Psychologic: Affect normal, judgement normal, mood normal. [] Current Patient Data Vital Signs Vital Signs Date Time Temp Pulse Resp B/P (MAP) Pulse Ox O2 Delivery O2 Flow Rate FiO2 11/14/18 12:20 95 18 154/80 (104) 94 Room Air 11/14/18 11:11 99.7 Lab Results Laboratory Tests Test 11/14/18 11:28 White Blood Count 9.9 x10^3/uL (4.0-11.0) # Red Blood Count 4.38 x10^6/uL (3.50-5.40) Hemoglobin 13.0 g/dL (12.0-15.5) Hematocrit 39.6 % (36.0-47.0) Mean Corpuscular Volume 90 fL (79-100) Mean Corpuscular Hemoglobin 30 pg (25-35) Mean Corpuscular Hemoglobin Concent 33 g/dL (31-37) Red Cell Distribution Width 14.2 % (11.5-14.5) Platelet Count 296 x10^3/uL (140-400) Neutrophils (%) (Auto) 95 % (31-73) H Lymphocytes (%) (Auto) 3 % (24-48) L Monocytes (%) (Auto) 2 % (0-9) Eosinophils (%) (Auto) 0 % (0-3) Basophils (%) (Auto) 0 % (0-3) Neutrophils # (Auto) 9.4 x10^3uL (1.8-7.7) H Lymphocytes # (Auto) 0.3 x10^3/uL (1.0-4.8) L Monocytes # (Auto) 0.2 x10^3/uL (0.0-1.1) Eosinophils # (Auto) 0.0 x10^3/uL (0.0-0.7) Basophils # (Auto) 0.0 x10^3/uL (0.0-0.2) Platelet Estimate Pending Sodium Level 142 mmol/L (136-145) Potassium Level 4.0 mmol/L (3.5-5.1) Chloride Level 105 mmol/L (98-107) Carbon Dioxide Level 23 mmol/L (21-32) Anion Gap 14 (6-14) Blood Urea Nitrogen 25 mg/dL (7-20) H Creatinine 1.2 mg/dL (0.6-1.0) H Estimated GFR (Cockcroft-Gault) 44.4 BUN/Creatinine Ratio 21 (6-20) H Glucose Level 190 mg/dL (70-99) H Lactic Acid Level 2.2 mmol/L (0.4-2.0) H Calcium Level 9.0 mg/dL (8.5-10.1) Total Bilirubin 0.4 mg/dL (0.2-1.0) Aspartate Amino Transferase (AST) 18 U/L (15-37) Alanine Aminotransferase (ALT) 16 U/L (14-59) Alkaline Phosphatase 101 U/L (46-116) Creatine Kinase 41 U/L (26-192) Troponin I Quantitative < 0.017 ng/mL (0-0.055) Total Protein 7.6 g/dL (6.4-8.2) Albumin 3.9 g/dL (3.4-5.0) Albumin/Globulin Ratio 1.1 (1.0-1.7) Lipase 166 U/L (73-393) EKG EKG EKG interpreted by me. EKG at 1106 showed sinus rhythm with multiple artifact at rate of 94, abnormal left axis deviation, poor R-wave progress in anteroseptal leads, no acute ST and T-wave abnormalities Radiology/Procedures Radiology/Procedures [] Course & Med Decision Making Course & Med Decision Making Pertinent Labs reviewed. (See chart for details) Evaluation of patient in ER showed 72-year-old female patient with multiple medical problem and frequent emergency room visits brought in by EMS because of frequent nausea and vomiting and diarrhea since last night. Patient had several episodes of diarrhea while she was in ER with dry heaves. She did not have hypotension. Patient had lactic acid of 2.2 and treated with IV fluid but antibiotic was not given because of frequent episodes of nausea and vomiting and diarrhea with concern for viral gastroenteritis.Dr Brennan accepted admission at 1244. Dragon Disclaimer Dragon Disclaimer This electronic medical record was generated, in whole or in part, using a voice recognition dictation system. Departure Departure: Impression: Primary Impression: Acute gastroenteritis Additional Impressions: Abdominal pain Low back pain Elevated lactic acid level Chronic renal insufficiency Disposition: ADMITTED INPATIENT (at 1245) Admitting Physician: Savanna Brennan (accepted admission at 1244) Condition: GUARDED Referrals: DORINA GODFREY MD (PCP) Critical Care Time Critical care time was 75 minutes exclusive of procedures. Problem Qualifiers DEANDRE GARCIA MD Nov 14, 2018 12:42
[2018-11-14] MEDS ORDERED: IV NORMAL SALINE 1,000ML 1,000 ML IV ONE (12:45)
[2018-11-14 12:58] LABS: % BANDS 6 % (0-9); % BASOS 1 % (0-3); % LYMPHS 4 % (24-48); % MONOS 1 % (0-10); % SEGS 88 % (35-66)
[2018-11-14 12:59] LABS: PLT ESTIMATE ADEQUATE (ADEQUATE); POLYCHROMASIA PRESENT; TOXIC VACUOLATION PRESENT
[2018-11-14 13:40] LABS: BILIRUBIN,URINE NEG (NEG); CLARITY,URINE CLOUDY; COLOR,URINE YELLOW; GLUCOSE,URINE NEG (NEG); NITRITE,URINE POS (NEG); UROBILINOGEN,URINE 0.2 mg/dL (0.2 mg/dL)
[2018-11-14 13:41] LABS: BACTERIA,URINE MANY /HPF (0-FEW); SQUAMOUS EPITHELIAL CELL,UR MOD /LPF; WBC,URINE >40 /HPF (0-4)
[2018-11-14 15:00] VITALS: BP 125/78
[2018-11-14] MEDS ORDERED: TOPI25TA52 PO (15:41)
[2018-11-14] MEDS ORDERED: ASCO500T2 PO (15:41)
[2018-11-14 17:38] VITALS: BP 135/72
[2018-11-14] MEDS ORDERED: ACETAMINOPHEN 500 MG TABLET PO PRN (18:15)
[2018-11-14 19:35] VITALS: BP 107/72
[2018-11-14] MEDS: IV NORMAL SALINE 1,000ML 1,000 ML IV SCH (20:10)
[2018-11-14] MEDS: FLUTICASONE 50MCG/NASAL SPRAY 16GM BOTTLE. NS SCH (20:39)
[2018-11-14] MEDS: MIRTAZAPINE 15 MG TABLET PO SCH (20:40)
[2018-11-14] MEDS: LACTOBACILLUS RHAMNOSUS GG 1 CAPSULE. PO SCH (20:40)
[2018-11-14] MEDS: ATORVASTATIN CALCIUM 20 MG TABLET PO SCH (20:40)
[2018-11-14] MEDS: CARVEDILOL 6.25 MG TABLET PO SCH (20:42)
[2018-11-14] MEDS: POLYETHYLENE GLYCOL 3350 17 GM PACKET. PO SCH (20:42)
[2018-11-14] MEDS: IV 1/2 NORMAL SALINE 1,000 ML IV SCH (20:43)
[2018-11-14] MEDS: clonazePAM 0.5 MG TABLET PO SCH (20:43)
[2018-11-14 22:35] VITALS: BP 94/42
[2018-11-15] MEDS: IV NORMAL SALINE 1,000ML 1,000 ML IV SCH ×2 (02:50→09:30)
[2018-11-15] MEDS: IV 1/2 NORMAL SALINE 1,000 ML IV SCH ×3 (03:50→23:13)
[2018-11-15] MEDS: LEVOTHYROXINE 88 MCG TABLET PO SCH (05:43)
[2018-11-15 05:44] VITALS: BP 96/54
[2018-11-15 06:25] LABS: BASO % 1 % (0-3); EOS # 0.2 x10^3/uL (0.0-0.7); EOS % 3 % (0-3); HEMOGLOBIN 11.2 g/dL (12.0-15.5); LYMPH # 1.8 x10^3/uL (1.0-4.8); LYMPH % 24 % (24-48); MEAN CORPUSCULAR HEMOGLOBIN 30 pg (25-35); MEAN CORPUSCULAR HGB CONC 33 g/dL (31-37); MEAN CORPUSCULAR VOLUME 90 fL (79-100); MONO # 0.6 x10^3/uL (0.0-1.1); MONO % 8 % (0-9); NEUT # 4.9 x10^3uL (1.8-7.7); NEUT % 65 % (31-73); PLATELET COUNT 265 x10^3/uL (140-400); RED BLOOD COUNT 3.77 x10^6/uL (3.50-5.40); WHITE BLOOD COUNT 7.5 x10^3/uL (4.0-11.0)
[2018-11-15 06:34] LABS: ALBUMIN/GLOBULIN RATIO 0.9 (1.0-1.7); CALCIUM 8.4 mg/dL (8.5-10.1); CREATININE 0.9 mg/dL (0.6-1.0); GFR 61.9; POTASSIUM 3.4 mmol/L (3.5-5.1); TOTAL BILIRUBIN 0.3 mg/dL (0.2-1.0); TOTAL PROTEIN 6.2 g/dL (6.4-8.2)
[2018-11-15] MEDS: PANTOPRAZOLE 40 MG TABLET. PO SCH (07:34)
[2018-11-15] MEDS: ASPIRIN 81 MG TAB.CHEW PO SCH (08:00)
[2018-11-15] MEDS: CHOLECALCIFEROL (VITAMIN D3) 1,000 UNIT TABLET PO SCH (09:00)
[2018-11-15] MEDS: LOSARTAN 50 MG TABLET. PO SCH (09:00)
[2018-11-15] MEDS: CARVEDILOL 6.25 MG TABLET PO SCH ×2 (09:00→21:26)
[2018-11-15] MEDS: MULTIVITAMIN with MINERAL TABLET. PO SCH (09:00)
[2018-11-15] MEDS: CITALOPRAM 20 MG TABLET. PO SCH (10:05)
[2018-11-15] MEDS: POTASSIUM CHLORIDE 10 MEQ TABLET.ER. PO SCH (10:09)
[2018-11-15] MEDS: LACTOBACILLUS RHAMNOSUS GG 1 CAPSULE. PO SCH ×2 (10:09→21:25)
[2018-11-15] MEDS: FLUTICASONE 50MCG/NASAL SPRAY 16GM BOTTLE. NS SCH ×2 (10:12→21:23)
[2018-11-15 11:55] VITALS: BP 140/61
[2018-11-15] MEDS: GLIMEPIRIDE 2 MG TABLET PO SCH (12:00)
[2018-11-15 15:50] VITALS: BP 101/60
--- NOTE | 2018-11-15 16:58 | HP ---
ADMIT DATE: 11/14/2018 HISTORY OF PRESENT ILLNESS: The patient is a 72-year-old female patient, who came to the Emergency Room complaining of recurrent bouts of nausea, vomiting and diarrhea that started around 6:00 p.m. the night before and has had more than 30 episodes of diarrhea and 15-20 episodes of nonbloody vomiting with associated lower abdominal pain during episode of diarrhea and upper abdominal pain. During the episode of vomiting, she also complained of mild low grade fever up to 100. She denied any dysuria, frequency or hematuria. Denied any sick contact, recent antibiotic use or hospitalization. She ate refrigerator food the day before admission that was from 3 days ago. She was extensively investigated and was found to have acute kidney injury. Her BUN was high at 25 and creatinine 1.2 and was admitted for rehydration to investigate the cause of her diarrhea further. PAST MEDICAL HISTORY: Significant for coronary artery disease, hypertension, hyperlipidemia, migraine headache, chronic constipation, diverticulosis, gastroesophageal reflux disease. She has hiatal hernia, diabetic gastroparesis, anemia and depression. She is status post ECT (electroconvulsive therapy). She also has osteoarthritis and uses a cane that she uses for walking. She has chronic sinusitis, Graves' disease and Graves' ophthalmopathy. PAST SURGICAL HISTORY: Significant for cholecystectomy, tonsillectomy, hiatal hernia, and repair of bilateral orbital decompression for Graves' ophthalmopathy. She has blepharoplasty on the right, heart catheterization in December 2008. She also has left ankle fracture status post open reduction and internal fixation, incontinence surgery and multiple GI endoscopies. FAMILY HISTORY: Significant for cancer in her mother. SOCIAL HISTORY: She lives alone. She has a daughter and granddaughter who live nearby. She does not smoke, drink alcohol or do recreational drugs. REVIEW OF SYSTEMS: As per history of present illness. ALLERGIES: SHE IS ALLERGIC TO SULFA, ARIPIPRAZOLE, DOXYCYCLINE, PSEUDOEPHEDRINE AND TRIPROLIDINE. MEDICATIONS: She is currently on following medications: She is on atorvastatin calcium 20 mg at bedtime, carvedilol 6.25 mg twice a day, losartan potassium 50 mg daily, aspirin 81 mg once a day, clonazepam 0.5 mg at bedtime, gabapentin 400 mg at bedtime, topiramate 25 mg twice a day, escitalopram oxalate 30 mg p.o. daily, mirtazapine 45 mg at bedtime, potassium chloride 10 mEq daily, Flonase 2 sprays to each nostril once a day, MiraLax 17 grams daily at bedtime, omeprazole 40 mg daily, lactobacillus acidophilus 1 twice a day, glimepiride 4 mg at noon. She is on levothyroxine sodium 88 mcg once a day and gammagard liquid 10 mL IV once a month. She is on ascorbic acid 500 mg daily, cholecalciferol 5000 international units once a day, multivitamin 1 tablet once a day. PHYSICAL EXAMINATION: GENERAL: On arrival to the Emergency Room, the patient looked well and was clearly in no apparent respiratory distress. No pallor, jaundice, cyanosis, or thyromegaly. No jugular venous distension. No limb edema. VITAL SIGNS: Her heart rate was 96, blood pressure 154/80, temperature was 99.7, respiratory rate was 18 and oxygen saturation was 94%. HEAD, EYES, EARS, NOSE AND THROAT: Showed normocephalic, atraumatic. NECK: Supple. HEART: Showed normal first and second sounds. No gallop, rub or murmur. CHEST: Clear to auscultation. No crepitation or rhonchi. ABDOMEN: Distended, soft, nontender. NEUROLOGIC: She is awake, alert, responding appropriately. All cranial nerves intact. EXTREMITIES: She moves extremities without difficulty. She ambulates with a cane. LABORATORY DATA: On arrival showed serum sodium 142, potassium 4, chloride 105, bicarbonate 23, anion gap of 14, BUN 25, creatinine 1.2, estimated GFR was 44 mL per minute. Her glucose was 190, calcium was 9. Her lactic acid was 2.2, calcium was 9. Total bilirubin, AST, ALT, alkaline phosphatase were normal. Total protein was 7.6, albumin 3.9. Serum lipase 166. Her prothrombin time was 9.9, INR of 1. Urinalysis showed the urine was yellow, cloudy with a pH of 7, specific gravity of 1.020. The urine was negative for protein, glucose, ketones; blood positive for nitrite. There was also a small amount of leukocyte esterase. There are 1-2 rbc's, more than 40 wbc's, and many bacteria. ASSESSMENT AND PLAN: She was admitted. Continued with IV fluid in the form of normal saline at 75 mL per hour. Continued on all her other medication. We will send stool for culture and sensitivity, stool for C. diff. She has had multiple courses of antibiotic for chronic sinusitis, although she has not had any antibiotic for months. She will probably also need antibiotic for her urinary tract infection. YOLANDA MILLER MD DR: LIGIA/jcarlos JOB#: [id number] / [id number]
[2018-11-15 19:54] VITALS: BP 122/79
[2018-11-15] MEDS: POLYETHYLENE GLYCOL 3350 17 GM PACKET. PO SCH (21:00)
[2018-11-15] MEDS: ATORVASTATIN CALCIUM 20 MG TABLET PO SCH (21:24)
[2018-11-15] MEDS: clonazePAM 0.5 MG TABLET PO SCH (21:25)
[2018-11-15] MEDS: MIRTAZAPINE 15 MG TABLET PO SCH (21:25)
[2018-11-15 22:58] VITALS: BP 134/72
--- NOTE | 2018-11-15 23:39 | PN ---
DATE: 11/15/2018 SUBJECTIVE: The patient continues to sitting comfortably in her chair, in no apparent distress. She denied any dizziness or lightheadedness. She has had no further nausea, vomiting, has continued to have diarrhea. In fact, she had 4 episodes of diarrhea this morning. We did start her on clear liquid diet, but still unable to tolerate, still feel nauseous whenever she tried. Denied any abdominal pain. PHYSICAL EXAMINATION: GENERAL: When I saw her today, she looked well, slightly pale, but no jaundice, cyanosis, or thyromegaly. No jugular venous distension. No limb edema. VITAL SIGNS: Her heart rate this afternoon was 70, blood pressure was 107/72, temperature was 98.7, respiratory rate was 18, and oxygen saturation was 96%. HEAD, EYES, EARS, NOSE, AND THROAT: Showed normocephalic, atraumatic. NECK: Supple. HEART: Showed normal first and second heart sounds with no gallop, rub, or murmur. CHEST: Clear to auscultation. No crepitation or rhonchi. ABDOMEN: Distended, soft, nontender. No guarding or rigidity. No organomegaly. All hernial orifice intact. Bowel sounds normal. NEUROLOGIC: She was awake, alert, responding appropriately. All cranial were intact. She moves extremities without difficulty. She ambulates with a cane. Her intake over the last 24 hours was 1794, no output was recorded. LABORATORY DATA: Her lab work this morning showed a white cell count 7500, hemoglobin 11, hematocrit 34, MCV 90, and platelet count 265,000. Her chemistry this morning showed a serum sodium 143, potassium 3.4, chloride 108, bicarbonate 21, anion gap of 14, BUN 14, creatinine 0.9, estimated GFR was 62 mL per minute. Her glucose 103, calcium was 8.4. Total bilirubin, AST, ALT, alkaline phosphatase were normal. Her total protein was 6.2, albumin 3. ASSESSMENT: 1. Acute gastroenteritis, resolving. 2. Acute kidney injury, improving. 3. Urinary tract infection, for which I will start her on Rocephin. 4. She has multiple other medical problems including type 2 diabetes mellitus for which on oral hypoglycemic agent, gastroesophageal reflux disease, hyperlipidemia, hypertension, hypothyroidism, migraine headache, anxiety, and depression. We will send stool for culture and sensitivity, stool for Clostridium difficile. I will start her also on Rocephin 1 gram IV for urinary tract infection. YOLANDA MILLER MD DR: LIGIA/jcarlos JOB#: [id number] / [id number]
[2018-11-16] MEDS: LEVOTHYROXINE 88 MCG TABLET PO SCH ×2 (05:48→21:00)
[2018-11-16 06:17] VITALS: BP 148/73
[2018-11-16 06:39] LABS: HEMATOCRIT 36.6 % (36.0-47.0); HEMOGLOBIN 11.7 g/dL (12.0-15.5); RED BLOOD COUNT 3.95 x10^6/uL (3.50-5.40); RED CELL DISTRIBUTION WIDTH 14.3 % (11.5-14.5); WHITE BLOOD COUNT 6.8 x10^3/uL (4.0-11.0)
[2018-11-16 07:09] LABS: ALBUMIN/GLOBULIN RATIO 0.9 (1.0-1.7); CALCIUM 8.5 mg/dL (8.5-10.1); CREATININE 0.9 mg/dL (0.6-1.0); GFR 61.9; POTASSIUM 4.1 mmol/L (3.5-5.1); TOTAL BILIRUBIN 0.2 mg/dL (0.2-1.0); TOTAL PROTEIN 6.2 g/dL (6.4-8.2)
[2018-11-16] MEDS: CHOLECALCIFEROL (VITAMIN D3) 1,000 UNIT TABLET PO SCH (07:58)
[2018-11-16] MEDS: POTASSIUM CHLORIDE 10 MEQ TABLET.ER. PO SCH (07:58)
[2018-11-16] MEDS: FLUTICASONE 50MCG/NASAL SPRAY 16GM BOTTLE. NS SCH ×2 (07:58→21:25)
[2018-11-16] MEDS: CITALOPRAM 20 MG TABLET. PO SCH (07:59)
[2018-11-16] MEDS: PANTOPRAZOLE 40 MG TABLET. PO SCH (07:59)
[2018-11-16] MEDS: LACTOBACILLUS RHAMNOSUS GG 1 CAPSULE. PO SCH ×2 (07:59→21:25)
[2018-11-16] MEDS: ASPIRIN 81 MG TAB.CHEW PO SCH (07:59)
[2018-11-16] MEDS: CARVEDILOL 6.25 MG TABLET PO SCH ×2 (07:59→21:32)
[2018-11-16] MEDS: MULTIVITAMIN with MINERAL TABLET. PO SCH (07:59)
[2018-11-16] MEDS: LOSARTAN 50 MG TABLET. PO SCH (08:00)
[2018-11-16] MEDS: ONDANSETRON PF 4 MG/2 ML VIAL. IV PRN ×2 (08:57→17:49)
[2018-11-16] MEDS: IV 1/2 NORMAL SALINE 1,000 ML IV SCH (08:58)
[2018-11-16 11:06] VITALS: BP 152/72
[2018-11-16] MEDS: GLIMEPIRIDE 2 MG TABLET PO SCH (12:00)
[2018-11-16 15:55] VITALS: BP 125/64
[2018-11-16] MEDS: METOCLOPRAMIDE 5 MG TABLET PO SCH ×2 (17:50→21:25)
[2018-11-16 19:01] VITALS: BP 117/70
[2018-11-16] MEDS: POLYETHYLENE GLYCOL 3350 17 GM PACKET. PO SCH (21:00)
[2018-11-16] MEDS: clonazePAM 0.5 MG TABLET PO SCH (21:25)
[2018-11-16] MEDS: ATORVASTATIN CALCIUM 20 MG TABLET PO SCH (21:26)
[2018-11-16] MEDS: MIRTAZAPINE 15 MG TABLET PO SCH (21:26)
--- NOTE | 2018-11-17 00:22 | PN ---
DATE: 11/16/2018 SUBJECTIVE: The patient is sitting comfortably in her chair, in no apparent distress. She continued to have some nausea and vomiting this morning as well as multiple episodes of loose bowel movement; however, she denied any chills, rigors or fever. No hematemesis or melena. OBJECTIVE: GENERAL: When I examined her, she was slightly pale, but no jaundice, cyanosis, lymphadenopathy or thyromegaly. No jugular venous distension. No limb edema. VITAL SIGNS: Her heart rate was 66, blood pressure 152/72, temperature was 98.5, respiratory rate 20, and oxygen saturation was 93% on room air. HEAD, EYES, EARS, NOSE AND THROAT: Showed normocephalic, atraumatic. NECK: Supple. HEART: Showed normal first and second heart sounds with no gallop, rub or murmur. CHEST: Clear to auscultation. No crepitation or rhonchi. ABDOMEN: Distended, soft, nontender. No guarding or rigidity. No organomegaly. Hernial orifice intact. Bowel sounds normal. NEUROLOGIC: She was awake, alert, responding appropriately. Cranial nerves intact. He moves extremities without difficulty. She ambulates with a cane. Her intake over the last 24 hours was 1720, output was 450. LABORATORY DATA: Showed a white cell count of 6800, hemoglobin 11.7, hematocrit 36.6, MCV 93, and platelet count 244,000. As of this morning, her serum sodium was 141, potassium 4.1, chloride 110, bicarbonate 22, anion gap of 9, BUN 9, creatinine 0.9, estimated GFR was 62 mL per minute. Her glucose was 122, calcium was 8.5. Total bilirubin, AST, ALT, alkaline phosphatase normal. Total protein was 6.2, albumin 3. Her prothrombin time was 9.9, INR of 1.1. Her urine cloudy, positive for nitrite and small amount of leukocyte esterase, 1-2 rbc's, more than 40 wbc's, and many bacteria. ASSESSMENT: 1. Acute gastroenteritis, resolving. 2. Acute kidney injury, improving. Her creatinine is down from 1.2-0.9. Her BUN is from 25-9. 3. Urinary tract infection for which she was started on Rocephin. 4. She probably also has some element of diabetic gastroparesis. I have discussed with her the option of starting a small dose of Reglan before meals at bedtime, placed temporarily for a short period of time. Once her symptoms resolved, then she can discontinue it. 5. Other medical problems include: a. Type 2 diabetes mellitus. b. Gastroesophageal reflux disease. c. Hyperlipidemia. d. Hypertension. e. Hypothyroidism. f. Migraine headache. YOLANDA MILLER MD DR: LIGIA/jcarlos JOB#: [id number] / [id number]
[2018-11-17] MEDS: IV 1/2 NORMAL SALINE 1,000 ML IV SCH ×2 (02:58→20:32)
[2018-11-17 05:40] VITALS: BP 159/69
[2018-11-17 06:39] LABS: CALCIUM 8.9 mg/dL (8.5-10.1); GFR 54.8; POTASSIUM 3.9 mmol/L (3.5-5.1)
[2018-11-17] MEDS: MULTIVITAMIN with MINERAL TABLET. PO SCH (08:58)
[2018-11-17] MEDS: FLUTICASONE 50MCG/NASAL SPRAY 16GM BOTTLE. NS SCH ×2 (08:58→21:00)
[2018-11-17] MEDS: ASPIRIN 81 MG TAB.CHEW PO SCH (08:58)
[2018-11-17] MEDS: LACTOBACILLUS RHAMNOSUS GG 1 CAPSULE. PO SCH ×2 (08:58→20:41)
[2018-11-17] MEDS: PANTOPRAZOLE 40 MG TABLET. PO SCH (08:58)
[2018-11-17] MEDS: METOCLOPRAMIDE 5 MG TABLET PO SCH ×4 (08:59→20:41)
[2018-11-17] MEDS: CARVEDILOL 6.25 MG TABLET PO SCH ×2 (08:59→20:41)
[2018-11-17] MEDS: POTASSIUM CHLORIDE 10 MEQ TABLET.ER. PO SCH (08:59)
[2018-11-17] MEDS: LOSARTAN 50 MG TABLET. PO SCH (08:59)
[2018-11-17] MEDS: CITALOPRAM 20 MG TABLET. PO SCH (08:59)
[2018-11-17] MEDS: CHOLECALCIFEROL (VITAMIN D3) 1,000 UNIT TABLET PO SCH (09:03)
[2018-11-17] MEDS: ONDANSETRON PF 4 MG/2 ML VIAL. IV PRN (10:03)
[2018-11-17 10:43] VITALS: BP 157/91
[2018-11-17] MEDS: GLIMEPIRIDE 2 MG TABLET PO SCH (11:26)
[2018-11-17 15:24] VITALS: BP 184/82
[2018-11-17] MEDS ORDERED: LOSARTAN 50 MG TABLET. PO ONE (16:00)
[2018-11-17] MEDS ORDERED: PANTOPRAZOLE 40 MG TABLET. PO ONE (16:00)
[2018-11-17 20:27] VITALS: BP 121/79
[2018-11-17] MEDS: ATORVASTATIN CALCIUM 20 MG TABLET PO SCH (20:41)
[2018-11-17] MEDS: clonazePAM 0.5 MG TABLET PO SCH (20:41)
[2018-11-17] MEDS: POLYETHYLENE GLYCOL 3350 17 GM PACKET. PO SCH (20:41)
[2018-11-17] MEDS: MIRTAZAPINE 15 MG TABLET PO SCH (20:42)
[2018-11-17] MEDS: LEVOTHYROXINE 88 MCG TABLET PO SCH (20:42)
--- NOTE | 2018-11-17 21:59 | PN ---
DATE: 11/17/2018 SUBJECTIVE: The patient is sitting comfortably in her chair, in no apparent distress. She continues to complain of nausea, could not tolerate advancing her diet despite Reglan and although she was given Reglan before lunch, she only asked for liquid diet. Her blood pressure was noted also to be high. PHYSICAL EXAMINATION: GENERAL: When I examined her this afternoon, she looked well and was clearly in no apparent respiratory distress, slightly pale, no jaundice, cyanosis, or thyromegaly. No jugular venous distension. No limb edema. VITAL SIGNS: Her heart rate was 65, blood pressure 184/82, temperature was 98.2, respiratory rate was 18 and oxygen saturation was 93% on room air. HEAD, EYES, EARS, NOSE AND THROAT: Showed normocephalic, atraumatic. NECK: Supple. HEART: Showed normal first and second heart sounds with no gallop, rub or murmur. CHEST: Clear to auscultation. No crepitation or rhonchi. ABDOMEN: Distended, soft, nontender. No guarding or rigidity. No organomegaly. All hernial orifice intact. Bowel sounds normal. NEUROLOGIC: She was awake, alert, responding appropriately. All cranial nerves intact. She moves extremities without difficulty. She ambulates without assistance or assistive devices. LABORATORY DATA: Showed her serum sodium 144, potassium 3.9, chloride 109, bicarbonate 24, anion gap of 11, BUN 6, creatinine 1, estimated GFR was 55 mL per minute. Her glucose was 121, calcium was 8.9. Her white cell count was 6800, hemoglobin 12, hematocrit 36, MCV 93, and platelet count 244,000. Prothrombin time 9.9, INR of 1. Urinalysis showed it was positive for nitrite, small amount of leukocyte esterase, and more than 40 wbc's. Her stool for C. diff toxins were negative. Her urine culture showed growth of more than 100,000 colony forming units per mL of Escherichia coli sensitive to ceftriaxone. ASSESSMENT: 1. Acute gastroenteritis. The patient continued to have nausea and vomiting. 2. Diabetic gastroparesis for which she used to be on domperidone. We did start her Reglan. 3. Acute kidney injury, resolved. 4. Poorly controlled hypertension for which I added another dose of losartan this afternoon and we will increase her losartan to 100 mg once a day. We will repeat all her lab works tomorrow and advance diet as tolerated and if she was able to tolerate her diet and her blood pressure is better controlled, she can be discharged home tomorrow. YOLANDA MILLER MD DR: LIGIA/jcarlos JOB#: [id number] / [id number]
[2018-11-17 23:06] VITALS: BP 135/84
[2018-11-18 05:21] VITALS: BP 147/90
[2018-11-18 06:20] LABS: HEMATOCRIT 34.7 % (36.0-47.0); HEMOGLOBIN 11.7 g/dL (12.0-15.5); RED BLOOD COUNT 3.86 x10^6/uL (3.50-5.40); RED CELL DISTRIBUTION WIDTH 13.6 % (11.5-14.5); WHITE BLOOD COUNT 5.8 x10^3/uL (4.0-11.0)
[2018-11-18 06:43] LABS: CREATININE 0.9 mg/dL (0.6-1.0); GFR 61.9; POTASSIUM 3.8 mmol/L (3.5-5.1)
[2018-11-18] MEDS ORDERED: PANTOPRAZOLE 40 MG TABLET. PO SCH (07:30)
[2018-11-18] MEDS: MULTIVITAMIN with MINERAL TABLET. PO SCH (08:29)
[2018-11-18] MEDS: CITALOPRAM 20 MG TABLET. PO SCH (08:29)
[2018-11-18] MEDS: POTASSIUM CHLORIDE 10 MEQ TABLET.ER. PO SCH (08:29)
[2018-11-18] MEDS: LACTOBACILLUS RHAMNOSUS GG 1 CAPSULE. PO SCH (08:30)
[2018-11-18] MEDS: PANTOPRAZOLE 40 MG TABLET. PO SCH (08:30)
[2018-11-18] MEDS: CARVEDILOL 6.25 MG TABLET PO SCH (08:30)
[2018-11-18] MEDS: CHOLECALCIFEROL (VITAMIN D3) 1,000 UNIT TABLET PO SCH (08:30)
[2018-11-18] MEDS: ASPIRIN 81 MG TAB.CHEW PO SCH (08:31)
[2018-11-18] MEDS: FLUTICASONE 50MCG/NASAL SPRAY 16GM BOTTLE. NS SCH (08:31)
[2018-11-18] MEDS: METOCLOPRAMIDE 5 MG TABLET PO SCH ×2 (08:31→11:48)
[2018-11-18] MEDS: IV 1/2 NORMAL SALINE 1,000 ML IV SCH (08:31)
[2018-11-18] MEDS ORDERED: LOSARTAN 50 MG TABLET. PO SCH (09:00)
[2018-11-18] MEDS: ONDANSETRON PF 4 MG/2 ML VIAL. IV PRN (09:07)
[2018-11-18 11:13] VITALS: BP 151/89
[2018-11-18] MEDS: GLIMEPIRIDE 2 MG TABLET PO SCH (12:00)
--- NOTE | 2018-11-18 18:21 | DS ---
DATE OF DISCHARGE: 11/18/2018 DISCHARGE TRANSFER SUMMARY HOSPITAL COURSE: The patient is a 72-year-old female patient, who was admitted originally on 11/14/2018 with recurrent bouts of nausea, vomiting that started the day before and we admitted her with the diagnosis of acute gastroenteritis. She was started on IV fluid, antiemetics, and kept her initially n.p.o. We tried clear liquids, but every time she tried, she started having nausea and vomiting. I added even Reglan and she continued to have nausea and vomiting, and therefore, decision was made to transfer her to [facility] noting that the patient was before on domperidone as she is known to have diabetic gastroparesis. It was discontinued by her primary care physician and she has been doing well without it for quite a while. PHYSICAL EXAMINATION: GENERAL: On examining her today, she looked somewhat pale, but no jaundice, cyanosis, or thyromegaly. No jugular venous distension. No limb edema. VITAL SIGNS: Her heart rate was 67, blood pressure 151/89, temperature was 98.5, respiratory rate was 18 and oxygen saturation was 97%. HEAD, EYES, EARS, NOSE AND THROAT: Showed normocephalic, atraumatic. NECK: Supple. HEART: Showed normal first and second sounds. No gallop, rub or murmur. CHEST: Clear to auscultation. No crepitation or rhonchi. ABDOMEN: Distended, soft, nontender. NEUROLOGIC: She was awake, alert, responding appropriately. All cranial nerves are intact. She moves extremities without difficulty. She ambulates with a cane. Her intake over the last 24 hours was 2200, no output was recorded. LABORATORY DATA: As of this morning, her white cell count was 5800, hemoglobin 12, hematocrit 35, MCV 90, and platelet count 281,000. Her chemistry showed a serum sodium 144, potassium 3.8, chloride 109, bicarbonate 27, anion gap of 8, BUN 5, creatinine 0.9, estimated GFR was 62 mL per minute. Her glucose 107, calcium was 9. LDH was 184. Lipase was 167. Her stool for C. diff was negative. Her urine culture has grown greater than 100,000 colony forming units per mL of Escherichia coli sensitive to ceftriaxone. DISCHARGE MEDICATIONS: The patient was transferred to [facility] to continue on losartan potassium 100 mg once a day, Protonix 40 mg daily, levothyroxine 88 mcg once a day, metoclopramide 5 mg before meals, ondansetron 4 mg IV every 6 hours, ceftriaxone 1 g IV daily, glimepiride 4 mg at noon, multivitamin with mineral 1 tablet once a day, citalopram 60 mg once a day, vitamin D 5000 international units once a day, potassium chloride 10 mEq once a day, aspirin 81 mg once a day, polyethylene glycol 17 grams at bedtime, mirtazapine 45 mg at bedtime, lactobacillus rhamnosus 1 twice a day, Flonase 2 sprays to each nostril twice a day. She is also on clonazepam 0.5 mg at bedtime, carvedilol 6.25 mg twice a day, atorvastatin 20 mg at bedtime and normal saline at 75 mL per hour, acetaminophen 1000 mg every 6 hours. FINAL DISCHARGE DIAGNOSES: 1. Intractable nausea and vomiting. 2. Diabetic gastroparesis, which she used to be on domperidone. I did start her on Reglan 5 mg before meals without much effect. 3. Acute kidney injury, resolved. 4. Urinary tract infection with growth of more than 100,000 colony forming unit per mL of Escherichia coli sensitive to Rocephin. 5. Poorly controlled hypertension for which I added another dose of losartan. She has multiple other medical problems including migraine headache, chronic constipation, diverticulosis, gastroesophageal reflux disease, hiatal hernia and anemia as well as depression. YOLANDA MILLER MD DR: LIGIA/jcarlos JOB#: [id number] / [id number]
[2018-12-14] MEDS ORDERED: [UNRECOGNIZED DRUG - OTHER] IV SCH (09:00)
[2018-12-14] MEDS ORDERED: IMMUNE GLOBULIN GAMMA IV SCH (09:00)
== END 2018-11-18 13:14 | disposition short-term general hospital (02) | DRG 391 ==
LOC: ER 10:44 → 1 SOUTH 14:03
PROVIDERS: ADMIT Internal Medicine; ATTEND Internal Medicine
DX: K52.9 Noninfective gastroenteritis and colitis, unspecified (principal); N17.0 Acute kidney failure with tubular necrosis; N39.0 Urinary tract infection, site not specified; E11.43 Type 2 diabetes mellitus with diabetic autonomic (poly)neuropathy; B96.20 Unspecified Escherichia coli [E. coli] as the cause of diseases classified elsewhere; D64.9 Anemia, unspecified; E03.9 Hypothyroidism, unspecified; E11.22 Type 2 diabetes mellitus with diabetic chronic kidney disease; E78.00 Pure hypercholesterolemia, unspecified; E78.5 Hyperlipidemia, unspecified; F32.9 Major depressive disorder, single episode, unspecified; F41.9 Anxiety disorder, unspecified; M19.90 Unspecified osteoarthritis, unspecified site; G43.909 Migraine, unspecified, not intractable, without status migrainosus; I12.9 Hypertensive chronic kidney disease with stage 1 through stage 4 chronic kidney disease, or unspecified chronic kidney disease; I25.10 Atherosclerotic heart disease of native coronary artery without angina pectoris; K21.9 Gastro-esophageal reflux disease without esophagitis; J32.9 Chronic sinusitis, unspecified; K44.9 Diaphragmatic hernia without obstruction or gangrene; K57.90 Diverticulosis of intestine, part unspecified, without perforation or abscess without bleeding; K59.09 Other constipation; N18.9 Chronic kidney disease, unspecified; Z80.9 Family history of malignant neoplasm, unspecified; Z86.73 Personal history of transient ischemic attack (TIA), and cerebral infarction without residual deficits; Z88.2 Allergy status to sulfonamides; Z88.8 Allergy status to other drugs, medicaments and biological substances; K31.84 Gastroparesis; Z79.4 Long term (current) use of insulin
CPT/HCPCS: 36415; 80048; 80053; 81001; 82550; 82947; 83605; 83615; 83690; 84484; 85007; 85025; 85027; 85610; 87086; 87186; 87493; 93005; 96360; 96361; 99292; J0696; J2405; J7030; J8597; 99291-25

== ENCOUNTER 2019-07-23 13:04 | Emergency (ER) | payer MEDICARE, BC ==
[~2019-07-23] VITALS: Ht 152.4 cm; Wt 96.6 kg
[~2019-07-23 13:04] MED LIST changes: -AMLO2.5T3 PO; +AMLO2.5T5 PO; +ASCO500T2 PO; +OMEP20CA10 PO; -OMEP20CA9 PO
--- NOTE | 2019-07-23 13:21 | PHYS DOC ---
Past History Past Medical History: Anxiety, Depression, Diabetes, GERD, High Cholesterol, Hypertension, Hypothyroid, Migraines, TIA, Other Past Surgical History: Cholecystectomy, Tonsillectomy, Other Smoking: Non-smoker Alcohol Use: None Drug Use: None Adult General Chief Complaint Chief Complaint: MECHANICAL FALL HPI HPI Patient is a 73-year-old female presents with nose pain. This happened shortly prior to arrival, she was walking up some steps and tripped and fell striking her nose. She was brought in by EMS. Bleeding was controlled with pressure. There was no head injury or loss of consciousness. No nausea or vomiting. She is uncertain as to when her last tetanus vaccine was. There is no new weakness in the arms or legs.[] Review of Systems Review of Systems Constitutional: Denies fever or chills [] Eyes: Denies change in visual acuity, redness, or eye pain [] HENT: See history of present illness, no ear pain, no dental pain [] Respiratory: Denies cough or shortness of breath [] Cardiovascular: No chest pain or palpitations[] GI: Denies abdominal pain, nausea, vomiting, bloody stools or diarrhea [] : Denies dysuria or hematuria [] Musculoskeletal: Denies back pain or joint pain [] Integument: Denies rash or skin lesions [] Neurologic: Denies headache, focal weakness or sensory changes [] Endocrine: Denies polyuria or polydipsia [] All other systems were reviewed and found to be within normal limits, except as documented in this note. Allergies Allergies Allergies Coded Allergies Type Severity Reaction Last Updated Verified Sulfa (Sulfonamide Antibiotics) Allergy Intermediate RASH 04/10/18 Yes aripiprazole Allergy Intermediate RASH 04/10/18 Yes doxycycline Allergy Intermediate N/V RASH 04/10/18 Yes pseudoephedrine Allergy Intermediate hyperactive 04/10/18 Yes triprolidine Allergy Intermediate hyperactive 04/10/18 Yes Physical Exam Physical Exam Constitutional: Well developed, well nourished, no acute distress, non-toxic appearance. [] HENT: Normocephalic, atraumatic, bilateral external ears normal, oropharynx moist, no oral exudates, dried blood in bilateral nares, no septal hematoma. There is an abrasion left side of the nose. No suturable wound. TMs are clear, no blood or fluid behind the TM. [] Eyes: PERRLA, EOMI, conjunctiva normal, no discharge. [] Neck: Normal range of motion, no tenderness, supple, no stridor. [] Cardiovascular:Heart rate regular rhythm, no murmur [] Lungs & Thorax: Bilateral breath sounds clear to auscultation [] Abdomen: Bowel sounds normal, soft, no tenderness, no masses, no pulsatile masses. [] Skin: Warm, dry, no erythema, no rash. [] Back: No tenderness, no CVA tenderness. [] Extremities: No tenderness, no cyanosis, no clubbing, ROM intact, no edema. Right posterior elbow has an abrasion.[] Neurologic: Alert and oriented X 3, normal motor function, normal sensory function, no focal deficits noted. [] Psychologic: Affect normal, judgement normal, mood normal. [] EKG EKG [] Radiology/Procedures Radiology/Procedures [] Course & Med Decision Making Course & Med Decision Making Pertinent Labs and Imaging studies reviewed. (See chart for details) Medical decision-making: Without any specific head trauma, no loss of consciousness, no nausea or vomiting, no change in vision, do not see any indication for imaging at this time. Her tetanus status is being updated. There is no evidence of intractable bleeding. ED course: Patient arrived, was placed in bed, and tolerated exam well. Her wound was repaired as noted. She was discharged in improved condition with all questions answered.[] Dragon Disclaimer Dragon Disclaimer This electronic medical record was generated, in whole or in part, using a voice recognition dictation system. Departure Departure: Impression: Primary Impression: Nose injury Disposition: 01 HOME, SELF-CARE Condition: IMPROVED Referrals: DORINA GODFREY MD (PCP) Follow-up in 2 days Patient Instructions: Nosebleed, Tissue Adhesive Wound Care Additional Instructions: Follow-up with your regular doctor in 2 days. Return to the ER if uncontrolled bleeding, nausea or vomiting, change in behavior, or any other concerns. Laceration Repair Lac Repair Indication: Left nasal laceration[] Procedure: The patient was placed in the appropriate position and the area was cleaned. Skin glue was placed. It appears that this laceration was due to the edge of the pad for her eyeglasses. Total repaired wound length: 4 mm. Other Items: None] The patient tolerated the procedure well. Hemostasis was achieved. Complications: None Problem Qualifiers Primary Impression: Nose injury Encounter type: initial encounter Qualified Codes: S09.92XA - Unspecified injury of nose, initial encounter DANILO MEDEROS DO Jul 23, 2019 13:21
[2019-07-23] MEDS ORDERED: DIPHTH,PERTUSS(ACELL),TET TOX 0.5 ML DISP.SYRIN. VAX IM ONE (13:30)
[2019-07-23 13:57] VITALS: BP 150/72
== END 2019-07-23 13:55 | disposition home or self-care (01) ==
LOC: ER 13:04
DX: S01.21XA Laceration without foreign body of nose, initial encounter (principal); E11.9 Type 2 diabetes mellitus without complications; K21.9 Gastro-esophageal reflux disease without esophagitis; E78.00 Pure hypercholesterolemia, unspecified; I10 Essential (primary) hypertension; E03.9 Hypothyroidism, unspecified; G43.909 Migraine, unspecified, not intractable, without status migrainosus; Z86.73 Personal history of transient ischemic attack (TIA), and cerebral infarction without residual deficits; Z88.2 Allergy status to sulfonamides; Z88.1 Allergy status to other antibiotic agents; Z88.8 Allergy status to other drugs, medicaments and biological substances; W01.0XXA Fall on same level from slipping, tripping and stumbling without subsequent striking against object, initial encounter; Y93.01 Activity, walking, marching and hiking; Y92.89 Other specified places as the place of occurrence of the external cause; Y99.8 Other external cause status
CPT/HCPCS: 12011; 90471; 90715; 99283-25

== ENCOUNTER 2019-08-11 12:28 | Inpatient (IN) | payer MEDICARE, BC ==
[~2019-08-11] VITALS: Ht 157.5 cm; Wt 95.8 kg
[~2019-08-11 12:28] MED LIST changes: -CLON0.5T11 PO; +CLON0.5T4 PO; -GLIM1TAB2 PO; +GLIM1TAB3 PO; -GLIM4TAB2 PO; +GLIM4TAB4 PO; +OMEP40CA45 PO; -OMEP40CA5 PO
[2019-08-11] MEDS ORDERED: ASPIRIN 81 MG TAB.CHEW PO ONE (13:15)
[2019-08-11] MEDS ORDERED: PROCHLORPERAZINE 10 MG/2 ML VIAL. IV ONE (13:30)
--- NOTE | 2019-08-11 13:41 | RAD ---
EXAM: Chest, single view. HISTORY: Chest pain. COMPARISON: None. FINDINGS: A frontal view of the chest obtained. There is no infiltrate, pleural effusion or pneumothorax. There is linear atelectasis or scarring within the left mid thorax. There is a left PICC with the tip in the superior vena cava. IMPRESSION: No acute pulmonary finding. Electronically signed by: Tigist Umanzor MD (08/11/2019 1:38 PM) [place] [id number]
[2019-08-11 13:48] LABS: BASO % 1 % (0-3); EOS # 0.2 x10^3/uL (0.0-0.7); EOS % 4 % (0-3); HEMATOCRIT 35.7 % (36.0-47.0); HEMOGLOBIN 11.8 g/dL (12.0-15.5); LYMPH # 1.7 x10^3/uL (1.0-4.8); LYMPH % 33 % (24-48); MEAN CORPUSCULAR HEMOGLOBIN 30 pg (25-35); MEAN CORPUSCULAR HGB CONC 33 g/dL (31-37); MEAN CORPUSCULAR VOLUME 91 fL (79-100); MONO # 0.4 x10^3/uL (0.0-1.1); MONO % 8 % (0-9); NEUT # 2.8 x10^3uL (1.8-7.7); NEUT % 55 % (31-73); PLATELET COUNT 237 x10^3/uL (140-400); RED BLOOD COUNT 3.93 x10^6/uL (3.50-5.40); RED CELL DISTRIBUTION WIDTH 14.1 % (11.5-14.5); WHITE BLOOD COUNT 5.1 x10^3/uL (4.0-11.0)
--- NOTE | 2019-08-11 13:52 | RAD ---
EXAM: Head CT without contrast. HISTORY: Headache. Blurred vision. TECHNIQUE: Computed tomographic images of the head were obtained without contrast. *One or more of the following individualized dose reduction techniques were utilized for this examination: 1. Automated exposure control. 2. Adjustment of the mA and/or kV according to patient size. 3. Use of iterative reconstruction technique. COMPARISON: 11/07/2018. FINDINGS: There is no acute or subacute extra-axial or intraparenchymal hemorrhage. There is no mass effect or midline shift. There is no hydrocephalus. There are areas of decreased attenuation within the cerebral white matter, nonspecific and likely related to chronic small vessel disease. There are chronic bilateral lamina papyracea fractures and there has been resection of the lateral left orbital wall, possibly due to orbital decompression surgery. There may be right proptosis. The left globe is partially excluded from the [id number]. The left mandibular condyle is excluded from the [id number]. The mastoid air cells are clear. IMPRESSION: No acute intracranial findings. Electronically signed by: Tigist Umanzor MD (08/11/2019 1:49 PM) [place] [id number]
[2019-08-11 14:04] LABS: ALBUMIN 3.5 g/dL (3.4-5.0); CALCIUM 9.2 mg/dL (8.5-10.1); CREATININE 1.2 mg/dL (0.6-1.0); GFR 44.3; POTASSIUM 3.9 mmol/L (3.5-5.1); TOTAL BILIRUBIN 0.2 mg/dL (0.2-1.0); TOTAL PROTEIN 7.1 g/dL (6.4-8.2)
[2019-08-11] MEDS ORDERED: NITROGLYCERIN SUBLINGUAL 0.4 MG BOTTLE OF 25. SL PRN (14:45)
[2019-08-11 14:51] LABS: BILIRUBIN,URINE NEG (NEG); CLARITY,URINE CLEAR; COLOR,URINE YELLOW; GLUCOSE,URINE NEG (NEG); NITRITE,URINE NEG (NEG); RBC,URINE 0 /HPF (0-2); UROBILINOGEN,URINE 0.2 mg/dL (0.2 mg/dL)
[2019-08-11 14:52] LABS: BACTERIA,URINE 0 /HPF (0-FEW); SQUAMOUS EPITHELIAL CELL,UR OCC /LPF
[2019-08-11] MEDS ORDERED: NITROGLYCERIN OINT 1 GM PACKET. TP ONE (15:00)
[2019-08-11] MEDS ORDERED: HYDROcodone/APAP 5/325MG 1 TAB TABLET PO ONE (15:00)
--- NOTE | 2019-08-11 15:05 | PHYS DOC ---
Past History Past Medical History: Depression, Diabetes, Hypertension, Hypothyroid Past Surgical History: No Surgical History Smoking: Non-smoker Alcohol Use: None Drug Use: None Adult General Chief Complaint Chief Complaint: CHEST PAIN HPI HPI Patient is a 73-year-old female presenting with chest pain and headache. She's had headache for about 3 days now described as throbbing light hurts the eyes or some nausea she was going around her neck this is similar prior migraines. In addition she also is feeling chest pain since this morning worse with ambulation but also constant described as heaviness and pressure she says across the front of her chest she is worried about her heart she is mild shortness of breath and again she says the pain is worse when she tries to walk. She has a history of coronary artery disease status post stent placement she says she thinks she had a stress test LAST YEAR but she is not exactly sure. Review of Systems Review of Systems Constitutional: Denies fever or chills [] Eyes: Denies change in visual acuity, redness, or eye pain [] HENT: Denies nasal congestion or sore throat [] Respiratory: Denies cough or shortness of breath [] Cardiovascular: No additional information not addressed in HPI [] GI: Denies abdominal pain, nausea, vomiting, bloody stools or diarrhea [] All other systems were reviewed and found to be within normal limits, except as documented in this note. Current Medications Current Medications Current Medications Medications (Trade) Dose Ordered Sig/Maggie Start Time Stop Time Status Last Admin Dose Admin Acetaminophen/ Hydrocodone Bitart (Lortab 5/325) 2 tab 1X ONCE 08/11/19 15:00 08/11/19 15:01 Aspirin (Children'S Aspirin) 324 mg 1X ONCE 08/11/19 13:15 08/11/19 13:16 DC 08/11/19 13:15 324 MG Nitroglycerin (Nitro-Bid Oint) 1 inch 1X ONCE 08/11/19 15:00 08/11/19 15:01 Nitroglycerin (Nitrostat) 0.4 mg PRN Q5MIN PRN 08/11/19 14:45 08/12/19 14:44 Prochlorperazine Edisylate (Compazine) 10 mg 1X ONCE 08/11/19 13:30 08/11/19 13:31 DC 08/11/19 13:30 10 MG Allergies Allergies Allergies Coded Allergies Type Severity Reaction Last Updated Verified Sulfa (Sulfonamide Antibiotics) Allergy Intermediate RASH 04/10/18 Yes aripiprazole Allergy Intermediate RASH 04/10/18 Yes doxycycline Allergy Intermediate N/V RASH 04/10/18 Yes pseudoephedrine Allergy Intermediate hyperactive 04/10/18 Yes triprolidine Allergy Intermediate hyperactive 04/10/18 Yes Physical Exam Physical Exam Constitutional: Well developed, well nourished, no acute distress, non-toxic appearance. [] HENT: Normocephalic, atraumatic, bilateral external ears normal, oropharynx moist, no oral exudates, nose normal. [] Eyes: PERRLA, EOMI, conjunctiva normal, no discharge. [] Neck: Normal range of motion, no tenderness, supple, no stridor. [] Cardiovascular:2-3 murmur Lungs & Thorax: Bilateral breath sounds clear to auscultation [] Abdomen: Bowel sounds normal, soft, no tenderness, no masses, no pulsatile masses. [] Skin: Warm, dry, no erythema, no rash. [] Back: No tenderness, no CVA tenderness. [] Extremities: No tenderness, no cyanosis, no clubbing, ROM intact, no edema. [] Neurologic: Alert and oriented X 3, normal motor function, normal sensory function, no focal deficits noted. [] Psychologic: Affect normal, judgement normal, mood normal. [] Current Patient Data Vital Signs Vital Signs Date Time Temp Pulse Resp B/P (MAP) Pulse Ox O2 Delivery O2 Flow Rate FiO2 08/11/19 12:43 70 18 99 Room Air Lab Results Laboratory Tests Test 08/11/19 13:33 08/11/19 14:00 White Blood Count 5.1 x10^3/uL (4.0-11.0) Red Blood Count 3.93 x10^6/uL (3.50-5.40) Hemoglobin 11.8 g/dL (12.0-15.5) L Hematocrit 35.7 % (36.0-47.0) L Mean Corpuscular Volume 91 fL (79-100) Mean Corpuscular Hemoglobin 30 pg (25-35) Mean Corpuscular Hemoglobin Concent 33 g/dL (31-37) Red Cell Distribution Width 14.1 % (11.5-14.5) Platelet Count 237 x10^3/uL (140-400) Neutrophils (%) (Auto) 55 % (31-73) Lymphocytes (%) (Auto) 33 % (24-48) Monocytes (%) (Auto) 8 % (0-9) Eosinophils (%) (Auto) 4 % (0-3) H Basophils (%) (Auto) 1 % (0-3) Neutrophils # (Auto) 2.8 x10^3uL (1.8-7.7) Lymphocytes # (Auto) 1.7 x10^3/uL (1.0-4.8) Monocytes # (Auto) 0.4 x10^3/uL (0.0-1.1) Eosinophils # (Auto) 0.2 x10^3/uL (0.0-0.7) Basophils # (Auto) 0.0 x10^3/uL (0.0-0.2) Prothrombin Time 10.4 SEC (9.4-11.4) Prothrombin Time INR 1.0 (0.9-1.1) Sodium Level 141 mmol/L (136-145) Potassium Level 3.9 mmol/L (3.5-5.1) Chloride Level 108 mmol/L (98-107) H Carbon Dioxide Level 23 mmol/L (21-32) Anion Gap 10 (6-14) Blood Urea Nitrogen 20 mg/dL (7-20) Creatinine 1.2 mg/dL (0.6-1.0) H Estimated GFR (Cockcroft-Gault) 44.3 BUN/Creatinine Ratio 17 (6-20) Glucose Level 189 mg/dL (70-99) H Calcium Level 9.2 mg/dL (8.5-10.1) Total Bilirubin 0.2 mg/dL (0.2-1.0) Aspartate Amino Transferase (AST) 24 U/L (15-37) Alanine Aminotransferase (ALT) 21 U/L (14-59) Alkaline Phosphatase 106 U/L (46-116) Troponin I Quantitative < 0.017 ng/mL (0-0.055) Total Protein 7.1 g/dL (6.4-8.2) Albumin 3.5 g/dL (3.4-5.0) Albumin/Globulin Ratio 1.0 (1.0-1.7) Urine Collection Type Unknown Urine Color Yellow Urine Clarity Clear Urine pH 7.0 Urine Specific [place] 1.010 Urine Protein Neg (NEG-TRACE) Urine Glucose (UA) Neg mg/dL (NEG) Urine Ketones (Stick) Neg mg/dL (NEG) Urine Blood Neg (NEG) Urine Nitrite Neg (NEG) Urine Bilirubin Neg (NEG) Urine Urobilinogen Dipstick 0.2 mg/dL (0.2 mg/dL) Urine Leukocyte Esterase Trace (NEG) Urine RBC 0 /HPF (0-2) Urine WBC 1-4 /HPF (0-4) Urine Squamous Epithelial Cells Occ /LPF Urine Bacteria 0 /HPF (0-FEW) EKG EKG []EKG shows normal sinus rhythm rate of 71 no acute ischemic changes noted interpreted by me the time of encounter Radiology/Procedures Radiology/Procedures [] FINDINGS: There is no acute or subacute extra-axial or intraparenchymal hemorrhage. There is no mass effect or midline shift. There is no hydrocephalus. There are areas of decreased attenuation within the cerebral white matter, nonspecific and likely related to chronic small vessel disease. There are chronic bilateral lamina papyracea fractures and there has been resection of the lateral left orbital wall, possibly due to orbital decompression surgery. There may be right proptosis. The left globe is partially excluded from the [id number]. The left mandibular condyle is excluded from the [id number]-am-[id number]. The mastoid air cells are clear. IMPRESSION: No acute intracranial findings. Electronically signed by: Tigist Stewart MD (08/11/2019 1:49 PM) [place] [id number] DICTATED AND SIGNED BY: TIGIST STEWART MD DATE: 08/11/19 [id number] CC: DORINA GODFREY MD; MISBAH STARK MD ~ Impressions: FINDINGS: A frontal view of the chest obtained. There is no infiltrate, pleural effusion or pneumothorax. There is linear atelectasis or scarring within the left mid thorax. There is a left PICC with the tip in the superior vena cava. IMPRESSION: No acute pulmonary finding. Electronically signed by: Tigist Stewart MD (08/11/2019 1:38 PM) [place] [id number] DICTATED AND SIGNED BY: TIGIST STEWRAT MD DATE: 08/11/19 [id number] CC: DORINA GODFREY MD; MISBAH STARK MD ~ Course & Med Decision Making Course & Med Decision Making Pertinent Labs and Imaging studies reviewed. (See chart for details) []73 female multiple medical problems coronary disease history of migraines on IV antibiotics for some sort of a jaw infection present with posterior headache for 4 days as well as chest pain for a day now. Headaches also come migraine and did a CT scan of her brain because she said it was quite severe that was negative acute is not a story for subarachnoid hemorrhage it was gradual in onset neck is supple neuro intact regarding the chest pain patient has a history of coronary artery disease she describes exertional symptoms overall she does have a multiple spectrum of symptoms I think acute coronary syndrome is somewhat unlikely EKG and troponin are negative 1 in the emergency room I did speak with Dr. Trivedi agreed to admit for serial troponins and observation. Dragon Disclaimer Dragon Disclaimer This electronic medical record was generated, in whole or in part, using a voice recognition dictation system. Departure Departure: Impression: Primary Impression: Chest pain Disposition: ADMITTED INPATIENT Admitting Physician: Rayray Page Condition: STABLE Referrals: DORINA GODFREY MD (PCP) MISBAH STARK MD Aug 11, 2019 15:05
[2019-08-11 17:12] VITALS: BP 131/77
[2019-08-11] MEDS ORDERED: CLON0.5T4 PO (17:57)
[2019-08-11] MEDS ORDERED: AMLO5TAB10 PO (17:57)
[2019-08-11] MEDS ORDERED: LOSA100T14 PO (18:12)
[2019-08-11] MEDS ORDERED: VENL75CA6 PO (18:12)
[2019-08-11] MEDS ORDERED: MIRT45TA58 PO (18:12)
[2019-08-11] MEDS ORDERED: CYAN100T2 PO (18:12)
[2019-08-11] MEDS ORDERED: TOPI50TA8 PO (18:12)
[2019-08-11] MEDS ORDERED: FLUT16SP21 NAS (18:12)
[2019-08-11] MEDS ORDERED: ESCI10TA2 PO (18:12)
[2019-08-11] MEDS ORDERED: ERTAPENEM 1 GM in IV NORMAL SALINE 50ML 50 ML IV ONE (18:30)
[2019-08-11] MEDS: POLYETHYLENE GLYCOL 3350 17 GM PACKET. PO SCH (20:53)
[2019-08-11] MEDS: NORMAL SALINE IV SCH (20:53)
[2019-08-11] MEDS: DAPTOMYCIN IV SCH (20:53)
[2019-08-11] MEDS: MIRTAZAPINE 15 MG TABLET PO SCH (20:54)
[2019-08-11] MEDS: TOPIRAMATE 25 MG TABLET. PO SCH (20:54)
[2019-08-11] MEDS: LACTOBACILLUS RHAMNOSUS GG 1 CAPSULE. PO SCH (20:54)
[2019-08-11] MEDS: ATORVASTATIN CALCIUM 20 MG TABLET PO SCH (20:54)
--- NOTE | 2019-08-11 21:19 | HP ---
ADMIT DATE: 08/11/2019 HISTORY OF PRESENT ILLNESS: A 73-year-old female who presented with chest pain and headache, came in through the Emergency Room. She has had these problems for the last 3 days as well as describing throbbing pain in her eyes, some nausea. The patient has around her neck as well as possible migraine headaches. The patient noted she had chest pain on the day of admission, although made worse with ambulation. She describes it as heaviness, pressure across the front of her chest and worried, obviously brought in through the Emergency Room for further evaluation. She has a history of coronary artery disease post-stent placement last year and the likes. As a result of this, the patient was admitted for chest pain with obvious previous history of coronary artery disease. PAST MEDICAL HISTORY: Thyroid disease, nose surgery, tonsillectomy, adenoidectomy, TIA, headaches, numbness, angina, coronary artery disease, coronary stent placement, hypertension, respiratory disease, sleep apnea, gastrointestinal symptoms, esophageal disorders, diverticulosis, obesity, gastroesophageal reflux, UTIs, prosthesis for her knee, unsteady with gait, left leg brace, Graves' disease, hypothyroidism, liver disease, psychiatric problems, depression, previous suicide attempts in the past, blood transfusion. IMMUNIZATIONS: Tetanus diphtheria vaccination, tetanus toxoid vaccination, influenza vaccination, pneumococcal vaccination. ALLERGIES: SULFA, ABILIFY, DOXYCYCLINE, PSEUDOEPHEDRINE and TRIPROLIDINE. FAMILY HISTORY: Sister with cervical cancer and other sister with breast tumor. Mother with colon cancer, aortic aneurysm in the father as well as hypertension in the father. Mother had cancer as well as a grandfather. MEDICATIONS: The patient's medications were reviewed in the reconciliation section of the chart and including Lipitor 20, carvedilol 6.25 b.i.d., Norvasc 5, losartan 100 mg, aspirin 81, clonazepam, topiramate 50, Lexapro 10, Remeron 45, venlafaxine 75, MiraLax, Prilosec 40, levothyroxine, cobalamin that is vitamin B12. SOCIAL HISTORY: The patient denies smoking, alcohol or drug use. Is a full code. REVIEW OF SYSTEMS: Chest pressure as noted primarily in the central part of the chest pressure with radiation around and with exertion. The patient otherwise continued to be monitored carefully on such. PHYSICAL EXAMINATION: GENERAL: This is a pleasant white female, in no apparent distress. VITAL SIGNS: Blood pressure 131/77, respiration 18, pulse 71, afebrile. HEENT: The patient's head was atraumatic, normocephalic. Eyes: PERRLA without jaundice. The mouth and throat were normal. NECK: Supple, no JVD or thyromegaly. LUNGS: Diminished throughout, poor movement of air. CARDIOVASCULAR: Regular sinus rhythm, S1, S2, without murmur, rub, thrill, or extra heart sound. ABDOMEN: Soft, nontender, no rebound or guarding. Positive bowel sounds, no hepatosplenomegaly was noted. EXTREMITIES: No clubbing, cyanosis, nor edema. NEUROLOGIC: The patient was alert and oriented x 3. LABORATORY DATA: The patient's labs so far show cardiac enzymes to be negative. Creatinine is slightly elevated with a decreased GFR of 144 and a glucose of 189. The patient's hemoglobin slightly low at 11.8. PLAN: The patient continued to be monitored and we will continue to monitor her EKGs and the like and cardiac enzymes. IMPRESSION: Chest pain, type 2 diabetes, morbid obesity, chronic kidney disease stage 3, anemia of chronic disease, history of obesity and Graves' disease, hypothyroidism, history of transient ischemic attacks and severe depression. The patient continued to be monitored carefully. She is also receiving IV antibiotic therapy including daptomycin and meropenem. Will continue to receive IV antibiotic therapy per outpatient protocol and make further evaluation along with Cardiology on her potential further coronary artery disease. TOBIAS HERR MD DR: MYLES/jcarlos JOB#: [id number] / [id number]
[2019-08-11] MEDS: ACETAMINOPHEN 500 MG TABLET PO PRN (21:20)
[2019-08-11] MEDS: FLUTICASONE 50MCG/NASAL SPRAY 16GM BOTTLE. NS SCH (21:20)
[2019-08-11] MEDS: MEROPENEM 500 MG in IV NORMAL SALINE 50ML 50 ML IV SCH (22:36)
[2019-08-11 23:52] VITALS: BP 139/82
[2019-08-12] MEDS: LEVOTHYROXINE 88 MCG TABLET PO SCH (05:51)
[2019-08-12] MEDS: MEROPENEM 500 MG in IV NORMAL SALINE 50ML 50 ML IV SCH ×3 (05:51→21:55)
[2019-08-12 06:06] VITALS: BP 129/84
[2019-08-12 06:08] LABS: CLARITY,URINE CLEAR; COLOR,URINE YELLOW
[2019-08-12 06:09] LABS: BACTERIA,URINE 0 /HPF (0-FEW); BILIRUBIN,URINE NEG (NEG); GLUCOSE,URINE NEG (NEG); NITRITE,URINE NEG (NEG); RBC,URINE 0 /HPF (0-2); SQUAMOUS EPITHELIAL CELL,UR FEW /LPF; UROBILINOGEN,URINE 0.2 mg/dL (0.2 mg/dL)
[2019-08-12 06:26] LABS: CREATININE 1.1 mg/dL (0.6-1.0); POTASSIUM 4.2 mmol/L (3.5-5.1)
[2019-08-12 06:43] LABS: HEMATOCRIT 37.3 % (36.0-47.0); HEMOGLOBIN 12.3 g/dL (12.0-15.5); RED BLOOD COUNT 4.12 x10^6/uL (3.50-5.40); RED CELL DISTRIBUTION WIDTH 14.5 % (11.5-14.5); WHITE BLOOD COUNT 6.4 x10^3/uL (4.0-11.0)
[2019-08-12] MEDS: MULTIVITAMIN with MINERAL TABLET. PO SCH (07:39)
[2019-08-12] MEDS: CYANOCOBALAMIN (VITAMIN B-12) 100 MCG TABLET PO SCH (07:39)
[2019-08-12] MEDS: VENLAFAXINE XR 37.5 MG CAP.ER.24H. PO SCH (07:40)
[2019-08-12] MEDS: ASPIRIN 81 MG TAB.CHEW PO SCH (07:40)
[2019-08-12] MEDS: CARVEDILOL 6.25 MG TABLET PO SCH ×2 (07:40→17:01)
[2019-08-12] MEDS: CITALOPRAM 20 MG TABLET. PO SCH (07:40)
[2019-08-12] MEDS: LACTOBACILLUS RHAMNOSUS GG 1 CAPSULE. PO SCH ×2 (07:40→21:54)
[2019-08-12] MEDS: TOPIRAMATE 25 MG TABLET. PO SCH ×2 (07:40→21:54)
[2019-08-12] MEDS: amLODIPine BESYLATE 5 MG TABLET PO SCH (07:41)
[2019-08-12] MEDS: PANTOPRAZOLE 40 MG TABLET. PO SCH (07:41)
[2019-08-12] MEDS: LOSARTAN 50 MG TABLET. PO SCH (07:41)
[2019-08-12] MEDS: POTASSIUM CHLORIDE 10 MEQ TABLET.ER. PO SCH (07:41)
[2019-08-12] MEDS: FLUTICASONE 50MCG/NASAL SPRAY 16GM BOTTLE. NS SCH ×2 (07:42→21:53)
--- NOTE | 2019-08-12 08:09 | EKG ---
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
[2019-08-12] MEDS ORDERED: BUTALB/APAP/CAFEIN 50/325/40MG TABLET. PO PRN (09:30)
[2019-08-12] MEDS ORDERED: METOCLOPRAMIDE 10 MG TABLET PO PRN (09:30)
[2019-08-12] MEDS ORDERED: ONDANSETRON ODT 4 MG TAB.RAPDIS PO PRN (09:30)
[2019-08-12] MEDS: ACETAMINOPHEN 500 MG TABLET PO PRN (09:35)
[2019-08-12 11:28] VITALS: BP 119/73
[2019-08-12] MEDS: GLIMEPIRIDE 2 MG TABLET PO SCH (11:36)
[2019-08-12 13:36] LABS: THYROID STIM HORMONE (TSH) 3.007 uIU/mL (0.358-3.740)
[2019-08-12 16:14] VITALS: BP 119/62
[2019-08-12 16:18] VITALS: BP 102/65
[2019-08-12] MEDS: NORMAL SALINE IV SCH (17:58)
[2019-08-12] MEDS: DAPTOMYCIN IV SCH (17:58)
[2019-08-12 19:11] VITALS: BP 124/75
[2019-08-12] MEDS: MIRTAZAPINE 15 MG TABLET PO SCH (21:54)
[2019-08-12] MEDS: ATORVASTATIN CALCIUM 20 MG TABLET PO SCH (21:54)
[2019-08-12] MEDS: POLYETHYLENE GLYCOL 3350 17 GM PACKET. PO SCH (21:55)
[2019-08-12] MEDS: clonazePAM 0.5 MG TABLET PO PRN (22:02)
[2019-08-12 23:32] VITALS: BP 139/81
[2019-08-13 00:08] LABS: HEMOGLOBIN A1C 6.3 % (4.8-5.6)
--- NOTE | 2019-08-13 04:59 | PN ---
DATE: SUBJECTIVE: This 73-year-old female came in with chest pain and the like. The patient seems to be still having some multiple problems, including chest pressure as well as abdominal discomfort and numerous other medical issues. The patient otherwise is alert and oriented. PHYSICAL EXAMINATION: VITAL SIGNS: Blood pressure 124/75, respirations 18, pulse 76, afebrile. LUNGS: Diminished, but clear. CARDIOVASCULAR: Regular sinus rhythm, S1, S2, without murmur, rub, thrill, or extra heart sound. ABDOMEN: Protuberant at best. LABORATORY DATA: The patient's cholesterol was an LDL of 90, cholesterol 184, triglycerides elevated to 40. Otherwise, cardiac enzymes have been negative. Creatinine slightly elevated. PLAN: The patient will continue to be monitored carefully and hopefully for discharge in the a.m., although the patient is reluctant to be discharged. Some psychosocial issues at best. In any case, the patient will be monitored carefully, make further evaluation on her as indicated. IMPRESSION: Chest pain, morbid obesity, type 2 diabetes, chronic kidney disease stage 3, anemia of chronic disease, Graves' disease, hypothyroidism, history of transient ischemic attacks and severe depression. TOBIAS HERR MD DR: MYLES/jcarlos JOB#: [id number] / [id number]
[2019-08-13] MEDS: LEVOTHYROXINE 88 MCG TABLET PO SCH (05:57)
[2019-08-13] MEDS: MEROPENEM 500 MG in IV NORMAL SALINE 50ML 50 ML IV SCH ×3 (05:57→22:13)
[2019-08-13 06:46] VITALS: BP 97/62
[2019-08-13] MEDS: VENLAFAXINE XR 37.5 MG CAP.ER.24H. PO SCH (08:19)
[2019-08-13] MEDS: PANTOPRAZOLE 40 MG TABLET. PO SCH (08:19)
[2019-08-13] MEDS: MULTIVITAMIN with MINERAL TABLET. PO SCH (08:19)
[2019-08-13] MEDS: TOPIRAMATE 25 MG TABLET. PO SCH ×2 (08:19→21:01)
[2019-08-13] MEDS: amLODIPine BESYLATE 5 MG TABLET PO SCH (08:20)
[2019-08-13] MEDS: ASPIRIN 81 MG TAB.CHEW PO SCH (08:21)
[2019-08-13] MEDS: CITALOPRAM 20 MG TABLET. PO SCH (08:21)
[2019-08-13] MEDS: CARVEDILOL 6.25 MG TABLET PO SCH ×2 (08:21→17:35)
[2019-08-13] MEDS: POTASSIUM CHLORIDE 10 MEQ TABLET.ER. PO SCH (08:21)
[2019-08-13] MEDS: LACTOBACILLUS RHAMNOSUS GG 1 CAPSULE. PO SCH ×2 (08:21→21:01)
[2019-08-13] MEDS: CYANOCOBALAMIN (VITAMIN B-12) 100 MCG TABLET PO SCH (08:22)
[2019-08-13] MEDS: LOSARTAN 50 MG TABLET. PO SCH (08:22)
[2019-08-13] MEDS: FLUTICASONE 50MCG/NASAL SPRAY 16GM BOTTLE. NS SCH ×2 (09:50→21:01)
[2019-08-13 11:10] VITALS: BP 112/69
[2019-08-13] MEDS: GLIMEPIRIDE 2 MG TABLET PO SCH (11:57)
[2019-08-13 15:00] VITALS: BP 127/75
[2019-08-13] MEDS: DAPTOMYCIN IV SCH (17:35)
[2019-08-13] MEDS: NORMAL SALINE IV SCH (17:35)
[2019-08-13 19:17] VITALS: BP 120/81
[2019-08-13] MEDS: POLYETHYLENE GLYCOL 3350 17 GM PACKET. PO SCH (21:01)
[2019-08-13] MEDS: ATORVASTATIN CALCIUM 20 MG TABLET PO SCH (21:01)
[2019-08-13] MEDS: clonazePAM 0.5 MG TABLET PO PRN (21:01)
[2019-08-13] MEDS: MIRTAZAPINE 15 MG TABLET PO SCH (21:02)
[2019-08-13 23:21] VITALS: BP 120/78
--- NOTE | 2019-08-14 01:57 | PN ---
DATE: SUBJECTIVE: A 73-year-old female came in with a chest pain, her chest like pain symptoms. The patient says she is feeling somewhat better. She has been having multiple problems. Otherwise, seems to be making fairly good progress overall. OBJECTIVE: VITAL SIGNS: Include that of 120/80, respiratory rate 20, pulse 73, and afebrile. GENERAL: The patient is alert and oriented and morbidly obese. LUNGS: Diminished throughout, but clear. CARDIOVASCULAR: Regular sinus rhythm. ABDOMEN: Soft, protuberant, and nontender per se. EXTREMITIES: No clubbing, cyanosis, or edema. NEUROLOGIC: Baseline, alert and oriented x 3. LABORATORY DATA: The patient's labs were monitored. She had some mild renal insufficiency and A1c was 6.3. Blood sugar was anywhere from 190 down to 100. Cardiac enzymes were negative. TSH was normal. IMPRESSION: Chest pain, type 2 diabetes, and morbid obesity. PLAN: We will continue to monitor the patient. Continue with PT and OT and make further evaluation on her as indicated. TOBIAS HERR MD DR: MYLES/jcarlos JOB#: [id number] / [id number]
[2019-08-14 05:15] VITALS: BP 133/83
[2019-08-14] MEDS: LEVOTHYROXINE 88 MCG TABLET PO SCH (06:10)
[2019-08-14] MEDS: MEROPENEM 500 MG in IV NORMAL SALINE 50ML 50 ML IV SCH (06:10)
[2019-08-14] MEDS: FLUTICASONE 50MCG/NASAL SPRAY 16GM BOTTLE. NS SCH (08:54)
[2019-08-14] MEDS: PANTOPRAZOLE 40 MG TABLET. PO SCH (08:54)
[2019-08-14] MEDS: POTASSIUM CHLORIDE 10 MEQ TABLET.ER. PO SCH (08:54)
[2019-08-14] MEDS: MULTIVITAMIN with MINERAL TABLET. PO SCH (08:55)
[2019-08-14] MEDS: ASPIRIN 81 MG TAB.CHEW PO SCH (08:55)
[2019-08-14] MEDS: TOPIRAMATE 25 MG TABLET. PO SCH (08:55)
[2019-08-14] MEDS: LOSARTAN 50 MG TABLET. PO SCH (08:55)
[2019-08-14] MEDS: LACTOBACILLUS RHAMNOSUS GG 1 CAPSULE. PO SCH (08:55)
[2019-08-14] MEDS: CARVEDILOL 6.25 MG TABLET PO SCH (08:56)
[2019-08-14] MEDS: amLODIPine BESYLATE 5 MG TABLET PO SCH (08:56)
[2019-08-14] MEDS: CYANOCOBALAMIN (VITAMIN B-12) 100 MCG TABLET PO SCH (08:56)
[2019-08-14] MEDS: VENLAFAXINE XR 37.5 MG CAP.ER.24H. PO SCH (08:56)
[2019-08-14] MEDS: CITALOPRAM 20 MG TABLET. PO SCH (08:56)
[2019-08-14 10:57] VITALS: BP 123/79
[2019-08-14] MEDS ORDERED: BUTA1TAB23 PO (11:12)
[2019-08-14] MEDS ORDERED: IOHEXOL 350 MG/ML 100 ML VIAL. IV ONE (11:30)
--- NOTE | 2019-08-14 11:30 | DS ---
DATE OF DISCHARGE: HOSPITAL COURSE: The patient was admitted for substernal chest pain radiating down her arms. 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 She continued on IV antibiotics there. The patient's cardiac enzymes were monitored in the usual fashion and they remain basically stable. Her cholesterol showed 184, LDL of 90 and an HDL of 47. TSH was good. The patient also had an A1c drawn 6.3. Her sodium and potassium 140 and 3.9, BUN and creatinine 20 and 1.2 with a GFR of 44. The patient's hemoglobin 12.3 and 37. Otherwise, the patient made excellent progress during the rest of her hospitalization. She had severe headache. CT scan was done of her head and there were no acute findings there, although she did respond to Fioricet very nicely for headache. A small prescription was forwarded to [facility] for 10-12 tablets. The patient's chest x-ray was unremarkable and clear, otherwise, the patient made good progress, was walking in the halls without any complications. No further chest pain. The patient will be discharged home. She will follow up with her primary care physician and make further evaluation. See MRAD. She should be on a heart healthy diabetic low sodium diet. Continue her IV antibiotic therapy as an outpatient and make further evaluation on her. TOBIAS HERR MD DR: MYLES/jcarlos JOB#: [id number] / [id number]
[2019-08-14] MEDS: GLIMEPIRIDE 2 MG TABLET PO SCH (12:19)
--- NOTE | 2019-08-14 12:47 | RAD ---
CTA scan of the Chest with Contrast (Pulmonary Embolism protocol) 08/14/2019 Clinical History: Positive d-dimer. Chest pain Technique: After the intravenous administration of 75 cc of Omnipaque 350, contiguous, 0.625 mm axial sections were obtained through the chest. 3 mm mm axial and 3D MIP coronal and sagittal reconstructed images were obtained. One or more of the following individualized dose reduction techniques were utilized for this study: 1. Automated exposure control. 2. Adjustment of the mA and/or kV according to patient size. 3. Use of iterative reconstruction technique. Findings: No filling defect is seen within the major branches of either pulmonary artery. There is no CT evidence of pulmonary embolism. The heart is normal in size. Atherosclerotic calcification of the thoracic aorta and its branches is noted. The thoracic aorta is tortuous but tapers normally. A left arm PICC extends to the superior vena cava. The right subclavian artery originates as the last branch from the thoracic aortic arch extending posterior to the proximal thoracic esophagus. This is a normal variation Minimal dependent subsegmental atelectasis is seen involving both lungs. Linear bands of subsegmental atelectasis and/or scarring are seen involving the right middle lobe and left lower lobe. No area of consolidation, pleural effusion or pneumothorax is seen. Images through the upper abdomen demonstrate decreased attenuation liver parenchyma consistent with fatty infiltration. Mild S-shaped curvature of the thoracolumbar spine is seen. Degenerative changes are seen involving the thoracic spine. Impression: There is no CT evidence of pulmonary embolism. Electronically signed by: Gage Romo MD (08/14/2019 12:44 PM) [facility]
== END 2019-08-14 13:30 | disposition home or self-care (01) | DRG 159 ==
LOC: ER 12:28 → 1 SOUTH 16:24
PROVIDERS: ADMIT Family Medicine; ATTEND Family Medicine
DX: M27.2 Inflammatory conditions of jaws (principal); R07.89 Other chest pain; E66.01 Morbid (severe) obesity due to excess calories; N18.3 Chronic kidney disease, stage 3 (moderate); E03.9 Hypothyroidism, unspecified; D63.8 Anemia in other chronic diseases classified elsewhere; E05.00 Thyrotoxicosis with diffuse goiter without thyrotoxic crisis or storm; F32.9 Major depressive disorder, single episode, unspecified; E11.22 Type 2 diabetes mellitus with diabetic chronic kidney disease; I12.9 Hypertensive chronic kidney disease with stage 1 through stage 4 chronic kidney disease, or unspecified chronic kidney disease; Z86.73 Personal history of transient ischemic attack (TIA), and cerebral infarction without residual deficits; Z68.38 Body mass index [BMI] 38.0-38.9, adult; G43.909 Migraine, unspecified, not intractable, without status migrainosus; G47.30 Sleep apnea, unspecified; I25.10 Atherosclerotic heart disease of native coronary artery without angina pectoris; K21.9 Gastro-esophageal reflux disease without esophagitis; Z80.0 Family history of malignant neoplasm of digestive organs; Z80.49 Family history of malignant neoplasm of other genital organs; Z82.49 Family history of ischemic heart disease and other diseases of the circulatory system; Z95.5 Presence of coronary angioplasty implant and graft; Z91.5 Personal history of self-harm
CPT/HCPCS: 36415; 70450; 71045; 71275; 80048; 80053; 80061; 81001; 82550; 82947; 83036; 84443; 84484; 85025; 85027; 85379; 85610; 85651; 87086; 93005; 96374; J0780; J0878; J2185; Q0162; Q9967; 99285-25

== ENCOUNTER 2019-09-10 13:16 | Emergency (ER) | payer MEDICARE, BC ==
[~2019-09-10] VITALS: Ht 157.5 cm; Wt 96.6 kg
[2019-09-10 13:16] VITALS: BP 116/66
[~2019-09-10 13:16] MED LIST changes: +AMLO5TAB10 PO; +BUTA1TAB23 PO; +CLON0.5T11 PO; -CLON0.5T4 PO; +CYAN100T2 PO; +FLUT16SP21 NAS; +MIRT45TA58 PO; +TOPI50TA8 PO; +VENL75CA6 PO
--- NOTE | 2019-09-10 13:48 | PHYS DOC ---
Past History Past Medical History: Depression, Diabetes, Hypertension, Hypothyroid Past Surgical History: No Surgical History Smoking: Non-smoker Alcohol Use: None Drug Use: None Adult General Chief Complaint Chief Complaint: BACK PAIN OR INJURY HPI HPI Patient is a 73-year-old female presents complaining of back pain from "the shoulder blades on down" after slipping and falling backwards onto grass 3 days ago. There was no loss of bowel or bladder control. Increased pain with movement. No significant relief with her left over hydrocodone from dental work. No radiation of the discomfort. No dysuria or hematuria[] Review of Systems Review of Systems Constitutional: Denies fever or chills [] Eyes: Denies change in visual acuity, redness, or eye pain [] HENT: Denies nasal congestion or sore throat [] Respiratory: Denies cough or shortness of breath [] Cardiovascular: No chest pain or palpitations[] GI: Denies abdominal pain, nausea, vomiting, bloody stools or diarrhea. She reports constipation since taking the hydrocodone for the back pain [] : Denies dysuria or hematuria [] Musculoskeletal: Denies joint pain, see history of present illness [] Integument: Denies rash or skin lesions [] Neurologic: Denies headache, focal weakness or sensory changes [] Endocrine: Denies polyuria or polydipsia [] All other systems were reviewed and found to be within normal limits, except as documented in this note. Current Medications Current Medications Current Medications Medications (Trade) Dose Ordered Sig/Maggie Start Time Stop Time Status Last Admin Dose Admin Ketorolac Tromethamine (Toradol 30mg Vial) 30 mg 1X ONCE 09/10/19 13:45 09/10/19 13:46 UNV Allergies Allergies Allergies Coded Allergies Type Severity Reaction Last Updated Verified Sulfa (Sulfonamide Antibiotics) Allergy Intermediate RASH 04/10/18 Yes aripiprazole Allergy Intermediate RASH 04/10/18 Yes doxycycline Allergy Intermediate N/V RASH 04/10/18 Yes pseudoephedrine Allergy Intermediate hyperactive 04/10/18 Yes triprolidine Allergy Intermediate hyperactive 04/10/18 Yes Physical Exam Physical Exam Constitutional: Well developed, well nourished, no acute distress, non-toxic appearance. [] HENT: Normocephalic, atraumatic, bilateral external ears normal, oropharynx moist, no oral exudates, nose normal. [] Eyes: PERRLA, EOMI, conjunctiva normal, no discharge. [] Neck: Normal range of motion, no tenderness, supple, no stridor. [] Cardiovascular:Heart rate regular rhythm, no murmur [] Lungs & Thorax: Bilateral breath sounds clear to auscultation [] Abdomen: Bowel sounds normal, soft, no tenderness, no masses, no pulsatile masses. [] Skin: Warm, dry, no erythema, no rash. [] Back: Diffuse tenderness in the thoracic and lumbar spine. No step-off or crepitus. Bilateral lower extremities have 5 out of 5 strength. DTRs are 2 over 4 in the patella and Achilles. no CVA tenderness. [] Extremities: No tenderness, no cyanosis, no clubbing, ROM intact, no edema. [] Neurologic: Alert and oriented X 3, normal motor function, normal sensory function, no focal deficits noted. [] Psychologic: Affect normal, judgement normal, mood normal. [] Current Patient Data Vital Signs Vital Signs Date Time Temp Pulse Resp B/P (MAP) Pulse Ox O2 Delivery O2 Flow Rate FiO2 09/10/19 13:16 98.2 75 20 116/66 (83) 95 Room Air EKG EKG [] Radiology/Procedures Radiology/Procedures PROCEDURE: CT LUMBAR SPINE WO CONTRAST CT lumbar spine without contrast HISTORY: Fall, back pain. FINDINGS: Levoconvex lumbar scoliosis apex at L2-L3 where there is advanced right eccentric disc height loss and vacuum disc and right lateral bulky endplate spurs and bony sclerosis stable to prior imaging. Lumbar vertebral body height and alignment intact. 2 mm retrolisthesis L1 on L2. There is a linear vertical oriented fracture along the left L4 superior facet best observed on axial images 53-56 while this has bony sclerotic margins surrounding it which could be observed with a chronic fracture this is new from CT abdomen and pelvis imaging from 2018 and could represent an acute or subacute fracture new since that time. No additional fractures evident. No spondylolysis defect. There are disc bulges and ligament flavum thickening along with facet spurs at several levels, and endplate spurring at L2-L3, with multilevel spinal canal and neural frontal stenoses with the greatest degree of stenotic disease at L2-L3, through 4 and L4-L5. Paraspinal tissues are unremarkable. IMPRESSION: Vertical linear lucency of the left L4 superior facet with mild surrounding bony sclerosis, new from CT imaging 2018. This could represent a new acute traumatic fracture versus a subacute to chronic stress fracture given the presence of surrounding bony sclerosis. Lumbar disc disease and arthritis as described above. PROCEDURE: CT THORACIC SPINE WO CONTRAST CT thoracic spine without contrast HISTORY: Fall, thoracic spine pain. Back pain. Thoracic spine findings: Mild thoracic scoliosis. Thoracic vertebral body height and alignment intact. No fracture. No spondylolisthesis. Lower cervical disc osteophytes and uncovertebral spurs with spinal canal and neural foraminal stenoses. Mild lower thoracic anterior disc osteophytes. Bony spinal canal of the thoracic spine is grossly patent. Thoracic paraspinal tissues are unremarkable. IMPRESSION: No acute osseous injury of the thoracic spine.[] Course & Med Decision Making Course & Med Decision Making Pertinent Labs and Imaging studies reviewed. (See chart for details) ED course: Patient arrived, was placed in bed, and tolerated exam well. Patient was given pain medicine. She was transported to and from CT scan without any complications. After return of the CT imaging, findings were discussed with neurosurgery, Dr. Brennan, who believes that this is standing rather than an acute issue from 3 days ago. Findings and plan were discussed with the patient who voiced understanding. All questions were answered. She was discharged in improved condition. Medical decision making: Patient with long-standing back degenerative changes as noted on CT scan. Acutely worsened by this fall. No evidence of cauda equina syndrome, no evidence of neurologic or vascular compromise. Given her constipation with her current narcotic pain medicine, we will attempt a different regimen to address both pain management as well as constipation issues[] Dragon Disclaimer Dragon Disclaimer This electronic medical record was generated, in whole or in part, using a voice recognition dictation system. Departure Departure: Impression: Primary Impression: Low back pain Additional Impressions: Contusion of back Constipation Disposition: 01 HOME, SELF-CARE Condition: IMPROVED Referrals: DORINA GODFREY MD (PCP) Follow-up in 2 days Patient Instructions: Constipation, Adult, Contusion Additional Instructions: There is evidence of a fracture that happened some time prior to your fall 3 days ago, of your fourth lumbar vertebrae. It was not present on the CT scan in 2018. This was discussed with the neurosurgeon information technology intern today. Follow-up with your regular doctor in 2 days. Drink plenty of fluids. Eat a high-fiber diet including fresh fruits and vegetables, and a cereal with "fiber" or "bran" in the name. Take the medication as prescribed. Return to the ER if worsening pain or any other concerns. Scripts Magnesium Citrate (MAGNESIUM CITRATE) 296 Ml Solution 296 ML PO ONCE for constipation, #296 ML Prov: DANILO MEDEROS DO 09/10/19 Oxaprozin (OXAPROZIN) 600 Mg Tablet 600 MG PO BID for pain, #20 TAB Prov: DANILO MEDEROS DO 09/10/19 Orphenadrine Citrate (ORPHENADRINE CITRATE) 100 Mg Tablet.er 100 MG PO BID for BACK PAIN, #20 TAB.SR Prov: DANILO MEDEROS DO 09/10/19 Problem Qualifiers Primary Impression: Low back pain Chronicity: unspecified Back pain laterality: unspecified Sciatica presence: without sciatica Qualified Codes: M54.5 - Low back pain Additional Impressions: Contusion of back Encounter type: initial encounter Laterality: unspecified laterality Qualified Codes: S20.229A - Contusion of unspecified back wall of thorax, initial encounter Constipation Constipation type: drug induced constipation Qualified Codes: K59.03 - Drug induced constipation DANILO MEDEROS DO Sep 10, 2019 13:48
[2019-09-10] MEDS ORDERED: KETOROLAC 30 MG/ML VIAL. IM ONE (14:00)
--- NOTE | 2019-09-10 14:29 | RAD ---
CT thoracic spine without contrast HISTORY: Fall, thoracic spine pain. Back pain. Thoracic spine findings: Mild thoracic scoliosis. Thoracic vertebral body height and alignment intact. No fracture. No spondylolisthesis. Lower cervical disc osteophytes and uncovertebral spurs with spinal canal and neural foraminal stenoses. Mild lower thoracic anterior disc osteophytes. Bony spinal canal of the thoracic spine is grossly patent. Thoracic paraspinal tissues are unremarkable. IMPRESSION: No acute osseous injury of the thoracic spine. Exposure: One or more of the following individualized dose reduction techniques were utilized for this examination: 1. Automated exposure control 2. Adjustment of the mA and/or kV according to patient size 3. Use of iterative reconstruction technique Electronically signed by: Esteban Arteaga MD (09/10/2019 2:26 PM) [facility]
--- NOTE | 2019-09-10 14:36 | RAD ---
CT lumbar spine without contrast HISTORY: Fall, back pain. FINDINGS: Levoconvex lumbar scoliosis apex at L2-L3 where there is advanced right eccentric disc height loss and vacuum disc and right lateral bulky endplate spurs and bony sclerosis stable to prior imaging. Lumbar vertebral body height and alignment intact. 2 mm retrolisthesis L1 on L2. There is a linear vertical oriented fracture along the left L4 superior facet best observed on axial images 53-56 while this has bony sclerotic margins surrounding it which could be observed with a chronic fracture this is new from CT abdomen and pelvis imaging from 2018 and could represent an acute or subacute fracture new since that time. No additional fractures evident. No spondylolysis defect. There are disc bulges and ligament flavum thickening along with facet spurs at several levels, and endplate spurring at L2-L3, with multilevel spinal canal and neural frontal stenoses with the greatest degree of stenotic disease at L2-L3, through 4 and L4-L5. Paraspinal tissues are unremarkable. IMPRESSION: Vertical linear lucency of the left L4 superior facet with mild surrounding bony sclerosis, new from CT imaging 2018. This could represent a new acute traumatic fracture versus a subacute to chronic stress fracture given the presence of surrounding bony sclerosis. Lumbar disc disease and arthritis as described above. Exposure: One or more of the following individualized dose reduction techniques were utilized for this examination: 1. Automated exposure control 2. Adjustment of the mA and/or kV according to patient size 3. Use of iterative reconstruction technique Electronically signed by: Esteban Arteaga MD (09/10/2019 2:33 PM) [facility]
[2019-09-10] MEDS ORDERED: ORPH-16 PO (15:45)
[2019-09-10] MEDS ORDERED: MAGN296S9 PO (15:45)
[2019-09-10] MEDS ORDERED: OXAP600T2 PO (15:45)
== END 2019-09-10 15:50 | disposition home or self-care (01) ==
LOC: ER 13:16
DX: S20.229A Contusion of unspecified back wall of thorax, initial encounter (principal); M54.5 Low back pain; K59.03 Drug induced constipation; F32.9 Major depressive disorder, single episode, unspecified; E11.9 Type 2 diabetes mellitus without complications; I10 Essential (primary) hypertension; E03.9 Hypothyroidism, unspecified; Z88.2 Allergy status to sulfonamides; Z88.1 Allergy status to other antibiotic agents; Z88.8 Allergy status to other drugs, medicaments and biological substances
CPT/HCPCS: 72128; 72131; 96372; 99284; J1885

== ENCOUNTER → 2020-04-27 | Outpatient (CLI) | payer MEDICARE, BC ==
[~2020-04-27] MED LIST changes: +AMLO-186 PO; -AMLO5TAB10 PO; -ASCO500T2 PO; +ASCO500T4 PO; -CLON0.5T11 PO; +CLON0.5T4 PO; -CYAN100T2 PO; +CYAN100T21 PO; -GLIM1TAB3 PO; +GLIM1TAB7 PO; -GLIM4TAB4 PO; +GLIM4TAB8 PO; +MAGN296S68 PO; +MULT-445 PO; -MULT1TAB52 PO; -OMEP20CA10 PO; +OMEP20CA16 PO; +ORPH-16 PO; +OXAP600T2 PO; +OXYC-325 PO; +TRAZ-125 PO; -TRAZ-86 PO
--- NOTE | 2020-04-27 13:15 | RAD ---
EXAM: CT Abdomen and Pelvis without IV contrast INDICATION: Renal colic and flank pain. TECHNIQUE: Multi-detector row CT images were acquired from the lung bases through the abdomen and pelvis without the use of IV contrast. Sagittal and coronal images were acquired from the transaxial data. All CT scans performed at this facility utilize dose optimization techniques as appropriate to the exam, including the following: Automated exposure control and adjustment of the mA and/or KV according to patient size (this includes techniques or standardized protocols for targeted exams where dose is indication/reason for exam). ORAL CONTRAST: None COMPARISON: None FINDINGS: The absence of IV contrast limits evaluation of soft tissue pathology. LOWER CHEST: Unremarkable LIVER: Unremarkable BILIARY SYSTEM: Gallbladder is surgically absent. Bile ducts are not dilated. PANCREAS: Unremarkable SPLEEN: Unremarkable ADRENALS: Unremarkable KIDNEYS & URETERS: Unremarkable BLADDER: Unremarkable REPRODUCTIVE ORGANS: Multiple calcified uterine fibroids. No adnexal mass. GASTROINTESTINAL: The stomach and small bowel and colon are unremarkable. The large bowel is stool filled and shows an anastomotic sutures near the rectosigmoid junction compatible with previous partial sigmoidectomy. The ascending colon is partly interposed over the inferior edge of the right hepatic lobe. Extensive colonic diverticuli are also present.. The appendix is normal. MESENTERY/PERITONEUM/RETROPERITONEUM: Unremarkable VASCULAR: Unremarkable LYMPH NODES: No adenopathy OSSEOUS & SOFT TISSUES: Levoscoliosis with asymmetric joint space narrowing and osteophytic spurring, subchondral sclerosis and subchondral cystic change at L2-L3. No acute fracture or aggressive appearing osseous lesions. IMPRESSION: 1. No evidence of calcified stone disease in the urinary tract or of obstructive uropathy. 2. Lumbar spinal degenerative spondylosis, most conspicuous on the right at L2-L3 as described, and interposition of bowel over the right hepatic lobe inferior margin. Correlate for relevance to patient's symptoms Electronically signed by: Leatha Vance MD (04/27/2020 1:12 PM) [id number]
== END ==
LOC: CT 11:05
PROVIDERS: ATTEND Family Medicine
DX: N23 Unspecified renal colic (principal); D25.9 Leiomyoma of uterus, unspecified; M47.816 Spondylosis without myelopathy or radiculopathy, lumbar region; Z90.49 Acquired absence of other specified parts of digestive tract
CPT/HCPCS: 74176

== ENCOUNTER 2020-05-16 14:10 | Emergency (ER) | payer MEDICARE, BC ==
[~2020-05-16] VITALS: Ht 157.5 cm; Wt 96.6 kg
[~2020-05-16 14:10] MED LIST changes: -AMLO-186 PO; +AMLO5TAB10 PO; +CYAN100T2 PO; -CYAN100T21 PO; -OXYC-325 PO
--- NOTE | 2020-05-16 14:27 | PHYS DOC ---
Past History Past Medical History: Angina, Bronchitis, Depression, Diabetes, Hypertension, Hypothyroid, Migraines, MRSA, Renal Disease, UTI Additional Past Medical Histor: WEAKNESS, CELLULITIS, PTSD Past Surgical History: No Surgical History Smoking: Non-smoker Alcohol Use: None Drug Use: None General Adult EDM: Chief Complaint: MECHANICAL FALL HPI: HPI: Patient is a 74-year-old female who presents to the emergency department for evaluation. She was returning from a diagnostic cardiac catheterization (which she states she was told was normal), and she normally ambulates with difficulty, and has a brace on her left leg, and states a friend of hers was helping her out of the car, but the friend tried lifting her up, and instead help the patient fall to the ground, as she lost her balance. The patient struck her face/head on the concrete. She did not have a loss of consciousness. She does report some nausea at this time. She did sustain an abrasion/laceration to her right forehead, and has some swelling and bruising around her right eye. She also complains of some neck discomfort. She denies any numbness, or new focal weakness. She denies any chest pain or shortness of breath. She takes a baby aspirin but no other anticoagulants. There are no alleviating or exacerbating factors to her symptoms, other than palpation of the affected areas. Review of Systems: Review of Systems: Constitutional: Denies fever or chills Eyes: Denies change in visual acuity HENT: Denies nasal congestion or sore throat Respiratory: Denies cough or shortness of breath Cardiovascular: Denies chest pain or edema GI: Denies abdominal pain, nausea, vomiting, bloody stools or diarrhea : Denies dysuria Musculoskeletal: Denies back pain or joint pain Integument: Denies rash Neurologic: Denies focal weakness or sensory changes Endocrine: Denies polyuria or polydipsia Lymphatic: Denies swollen glands Psychiatric: Denies depression or anxiety Heart Score: Risk Factors: Risk Factors: DM, Current or recent (<one month) smoker, HTN, HLP, family history of CAD, obesity. Risk Scores: Score 0 - 3: 2.5% MACE over next 6 weeks - Discharge Home Score 4 - 6: 20.3% MACE over next 6 weeks - Admit for Clinical Observation Score 7 - 10: 72.7% MACE over next 6 weeks - Early Invasive Strategies Allergies: Allergies: Allergies Coded Allergies Type Severity Reaction Last Updated Verified Sulfa (Sulfonamide Antibiotics) Allergy Intermediate RASH 04/10/18 Yes aripiprazole Allergy Intermediate RASH 04/10/18 Yes doxycycline Allergy Intermediate N/V RASH 04/10/18 Yes pseudoephedrine Allergy Intermediate hyperactive 04/10/18 Yes triprolidine Allergy Intermediate hyperactive 04/10/18 Yes Physical Exam: PE: PHYSICAL EXAM: CONSTITUTIONAL: Well developed, well nourished HEAD: normocephalic, there is a contusion and superficial abrasion on the anterior right forehead, the remainder the cranium appears atraumatic EENT: PERRL, EOMI. there is no oculomotor palsy. There is a subconjunctival hemorrhage noted on the right. There is bruising in the right periorbital area with mild diffuse tenderness to palpation of the periorbital region. The remainder the facial bones are nontender. Vision is grossly intact in the right eye. Conjunctivae normal color, sclerae non-icteric; moist mucous membranes. NECK: Supple, no meningismus. There is mild diffuse tenderness to palpation of the cervical spine without focal bony tenderness to palpation. LUNGS: Lungs CTA, breathing even and unlabored. Normal air movement. HEART: Regular rate and rhythm, no murmur CHEST: No deformity; non-tender ABDOMEN: The abdomen is soft, and non-tender, no masses or bruits. EXTREM: Normal ROM; no deformity, no calf tenderness. Normal pulses palpable in all extremities. There is no pedal edema. The extremities are atraumatic. There is normal range of motion with no tenderness to palpation in the extremities. SKIN: No rash; no diaphoresis NEURO: Alert; normal speech and cognition; CN's grossly intact; strength grossly intact without focal deficit. BACK: No CVA TTP. Current Patient Data: Vital Signs: Vital Signs Date Time Temp Pulse Resp B/P (MAP) Pulse Ox O2 Delivery O2 Flow Rate FiO2 05/16/20 14:15 98.1 71 16 124/69 (87) 97 Room Air EKG: EKG: [] Radiology/Procedures: Radiology/Procedures: PROCEDURE: CT HEAD AND MAXILLOFACIAL WO CT brain without contrast, CT maxillofacial without contrast, CT cervical spine without contrast HISTORY: Fall, pain CT brain CT scan the brain was done without contrast. A skull fracture is not identified. There is soft tissue swelling on the right forehead. There is no intracranial hemorrhage or subdural hematoma. There is no mass or shift of the midline intracranially. Ventricles are normal in size. IMPRESSION: 1. Extracranial swelling right forehead. 2. No intracranial hemorrhage or acute finding intracranially. End impression CT FACIAL BONES: Axial CT images were obtained through the facial bones. Sagittal and coronal reconstructed images were reviewed. There is artifacts off the fillings in the teeth. There is motion artifact. A mandible fracture is not identified. There is a fluid level in soft tissue thickening in the right maxillary sinus. Patient's had previous sinus surgery. There is been previous surgery in the maxillary sinuses as well as into the ethmoid sinuses. There is mucosal thickening in the right sphenoid sinus. There are small frontal sinuses. There is air in the soft tissues of the orbit on the right side. There is increased medial displacement of the medial wall of the right orbit compared to the old study from January 2018 consistent with an acute fracture. Floor the orbit is also mildly depressed compared to the old study with orbital fat extending into the sinus which was not present on the prior study. The pattern of the right orbit is consistent with an acute inferior blowout fracture of the floor the orbit. On the left side the floor the orbit is depressed but unchanged from the old exam. Medial orbit on the lateral left is also abnormal but unchanged from the old exam. Opacification of the sphenoid, ethmoid and frontal sinuses on the right are all new. IMPRESSION: 1. New fractures of the medial wall and floor of the right orbit. 2. Air in the right orbit from the fractures. 3. Deformity of the left orbit from old surgeries or old trauma without change. End impression CT cervical spine Axial CT images were obtained to the cervical spine. Sagittal and coronal reconstructed images were reviewed. An acute C-spine fracture is not identified. Patient has an apparent origin of the right subclavian as the last branch of the aortic arch. Is atherosclerotic change in the right subclavian. An acute C-spine fracture is not identified. There is facet arthritis at multiple levels. There is degenerative disc disease at C5-6 and C6-7. There is slight subluxation at C2-3 from facet arthritis. IMPRESSION: 1. Degenerative changes in the cervical spine. 2. No acute C-spine fracture. [] Course & Med Decision Making: Course & Med Decision Making Pertinent Imaging studies reviewed. (See chart for details) [] LACERATION NOTE: The 3 cm right forehead laceration was irrigated copiously with normal saline and closed with Dermabond. The patient tolerated the procedure well. Shan Disclaimer: Shan Disclaimer: This electronic medical record was generated, in whole or in part, using a voice recognition dictation system. Departure Departure: Impression: Primary Impression: Orbital floor fracture Additional Impressions: Forehead laceration Closed head injury Disposition: HOME/RESIDENCE PRIOR TO ADM Condition: STABLE Referrals: DORINA GODFREY MD (PCP) JAMIR PARKER DO Patient Instructions: Facial Laceration, Head Injury, Adult, Orbital Floor Fracture, Blowout, Tissue Adhesive Wound Care Scripts Oxycodone HCl/Acetaminophen (Percocet 5-325 mg Tablet) 1 Each Tablet 1 TAB PO Q6HRS PRN for PAIN MDD 3 Tablet(s), #10 TAB 0 Refills Prov: SHELLY ELLIS MD 05/16/20 Justification of Admission: Justification of Admission: Justification of Admission Dx: N/A SHELLY ELLIS MD May 16, 2020 14:27
[2020-05-16] MEDS ORDERED: ACETAMINOPHEN 325 MG TABLET PO ONE (14:30)
[2020-05-16] MEDS ORDERED: DIPH,PERTUSS(ACELL),TET VAC/PF 0.5 ML SYRINGE. VAX IM ONE (14:30)
--- NOTE | 2020-05-16 15:37 | RAD ---
CT brain without contrast, CT maxillofacial without contrast, CT cervical spine without contrast HISTORY: Fall, pain CT brain CT scan the brain was done without contrast. A skull fracture is not identified. There is soft tissue swelling on the right forehead. There is no intracranial hemorrhage or subdural hematoma. There is no mass or shift of the midline intracranially. Ventricles are normal in size. IMPRESSION: 1. Extracranial swelling right forehead. 2. No intracranial hemorrhage or acute finding intracranially. End impression CT FACIAL BONES: Axial CT images were obtained through the facial bones. Sagittal and coronal reconstructed images were reviewed. There is artifacts off the fillings in the teeth. There is motion artifact. A mandible fracture is not identified. There is a fluid level in soft tissue thickening in the right maxillary sinus. Patient's had previous sinus surgery. There is been previous surgery in the maxillary sinuses as well as into the ethmoid sinuses. There is mucosal thickening in the right sphenoid sinus. There are small frontal sinuses. There is air in the soft tissues of the orbit on the right side. There is increased medial displacement of the medial wall of the right orbit compared to the old study from January 2018 consistent with an acute fracture. Floor the orbit is also mildly depressed compared to the old study with orbital fat extending into the sinus which was not present on the prior study. The pattern of the right orbit is consistent with an acute inferior blowout fracture of the floor the orbit. On the left side the floor the orbit is depressed but unchanged from the old exam. Medial orbit on the lateral left is also abnormal but unchanged from the old exam. Opacification of the sphenoid, ethmoid and frontal sinuses on the right are all new. IMPRESSION: 1. New fractures of the medial wall and floor of the right orbit. 2. Air in the right orbit from the fractures. 3. Deformity of the left orbit from old surgeries or old trauma without change. End impression CT cervical spine Axial CT images were obtained to the cervical spine. Sagittal and coronal reconstructed images were reviewed. An acute C-spine fracture is not identified. Patient has an apparent origin of the right subclavian as the last branch of the aortic arch. Is atherosclerotic change in the right subclavian. An acute C-spine fracture is not identified. There is facet arthritis at multiple levels. There is degenerative disc disease at C5-6 and C6-7. There is slight subluxation at C2-3 from facet arthritis. IMPRESSION: 1. Degenerative changes in the cervical spine. 2. No acute C-spine fracture. PQRS Compliance Statement: One or more of the following individualized dose reduction techniques were utilized for this examination: 1. Automated exposure control 2. Adjustment of the mA and/or kV according to patient size 3. Use of iterative reconstruction technique Electronically signed by: Rancho Parra MD (05/16/2020 3:34 PM) [facility]
[2020-05-16] MEDS ORDERED: oxyCODONE IR 5 MG TABLET PO PRN ×2 (15:45→16:00)
[2020-05-16] MEDS ORDERED: OXYC-325 PO (15:47)
[2020-05-16 16:23] VITALS: BP 148/79
== END 2020-05-16 16:22 | disposition home or self-care (01) ==
LOC: ER 14:10
DX: S02.31XA Fracture of orbital floor, right side, initial encounter for closed fracture (principal); S01.81XA Laceration without foreign body of other part of head, initial encounter; H11.31 Conjunctival hemorrhage, right eye; I10 Essential (primary) hypertension; E03.9 Hypothyroidism, unspecified; G43.909 Migraine, unspecified, not intractable, without status migrainosus; Z86.14 Personal history of Methicillin resistant Staphylococcus aureus infection; Z87.440 Personal history of urinary (tract) infections; Z88.2 Allergy status to sulfonamides; Z88.1 Allergy status to other antibiotic agents; Z88.8 Allergy status to other drugs, medicaments and biological substances; W18.09XA Striking against other object with subsequent fall, initial encounter; Y93.89 Activity, other specified; Y92.89 Other specified places as the place of occurrence of the external cause; Y99.8 Other external cause status
CPT/HCPCS: 12002; 70450; 70486; 72125; 90471; 90715; 99285-25

== ENCOUNTER → 2020-05-24 | Outpatient (CLI) | payer MEDICARE, BC ==
[2020-05-16 16:23] VITALS: BP 148/79
[~2020-05-24] MED LIST changes: +OXYC-325 PO
--- NOTE | 2020-05-24 13:02 | RAD ---
CT HEAD AND MAXILLOFACIAL WO History: Reason: RECENT FALL, HX OF ORBITAL FRACTURE.BRUISING AROUND EYES / Spl. Instructions: / History: Comparison: May 16, 2020 at November 07, 2018 and August 11, 2019 Technique: Noncontrast CT imaging was performed of the head and maxillofacial. Coronal and sagittal reconstructions were performed. Exposure: One or more of the following individualized dose reduction techniques were utilized for this examination: 1. Automated exposure control 2. Adjustment of the mA and/or kV according to patient size 3. Use of iterative reconstruction technique. Findings: Head CT: No intracranial hemorrhage. No mass effect. No hydrocephalus. Incidentally noted pineal cyst, unchanged. Mild foci of decreased attenuation within the hemispheric white matter, most often due to chronic microvascular ischemia, unchanged. Mild Maxillofacial CT: Decreased right retro-orbital and subcutaneous gas. Decreased periorbital and frontal soft tissue swelling. Comminuted right inferior orbital wall fracture with herniation of fat. Decreased retro-orbital hemorrhage. The globe is intact. Decreased right proptosis. Chronic left inferior and medial orbital wall fractures. Right medial orbital wall fracture with herniation of retro-orbital fat into the nasal passage compared to 2019 unchanged compared to May 16, 2020. Decreased blood proximal within the right maxillary sinus. Polypoid mucosal thickening within the right maxillary sinus. Additional scattered mild paranasal sinus because of thickening. Mastoid air cells are clear. No acute calvarial fracture. Impression: Head CT: 1. No acute intracranial abnormality. Maxillofacial CT: 1. Subacute right infraorbital wall fracture with decreased adjacent swelling, hemorrhage and gas. 2. Right medial orbital wall fracture with herniation of retro-orbital fat into the right nasal passage, unchanged. Electronically signed by: Joel Weinstein DO (05/24/2020 12:59 PM) [id number]
== END | disposition home or self-care (01) ==
LOC: CT 12:03
PROVIDERS: ATTEND Family Medicine
DX: S02.31XA Fracture of orbital floor, right side, initial encounter for closed fracture (principal); S02.832A Fracture of medial orbital wall, left side, initial encounter for closed fracture; I67.82 Cerebral ischemia; H05.231 Hemorrhage of right orbit; J34.89 Other specified disorders of nose and nasal sinuses; X58.XXXA Exposure to other specified factors, initial encounter; Y93.89 Activity, other specified; Y92.89 Other specified places as the place of occurrence of the external cause; Y99.8 Other external cause status
CPT/HCPCS: 70450; 70486

== ENCOUNTER → 2020-12-21 | Outpatient (CLI) | payer MEDICARE, BC ==
[~2020-12-21] MED LIST changes: +AMLO-186 PO; -AMLO5TAB10 PO; +BUPR150T7 PO; +CHOL400C PO; -CIPR500T PO; +CIPR500T2 PO; -CYAN100T2 PO; +CYAN100T21 PO; -ESCI10TA2 PO; +ESCI10TA90 PO; +GABA-587 PO; -ISOS30TA4 PO; +ISOS30TA68 PO; +METO10TA81 PO; +MIRT30TA3 PO; +[UNRECOGNIZED DRUG - CODE] IV
== END ==
LOC: LAB 09:00
PROVIDERS: ATTEND Nurse Anesthetist, Certified Registered
DX: Z01.812 Encounter for preprocedural laboratory examination (principal); K59.00 Constipation, unspecified; Z80.0 Family history of malignant neoplasm of digestive organs; Z20.822 Contact with and (suspected) exposure to COVID-19
CPT/HCPCS: U0003

== ENCOUNTER → 2020-12-25 | Day surgery (SDC) | payer MEDICARE, BC ==
[~2020-12-25] MED LIST changes: +IV RINGERS SOLUTION,LACTATED 1,000 ML IV SCH; +LIDOCAINE 2% PF 5 ML VIAL. ONE; +PROPOFOL 10,000 MCG/ML (20ML) VIAL IV ONE
--- NOTE | 2020-12-27 14:08 | PATHOLOGY ---
[facility] Accession Number: [id number] . 01 Material submitted: . sigmoid colon - SIGMOID COLON POLYP . 01 Clinical history: . COLONOSCOPY . 02 Diagnosis: Colon biopsy, sigmoid colon polyp: - Hyperplastic polyp. (JPM:andre; 12/27/2020) QMS 12/27/2020 0909 Local . 02 Comment: There are no adenomatous changes or evidence of malignancy. (JPM:andre; 12/27/2020) . 02 Electronically signed: . Brock Comer MD, Pathologist NPI- [id number] . 01 Gross description: . The specimen is received in formalin, labeled "Joey, Arleen, sigmoid colon polyp" and consists of a fragment of khan tissue measuring 0.5 x 0.3 cm which is entirely submitted in A1. (SDY; 12/26/2020) SYU/SYU 12/26/2020 1615 Local . 02 Pathologist provided ICD-10: K63.5 . 02 CPT . 438300 Specimen Comment: A courtesy copy of this report has been sent to [phone] Specimen Comment: [id number] Specimen Comment: Report sent to / DR GODFREY Performed at: 01 [facility] [address], [place], [place] [id number] MD Kristian Corrales MD Phone: [phone] Performed at: 02 [facility] [address] [place], [place] [id number] MD Brock Comer MD Phone: [phone]
== END | disposition home or self-care (01) ==
LOC: SURG 08:52
PROVIDERS: ATTEND Internal Medicine Gastroenterology
DX: Z12.11 Encounter for screening for malignant neoplasm of colon (principal); K63.5 Polyp of colon; K57.30 Diverticulosis of large intestine without perforation or abscess without bleeding; Z80.0 Family history of malignant neoplasm of digestive organs; Z79.899 Other long term (current) drug therapy; Z79.82 Long term (current) use of aspirin; I25.118 Atherosclerotic heart disease of native coronary artery with other forms of angina pectoris; E78.00 Pure hypercholesterolemia, unspecified; K21.9 Gastro-esophageal reflux disease without esophagitis; G47.30 Sleep apnea, unspecified; E03.9 Hypothyroidism, unspecified; F32.9 Major depressive disorder, single episode, unspecified; I12.9 Hypertensive chronic kidney disease with stage 1 through stage 4 chronic kidney disease, or unspecified chronic kidney disease; E11.22 Type 2 diabetes mellitus with diabetic chronic kidney disease; N18.9 Chronic kidney disease, unspecified; E11.43 Type 2 diabetes mellitus with diabetic autonomic (poly)neuropathy; E11.649 Type 2 diabetes mellitus with hypoglycemia without coma; E11.65 Type 2 diabetes mellitus with hyperglycemia; E66.01 Morbid (severe) obesity due to excess calories; E11.42 Type 2 diabetes mellitus with diabetic polyneuropathy; Z87.440 Personal history of urinary (tract) infections; Z98.890 Other specified postprocedural states; Z80.8 Family history of malignant neoplasm of other organs or systems; Z82.49 Family history of ischemic heart disease and other diseases of the circulatory system
CPT/HCPCS: 45385; 88305; J2001; J2704

== ENCOUNTER → 2021-02-14 | Outpatient (CLI) | payer MEDICARE, BC ==
[~2021-02-14] MED LIST changes: +BUPR150T21 PO; -BUPR150T7 PO; -IV RINGERS SOLUTION,LACTATED 1,000 ML IV SCH; -LIDOCAINE 2% PF 5 ML VIAL. ONE; -PROPOFOL 10,000 MCG/ML (20ML) VIAL IV ONE
--- NOTE | 2021-02-15 09:55 | RAD ---
Exam Date: 02/14/2021 1:58 PM XR KNEE _3 VIEWS_LT Indication: Reason: LEFT KNEE PAIN, FELL THURSDAY / . Instructions: / History: FINDINGS/ IMPRESSION: No acute fracture or dislocation. There is mild medial compartment joint space narrowing. Small to m oderate osteophytes are noted. Alignment is maintained. There is a healed proximal fibula fracture. T here is a joint effusion. Electronically signed by: Nicola Astorga MD (02/15/2021 9:52 AM) [id number]
--- NOTE | 2021-02-15 10:02 | RAD ---
Exam Date: 02/14/2021 1:58 PM XR RIBS MIN 3 VIEWS LT W/PA CHEST Indication: Reason: LEFT RIB INJRUY, FELL THURSDAY / . Instructions: / History: FINDINGS: No acute rib fracture is seen. The mediastinum, cardiac silhouette and pulmonary vasculat ure are within normal limits. No focal consolidation, effusion or pneumothorax. There is mild left b asilar scarring. IMPRESSION: No acute rib fracture identified. No evidence of acute cardiopulmonary disease. Electronically signed by: Nicola Astorga MD (02/15/2021 10:00 AM) [id number]
== END ==
LOC: RAD 13:48
PROVIDERS: ATTEND Family Medicine
DX: S23.41XA Sprain of ribs, initial encounter (principal); M25.762 Osteophyte, left knee; M25.462 Effusion, left knee; W19.XXXA Unspecified fall, initial encounter; Y93.89 Activity, other specified; Y92.89 Other specified places as the place of occurrence of the external cause; Y99.8 Other external cause status
CPT/HCPCS: 71101; 73562

== ENCOUNTER → 2021-06-11 | Outpatient (CLI) | payer MEDICARE, BC ==
[~2021-06-11] MED LIST changes: +MIRT-7 PO; +MIRT-8 PO; -MIRT15TA3 PO; -MIRT30TA3 PO; -OMEP40CA45 PO; +OMEP40CA7 PO
--- NOTE | 2021-06-11 12:11 | RAD ---
EXAM: DUAL ENERGY X-RAY ABSORPTIOMETRY (DEXA). HISTORY: Postmenopausal screening. FINDINGS: The lowest measured T-score is -1.5 in the right hip, based on a bone mineral density of 0. 771 g/cm^2. Refer to the worksheets for full detail. No comparison examinations are available. IMPRESSION: 1. Low bone mass. Bone mineral density yields a T-score between -1.0 and -2.5. Fracture risk is incre ased. 2. FRAX report: Not calculated. METHODOLOGY: Dual energy x-ray absorptiometry was performed to measure bone mineral density. The foll owing analysis is based on the 2019 Official Positions of the International Society for Clinical Dens itometry: Measurements of the hips and the average of L1-L4 are preferred. When the spine and/or hip cannot be feasibly measured or interpreted, or in the setting of hyperparathyroidism, distal radial bone minera l density may be measured. The lumbar spine T-score is based on the average bone mineral density of L1-L4. In the setting of art ifact or anatomic abnormality, some lumbar levels may be excluded, and the remaining levels used for calculation. A single lumbar level is not used for diagnosis, and if only a single level is available for assessment, another anatomic site will be used to assign a diagnosis. The hip T-score is based on the bone mineral density measurement of the femoral neck or total proxima l femur of either side, whichever is lowest. Bilateral mean values are not used for diagnosis. The forearm T-score is derived from 33% of the distal radius of the nondominant forearm. Electronically signed by: Tigist Umanzor MD (06/11/2021 12:09 PM) [id number]
--- NOTE | 2021-06-17 11:13 | RAD ---
EXAM: BILATERAL DIGITAL 3D SCREENING MAMMOGRAPHY. HISTORY: Routine mammographic screening. TECHNIQUE: Bilateral digital 3D and tomographic images were obtained in CC and MLO projections. Compu ter-aided detection was applied. COMPARISON: 07/27/2020, 04/18/2019. COMPOSITION: B. There are scattered areas of fibroglandular density. FINDINGS: There are no suspicious masses, microcalcifications or architectural distortion. The parenc hymal pattern is stable. Scattered and vascular calcifications are benign. BI-RADS CATEGORY 2: Benign. RECOMMENDATION: 1. Routine screening mammography in one year. If mammography demonstrates dense breast tissue (heterogenously dense or extremely dense, category C or D), which could hide abnormalities, and if other risk factors for breast cancer have been identifi ed, supplemental screening tests that may be suggested by the ordering physician may be of benefit. D ense breast tissue, in and of itself, is a relatively common condition. Therefore, this information i s not provided to cause undue concern, but rather to raise awareness and to promote discussion with t he referring physician regarding the presence of other risk factors, in addition to dense breast tiss ue. The results of this mammography examination is provided to the patient and referring physician. T he patient should contact their referring physician if any questions or concerns exist regarding this report. PQRS compliance statement - Patient information was entered into a reminder system with a target due date for the next mammogram. "Our facility is accredited by the [employer] Mammography Program." Electronically signed by: Jesenia Butler MD (06/17/2021 11:10 AM) [id number]
== END ==
LOC: MAMMO 11:02
PROVIDERS: ATTEND Family Medicine
DX: Z12.31 Encounter for screening mammogram for malignant neoplasm of breast (principal); Z00.00 Encounter for general adult medical examination without abnormal findings; M85.80 Other specified disorders of bone density and structure, unspecified site
CPT/HCPCS: 77063; 77067; 77081

== ENCOUNTER → 2021-06-19 | Outpatient (CLI) | payer MEDICARE, BC ==
[~2021-06-19] MED LIST changes: +IOHEXOL 300 MG/ML 75 ML VIAL. IV ONE
--- NOTE | 2021-06-19 17:10 | RAD ---
CT ABDOMEN+PELVIS W History: Right lower quadrant pain rule out appendicitis. Comparison: CT abdomen and pelvis 04/27/2020. Technique: CT abdomen pelvis with intravenous contrast. Findings: The lung bases are clear. Calcifications of the coronary arteries. No pleural or pericardial effusion . The liver is within normal limits. There are postcholecystectomy changes with gallbladder fossa clips and mild dilation of the common bile duct measuring 7 mm. The pancreas, spleen, and adrenal glands a re unremarkable. Left renal lower pole cyst. No hydronephrosis or nephrolithiasis. Unremarkable stomach. Normal small bowel without evidence of obstruction. No small bowel wall thicken ing. The appendix is well-visualized and normal. There is pancolonic diverticulosis. Mild wall thicke suman and pericolonic inflammatory fat stranding at the proximal transverse colon (for example axial i mage 50). The descending colon is decompressed with relative wall thickening but without pericolonic inflammatory changes. Postsurgical changes from partial sigmoidectomy with colorectal anastomosis. Calcified fibroids of the uterus. Unremarkable bladder. No free air or free fluid. Multiple foci of s ubcutaneous air consistent with medication administration. No acute or concerning osseous lesions. De generative changes of the lumbar spine greatest at L2-L3 where there is severe degenerative endplate changes and complete disc height loss. Impression: 1. Diverticulosis with mild pericolonic inflammatory changes at the proximal transverse colon, likel y represents acute uncomplicated diverticulitis. 2. Normal appendix. ------ Exposure: One or more of the following individualized dose reduction techniques were utilized for thi s examination: 1. Automated exposure control 2. Adjustment of the mA and/or kV according to patient size 3. Use of iterative reconstruction technique. Electronically signed by: Jason Ferrell MD (06/19/2021 5:08 PM) [facility]
== END ==
LOC: CT 15:41
PROVIDERS: ATTEND Family Medicine
DX: K57.30 Diverticulosis of large intestine without perforation or abscess without bleeding (principal); I25.10 Atherosclerotic heart disease of native coronary artery without angina pectoris; N28.1 Cyst of kidney, acquired; D25.9 Leiomyoma of uterus, unspecified; M47.816 Spondylosis without myelopathy or radiculopathy, lumbar region
CPT/HCPCS: 74177; Q9967

== ENCOUNTER 2021-06-26 15:49 | Emergency (ER) | payer MEDICARE, BC ==
[~2021-06-26] VITALS: Ht 157.5 cm; Wt 84.7 kg
[~2021-06-26 15:49] MED LIST changes: -IOHEXOL 300 MG/ML 75 ML VIAL. IV ONE
[2021-06-26 16:07] VITALS: BP 132/77
[2021-06-26] MEDS ORDERED: IV NORMAL SALINE 1,000ML 1,000 ML IV ONE (16:15)
[2021-06-26] MEDS ORDERED: ONDANSETRON PF 4 MG/2 ML VIAL. IVP ONE (16:15)
--- NOTE | 2021-06-26 16:23 | PHYS DOC ---
Past History Past Medical History: Angina, Bronchitis, Depression, Diabetes, Hypertension, Hypothyroid, Migraines, MRSA, Renal Disease, UTI Additional Past Medical Histor: WEAKNESS, CELLULITIS, PTSD (GRACIA SALAZAR APRN) Past Surgical History: No Surgical History (GRACIA SALAZAR APRN) Smoking: Non-smoker Alcohol Use: None Drug Use: None (GRACIA SALAZAR APRN) General Adult EDM: Chief Complaint: ABDOMINAL PAIN HPI: HPI: Patient is a 75-year-old female being seen in the ER for bilateral lower abdominal pain. Patient was seen in this ER 1 week ago and diagnosed with diverticulitis and put on amoxicillin. Patient reports that her pain has worsened. Patient rates her pain 8 out of 10. She is taking Tylenol at home with little relief in symptoms. Patient is also reporting loose stools. She denies nausea, vomiting, blood in stools or vomit, urinary complaints such as dysuria, hematuria, urinary frequency or urgency. Her vital signs are stable. (GRACIA SALAZAR APRN) Review of Systems: Review of Systems: 14 body systems of the review of systems have been reviewed. See HPI for perti nent positive and negative responses, otherwise all other systems are negative, nonpertinent or noncontributory (GRACIA SALAZAR APRN) Current Medications: Current Meds: Current Medications Medications (Trade) Dose Ordered Sig/Maggie Start Time Stop Time Status Last Admin Dose Admin Fentanyl Citrate (Fentanyl 2ml Vial) 50 mcg 1X ONCE 06/26/21 16:15 06/26/21 16:16 UNV Iohexol (Omnipaque 300 Mg/ml) 75 ml 1X ONCE 06/26/21 16:30 06/26/21 16:31 UNV Ondansetron HCl (Zofran) 4 mg 1X ONCE 06/26/21 16:15 06/26/21 16:16 UNV Sodium Chloride 1,000 ml @ 1,000 mls/hr 1X ONCE 06/26/21 16:15 06/26/21 17:14 UNV (GRACIA SALAZAR APRN) Allergies: Allergies: Allergies Coded Allergies Type Severity Reaction Last Updated Verified Sulfa (Sulfonamide Antibiotics) Allergy Intermediate RASH 04/10/18 Yes aripiprazole Allergy Intermediate RASH 04/10/18 Yes doxycycline Allergy Intermediate N/V RASH 04/10/18 Yes pseudoephedrine Allergy Intermediate hyperactive 04/10/18 Yes triprolidine Allergy Intermediate hyperactive 04/10/18 Yes (GRACIA SALAZAR APRN) Physical Exam: PE: Constitutional: Well developed, well nourished, no acute distress, non-toxic appearance. [] HENT: Normocephalic, atraumatic, bilateral external ears normal, oropharynx moist, no oral exudates, nose normal. [] Eyes: PERRL, EOMI, conjunctiva normal, no discharge. [] Neck: Normal range of motion, no tenderness, supple, no stridor. [] Cardiovascular:Heart rate regular rhythm, no murmur [] Lungs & Thorax: Bilateral breath sounds clear to auscultation [] Abdomen: Bowel sounds normal, soft, bilateral lower abdominal tenderness with palpation, no rebound tenderness, no masses, no pulsatile masses. [] Skin: Warm, dry, no erythema, no rash. [] Back: No tenderness, normal range of motion Extremities: No tenderness, no cyanosis, no clubbing, ROM intact, no edema. [] Neurologic: Alert and oriented X 3, normal motor function, normal sensory function, no focal deficits noted. [] Psychologic: Affect normal, judgement normal, mood normal. [] (GRACIA SALAZAR APRN) Current Patient Data: Labs: Laboratory Tests Test 06/26/21 16:41 White Blood Count 6.8 x10^3/uL Red Blood Count 4.22 x10^6/uL Hemoglobin 13.0 g/dL Hematocrit 39.3 % Mean Corpuscular Volume 93 fL Mean Corpuscular Hemoglobin 31 pg Mean Corpuscular Hemoglobin Concent 33 g/dL Red Cell Distribution Width 14.0 % Platelet Count 272 x10^3/uL Neutrophils (%) (Auto) 44 % Lymphocytes (%) (Auto) 41 % Monocytes (%) (Auto) 6 % Eosinophils (%) (Auto) 9 % Basophils (%) (Auto) 1 % Neutrophils # (Auto) 3.0 x10^3uL Lymphocytes # (Auto) 2.8 x10^3/uL Monocytes # (Auto) 0.4 x10^3/uL Eosinophils # (Auto) 0.6 x10^3/uL Basophils # (Auto) 0.1 x10^3/uL Sodium Level 141 mmol/L Potassium Level 4.4 mmol/L Chloride Level 105 mmol/L Carbon Dioxide Level 26 mmol/L Anion Gap 10 Blood Urea Nitrogen 9 mg/dL Creatinine 1.1 mg/dL Estimated GFR (Cockcroft-Gault) 48.7 BUN/Creatinine Ratio 8 Glucose Level 107 mg/dL Lactic Acid Level 1.1 mmol/L Calcium Level 8.7 mg/dL Total Bilirubin 0.3 mg/dL Aspartate Amino Transf (AST/SGOT) 24 U/L Alanine Aminotransferase (ALT/SGPT) 24 U/L Alkaline Phosphatase 104 U/L Total Protein 6.9 g/dL Albumin 3.8 g/dL Albumin/Globulin Ratio 1.2 Lipase 115 U/L Current Medications Medications (Trade) Dose Ordered Sig/Maggie Route PRN Reason Start Time Stop Time Status Last Admin Dose Admin Sodium Chloride 1,000 ml @ 1,000 mls/hr 1X ONCE IV 06/26/21 16:15 06/26/21 17:14 DC 06/26/21 16:37 Ondansetron HCl (Zofran) 4 mg 1X ONCE IVP 06/26/21 16:15 06/26/21 16:21 DC 06/26/21 16:38 Fentanyl Citrate (Fentanyl 2ml Vial) 50 mcg 1X ONCE IVP 06/26/21 16:15 06/26/21 16:21 DC 06/26/21 16:39 Iohexol (Omnipaque 300 Mg/ml) 75 ml 1X ONCE IV 06/26/21 16:30 06/26/21 16:31 DC 06/26/21 17:42 Vital Signs: Vital Signs Date Time Temp Pulse Resp B/P (MAP) Pulse Ox O2 Delivery O2 Flow Rate FiO2 06/26/21 16:07 99.2 86 16 132/77 95 Room Air (GRACIA SALAZAR APRN) EKG: EKG: [] (GRACIA SALAZAR APRN) Radiology/Procedures: Radiology/Procedures: PROCEDURE: CT ABD PELV W/ IV CONTRST ONLY Exam: CT of abdomen and pelvis with contrast INDICATION: Worsening abdominal pain, history of diverticulitis TECHNIQUE: Sequential axial images through the abdomen and pelvis obtained following the administration of 60 mL of Isovue-370 IV contrast. Sagittal and coronal reformatted images were reconstructed from the axial data and reviewed. Exposure: One or more of the following in the visualized dose reduction techniques were utilized for this examination: 1. Automated exposure control 2. Adjustment of the MA and/or KV according to patient size 3. Use of iterative of reconstructive technique Comparisons: 09/28/2021 FINDINGS: Heart size is normal. No pericardial visualized lung bases are clear. No pleural effusion. Liver, spleen, pancreas and adrenals are unremarkable. Gallbladder surgically absent. No perinephric inflammation or hydronephrosis. No renal or ureteral calculi are identified. Bladder is partially distended and not well evaluated. Uterus is not enlarged. Uterine fibroids noted at the uterus. No abnormal adnexal mass. Large and small bowel are unremarkable. Appendix is normal. No free intra- abdominal air or fluid. No obstruction. Abdominal aorta has normal course and caliber. Abdominal vasculature is patent. No enlarged abdominal lymph nodes are identified. No suspicious osseous lesions or acute fractures. IMPRESSION: 1. No acute process identified within the abdomen and pelvis. 2. Diverticulosis without evidence of acute diverticulitis. Electronically signed by: Azeem West MD (06/26/2021 6:11 PM) [facility] DICTATED AND SIGNED BY: AZEEM WEST MD DATE: 06/26/211803 CC: DORINA GODFREY MD; GRACIA SALAZAR APRN ~MTH0 0 [] (GRACIA SALAZAR APRN) Heart Score: C/O Chest Pain: No Risk Factors: Risk Factors: DM, Current or recent (<one month) smoker, HTN, HLP, family history of CAD, obesity. Risk Scores: Score 0 - 3: 2.5% MACE over next 6 weeks - Discharge Home Score 4 - 6: 20.3% MACE over next 6 weeks - Admit for Clinical Observation Score 7 - 10: 72.7% MACE over next 6 weeks - Early Invasive Strategies (GRACIA SALAZAR APRN) Course & Med Decision Making: Course & Med Decision Making Pertinent Labs and Imaging studies reviewed. (See chart for details) [] Patient is a 75-year-old female being seen for lower abdominal pain. Patient was diagnosed with diverticulitis 1 week ago and is on amoxicillin patient reports that her pain has worsened. Work-up in the ER consisted of blood work, urinalysis, and CT scan of abdomen. Work-up in the ER is unremarkable. CT scan of abdomen shows diverticulosis. Patient does not have any active bleeding. Her vital signs are stable. Patient advised to continue taking her antibiotic. UA unremarkable.. Patient would like pain control and to be discharged home with. Patient discharged home with pain medication advised to follow-up with [facility] care provider. I discussed with patient all findings and diagnostic testing as well as the need to follow-up with PCP for further evaluation and treatment or return to the ER if any new or worsening symptoms. Strict return precautions were also discussed at length. Patient voiced understanding and agreement with the plan. Patient is hemodynamically stable at the time of d isposition. (GRACIA SALAZAR APRN) Dragon Disclaimer: Dragon Disclaimer: This electronic medical record was generated, in whole or in part, using a voice recognition dictation system. (GRACIA SALAZAR APRN) Departure Departure: Impression: Primary Impression: Abdominal pain Qualified Codes: R10.9 - Unspecified abdominal pain Additional Impression: Diverticulosis Disposition: HOME / SELF CARE / HOMELESS Condition: GOOD Referrals: DORINA GODFREY MD (PCP) Patient Instructions: Diverticulosis Additional Instructions: You were seen in the ER today for abdominal pain. Your work-up was unremarkable and your physical exam was reassuring. The CT scan of your abdomen showed diverticulosis without any infection. Continue taking your antibiotic as directed. Increase your fiber and avoid foods that may irritate or worsen your symptoms like seeds or nuts. Please follow-up with your primary care provider tomorrow regarding your ER visit. You can take ibuprofen for mild pain. You are being discharged home with [place] for severe pain. This medication is hydrocodone and Tylenol combination tablet. This medication may cause sedation so do not take need to be alert and do not take with alcohol. Please return to the ER if you develop worsening of your abdominal pain, intractable nausea or vomiting, fevers refractory to treatment, rectal bleeding, blood in vomit. EMERGENCY DEPARTMENT GENERAL DISCHARGE INSTRUCTIONS Thank you for coming to [facility] (ED) today and trusting us with you care. We trust that you had a positivie experience in our Emergency Department. If you wish to speak to the department management, you may call the director at [phone]. YOUR FOLLOW UP INSTRUCTIONS ARE FOLLOWS: 1. Do you have a private Doctor? If you do not have a private doctor, please ask for a resource list of physicians or clinics that may be able to assist you with follow up care. 2. The Emergency Physician has interpreted your x-rays. The X-Ray specialist will also review them. If there is a change in the findings, you will be notified in 48 hours when at all possible. 3. A lab test or culture has been done, your results will be reviewed and you will be notified if you need a change in treatment. ADDITIONAL INSTRUCTIONS AND INFORMATION: 1. Your care today has been supervised by a physician who is specially trained in emergency care. Many problems require more than one evaluation for a complete diagnosis and treatment. We recommend that you schedule your follow up appointment as recommended to ensure complete treatment of you illness or injury. If you are unable to obtain follow up care and continue to have a problem, or if your condition worsens, we recommend that you return to the ED. 2. We are not able to safely determine your condition over the phone nor are we able to give sound medical advice over the phone. For these safety reasons, if you call for medical advice we will ask you to come to the ED for further evaluation. 3. If you have any questions regarding these discharge instructions please call the ED at [phone]. SAFETY INFORMATION: In the interest of safety, wellness, and injury prevention; we encourage you to wear your sealbelt, if you smoke; quite smoking, and we encourage family to use a protective helmet for bicycling and other sporting events that present an increased risk for head injury. IF YOUR SYMPTOMS WORSEN OR NEW SYMPTOMS DEVELOP, OR YOU HAVE CONCERNS ABOUT YOUR CONDITION; OR IF YOUR CONDITION WORSENS WHILE YOU ARE WAITING FOR YOUR FOLLOW UP APPOINTMENT; EITHER CONTACT YOUR PRIMARY CARE DOCTOR, THE PHYSICIAN WHOSE NAME AND NUMBER YOU WERE GIVEN, OR RETURN TO THE ED IMMEDIATELY. Scripts Hydrocodone Bit/Acetaminophen (HYDROCODONE-APAP 5-325 ) 1 Each Tablet 1 TAB PO PRN Q6HRS PRN for PAIN for 2 Days, #8 TAB 0 Refills Prov: GRACIA SALAZAR APRN 06/26/21 Attending Signature Attending Signature I have reviewed the PA/OB NURSE's note and plan of care. I was available for consultation as needed during the patient's visit in the emergency department. I agree with the clinical impression, plan, and disposition. (SAMPSON BLAKE DO) GRACIA SALAZAR APRN Jun 26, 2021 16:23 SAMPSON BLAKE DO Jun 26, 2021 20:59
[2021-06-26] MEDS ORDERED: IOHEXOL 300 MG/ML 75 ML VIAL. IV ONE (16:30)
[2021-06-26 17:06] LABS: BASO # 0.1 x10^3/uL (0.0-0.2); BASO % 1 % (0-3); EOS # 0.6 x10^3/uL (0.0-0.7); EOS % 9 % (0-3); HEMATOCRIT 39.3 % (36.0-47.0); LYMPH # 2.8 x10^3/uL (1.0-4.8); LYMPH % 41 % (24-48); MEAN CORPUSCULAR HEMOGLOBIN 31 pg (25-35); MEAN CORPUSCULAR HGB CONC 33 g/dL (31-37); MEAN CORPUSCULAR VOLUME 93 fL (79-100); MONO # 0.4 x10^3/uL (0.0-1.1); MONO % 6 % (0-9); NEUT % 44 % (31-73); PLATELET COUNT 272 x10^3/uL (140-400); RED BLOOD COUNT 4.22 x10^6/uL (3.50-5.40); WHITE BLOOD COUNT 6.8 x10^3/uL (4.0-11.0)
[2021-06-26 17:09] LABS: CALCIUM 8.7 mg/dL (8.5-10.1); CREATININE 1.1 mg/dL (0.6-1.0); GFR 48.7; POTASSIUM 4.4 mmol/L (3.5-5.1)
[2021-06-26 17:15] LABS: ALBUMIN 3.8 g/dL (3.4-5.0); ALBUMIN/GLOBULIN RATIO 1.2 (1.0-1.7); TOTAL BILIRUBIN 0.3 mg/dL (0.2-1.0); TOTAL PROTEIN 6.9 g/dL (6.4-8.2)
--- NOTE | 2021-06-26 18:13 | RAD ---
Exam: CT of abdomen and pelvis with contrast INDICATION: Worsening abdominal pain, history of diverticulitis TECHNIQUE: Sequential axial images through the abdomen and pelvis obtained following the administrati on of 60 mL of Isovue-370 IV contrast. Sagittal and coronal reformatted images were reconstructed fro m the axial data and reviewed. Exposure: One or more of the following in the visualized dose reduction techniques were utilized for this examination: 1. Automated exposure control 2. Adjustment of the MA and/or KV according to patient size 3. Use of iterative of reconstructive technique Comparisons: 09/28/2021 FINDINGS: Heart size is normal. No pericardial visualized lung bases are clear. No pleural effusion. Liver, spleen, pancreas and adrenals are unremarkable. Gallbladder surgically absent. No perinephric inflammation or hydronephrosis. No renal or ureteral calculi are identified. Bladder is partially distended and not well evaluated. Uterus is not enlarged. Uterine fibroids noted at the uterus. No abnormal adnexal mass. Large and small bowel are unremarkable. Appendix is normal. No free intra-abdominal air or fluid. No obstruction. Abdominal aorta has normal course and caliber. Abdominal vasculature is patent. No enlarged abdominal lymph nodes are identified. No suspicious osseous lesions or acute fractures. IMPRESSION: 1. No acute process identified within the abdomen and pelvis. 2. Diverticulosis without evidence of acute diverticulitis. Electronically signed by: Azeem Luu MD (06/26/2021 6:11 PM) [facility]
[2021-06-26] MEDS ORDERED: HYDR-2155 PO (19:05)
[2021-06-26 19:26] LABS: BACTERIA,URINE 0 /HPF (0-FEW); BILIRUBIN,URINE NEG (NEG); CLARITY,URINE CLEAR; COLOR,URINE YELLOW; GLUCOSE,URINE NEG (NEG); NITRITE,URINE NEG (NEG); RBC,URINE OCC /HPF (0-2); SQUAMOUS EPITHELIAL CELL,UR OCC /LPF; UROBILINOGEN,URINE 0.2 mg/dL (0.2 mg/dL); WBC,URINE OCC /HPF (0-4)
== END 2021-06-26 19:37 | disposition home or self-care (01) ==
LOC: ER 15:49
DX: K57.90 Diverticulosis of intestine, part unspecified, without perforation or abscess without bleeding (principal); E11.9 Type 2 diabetes mellitus without complications; I10 Essential (primary) hypertension; E03.9 Hypothyroidism, unspecified; G43.909 Migraine, unspecified, not intractable, without status migrainosus; Z87.440 Personal history of urinary (tract) infections; Z86.14 Personal history of Methicillin resistant Staphylococcus aureus infection; Z88.2 Allergy status to sulfonamides; Z88.1 Allergy status to other antibiotic agents; Z88.8 Allergy status to other drugs, medicaments and biological substances
CPT/HCPCS: 36415; 74177; 80053; 81001; 83605; 83690; 85025; 87086; 96361; 96374; 96375; 99285; J2405; J3010; J7030; Q9967

== ENCOUNTER 2021-10-10 10:32 | Emergency (ER) | payer MEDICARE, BC ==
[~2021-10-10] VITALS: Ht 157.5 cm; Wt 84.7 kg
[~2021-10-10 10:32] MED LIST changes: -LEVO250T7 PO; +LEVO250T8 PO; +POTA-112 PO; -POTA10TA5 PO
[2021-10-10 10:34] VITALS: BP 160/90
--- NOTE | 2021-10-10 11:22 | RAD ---
XR ELBOW COMPLETE_LEFT 3+VIEWS, XR HAND_LEFT 3 VIEWS, XR SHOULDER_LEFT 2+ VIEWS Clinical indications: Reason: pain s/p fall and pain. Left shoulder: There is a comminuted fracture of the lateral shaft of the left clavicle. There is mil d superior displacement of the medial fracture segment of 4 mm. No AC joint separation is seen. Gleno humeral joint is normally aligned. No lytic process is apparent. Left elbow: No joint effusion is seen. No acute fracture or dislocation or osteolytic process is evid ent. Left hand: No acute fracture or dislocation or lytic process is evident. Scaphoid bone appears intact . 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 IMPRESSION: Comminuted fracture of the lateral shaft left clavicle. Electronically signed by: Sharath Zuniga MD (10/10/2021 11:20 AM) [id number]
--- NOTE | 2021-10-10 11:24 | RAD ---
XR CHEST 1V CLINICAL INDICATIONS: Reason: pain s/p fall and pain. COMPARISON: February 14, 2021. Findings: No acute lung infiltrate or pleural effusion or pulmonary edema or lung mass or pneumothora x is seen. The heart size, pulmonary vasculature, mediastinum and both surjit are unremarkable. Scolio sis is apparent. There is a fracture lateral aspect left clavicle.. IMPRESSION: No acute infiltrate. Fracture of the lateral aspect left clavicle. Electronically signed by: Sharath Zuniga MD (10/10/2021 11:22 AM) [id number]
[2021-10-10 11:35] LABS: BASO # 0.1 x10^3/uL (0.0-0.2); BASO % 1 % (0-3); EOS # 0.2 x10^3/uL (0.0-0.7); EOS % 3 % (0-3); HEMATOCRIT 39.7 % (36.0-47.0); HEMOGLOBIN 13.1 g/dL (12.0-15.5); LYMPH # 1.4 x10^3/uL (1.0-4.8); LYMPH % 22 % (24-48); MEAN CORPUSCULAR HEMOGLOBIN 31 pg (25-35); MEAN CORPUSCULAR HGB CONC 33 g/dL (31-37); MEAN CORPUSCULAR VOLUME 95 fL (79-100); MONO # 0.4 x10^3/uL (0.0-1.1); MONO % 7 % (0-9); NEUT # 4.3 x10^3uL (1.8-7.7); NEUT % 67 % (31-73); PLATELET COUNT 342 x10^3/uL (140-400); RED CELL DISTRIBUTION WIDTH 14.9 % (11.5-14.5); WHITE BLOOD COUNT 6.4 x10^3/uL (4.0-11.0)
[2021-10-10 11:53] LABS: CALCIUM 9.2 mg/dL (8.5-10.1); CREATININE 1.1 mg/dL (0.6-1.0); GFR 48.7; POTASSIUM 4.2 mmol/L (3.5-5.1)
--- NOTE | 2021-10-10 11:56 | RAD ---
CT HEAD AND C-SPINE WO Clinical indications: Reason: head contusion, pain s/p fall down stairs /neck pain: NONCONTRAST HEAD CT COMPARISON: May 24, 2020. Technique: Noncontrast axial cross sectional scanning of the head was performed. PQRS compliance Statement One or more of the following individualized dose reduction techniques were utilized for this study: 1. Automated exposure control 2. Adjustment of the mA and/or kV according to patient size 3. Use of iterative reconstruction technique Findings: No acute intracranial hemorrhage or midline shift or mass-effect or hydrocephalus or extra- axial fluid collection is seen. No focal hypodense area or sulci effacement is seen to indicate an ac [place] infarct or edema radiographically. No skull fracture or pneumocephalus is seen. No opacification of the mastoid sinuses or the middle ear cavities is seen. There is severe mucosal thickening of the right maxillary sinus which has been seen previously.There is a polyp versus a residual turbinate af ter turbinectomy involving the posterior left nasal passageway. This was seen previously. IMPRESSION: No acute intracranial abnormality is seen. NONCONTRAST CERVICAL SPINE CT TECHNIQUE: Noncontrast helical CT scanning of the cervical spine was performed. Multiplanar 2-D recon structions were generated. COMPARISON: May 16, 2020. FINDINGS: No acute fracture or discitis or lytic process is evident. Grade 1 anterolisthesis of C2-3 is again evident secondary to facet arthropathy. There is degenerative facet arthropathy throughout t he cervical spine. No perching of facet joints is seen. Spinous processes are intact. Nuchal ligament ossification is apparent. There is degenerative endplate spurring and disc space narrowing from C4-5 through C6-7. IMPRESSION: No acute fracture. Degenerative cervical spondylosis. Electronically signed by: Sharath Zuniga MD (10/10/2021 11:54 AM) [place] [id number]
--- NOTE | 2021-10-10 12:09 | PHYS DOC ---
Past History Past Medical History: Angina, Bronchitis, Depression, Diabetes, Hypertension, Hypothyroid, Migraines, MRSA, Renal Disease, UTI Additional Past Medical Histor: WEAKNESS, CELLULITIS, PTSD Past Surgical History: Other Additional Past Surgical Histo: torn menicus/acl Smoking: Non-smoker Alcohol Use: None Drug Use: None General Adult EDM: Chief Complaint: MECHANICAL FALL HPI: HPI: 75 year old female with history of HTN, DM2 and hypothyroidism presents to the ED with cc of mechanical fall. Pt stated her eyesight in both eyes went blurry prior to the fall, caused her to feel dizzy and fall down 5 steps. Pt fell head first, hit her head and fell on her left side. Reports left shoulder and hand pain. Pt taking aspirin daily, no other anticoagulation medications. Denies loss of consciousness. Pt resting comfortably in bed, in no acute distress. Review of Systems: Review of Systems: Constitutional: Denies fever or chills Eyes: Denies change in visual acuity, redness, or eye pain HENT: Denies nasal congestion or sore throat Respiratory: Denies cough or shortness of breath Cardiovascular: Denies chest pain or palpitations GI: Denies abdominal pain, nausea, vomiting, or diarrhea : Denies dysuria or hematuria Musculoskeletal: Denies back pain or joint pain Integument: Denies rash or skin lesions Neurologic: Denies headache, focal weakness or sensory changes Current Medications: Current Meds: Current Medications Medications (Trade) Dose Ordered Sig/Maggie Start Time Stop Time Status Last Admin Dose Admin Fentanyl Citrate (Fentanyl 2ml Vial) 50 mcg 1X ONCE 10/10/21 11:00 10/10/21 11:01 DC 10/10/21 11:34 50 MCG Allergies: Allergies: Allergies Coded Allergies Type Severity Reaction Last Updated Verified Sulfa (Sulfonamide Antibiotics) Allergy Intermediate RASH 04/10/18 Yes aripiprazole Allergy Intermediate RASH 04/10/18 Yes doxycycline Allergy Intermediate N/V RASH 04/10/18 Yes pseudoephedrine Allergy Intermediate hyperactive 04/10/18 Yes triprolidine Allergy Intermediate hyperactive 04/10/18 Yes Physical Exam: PE: Constitutional: Well developed, well nourished, no acute distress, non-toxic appearance HENT: Normocephalic, atraumatic Eyes: Conjunctiva normal, no discharge Neck: Normal range of motion, no tenderness, supple, no meningeal signs Lungs & Thorax: Equal chest rise and fall, no respiratory distress Cardiovascular: Heart rate normal and regular rhythm Abdomen: Soft, no tenderness Skin: Warm, dry, no erythema, no rash Back: No tenderness, no CVA tenderness Extremities: Left arm, hand and shoulder tenderness to palpation, ROM limited to pain. Neurologic: Alert and oriented X 3, no focal deficits noted Psychologic: Affect normal, judgement normal Current Patient Data: Labs: Laboratory Tests Test 10/10/21 11:20 White Blood Count 6.4 x10^3/uL (4.0-11.0) Red Blood Count 4.20 x10^6/uL (3.50-5.40) Hemoglobin 13.1 g/dL (12.0-15.5) Hematocrit 39.7 % (36.0-47.0) Mean Corpuscular Volume 95 fL (79-100) Mean Corpuscular Hemoglobin 31 pg (25-35) Mean Corpuscular Hemoglobin Concent 33 g/dL (31-37) Red Cell Distribution Width 14.9 % (11.5-14.5) H Platelet Count 342 x10^3/uL (140-400) Neutrophils (%) (Auto) 67 % (31-73) Lymphocytes (%) (Auto) 22 % (24-48) L Monocytes (%) (Auto) 7 % (0-9) Eosinophils (%) (Auto) 3 % (0-3) Basophils (%) (Auto) 1 % (0-3) Neutrophils # (Auto) 4.3 x10^3uL (1.8-7.7) Lymphocytes # (Auto) 1.4 x10^3/uL (1.0-4.8) Monocytes # (Auto) 0.4 x10^3/uL (0.0-1.1) Eosinophils # (Auto) 0.2 x10^3/uL (0.0-0.7) Basophils # (Auto) 0.1 x10^3/uL (0.0-0.2) Sodium Level 141 mmol/L (136-145) Potassium Level 4.2 mmol/L (3.5-5.1) Chloride Level 108 mmol/L (98-107) H Carbon Dioxide Level 22 mmol/L (21-32) Anion Gap 11 (6-14) Blood Urea Nitrogen 19 mg/dL (7-20) Creatinine 1.1 mg/dL (0.6-1.0) H Estimated GFR (Cockcroft-Gault) 48.7 BUN/Creatinine Ratio 17 (6-20) Glucose Level 119 mg/dL (70-99) H Calcium Level 9.2 mg/dL (8.5-10.1) Magnesium Level Pending Total Bilirubin Pending Aspartate Amino Transferase (AST) Pending Alanine Aminotransferase (ALT) Pending Alkaline Phosphatase Pending Creatine Kinase Pending Creatine Kinase MB (Mass) Pending Creatine Kinase MB Relative Index Pending Total Protein Pending Albumin Pending Albumin/Globulin Ratio Pending Vital Signs: Vital Signs Date Time Temp Pulse Resp B/P (MAP) Pulse Ox O2 Delivery O2 Flow Rate FiO2 10/10/21 11:34 16 95 10/10/21 10:34 97.9 70 160/90 (113) Room Air EKG: EKG: EKG @ 1123. Irregular rhythm, no p-wave found at a rate of 63 bpm. QRS 100ms. QT 470ms. QTc 485ms. No STEMI. Radiology/Procedures: Impressions: XR ELBOW COMPLETE_LEFT 3+VIEWS, XR HAND_LEFT 3 VIEWS, XR SHOULDER_LEFT 2+ VIEWS Clinical indications: Reason: pain s/p fall and pain. Left shoulder: There is a comminuted fracture of the lateral shaft of the left clavicle. There is mild superior displacement of the medial fracture segment of 4 mm. No AC joint separation is seen. Glenohumeral joint is normally aligned. No lytic process is apparent. Left elbow: No joint effusion is seen. No acute fracture or dislocation or osteolytic process is evident. Left hand: No acute fracture or dislocation or lytic process is evident. Scaphoid bone appears intact. 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 IMPRESSION: Comminuted fracture of the lateral shaft left clavicle. Electronically signed by: Sharath Zuniga MD (10/10/2021 11:20 AM) XR CHEST 1V CLINICAL INDICATIONS: Reason: pain s/p fall and pain. COMPARISON: February 14, 2021. Findings: No acute lung infiltrate or pleural effusion or pulmonary edema or lung mass or pneumothorax is seen. The heart size, pulmonary vasculature, mediastinum and both surjit are unremarkable. Scoliosis is apparent. There is a fracture lateral aspect left clavicle.. IMPRESSION: No acute infiltrate. Fracture of the lateral aspect left clavicle. Electronically signed by: Sharath Zuniga MD (10/10/2021 11:22 AM) NONCONTRAST HEAD CT COMPARISON: May 24, 2020. Technique: Noncontrast axial cross sectional scanning of the head was performed. Findings: No acute intracranial hemorrhage or midline shift or mass-effect or hydrocephalus or extra-axial fluid collection is seen. No focal hypodense area or sulci effacement is seen to indicate an acute infarct or edema radiographically. No skull fracture or pneumocephalus is seen. No opacification of the mastoid sinuses or the middle ear cavities is seen. There is severe mucosal thickening of the right maxillary sinus which has been seen previously.There is a polyp versus a residual turbinate after turbinectomy inv olving the posterior left nasal passageway. This was seen previously. IMPRESSION: No acute intracranial abnormality is seen. NONCONTRAST CERVICAL SPINE CT TECHNIQUE: Noncontrast helical CT scanning of the cervical spine was performed. Multiplanar 2-D reconstructions were generated. COMPARISON: May 16, 2020. FINDINGS: No acute fracture or discitis or lytic process is evident. Grade 1 anterolisthesis of C2-3 is again evident secondary to facet arthropathy. There is degenerative facet arthropathy throughout the cervical spine. No perching of facet joints is seen. Spinous processes are intact. Nuchal ligament ossification is apparent. There is degenerative endplate spurring and disc space narrowing from C4-5 through C6-7. IMPRESSION: No acute fracture. Degenerative cervical spondylosis. Electronically signed by: Sharath Zuniga MD (10/10/2021 11:54 AM) Heart Score: C/O Chest Pain: No Course & Med Decision Making: Course & Med Decision Making 75 year old female with history of HTN, DM2 and hypothyroidism presents to the ED with cc of mechanical fall. Dragon Disclaimer: Dragon Disclaimer: This electronic medical record was generated, in whole or in part, using a voice recognition dictation system. Departure Departure: Impression: Primary Impression: Fall down stairs Qualified Codes: W10.8XXA - Fall (on) (from) other stairs and steps, initial encounter Additional Impressions: Clavicle fracture Qualified Codes: S42.022A - Displaced fracture of shaft of left clavicle, initial encounter for closed fracture Hand contusion Qualified Codes: S60.222A - Contusion of left hand, initial encounter Disposition: HOME / SELF CARE / HOMELESS Condition: STABLE Referrals: DORINA GODFREY MD (PCP) Patient Instructions: Clavicle Fracture, [id number], Fall Prevention and Home Safety, [id number], Hand Contusion, [id number], RICE - Routine Care for Injuries, [id number], Shoulder Immobilizer Additional Instructions: Ice area of discomfort 20 minutes on and leave off for next 20 minutes. Repeat several times daily for the next 2 days. Take previously prescribed pain medication as needed for pain. Follow closely with your orthopedic surgeon for further evaluation and treatment. SAMPSON BLAKE DO Oct 10, 2021 12:09
[2021-10-10 12:10] LABS: ALBUMIN/GLOBULIN RATIO 1.3 (1.0-1.7); MAGNESIUM 2.2 mg/dL (1.8-2.4); TOTAL BILIRUBIN 0.3 mg/dL (0.2-1.0); TOTAL PROTEIN 7.1 g/dL (6.4-8.2)
--- NOTE | 2021-10-11 06:59 | EKG ---
[address] [address] Test Date: 2021-10-10 Test Time: 11:23:55 Pat Name: NESS CHAVES Department: Room: Gender: F Conveyor Man: MONET : 1945 Requested By: SAMPSON BLAKE Order Number: [id number] Reading MD: Ashwin Patel MD Measurements Intervals [place] Rate: 63 P: VA: QRS: -33 QRSD: 100 T: 24 QT: 470 QTc: 485 Interpretive Statements sr NON-SPECIFIC ST/T CHANGES Electronically Signed On 10-13-2021 21:03:03 PROJECT MANAGEMENT INTERN by Ashwin Patel MD
== END 2021-10-10 14:15 | disposition home or self-care (01) ==
LOC: ER 10:32
DX: S42.002A Fracture of unspecified part of left clavicle, initial encounter for closed fracture (principal); S60.222A Contusion of left hand, initial encounter; E11.9 Type 2 diabetes mellitus without complications; I10 Essential (primary) hypertension; Z88.2 Allergy status to sulfonamides; Z88.1 Allergy status to other antibiotic agents; Z91.81 History of falling; W10.9XXA Fall (on) (from) unspecified stairs and steps, initial encounter; Y93.89 Activity, other specified; Y92.89 Other specified places as the place of occurrence of the external cause; Y99.8 Other external cause status
CPT/HCPCS: 36415; 70450; 71045; 72125; 73030; 73080; 73130; 80053; 82553; 83735; 84484; 85025; 93005; 96374; 96376; 99285; J3010

== ENCOUNTER → 2021-12-19 | Outpatient (CLI) | payer MEDICARE, BC ==
--- NOTE | 2021-12-19 12:05 | RAD ---
EXAM: Left ankle, 3 views. HISTORY: Fracture follow-up. COMPARISON: 06/11/2021 FINDINGS: 3 views of the left ankle are obtained. There is internal fixation of a healed medial malle olar fracture with a paired screws. There are corticated ossicles inferior to the lateral malleolus, likely due to chronic nonunited fracture fragments or chronic fragmented spurs. There is tibiotalar j oint space narrowing with degenerative subchondral cyst formation. There is a small plantar spur. The re is soft tissue edema. IMPRESSION: 1. Internal fixation of a healed medial malleolar fracture and suspected chronic nonunited inferior l ateral malleolar fracture. 2. 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 3. Soft tissue swelling. Electronically signed by: Tigist Umanzor MD (12/19/2021 12:03 PM) [id number]
== END ==
LOC: RAD 11:34
PROVIDERS: ATTEND Orthopaedic Surgery Sports Medicine
DX: M19.072 Primary osteoarthritis, left ankle and foot (principal); M79.89 Other specified soft tissue disorders
CPT/HCPCS: 73610

== ENCOUNTER 2022-01-05 12:56 | Emergency (ER) | payer MEDICARE, BC ==
[~2022-01-05] VITALS: Ht 157.5 cm; Wt 85.6 kg
[2022-01-05 14:22] LABS: CLARITY,URINE CLEAR; COLOR,URINE ORANGE
[2022-01-05 14:23] LABS: BACTERIA,URINE 0 /HPF (0-FEW); RBC,URINE 0 /HPF (0-2); SQUAMOUS EPITHELIAL CELL,UR OCC /LPF; WBC,URINE 0 /HPF (0-4)
[2022-01-05] MEDS ORDERED: CLOT15CR53 TP (15:37)
[2022-01-05] MEDS ORDERED: NITR100C62 PO (15:37)
--- NOTE | 2022-01-05 15:37 | PHYS DOC ---
Past History Past Medical History: Angina, Bronchitis, Depression, Diabetes, Hypertension, Hypothyroid, Migraines, MRSA, Renal Disease, UTI Additional Past Medical Histor: WEAKNESS, CELLULITIS, PTSD Past Surgical History: Cholecystectomy, Tonsillectomy, Other Additional Past Surgical Histo: torn menicus/acl; decompression orbit eye; carpal tunneling; right ankle Smoking: Non-smoker Alcohol Use: None Drug Use: None General Adult EDM: Chief Complaint: VAGINAL PROBLEM HPI: HPI: Patient is a 76-year-old female coming in for dysuria, vaginal itching and irritation. Patient states she has a history of UTIs and states this feels similar. States she has some low abdominal pain when urinating. Denies any blood in her urine. Patient states she has noticed some yellowish vaginal discharge. Review of Systems: Review of Systems: All other systems within normal limits except for as noted in the HPI Allergies: Allergies: Allergies Coded Allergies Type Severity Reaction Last Updated Verified Sulfa (Sulfonamide Antibiotics) Allergy Intermediate RASH 01/05/22 Yes aripiprazole Allergy Intermediate RASH 01/05/22 Yes doxycycline Allergy Intermediate N/V RASH 01/05/22 Yes pseudoephedrine Allergy Intermediate hyperactive 01/05/22 Yes triprolidine Allergy Intermediate hyperactive 01/05/22 Yes Physical Exam: PE: Constitutional: Well developed, well nourished, no acute distress, non-toxic appearance. [] HENT: Normocephalic, atraumatic, bilateral external ears normal, nose normal. [] Eyes: PERRLA, conjunctiva normal, no discharge. [] Neck: No rigidity, supple, no stridor. [] Cardiovascular: Regular rate and rhythm, brisk cap refill [] Lungs & Thorax: Non labored symmetric respirations, no tachypnea or respiratory distress [] Abdomen: Soft, nondistended. Skin: Warm, dry, no erythema, no rash. : Mild erythema of labia minora's, no lesions or discharge. [] Back: Unremarkable Extremities: No deformities, range of motion grossly intact, no lower extremity edema [] Neurologic: Alert and oriented X 3, no focal deficits noted. [] Psychologic: Affect normal, judgement normal, mood normal. [] Current Patient Data: Labs: Laboratory Tests Test 01/05/22 13:52 Urine Collection Type Clean catch Urine Color Mcintosh Urine Clarity Clear Urine pH Urine Specific Godfrey Urine Protein (NEG-TRACE) Urine Glucose (UA) mg/dL (NEG) Urine Ketones (Stick) mg/dL (NEG) Urine Blood (NEG) Urine Nitrite (NEG) Urine Bilirubin (NEG) Urine Urobilinogen Dipstick mg/dL (0.2 mg/dL) Urine Leukocyte Esterase (NEG) Urine RBC 0 /HPF (0-2) Urine WBC 0 /HPF (0-4) Urine Squamous Epithelial Cells Occ /LPF Urine Bacteria 0 /HPF (0-FEW) Microbiology 01/05/22 Wet Prep - Final, Complete Vital Signs: Vital Signs Date Time Temp Pulse Resp B/P (MAP) Pulse Ox O2 Delivery O2 Flow Rate FiO2 01/05/22 13:32 98.1 68 18 139/83 (101) 95 Room Air EKG: EKG: [] Radiology/Procedures: Radiology/Procedures: [] Heart Score: C/O Chest Pain: No Risk Factors: Risk Factors: DM, Current or recent (<one month) smoker, HTN, HLP, family history of CAD, obesity. Risk Scores: Score 0 - 3: 2.5% MACE over next 6 weeks - Discharge Home Score 4 - 6: 20.3% MACE over next 6 weeks - Admit for Clinical Observation Score 7 - 10: 72.7% MACE over next 6 weeks - Early Invasive Strategies Course & Med Decision Making: Course & Med Decision Making Pertinent Labs and Imaging studies reviewed. (See chart for details) [] Dragon Disclaimer: Dragon Disclaimer: This electronic medical record was generated, in whole or in part, using a voice recognition dictation system. Departure Departure: Impression: Primary Impression: Vaginitis Additional Impression: UTI (urinary tract infection) Disposition: HOME / SELF CARE / HOMELESS Condition: STABLE Referrals: DORINA GODFREY MD (PCP) Patient Instructions: Vaginitis, [id number] Additional Instructions: Follow-up with your primary care provider for possible atrophic vaginitis and initiation of topical hormones. Scripts Clotrimazole (Itch Relief) 15 Gm Cream..g. 1 LUL TP BID for vaginitis for 7 Days, #45 GM 0 Refills Prov: MAGGIE DURAN MD 01/05/22 Nitrofurantoin Monohyd/M-Cryst (MACROBID 100 MG CAPSULE) 100 Mg Capsule 1 CAP PO BID for antibiotic for 5 Days, #10 CAP 0 Refills Prov: MAGGIE DURAN MD 01/05/22 MAGGIE DURAN MD Jan 05, 2022 15:37
[2022-01-05 16:06] VITALS: BP 147/81
[2022-01-07 19:10] LABS: CHLAMYDIA PROBE Negative (Negative)
== END 2022-01-05 16:08 | disposition home or self-care (01) ==
LOC: ER 12:56
DX: N39.0 Urinary tract infection, site not specified (principal); N76.0 Acute vaginitis; E11.9 Type 2 diabetes mellitus without complications; I10 Essential (primary) hypertension; E03.9 Hypothyroidism, unspecified; G43.909 Migraine, unspecified, not intractable, without status migrainosus; Z87.440 Personal history of urinary (tract) infections; Z90.49 Acquired absence of other specified parts of digestive tract; Z88.2 Allergy status to sulfonamides; Z88.1 Allergy status to other antibiotic agents; Z88.8 Allergy status to other drugs, medicaments and biological substances
CPT/HCPCS: 81001; 87491; 87591; 99284; Q0111

== ENCOUNTER 2022-02-14 19:02 | Emergency (ER) | payer MEDICARE, BC ==
[~2022-02-14] VITALS: Ht 157.5 cm; Wt 85.6 kg
[~2022-02-14 19:02] MED LIST changes: +CLOT15CR53 TP; +NITR100C62 PO
[2022-02-14] MEDS ORDERED: MORPHINE SULFATE 2 MG/ML DISP.SYRIN. IV ONE (20:00)
[2022-02-14] MEDS ORDERED: ONDANSETRON PF 4 MG/2 ML VIAL. IVP ONE (20:00)
[2022-02-14 20:17] LABS: BASO % 1 % (0-3); EOS # 0.2 x10^3/uL (0.0-0.7); EOS % 3 % (0-3); HEMOGLOBIN 12.4 g/dL (12.0-15.5); LYMPH # 2.6 x10^3/uL (1.0-4.8); LYMPH % 39 % (24-48); MEAN CORPUSCULAR HEMOGLOBIN 31 pg (25-35); MEAN CORPUSCULAR HGB CONC 33 g/dL (31-37); MEAN CORPUSCULAR VOLUME 94 fL (79-100); MONO # 0.4 x10^3/uL (0.0-1.1); MONO % 6 % (0-9); NEUT # 3.3 x10^3uL (1.8-7.7); NEUT % 51 % (31-73); PLATELET COUNT 278 x10^3/uL (140-400); RED BLOOD COUNT 4.05 x10^6/uL (3.50-5.40); RED CELL DISTRIBUTION WIDTH 14.2 % (11.5-14.5); WHITE BLOOD COUNT 6.5 x10^3/uL (4.0-11.0)
[2022-02-14 20:25] LABS: CALCIUM 9.1 mg/dL (8.5-10.1); CREATININE 1.1 mg/dL (0.6-1.0); GFR 48.6; POTASSIUM 4.2 mmol/L (3.5-5.1)
[2022-02-14 20:29] LABS: CLARITY,URINE HAZY; COLOR,URINE YELLOW
[2022-02-14 20:30] LABS: ALBUMIN 3.3 g/dL (3.4-5.0); TOTAL BILIRUBIN 0.2 mg/dL (0.2-1.0); TOTAL PROTEIN 6.6 g/dL (6.4-8.2)
[2022-02-14 20:30] LABS: BACTERIA,URINE MANY /HPF (0-FEW); GLUCOSE,URINE NEG (NEG); NITRITE,URINE POS (NEG); RBC,URINE OCC /HPF (0-2); SQUAMOUS EPITHELIAL CELL,UR OCC /LPF; UROBILINOGEN,URINE 0.2 mg/dL (0.2 mg/dL); WBC,URINE >40 /HPF (0-4)
[2022-02-14] MEDS ORDERED: IOHEXOL 300 MG/ML 75 ML VIAL. IV ONE (20:30)
--- NOTE | 2022-02-14 20:31 | PHYS DOC ---
Text Text Final impression: Vaginal bleeding, urinary tract infection Disposition: Discharge Discharge prescriptions Bactrim General Chief Complaint: VAGINAL BLEEDING Stated Complaint: VAGINAL BLEEDING Time Seen by MD: 19:04 Source: patient History of Present Illness Initial Comments This 76-year-old female presents with vaginal bleeding is been present for approximately 24 hours time. Patient's states that the last time she went to the bathroom she had quite a bit of blood in the toilet. Denies rectal bleeding. She does not have any lightheadedness, weakness or presyncope. No chest pain, shortness of breath. Patient states that she was diagnosed with lichen planus of the vulva about 3 months ago, she has not had bleeding like this prior to today though. No abdominal pain other than some mild intermittent suprapubic cramps. No back pain, no fever, no injury. Timing/Duration: 24 hours Severity: moderate Allergies: Coded Allergies: Sulfa (Sulfonamide Antibiotics) (Verified Allergy, Intermediate, RASH, 01/05/22) aripiprazole (Verified Allergy, Intermediate, RASH, 01/05/22) doxycycline (Verified Allergy, Intermediate, N/V RASH, 01/05/22) pseudoephedrine (Verified Allergy, Intermediate, hyperactive, 01/05/22) triprolidine (Verified Allergy, Intermediate, hyperactive, 01/05/22) Past Medical History Medical History: diabetes, GERD, heart disease, high cholesterol, hypertension, other Surgical History: cholecystectomy, tonsillectomy Review of Systems Constitutional: denies fever EENTM: denies blurred vision Respiratory: denies shortness of breath Cardiovascular: denies chest pain Gastrointestinal: denies abdominal pain Musculoskeletal: denies back pain Skin: denies lesions Psychiatric/Neurological: denies anxiety Hematologic/Lymphatic: denies anemia Immunological/Allergic: denies transplant All Other Systems: Reviewed and Negative Physical Exam Eyes: bilateral eye EOMI Ear, Nose, Throat: normal ENT inspection Neck: full range of motion Respiratory: lungs clear Cardiovascular: regular rate, rhythm Gastrointestinal: non tender, soft Back: normal inspection Extremities: normal range of motion Skin: normal color, warm/dry Comments Genitourinary: Normal external genitalia. On speculum examination patient does have a small amount of dark red blood present in the vaginal vault. On bimanual examination I did not appreciate any masses. Orders, Labs, Meds Is a 76-year-old female with vaginal bleeding. On exam she had small amount of dark blood in the vaginal vault. CT of the abdomen pelvis was negative for evidence of suspicious mass or other source of bleed. Lab work is unrevealing, hemoglobin is 12.4. Patient does have evidence of urinary tract infection. We will start her on some Bactrim and have her follow-up with primary care physician, she is stable for discharge at this time. ANGELIQUE FIELDS MD Feb 14, 2022 20:31
[2022-02-14 21:13] VITALS: BP 159/73
--- NOTE | 2022-02-14 21:13 | RAD ---
Exam: CT of abdomen and pelvis with contrast INDICATION: Vaginal bleeding TECHNIQUE: Sequential axial images through the abdomen and pelvis obtained following the administrati on of 75 mL of Isovue-370 IV contrast. Sagittal and coronal reformatted images were reconstructed fro m the axial data and reviewed. Exposure: One or more of the following in the visualized dose reduction techniques were utilized for this examination: 1. Automated exposure control 2. Adjustment of the MA and/or KV according to patient size 3. Use of iterative of reconstructive technique Comparisons: 06/26/2021 FINDINGS: Heart size is normal. No pericardial effusion. Strandy opacities at dependent portion lungs likely re presenting atelectasis. No pleural effusion. Liver, spleen, pancreas and adrenals are unremarkable. Gallbladder surgically absent. No perinephric inflammation or hydronephrosis. No renal or ureteral calculi are identified. Bladder is partially distended and not well evaluated. Uterus is not enlarged. No abnormal adnexal ma ss. Diverticulosis at the descending and sigmoid colon. Appendix is normal. No free intra-abdominal air o r fluid. No obstruction. Abdominal aorta has normal course and caliber. Abdominal vasculature is patent. No enlarged intra-abdominal lymph nodes are identified. No suspicious osseous lesions or acute fractures. IMPRESSION: 1. Diverticulosis without evidence of acute diverticulitis. 2. No acute process identified within the abdomen or pelvis. Electronically signed by: Azeem Luu MD (02/14/2022 9:11 PM) [facility]
[2022-02-14] MEDS ORDERED: CEPH500C PO (21:43)
== END 2022-02-14 21:59 | disposition home or self-care (01) ==
LOC: ER 19:02
DX: N39.0 Urinary tract infection, site not specified (principal); N93.8 Other specified abnormal uterine and vaginal bleeding; E11.9 Type 2 diabetes mellitus without complications; K21.9 Gastro-esophageal reflux disease without esophagitis; E78.00 Pure hypercholesterolemia, unspecified; I11.9 Hypertensive heart disease without heart failure; Z90.49 Acquired absence of other specified parts of digestive tract; Z88.2 Allergy status to sulfonamides; Z88.1 Allergy status to other antibiotic agents; Z88.8 Allergy status to other drugs, medicaments and biological substances
CPT/HCPCS: 36415; 74177; 80053; 81001; 83690; 85025; 96374; 96375; 99285; J2270; J2405; Q9967